=== PATIENT | female | born 1965 | race Caucasian/White ===

== ENCOUNTER 2022-02-14 13:40 | Inpatient (IN) ==
[2022-02-14] MEDS ORDERED: HEPARIN SOD (PORCINE) 1000 UNIT/ML ONE (13:46)
[2022-02-14] MEDS ORDERED: CLOPIDOGREL BISULFATE 300 MG TAB ONE (13:47)
[2022-02-14] MEDS ORDERED: fentaNYL citrate 100 MCG/2 ML VIAL ONE (13:49)
[2022-02-14] MEDS ORDERED: MIDAZOLAM HCL 1 MG/ML 2ML VIAL ONE (13:49)
[2022-02-14] MEDS ORDERED: niCARdipine HCL INJ 2.5 MG/ML 10 ML AMP ONE (13:49)
[2022-02-14] MEDS ORDERED: NITROGLYCERIN/D5W 100MCG/ML 20ML SYR ONE (13:49)
[2022-02-14] MEDS ORDERED: HEPARIN (PORCINE) 1000 UNIT/ML 10 ML (CATH LAB USE ONLY) ONE (13:49)
--- NOTE | 2022-02-14 13:52 | Emergency Department Note ---
Impression & Plan ST elevation (STEMI) myocardial infarction ADMIT ED Provider Note HPI: The patient is a 56-year-old female with history of obesity, hyperlipidemia, active smoker, presents the emergency department with left-sided chest discomfort that is been ongoing for about the past 4 hours. Patient describes the discomfort as mild in nature but states it was severe earlier in the day. Patient presented via EMS as a heart alert as phone call was received from the field over concerning EKG showing some ST elevation in the inferior leads. On arrival to the ED the patient states that her discomfort is very mild, states it is left-sided and radiates down her left arm. Patient denies any nausea or vomiting, denies any abdominal pain, patient's blood pressure is 168/106 on a rrival, pulse of 95, she is saturating well on room air on my initial assessment. 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 Patient developed some left-sided chest discomfort approximately 4 hours prior to arrival, contacted EMS as her discomfort was not resolving. EKG in the field shows evidence of ST elevation in the inferior leads. On arrival here to the ED the patient is hypertensive but otherwise in no acute distress and she actually states that her pain is improved from previous. Patient states that she has an aspirin allergy therefore this was not given. She was ordered a heparin bolus. Patient had IV established shortly after arrival, heart alert was activated prior to the patient's arrival and patient was taken to the cardiac catheterization lab in stable condition for definitive care. * CRITICAL CARE TIME: (32 ) minutes -Time spent in management of patient with acute ST elevation on EKG with active chest pain, heart alert activation, interpretation of diagnostic studies including EKG, time spent at the bedside and arrangement of disposition to cardiac catheterization lab Diagnosis: 1. ST elevation myocardial infarction, inferior leads 2. Acute chest pain 3. Hypertension 4. Obesity Disposition: Admission Roger Judd DO Emergency Medicine Past Med/Surg History Medical History (Updated 02/14/22 @ 14:22 by Roger Judd DO) Asthma Examination for, medical, general Fatigue Generalized skin tumors Hyperhomocystinemia Hyperlipidemia Obesity, Class II, BMI 35-39.9 Phlebitis and thrombophlebitis of other site Screening for endocrine, metabolic, and immunity disorder Screening for lipid disorders Screening for tuberculosis Thrombophlebitis of deep femoral vein Surgical History (Updated 10/14/18 @ 14:04 by Sarah Garvey) No pertinent past surgical history Family History (Updated 07/05/20 @ 08:08 by AJ Pickering) Family/Other No problems noted. Sister Ovarian cancer Denies family history of Prostate cancer Myocardial infarction Breast cancer Colorectal cancer Social History (Updated 07/05/20 @ 08:09 by AJ Pickering) Smoking Status: Current every day smoker Tobacco Type: Cigarettes Hx Alcohol Use: No Hx Substance Use: No Preferred Language: Syrian marital status: Single Current Living Situation: Family current occupational status: unemployed Feels Safe at Home: Yes caffeine: Yes Dental Care, Regularly: No Physical Activity Frequency: Daily Seatbelt Use: always Sunscreen Use: Yes Allergies Allergies Allergy/AdvReac Type Severity Reaction Status Date / Time Penicillins Allergy Verified 07/05/20 08:06 Home Meds Previous Rx's Medication Instructions Recorded cyanocobalamin (vitamin B-12) 1,000 mcg PO DAILY #30 tabs 10/14/18 1,000 mcg tablet (Vitamin B-12) folic acid 1 mg tablet 1 mg PO DAILY #30 tabs 10/14/18 albuterol sulfate 90 mcg/actuation 2 puff inhalation Q4H PRN 10/30/21 aerosol inhaler (Ventolin HFA) shortness of breath or wheezing #18 grams Results & Data (ED) Vital Signs Vital Signs - 24 hr 02/14/22 13:33 02/14/22 13:47 02/14/22 14:03 Pulse Rate 89 Pulse Rate [Right Finger] 98 H Respiratory Rate 30 H 22 Blood Pressure 168/106 H Blood Pressure [Right Arm] 168/106 H Blood Pressure Mean 126 Blood Pressure Mean [Right Arm] 126 Pulse Oximetry 90 91 91 Oxygen Delivery Method Room Air Room Air Room Air Oxygen Flow Rate Sepsis Recent Fever Within 48 Hours No Sepsis New/Unexplained Change in Mental Status No Sepsis Action Taken by Nursing No Action Required 02/14/22 14:03 02/14/22 14:07 02/14/22 14:07 Pulse Rate 95 H Pulse Rate [Right Finger] Respiratory Rate 24 Blood Pressure Blood Pressure [Right Arm] Blood Pressure Mean Blood Pressure Mean [Right Arm] Pulse Oximetry 91 88 L 91 Oxygen Delivery Method Room Air Room Air Nasal Cannula Oxygen Flow Rate 2 Sepsis Recent Fever Within 48 Hours Sepsis New/Unexplained Change in Mental Status Sepsis Action Taken by Nursing 02/14/22 14:10 Pulse Rate Pulse Rate [Right Finger] Respiratory Rate Blood Pressure Blood Pressure [Right Arm] Blood Pressure Mean Blood Pressure Mean [Right Arm] Pulse Oximetry 94 Oxygen Delivery Method Nasal Cannula Oxygen Flow Rate 2 Sepsis Recent Fever Within 48 Hours Sepsis New/Unexplained Change in Mental Status Sepsis Action Taken by Nursing Laboratory Data Result diagrams: 02/14/22 13:56 02/14/22 13:56 Lab Results 02/14/22 02/14/22 Range/Units 13:52 13:56 WBC 10.51 (4.8-10.8) K/ul RBC 4.90 (3.93-5.22) M/uL Hgb 16.2 H (12.0-16.0) g/dl POC Hgb 17.3 H (12.0-16.0) g/dl Hct 48.5 H (34.1-44.9) % POC Hct 51 H (37-47) % MCV 99.0 (80.0-100.0) fL MCH 33.1 (25.0-34.0) pg MCHC 33.4 (32.0-36.0) g/dL RDW Std Deviation 48.8 H (36.4-46.3) fL RDW Coeff of Macario 13.3 (11.5-14.5) % Plt Count 168 (130-400) K/uL MPV 12.2 (9.4-12.3) fL Immature Gran % (Auto) 0.3 % Neut % (Auto) 89.5 % Lymph % (Auto) 7.2 % Bath % (Auto) 2.3 % Eos % (Auto) 0.3 % Baso % (Auto) 0.4 % Neut # (Auto) 9.41 H (1.4-6.5) K/uL Lymph # (Auto) 0.76 L (1.2-3.4) K/uL Bath # (Auto) 0.24 (0.24-0.82) K/uL Eos # (Auto) 0.03 (0-0.50) K/uL Baso # (Auto) 0.04 (0-0.2) K/uL Immature Gran # (Auto) 0.03 H (0.00-0.02) K/uL POC Sodium 138 (135-144) mmol/L POC Potassium 3.6 (3.3-5.0) mmol/L POC Chloride 95 L (101-112) mmol/L POC Total CO2 32 H (24-31) mmol/L POC Anion Gap 15.0 L (16-25) mmol/L POC BUN 5 L (7-18) mg/dl POC Creatinine 0.8 (0.6-1.3) mg/dl POC Glucose (other) 191 H (70-99) mg/dl POC Ioniz Calcium Seven 1.14 (1.12-1.32) mmol/l Discharge Plan Visit Data Chief Complaint: Heart Alert Stated Complaint: CHEST PAIN, HEART ALERT ED Provider: Roger Judd Discharge Problem: ST elevation (STEMI) myocardial infarction Patient Disposition: Admitted As Inpatient Forms Stand Alone Forms: [facility] Prescriptions Prescriptions: No Action cyanocobalamin (vitamin B-12) [Vitamin B-12] 1,000 mcg tablet 1,000 mcg PO DAILY Qty: 30 0RF folic acid 1 mg tablet 1 mg PO DAILY Qty: 30 2RF albuterol sulfate [Ventolin HFA] 90 mcg/actuation HFA aerosol inhaler 2 puff INH Q4H PRN (Reason: shortness of breath or wheezing) Qty: 18 5RF Referrals Referrals: Alli Mathur DO [Primary Care Provider] -
[2022-02-14] MEDS ORDERED: HEPARIN SOD (PORCINE) 1000 UNIT/ML IV ONE (13:54)
[2022-02-14 14:04] LABS: iSTAT Creatinine 0.8 mg/dl (0.6-1.3); iSTAT Hemoglobin 17.3 g/dl (12.0-16.0); iSTAT Ionized Calcium 1.14 mmol/l (1.12-1.32); iSTAT Potassium 3.6 mmol/L (3.3-5.0)
[2022-02-14 14:07] LABS: Basophils # (auto) 0.04 K/uL (0-0.2); Basophils % (auto) 0.4 %; Eosinophils # (auto) 0.03 K/uL (0-0.50); Eosinophils % (auto) 0.3 %; Hematocrit (blood only) 48.5 % (34.1-44.9); Hemoglobin 16.2 g/dl (12.0-16.0); Immature Granulocytes # (auto) 0.03 K/uL (0.00-0.02); Immature Granulocytes % (auto) 0.3 %; Lymphocytes # (auto) 0.76 K/uL (1.2-3.4); Lymphocytes % (auto) 7.2 %; Mean Corpuscular Hemoglobin 33.1 pg (25.0-34.0); Mean Corpuscular Hgb Conc 33.4 g/dL (32.0-36.0); Mean Platelet Volume 12.2 fL (9.4-12.3); Monocytes # (auto) 0.24 K/uL (0.24-0.82); Monocytes % (auto) 2.3 %; Neutrophils # (auto) 9.41 K/uL (1.4-6.5); Neutrophils % (auto) 89.5 %; Platelet Count 168 K/uL (130-400); RDW Coefficient of Variation 13.3 % (11.5-14.5); RDW Standard Deviation 48.8 fL (36.4-46.3); White Blood Count 10.51 K/ul (4.8-10.8)
[2022-02-14] MEDS ORDERED: TICAGRELOR 90 MG TAB ONE (14:13)
--- NOTE | 2022-02-14 14:25 | Pre Anesthesia Assessment ---
Date of Service February 14, 2022 Pre Sedation Assessment Vital Signs Pulse Pulse Resp BP BP Pulse Ox O2 Del Method 02/14/22 14:12 104 H 25 H 94 Nasal Cannula 02/14/22 14:10 94 Nasal Cannula 02/14/22 14:07 24 91 Nasal Cannula 02/14/22 14:07 88 L Room Air 02/14/22 14:03 95 H 91 Room Air 02/14/22 14:03 91 Room Air 02/14/22 13:47 98 H 22 168/106 H 91 Room Air 02/14/22 13:33 89 30 H 168/106 H 90 Room Air O2 Flow Rate 02/14/22 14:12 2 02/14/22 14:10 2 02/14/22 14:07 2 02/14/22 14:07 02/14/22 14:03 02/14/22 14:03 02/14/22 13:47 02/14/22 13:33 Cardiovascular RRR, no murmur, no edema Respiratory normal respiratory effort, lungs clear to auscultation Pre-Sedation Airway Assessment Smoking Status: Current every day smoker Hx Sleep Apnea: No Hx Difficult Intubation: No Short, Thick Neck: No Thyromental Distance: < 3.5 Finger Breadths Oral Cavity: + WNL Mallampati Class: III ASA: ASA4 Procedure Planning Contraindications for Sedation: none Current Medications Reviewed: Yes Notes The planned sedation has been discussed with the patient. Informed Consent was obtained. I have identified the patient, determined the appropriateness of sedation and have assessed the patient immediately prior to the procedure. All medicine(s) and interventions are by my order.
--- NOTE | 2022-02-14 14:27 | History & Physical Report ---
Date of Service February 14, 2022 Assessment & Plan (1) ST elevation (STEMI) myocardial infarction: Plan: Zuly Johns is a 56-year-old female with a past medical history of obesity, hyper homocystinemia, hyperlipidemia, asthma, left shoulder pain after a fall 08/2021, and tobacco abuse who presents to [facility] as a heart alert w/ EKG changes consistent with inferior STEMI. 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 Inferior STEMI s/p 1x TRELL to distal CX for 100% occlusion EKG: ST elevation in II, II, aVF Troponin 344 Cardiology consulted --> cardiac catheterization CXR pending Sodium normal, potassium normal CO2 32, Creatinine 0.8, BSG 191, iCal 1.14 - Echo pending - Trop trended - +BB, SHANE. - +Atorv 80 pending lipid results -- PCI -- Antithrombotic therapy: Heparin, ticagrelor Procedure: Left main cannulated with EBU 3.5 guide Bowling Ball Molder 50 wire passed across lesion into distal vessel Distal circumflex lesion predilated with 2.5 compliant balloon Dilated lesion stented with 3.0 x 18 mm Chris drug-eluting stent Stent post-dilated with 3.5 noncompliant balloon IC vasodilators administered for spasm Post procedure JYOTHI 3 flow, stent well expanded with minimal residual stenosis and no apparent cardiac complications. Arterial Closure: TR band Summary: 1. Inferior STEMI/100% acute distal circumflex occlusion 2. Mild non-culprit coronary artery disease -30% mid circumflex 3. Elevated intracardiac filling pressure 4. Successful PCI of distal circumflex with single drug-eluting stent (3.0 x 18 mm Chris; postdilated with 3.5 NC). Recommendations: Admit to PCU for continued monitoring Loaded with ticagrelor 180 mg in ED Continue dual-antiplatelet therapy for at least 1 year. Trend troponins until peak, Check Echo Uptitrate beta-aundrea/SHANE as BP allows High-dose statin Consult cardiac Rehab Smoking cessation Hyperlipidemia Fasting lipid panel pending No prior statin/antilipid agents Hyper homocystinemia Elevated risk for cardiac/thromboembolic events Continue folic acid supplementation B12 levels pending Asthma - No wheezing on admission By chart review using inhaler ~1x/week, sx worsened by cat dander, suspect intermittent by chart review No PFTs available for review With palpitations/tachycardia with albuterol in the past, Xopenex as needed Dispo: PCU for recovery post cath Diet: NPO pending cath Code Status: Full Code (2) Hyperlipidemia: (3) Hyperhomocystinemia: (4) Obesity, Class II, BMI 35-39.9: (5) Asthma: History of Present Illness Primary Care Provider: Alli Mathur DO Zuly Johns is a 56-year-old female with a past medical history of obesity, hyper homocystinemia, hyperlipidemia, asthma, left shoulder pain after a fall 08/2021, and tobacco abuse who presents to [facility] as a heart alert. 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 Presents to the emergency department with 4 hours of chest discomfort initially severe with a shock like quality and gradually fading but with a tight and squeezing quality and which radiates down L shoulder/arm. No diaphoresis/shortness of breath but does feel very anxious. History of 1-1.5 pack/day tobacco use. No prior history of [place]/stroke. First- degree family history of angina. No diabetes. No prior hypertension, does not take antihypertensives. History of homocystinemia, on chart review history of hyperlipidemia although patient reports she does not take any lipid-lowering medications/statins. BMI 34. No surgical history. Lives with her autistic son for whom she is the primary caregiver, is concerned about recovery time but agreeable to catheterization for STEMI. EKG: ST elevations in 2/3/aVF Troponin pending Medical History: Reviewed Medications: Reviewed Surgical History: Reviewed Allergies: Reviewed Social History: 1-1.5ppd tobacco use Code Status: Full Allergies Allergy/AdvReac Type Severity Reaction Status Date / Time Penicillins Allergy Verified 07/05/20 08:06 Home Medications Medication Instructions Recorded Confirmed Type cyanocobalamin (vitamin B-12) 1,000 mcg PO DAILY #30 tabs 10/14/18 07/05/20 Rx 1,000 mcg tablet (Vitamin B-12) folic acid 1 mg tablet 1 mg PO DAILY #30 tabs 10/14/18 07/05/20 Rx albuterol sulfate 90 mcg/actuation 2 puff inhalation Q4H PRN 10/30/21 10/30/21 Rx aerosol inhaler (Ventolin HFA) shortness of breath or wheezing #18 grams Past Med/Surg History Medical History Asthma Examination for, medical, general Fatigue Generalized skin tumors Hyperhomocystinemia Hyperlipidemia Obesity, Class II, BMI 35-39.9 Phlebitis and thrombophlebitis of other site Screening for endocrine, metabolic, and immunity disorder Screening for lipid disorders Screening for tuberculosis Thrombophlebitis of deep femoral vein Surgical History (Reviewed 02/14/22 @ 14: by Jesse Mejia MD) No pertinent past surgical history Family History Family/Other No problems noted. Sister Ovarian cancer Denies family history of Prostate cancer Myocardial infarction Breast cancer Colorectal cancer Social History Smoking Status: Current every day smoker Tobacco Type: Cigarettes Hx Alcohol Use: No Hx Substance Use: No Preferred Language: Polish marital status: Single Current Living Situation: Family current occupational status: unemployed Feels Safe at Home: Yes caffeine: Yes Dental Care, Regularly: No Physical Activity Frequency: Daily Seatbelt Use: always Sunscreen Use: Yes Review of Systems Review of Systems: All systems reviewed & are unremarkable except as noted in HPI & below Physical Exam Physical Exam: Alert and oriented, answers questions appropriately, RRR -mrg, extremities warm/dry with good perfusion, CTAB -wrr. Abt NT/ND/soft. Vision/hearing grossly intact. PERLAA. EoM intact. Results & Data Results & Data ([facility]) Vital Signs (Past 12 Hours) Vital Signs Pulse Pulse Resp BP BP Pulse Ox O2 Del Method 02/14/22 14:12 104 H 25 H 94 Nasal Cannula 02/14/22 14:10 94 Nasal Cannula 02/14/22 14:07 24 91 Nasal Cannula 02/14/22 14:07 88 L Room Air 02/14/22 14:03 95 H 91 Room Air 02/14/22 14:03 91 Room Air 02/14/22 13:47 98 H 22 168/106 H 91 Room Air 02/14/22 13:33 89 30 H 168/106 H 90 Room Air O2 Flow Rate 02/14/22 14:12 2 02/14/22 14:10 2 02/14/22 14:07 2 02/14/22 14:07 02/14/22 14:03 02/14/22 14:03 02/14/22 13:47 02/14/22 13:33 Code Status & VTE Plan VTE Prophylaxis Plan VTE Prophylaxis will be ordered: Yes PG Care Time/CCT Total # of Minutes Spent Total Time Spent with Patient: Total time spent is greater than 50% in coordination of care (as documented) at patient's floor/unit and/or counseling patient: Coding Level of Care Code 28900 Initial Inpt Care Lvl [address] elevation (STEMI) myocardial infarction I21.19 Involved coronary artery: other inferior wall coronary artery Hyperlipidemia E78.5 Hyperhomocystinemia E72.11 Obesity, Class II, BMI 35-39.9 E66.9 Asthma J45.909 (1) ST elevation (STEMI) myocardial infarction Involved coronary artery: other inferior wall coronary artery Qualified Code(s): I21.19 - ST elevation (STEMI) myocardial infarction involving other coronary artery of inferior wall
--- NOTE | 2022-02-14 14:32 | XRay Report ---
XR chest 1V portable CLINICAL HISTORY: Chest Pain TECHNIQUE: Single frontal radiograph of the chest was obtained. Comparison: None available at the time of this dictation. FINDINGS: Exam is limited by underpenetration. The cardiomediastinal silhouette is normal. The lungs are clear. No evidence of pleural effusion or pneumothorax. IMPRESSION: No acute chest disease. ACT 112: Negative or not required by law. Electronically signed by: Evangelist Reynoso M.D. 02/14/2022 2:30 PM
[2022-02-14 14:45] LABS: Albumin Globulin Ratio 1.3 (0.9-2); Albumin Level 4.1 gm/dl (3.4-5.0); BUN Creatinine Ratio 7.1 (10-20); Bilirubin,Total 0.6 mg/dl (0.2-1.0); Calcium 9.6 mg/dl (8.5-10.1); Creatinine Clr Calc Pharmacy 88.8 ml/min; Est GFR (African American) 90.7 ml/min; Est GFR (Non-African American) 78.2 ml/min; Globulin 3.2 gm/dl (2.5-4.0); Potassium 3.6 mmol/L (3.5-5.1); Total Protein 7.3 gm/dl (6.0-8.3)
[2022-02-14 14:54] LABS: Troponin I High Sensitivity 344.6 pg/ml (0-14)
[2022-02-14] MEDS ORDERED: ACETAMINOPHEN 325 MG TAB PO PRN (15:05)
[2022-02-14] MEDS ORDERED: NITROGLYCERIN SL 0.4 MG/TAB TAB SL PRN (15:05)
[2022-02-14] MEDS ORDERED: ONDANSETRON INJ 2 MG/ML 2 ML VIAL IV PRN (15:05)
[2022-02-14] MEDS ORDERED: SODIUM CHLORIDE 0.9% 1000ML 1,000 ML IV SCH (15:15)
--- NOTE | 2022-02-14 15:20 | Cardiology Consultation ---
Date of Consultation February 14, 2022 Assessment & Plan (1) ST elevation (STEMI) myocardial infarction: Presentation consistent with inferior STEMI and recommend proceeding with emergent cardiac catheterization and likely primary PCI. No apparent contraindications to procedure. Discussed risks, benefits, alternatives of procedure with patient and they are willing to proceed. Given IV heparin and ticagrelor 180 mg in the ED. Further recommendations pending findings of coronary angiography. History of Present Illness History of Present Illness 56-year-old woman here with acute chest pain and ECG concerning for acute CA. Patient seen emergently in the ED after heart alert activated en route. No prior cardiac history. Cardiac risk factors include dyslipidemia and ongoing smoking (1.5 packs/day). Mother also with a history of questionable angina. Other medical issues include Asthma. Chest pain began approximately 10 AM, 3.5 hours prior to arrival. Pain occurred while she was taking a nap, waking her from sleep. Describes initial like electric shock going across her chest and down her arms then persistent left shoulder tightness and shortness of breath. Has had longstanding shoulder/back issues but denies similar symptoms in the past. EKG in the field showed inferior ST elevations. Mild residual chest pain on arrival. Hemodynamically stable. EKG again showed sinus rhythm with subtle inferior ST elevations. Allergies Allergy/AdvReac Type Severity Reaction Status Date / Time Penicillins Allergy Verified 07/05/20 08:06 Home Medications Medication Instructions Recorded Confirmed Type cyanocobalamin (vitamin B-12) 1,000 mcg PO DAILY #30 tabs 10/14/18 07/05/20 Rx 1,000 mcg tablet (Vitamin B-12) folic acid 1 mg tablet 1 mg PO DAILY #30 tabs 10/14/18 07/05/20 Rx albuterol sulfate 90 mcg/actuation 2 puff inhalation Q4H PRN 10/30/21 10/30/21 Rx aerosol inhaler (Ventolin HFA) shortness of breath or wheezing #18 grams Patient History Medical History Asthma Examination for, medical, general Fatigue Generalized skin tumors Hyperhomocystinemia Hyperlipidemia Obesity, Class II, BMI 35-39.9 Phlebitis and thrombophlebitis of other site Screening for endocrine, metabolic, and immunity disorder Screening for lipid disorders Screening for tuberculosis Thrombophlebitis of deep femoral vein Surgical History No pertinent past surgical history Family History Family/Other No problems noted. Sister Ovarian cancer Denies family history of Prostate cancer Myocardial infarction Breast cancer Colorectal cancer Social History Smoking Status: Current every day smoker Tobacco Type: Cigarettes Hx Alcohol Use: No Hx Substance Use: No Preferred Language: Colombian marital status: Single Current Living Situation: Family current occupational status: unemployed Feels Safe at Home: Yes caffeine: Yes Dental Care, Regularly: No Physical Activity Frequency: Daily Seatbelt Use: always Sunscreen Use: Yes Review of Systems Review of Systems: Not obtained in the setting of emergent situation Physical Exam Physical Exam: General: Uncomfortable, anxious HEENT: Sclerae anicteric Lungs: Clear anteriorly Cardiac: Regular rate and rhythm, no murmurs. Vascular: 2+ radial Abdomen: Soft, nontender Extremities: Well perfused, no peripheral edema Neuro: Nonfocal Psych: Alert orient x3, normal affect and mood Results & Data ([facility]) Vital Signs (Past 12 Hours) Vital Signs Pulse Pulse Resp BP BP Pulse Ox O2 Del Method 02/14/22 14:12 104 H 25 H 94 Nasal Cannula 02/14/22 14:10 94 Nasal Cannula 02/14/22 14:07 24 91 Nasal Cannula 02/14/22 14:07 88 L Room Air 02/14/22 14:03 95 H 91 Room Air 02/14/22 14:03 91 Room Air 02/14/22 13:47 98 H 22 168/106 H 91 Room Air 02/14/22 13:33 89 30 H 168/106 H 90 Room Air O2 Flow Rate 02/14/22 14:12 2 02/14/22 14:10 2 02/14/22 14:07 2 02/14/22 14:07 02/14/22 14:03 02/14/22 14:03 02/14/22 13:47 02/14/22 13:33 PG Care Time/CCT Total # of Minutes Spent Total Time Spent with Patient: Total time spent is greater than 50% in coordination of care (as documented) at patient's floor/unit and/or counseling patient: Coding Level of Care Code 83397 Initial Inpt Care Lvl [address] elevation (STEMI) myocardial infarction I21.19 Involved coronary artery: other inferior wall coronary artery (1) ST elevation (STEMI) myocardial infarction Involved coronary artery: other inferior wall coronary artery Qualified Code(s): I21.19 - ST elevation (STEMI) myocardial infarction involving other coronary artery of inferior wall
--- NOTE | 2022-02-14 15:21 | Post Anesthesia Assessment ---
Date of Service February 14, 2022 Post Sedation Assessment Vital Signs Pulse Pulse Pulse Resp BP BP Pulse Ox 02/14/22 15:15 69 16 132/81 94 02/14/22 15:00 71 16 103/71 92 02/14/22 14:12 104 H 25 H 94 02/14/22 14:10 94 02/14/22 14:07 24 91 02/14/22 14:07 88 L 02/14/22 14:03 95 H 91 02/14/22 14:03 91 02/14/22 13:47 98 H 22 168/106 H 91 02/14/22 13:33 89 30 H 168/106 H 90 O2 Del Method O2 Flow Rate 02/14/22 15:15 Nasal Cannula 2 02/14/22 15:00 Nasal Cannula 2 02/14/22 14:12 Nasal Cannula 2 02/14/22 14:10 Nasal Cannula 2 02/14/22 14:07 Nasal Cannula 2 02/14/22 14:07 Room Air 02/14/22 14:03 Room Air 02/14/22 14:03 Room Air 02/14/22 13:47 Room Air 02/14/22 13:33 Room Air Recovery Score Activity: Moves 4 extremities Respiration: Deep Breath/Cough Circulation: +/-20% PreAnes Value Consciousness: Fully Awake Oxygen Saturation: O2 needed for >90% Post Anesthesia Score: 9 Discharge Sedation Level of Care: Fast Track Phase II Post Sedation Plan On clinical assessment, the patient appears to have tolerated the sedation without complications. Patient is recovering as anticipated. Patient will continue to be monitored by nursing and may be discharged when sedation discharge criteria are met per below protocol. Upon Completions of procedure up to 15 minutes continue every 5 minute vital signs and the P.A.R. score; then discharge to a Phase I or Fast Track to Phase II per the following guidelines: * Discharge Patient to appropriate Phase II area if PAR is 8 or greater or return to pre- procedure baseline. The post - procedure orders will be as directed. * If PAR score is less than 8 or not return to pre-procedure baseline then patient will follow Phase I monitoring till PAR is reached for Phase II. The Phase I may be done in procedure room or may call to secure a Phase I area. * If naloxone or flumazenil are used for reversal, hold in Phase I for continued monitoring from when last reversal dose was given for a minimum of 60 minutes or longer pending the nurse and/or physician discretion of patient condition before discharge to Phase II. Please call the Sedation Physician to re-evaluate and complete post-note for discharge to Phase II area. Do NOT discharge from procedure sedation or Phase 1 until post- sedation evaluation note is complete by procedure /sedation MD Sedation Discharge Instructions to be given to the patient at discharge to home.
--- NOTE | 2022-02-14 15:29 | Cardiac Catheterization ---
[facility] Data: [employer] Cardiac Status Clinical evaluation leading to the procedure CAD Presenation: STEMI Anginal Classification: CCS IV Diagnostic Physicians Name: Moisés Munoz MD Closure Device Recommendations: PCI without planned CABG Cardiac Cath Procedure Full Procedure Date February 14, 2022 Pre-Procedure Diagnosis Pre-Procedure Diagnosis: STEMI AUC Score AUC Score: 9 Post-Procedure Diagnosis Post-Procedure Diagnosis: Severe CAD, Successful PCI and Elevated Intracardiac Pressures Procedure(s) Performed Procedure(s) Performed: Coronary Angiography, Left Heart Cath and Drug Eluting Stent Pharmacy Coordinator Moisés Munoz MD 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 Distal vessel without significant disease and wraps around apex. D1, D2 without disease. Circumflex -large caliber, 30% mid segment disease. Acute 100% distal occlusion at takeoff of small OM 3 RCA -dominant, large caliber vessel, proximal and mid segment luminal irregularities. PDA without significant disease. LVEDP -22 -- PCI -- Antithrombotic therapy: Heparin, ticagrelor Procedure: Left main cannulated with EBU 3.5 guide Land Title Examiner 50 wire passed across lesion into distal vessel Distal circumflex lesion predilated with 2.5 compliant balloon Dilated lesion stented with 3.0 x 18 mm Chris drug-eluting stent Stent post-dilated with 3.5 noncompliant balloon IC vasodilators administered for spasm Post procedure JYOTHI 3 flow, stent well expanded with minimal residual stenosis and no apparent cardiac complications. Arterial Closure: TR band Summary: 1. Inferior STEMI/100% acute distal circumflex occlusion 2. Mild non-culprit coronary artery disease -30% mid circumflex 3. Elevated intracardiac filling pressure 4. Successful PCI of distal circumflex with single drug-eluting stent (3.0 x 18 mm [place]; postdilated with 3.5 NC). Recommendations: Admit to PCU for continued monitoring Loaded with ticagrelor 180 mg in ED Continue dual-antiplatelet therapy for at least 1 year. Trend troponins until peak, Check Echo Uptitrate beta-aundrea/SHANE as BP allows High-dose statin Consult cardiac Rehab Smoking cessation Hemodynamics Rest Ao:: 142/86/113 Final Ao: 96/58/74 LV: 97/22 Recommendations Recommendations: PCI without planned CABG Radiation Exposure (mGy) 1105 Contrast (mls) 40 Drains Drains: None Anesthesia Moderate 7651-1687 Procedural Complication(s) None Disposition PCU I attest to the content of the Intraoperative Record and any orders documented therein. Any exceptions are noted below. [facility] Card Cath Procedure Codes Cardiac Catheterization Procedure 1: Cardiovascular Cath Procedures: 51204 Coronaries and LHC (+/-LV) Moderate Sedation Procedure 1: Sedation/Anesthesia: 82411 Mod Sedation by the same physician;Init15 Min Child Age 5 & Up Stenting Procedure 1: Cardiovascular Stent Procedures: 04006 Perc transluminal revascularization of acute sub/total occl, aMI PG Care Time/CCT Total # of Minutes Spent Total Time Spent with Patient: Total time spent is greater than 50% in coordination of care (as documented) at patient's floor/unit and/or counseling patient:
--- NOTE | 2022-02-14 15:38 | Electrocardiogram Report ---
Test Reason : Blood Pressure : / mmHG Vent. Rate : 089 BPM Atrial Rate : 089 BPM P-R Int : 130 ms QRS Dur : 086 ms QT Int : 370 ms P-R-T Axes : 074 069 085 degrees QTc Int : 450 ms Normal sinus rhythm Low voltage QRS ST elevation consider inferior injury or acute infarct ACUTE [place] / STEMI Abnormal ECG No previous ECGs available Confirmed by Fred Valerio ([id number]) on 02/14/2022 3:37:57 PM Referred By: ED Confirmed By:Fred Valerio
[2022-02-14] MEDS ORDERED: ICU PROTOCOL FOR HYPERGLYCEMIA PRN (15:59)
--- NOTE | 2022-02-14 16:14 | XCELERA ---
[id number]
[2022-02-14] MEDS ORDERED: diphenhydrAMINE Capsule 25 MG CAP PO PRN (17:20)
[2022-02-14] MEDS ORDERED: FUROSEMIDE 40 MG/4 ML VIAL IV ONE (18:25)
[2022-02-14] MEDS: ALBUT/IPRATROP 3MG/0.5MG NEB 3 ML VIAL NEB SCH (19:08)
[2022-02-14] MEDS: methylPREDNISolone 40 MG in SYRINGE 0 ML IV SCH (19:24)
[2022-02-14] MEDS: METOPROLOL TARTRATE 25 MG TAB PO SCH (20:18)
[2022-02-15] MEDS: ALBUTEROL HFA 8 GM INHALER INH PRN ×5 (00:16→23:37)
--- NOTE | 2022-02-15 00:59 | Communication Note ---
Date of Service: February 15, 2022 17 beat run of Secure[employer]. repleting K. checking Mg w/ amlabs not tolerating IV repletion, so switching to 40meq PO KCl.
[2022-02-15] MEDS ORDERED: POTASSIUM CHLORIDE / WTR 10 MEQ/100 ML PLCT IV SCH (01:00)
[2022-02-15] MEDS ORDERED: POTASSIUM CHLORIDE CRTAB 20 MEQ TABCR PO STA (01:35)
[2022-02-15 05:39] LABS: Basophils # (auto) 0.02 K/uL (0-0.2); Basophils % (auto) 0.2 %; Hematocrit (blood only) 44.8 % (34.1-44.9); Hemoglobin 15.2 g/dl (12.0-16.0); Immature Granulocytes # (auto) 0.03 K/uL (0.00-0.02); Immature Granulocytes % (auto) 0.3 %; Lymphocytes # (auto) 0.55 K/uL (1.2-3.4); Lymphocytes % (auto) 5.1 %; Mean Corpuscular Hgb Conc 33.9 g/dL (32.0-36.0); Mean Corpuscular Volume 97.4 fL (80.0-100.0); Mean Platelet Volume 12.2 fL (9.4-12.3); Monocytes # (auto) 0.51 K/uL (0.24-0.82); Monocytes % (auto) 4.7 %; Neutrophils # (auto) 9.74 K/uL (1.4-6.5); Neutrophils % (auto) 89.7 %; Platelet Count 171 K/uL (130-400); RDW Coefficient of Variation 13.4 % (11.5-14.5); RDW Standard Deviation 47.8 fL (36.4-46.3); White Blood Count 10.85 K/ul (4.8-10.8)
[2022-02-15 06:06] LABS: Albumin Globulin Ratio 1.3 (0.9-2); Albumin Level 3.8 gm/dl (3.4-5.0); BUN Creatinine Ratio 11.7 (10-20); Bilirubin,Total 0.8 mg/dl (0.2-1.0); Calcium 9.7 mg/dl (8.5-10.1); Chol HDL Ratio 3.2 (0-5); Creatinine Clr Calc Pharmacy 90.3 ml/min; Est GFR (African American) 100.7 ml/min; Est GFR (Non-African American) 86.9 ml/min; Magnesium 2.1 mg/dl (1.7-2.4); Potassium 3.9 mmol/L (3.5-5.1); Total Protein 6.8 gm/dl (6.0-8.3)
[2022-02-15 06:28] LABS: Troponin I High Sensitivity 60435.3 pg/ml (0-14)
[2022-02-15] MEDS: ALBUT/IPRATROP 3MG/0.5MG NEB 3 ML VIAL NEB SCH ×2 (07:44→10:53)
[2022-02-15 07:46] LABS: Estimated Average Glucose 131 mg/dl; Hemoglobin A1C 6.2 % (4.5-5.6)
[2022-02-15 07:53] LABS: Estimated Average Glucose 134 mg/dl; Hemoglobin A1C 6.3 % (4.5-5.6)
[2022-02-15] MEDS: METOPROLOL TARTRATE 25 MG TAB PO SCH ×2 (08:47→20:56)
[2022-02-15] MEDS: methylPREDNISolone 40 MG in SYRINGE 0 ML IV SCH (08:47)
[2022-02-15] MEDS: TICAGRELOR 90 MG TAB PO SCH ×2 (08:48→20:57)
[2022-02-15] MEDS: lisinopril 5 MG TAB PO SCH (08:48)
[2022-02-15] MEDS: ATORVASTATIN 40 MG TAB PO SCH (08:49)
[2022-02-15] MEDS: ASPIRIN 81 MG ECTAB PO SCH (08:49)
--- NOTE | 2022-02-15 11:12 | Electrocardiogram Report ---
Test Reason : Blood Pressure : / mmHG Vent. Rate : 077 BPM Atrial Rate : 077 BPM P-R Int : 108 ms QRS Dur : 088 ms QT Int : 598 ms P-R-T Axes : 070 071 066 degrees QTc Int : 676 ms Poor data quality, interpretation may be adversely affected Sinus rhythm with short IL Prolonged QT Abnormal ECG When compared with ECG of 14-FEB-2022 13:42, ST elevation in Inferior leads no longer present Confirmed by Kaleb Javed ([id number]) on 02/15/2022 11:11:46 AM Referred By: REFERRED SELF Confirmed By:Kaleb Javed
[2022-02-15] MEDS ORDERED: ALBUT/IPRATROP 3MG/0.5MG NEB 3 ML VIAL NEB PRN (11:14)
--- NOTE | 2022-02-15 13:48 | Hospitalist Progress Note ---
Date of Service February 15, 2022 Assessment & Plan (1) ST elevation (STEMI) myocardial infarction: Plan: Zuly Johns is a 56-year-old female with a past medical history of obesity, hyper homocystinemia, hyperlipidemia, asthma, left shoulder pain after a fall 08/2021, and tobacco abuse who presents to [facility] as a heart alert w/ EKG changes consistent with inferior STEMI. 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 Inferior STEMI s/p 1x TRELL to distal CX for 100% occlusion EKG: ST elevation in II, II, aVF Troponin 344 -> 117,000, then down. Cardiology consulted --> cardiac catheterization on 02/14 with 100% occluded distal LCx. 1 TRELL placed. - Echo on 02/14 with EF 60 - 65%. No regional wall motion abnormalities. - Continue ASA, Brilinta, metoprolol, lisinopril, and statin Hyper homocystinemia Elevated risk for cardiac/thromboembolic events Continue folic acid supplementation Asthma - No wheezing on admission By chart review using inhaler ~1x/week, sx worsened by cat dander, suspect intermittent by chart review No PFTs available for review With palpitations/tachycardia with albuterol in the past, Xopenex as needed (2) Hyperlipidemia: (3) Hyperhomocystinemia: (4) Obesity, Class II, BMI 35-39.9: (5) Asthma: Admission and Anticipated Discharge Date Admission Date: February 14, 2022 Subjective Doing well today. No further chest pain. Notes some left shoulder pain from an injury in August. Reports no fevers/chills, chest pain, shortness of breath, abdominal pain, nausea, or vomiting. Physical Exam Constitutional: WD/WN, vitals as above Eyes: EOM intact bilaterally; no conjunctival abnormality ENMT: external ear and nose normal, oropharynx normal Neck: trachea midline, no thyromegaly normal visual inspection Respiratory: normal respiratory effort, lungs clear to auscultation no respiratory distress Cardiovascular: RRR, no murmur, no edema Gastrointestinal (Abdomen): Inspection/Auscultation: abdomen normal to inspection; abdomen not distended Musculoskeletal: no cyanosis or clubbing, extremities motor strength 5/5 Skin: no rashes, warm and dry Neurologic: moves all extremities and awake Psychiatric: Orientation: alert, oriented to person and cooperative Results & Data Results & Data ([facility]) Vital Signs (Past 12 Hours) Vital Signs Temp Pulse Pulse Pulse Resp BP Pulse Ox 02/15/22 10:53 82 19 92 02/15/22 10:50 36.9 C 68 20 135/92 92 02/15/22 08:45 02/15/22 06:18 85 02/15/22 07:35 36.8 C 82 18 148/89 H 91 02/15/22 07:34 86 19 93 02/15/22 03:38 36.7 C 75 18 134/90 90 O2 Del Method O2 Flow Rate 02/15/22 10:53 Nasal Cannula 1 02/15/22 10:50 Nasal Cannula 1 02/15/22 08:45 Nasal Cannula 1 02/15/22 06:18 02/15/22 07:35 Nasal Cannula 2 02/15/22 07:34 Nasal Cannula 1 02/15/22 03:38 Nasal Cannula 2 PG Care Time/CCT Total # of Minutes Spent Total Time Spent with Patient: Total time spent is greater than 50% in coordination of care (as documented) at patient's floor/unit and/or counseling patient: Coding Level of Care Code 82621 Subseq Hosp Care Lvl [address] elevation (STEMI) myocardial infarction I21.19 Involved coronary artery: other inferior wall coronary artery Hyperlipidemia E78.5 Hyperhomocystinemia E72.11 Obesity, Class II, BMI 35-39.9 E66.9 Asthma J45.909 (1) ST elevation (STEMI) myocardial infarction Involved coronary artery: other inferior wall coronary artery Qualified Code(s): I21.19 - ST elevation (STEMI) myocardial infarction involving other coronary artery of inferior wall
--- NOTE | 2022-02-15 14:55 | Cardiology Progress Note ---
Date of Service February 15, 2022 Assessment & Plan (1) ST elevation (STEMI) myocardial infarction: (2) Presence of drug coated stent in left circumflex coronary artery: (3) Asthma: Plan Doing well post drug-eluting stent circumflex artery. Brief SVT but no significant dysrhythmias overnight. Etiology of mild dyspnea uncertain, she does not appear volume overloaded and has no evidence of bronchospasm, continue to monitor. She does have history of asthma and tobacco use. Likely discharge tomorrow if clinically appropriate. Admission and Anticipated Discharge Date Admission Date: February 14, 2022 Subjective Patient denies any chest discomfort. She does note mild dyspnea and feeling warm. No palpitations, lightheadedness, or other complaints. Telemetry showed sinus rhythm with one 12 beat run of narrow complex tachycardia overnight. Physical Exam Physical Exam: No distress. Afebrile. Normotensive. Pulse 82 bpm and regular. Skin: no ecchymoses or generalized lesions. HEENT: unremarkable. Neck: no JVD or carotid bruits. Lungs: Mildly decreased breath sounds, but generally clear. No wheezing at rest or on forced exhalation. No accessory muscle use. Cardiac: regular rhythm, no murmur or gallop. Abdomen: benign. Extremities: no edema, pulses intact. Right radial access site benign. Neurologic: normal affect, nonfocal. Results & Data ([facility]) Vital Signs (Past 12 Hours) Vital Signs Temp Pulse Pulse Pulse Resp BP Pulse Ox 02/15/22 10:53 82 19 92 02/15/22 10:50 98.4 F 68 20 135/92 92 02/15/22 08:45 02/15/22 06:18 85 02/15/22 07:35 98.2 F 82 18 148/89 H 91 02/15/22 07:34 86 19 93 02/15/22 03:38 98.1 F 75 18 134/90 90 O2 Del Method O2 Flow Rate 02/15/22 10:53 Nasal Cannula 1 02/15/22 10:50 Nasal Cannula 1 02/15/22 08:45 Nasal Cannula 1 02/15/22 06:18 02/15/22 07:35 Nasal Cannula 2 02/15/22 07:34 Nasal Cannula 1 02/15/22 03:38 Nasal Cannula 2 Diagnostic Findings Echocardiogram showed EF 60 to 65% with no definite wall motion abnormalities. PG Care Time/CCT Total # of Minutes Spent Total Time Spent with Patient: Total time spent is greater than 50% in coordination of care (as documented) at patient's floor/unit and/or counseling patient: Coding Level of Care Code 52821 Subseq Hosp Care Lvl [address] elevation (STEMI) myocardial infarction I21.19 Involved coronary artery: other inferior wall coronary artery Presence of drug coated stent in left circumflex coronary artery Z95.5 Asthma J45.909 (1) ST elevation (STEMI) myocardial infarction Involved coronary artery: other inferior wall coronary artery Qualified Code(s): I21.19 - ST elevation (STEMI) myocardial infarction involving other coronary artery of inferior wall
[2022-02-15] MEDS ORDERED: ALBUTEROL HFA 8 GM INHALER INH SCH (17:00)
[2022-02-16 06:34] LABS: Basophils # (auto) 0.05 K/uL (0-0.2); Basophils % (auto) 0.4 %; Eosinophils # (auto) 0.02 K/uL (0-0.50); Eosinophils % (auto) 0.2 %; Hematocrit (blood only) 44.2 % (34.1-44.9); Hemoglobin 14.5 g/dl (12.0-16.0); Immature Granulocytes # (auto) 0.05 K/uL (0.00-0.02); Immature Granulocytes % (auto) 0.4 %; Lymphocytes # (auto) 2.11 K/uL (1.2-3.4); Mean Corpuscular Hemoglobin 32.8 pg (25.0-34.0); Mean Corpuscular Hgb Conc 32.8 g/dL (32.0-36.0); Mean Platelet Volume 12.3 fL (9.4-12.3); Monocytes # (auto) 0.79 K/uL (0.24-0.82); Monocytes % (auto) 6.7 %; Neutrophils # (auto) 8.72 K/uL (1.4-6.5); Neutrophils % (auto) 74.3 %; Platelet Count 153 K/uL (130-400); RDW Coefficient of Variation 13.6 % (11.5-14.5); RDW Standard Deviation 50.4 fL (36.4-46.3); Red Blood Count 4.42 M/uL (3.93-5.22); White Blood Count 11.74 K/ul (4.8-10.8)
[2022-02-16 06:53] LABS: BUN Creatinine Ratio 22.7 (10-20); Calcium 9.4 mg/dl (8.5-10.1); Creatinine Clr Calc Pharmacy 92.3 ml/min; Est GFR (Non-African American) 89.7 ml/min; Potassium 3.9 mmol/L (3.5-5.1)
[2022-02-16] MEDS: ALBUTEROL HFA 8 GM INHALER INH PRN (07:51)
[2022-02-16] MEDS: TICAGRELOR 90 MG TAB PO SCH (08:38)
[2022-02-16] MEDS: METOPROLOL TARTRATE 25 MG TAB PO SCH (08:38)
[2022-02-16] MEDS: lisinopril 5 MG TAB PO SCH (08:39)
[2022-02-16] MEDS: ATORVASTATIN 40 MG TAB PO SCH (08:39)
[2022-02-16] MEDS: ASPIRIN 81 MG ECTAB PO SCH (08:39)
--- NOTE | 2022-02-16 14:09 | Cardiology Progress Note ---
Date of Service February 16, 2022 Assessment & Plan (1) ST elevation (STEMI) myocardial infarction: (2) Presence of drug coated stent in left circumflex coronary artery: (3) Asthma: Plan Doing well post drug-eluting stent circumflex artery. No further dysrhythmias. Agree with change from ticagrelor to clopidogrel given her dyspneic symptoms, which are likely due to her underlying COPD/asthma. No evidence of heart failure on exam. Ideally, she would use Xopenex inhaler rather than albuterol, but morales may be an issue. She is undergoing a two-step evaluation for home oxygen. Brief SVT but no significant dysrhythmias overnight. Okay for discharge if her oxygen requirements can be worked out. Admission and Anticipated Discharge Date Admission Date: February 14, 2022 Subjective Patient still notes mild dyspnea, feels better after using her albuterol inhaler. No chest pain, palpitations, lightheadedness, or other complaints. Telemetry showed sinus rhythm with no further dysrhythmias overnight (brief PSVT yesterday). Physical Exam Physical Exam: No distress. Normotensive. Pulse 78 bpm and regular. Skin: no ecchymoses or generalized lesions. HEENT: unremarkable. Neck: no JVD or carotid bruits. Lungs: Mildly decreased breath sounds, but generally clear. No wheezing at rest or on forced exhalation. No accessory muscle use. Cardiac: regular rhythm, no murmur or gallop. Abdomen: benign. Extremities: no edema, pulses intact. Right radial access site benign. Neurologic: normal affect, nonfocal. Results & Data ([facility]) Laboratory Results Normal electrolytes, BUN 17, creatinine 0.75. PG Care Time/CCT Total # of Minutes Spent Total Time Spent with Patient: Total time spent is greater than 50% in coordination of care (as documented) at patient's floor/unit and/or counseling patient: Coding Level of Care Code 53648 Subseq Hosp Care Lvl [address] elevation (STEMI) myocardial infarction I21.19 Involved coronary artery: other inferior wall coronary artery Presence of drug coated stent in left circumflex coronary artery Z95.5 Asthma J45.909 (1) ST elevation (STEMI) myocardial infarction Involved coronary artery: other inferior wall coronary artery Qualified Code(s): I21.19 - ST elevation (STEMI) myocardial infarction involving other coronary artery of inferior wall
[2022-02-16] MEDS ORDERED: LEVALBUTEROL TARTRATE 15 GM HFA.AER.AD INH STA (14:17)
[2022-02-16] MEDS ORDERED: CLOPIDOGREL BISULFATE 300 MG TAB PO STA (14:18)
[2022-02-16] MEDS ORDERED: TIOTROPIUM BROMIDE 5 PUFF/90 MCG INH INH SCH (14:30)
[2022-02-16] MEDS ORDERED: UMECLIDINIUM BROMIDE 62.5MCG/BLISTER 7 PUFFS/INHALER INH SCH (14:30)
--- NOTE | 2022-02-16 18:24 | Discharge Summary ---
Date of Service February 16, 2022 Admission HPI Per Admitting Provider Zuly Johns is a 56-year-old female with a past medical history of obesity, hyper homocystinemia, hyperlipidemia, asthma, left shoulder pain after a fall 08/2021, and tobacco abuse who presents to [facility] as a heart alert. 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 Presents to the emergency department with 4 hours of chest discomfort initially severe with a shock like quality and gradually fading but with a tight and squeezing quality and which radiates down L shoulder/arm. No diaphoresis/shortness of breath but does feel very anxious. History of 1-1.5 pack/day tobacco use. No prior history of PA/stroke. First- degree family history of angina. No diabetes. No prior hypertension, does not take antihypertensives. History of homocystinemia, on chart review history of hyperlipidemia although patient reports she does not take any lipid-lowering medications/statins. BMI 34. No surgical history. Lives with her autistic son for whom she is the primary caregiver, is concerned about recovery time but agreeable to catheterization for STEMI. EKG: ST elevations in 2/3/aVF Troponin pending Medical History: Reviewed Medications: Reviewed Surgical History: Reviewed Allergies: Reviewed Social History: 1-1.5ppd tobacco use Code Status: Full Principal Diagnosis Inferior STEMI s/p 1 TRELL to distal LCx Uncontrolled COPD Discharge Exam Constitutional WD/WN, vitals as above Eyes EOM intact bilaterally; no conjunctival abnormality ENMT external ear and nose normal, oropharynx normal Neck trachea midline, no thyromegaly normal visual inspection Respiratory + cough; no respiratory distress Auscultation: + wheezes (Faint, end-expiratory) Cardiovascular RRR, no murmur, no edema Gastrointestinal (Abdomen) Inspection/Auscultation: abdomen normal to inspection; abdomen not distended Musculoskeletal no cyanosis or clubbing, extremities motor strength 5/5 Skin no rashes, warm and dry Neurologic moves all extremities and awake Psychiatric Orientation: alert, oriented to person and cooperative Discharge Data Allergies Allergy/AdvReac Type Severity Reaction Status Date / Time Penicillins Allergy Verified 07/05/20 08:06 Consultations 02/14/22 15:09 Consult Cardiology Stat 02/14/22 15:12 Consult Cardiac Rehabilitation Routine Procedures Performed Operation Date: 02/14/22 13:35 Actual Procedures p Cineradiography w/Routine Exam - Cruz Munoz MD s Cath, Left with Cors and Vent - Cruz Munoz MD p Aspiration/PCI w/TRELL for Stemi - Cruz Munoz MD Ordered Studies 02/14/22 13:35 CL Cath Imgs for PACS use only Stat Hospital Course (1) ST elevation (STEMI) myocardial infarction: Zuly Johns is a 56-year-old female with a past medical history of obesity, hyper homocystinemia, hyperlipidemia, asthma, left shoulder pain after a fall 08/2021, and tobacco abuse who presents to [facility] as a heart alert w/ EKG changes consistent with inferior STEMI. 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 Inferior STEMI s/p 1x TRELL to distal CX for 100% occlusion EKG: ST elevation in II, II, aVF Troponin 344 -> 117,000, then down. Cardiology consulted --> cardiac catheterization on 02/14 with 100% occluded distal LCx. 1 TRELL placed. - Echo on 02/14 with EF 60 - 65%. No regional wall motion abnormalities. - Continue ASA, Plavix, metoprolol, lisinopril, and statin on discharge -> Emphasized so important to take her medications consistently to avoid problems with her stent. Daily discussion. - F/u with Dr. Munoz in 1-2 weeks. Discussed hand precautions with patient until seen by cardiology. Asthma vs. COPD - No wheezing on admission, faint throughout lungs on second day and on discharge. Using inhaler ~1x/week, then about 2 months prior started having to use it every 4 hours. No increased sputum production or purulence, so feel COPD exacerbation less likely. No PFTs available for review Discussed with pulmonary. Empirically start LAMA/LABA. Switch albuterol to Xopenex to avoid tachycardia. - Emphasized smoking cessation. Should follow up with pulmonlogy. Hyper homocystinemia Elevated risk for cardiac/thromboembolic events Continue folic acid supplementation (2) Hyperlipidemia: (3) Hyperhomocystinemia: (4) Obesity, Class II, BMI 35-39.9: (5) Asthma: Total Time Total Time Spent Total Time Spent (In Minutes): 45 Discharge Plan Discharge Items Patient Disposition: Home - Self-Care Reason For Visit: INFERIOR STEMI Discharge Diagnosis: Heart attack Activity: Resume your previous activity Non-emergency contact: Primary Care Provider Call non-emergency contact if: your symptoms worsen Follow-up/Referrals: Cruz Munoz MD [Physician] - (Someone will call you with appt. If you do not hear anything in the next few days please call the office) Prem Herrera MD [Physician] - (Someone will call you with appt. If you do not hear anything in the next couple days, please call office) Alli Mathur DO [Primary Care Provider] - 02/24/22 12:00 pm Diet: Heart Healthy Addtl Attending Provider Instructions: Ms. Mendoza, You were admitted to the hospital with a heart attack. Dr. Aakash Munoz was able to open the blocked blood vessel back up, but it is incredibly important that you take the prescribed medications to keep the stent and your heart overall healthy. Here are the medications we are starting you on: 1) Aspirin & Plavix are both medications that keep blood from clotting inside the new stent. 2) Metoprolol helps lower the stress on your heart. 3) Atorvastatin helps lower your cholesterol and prevents plaques from breaking up. 4) Lisinopril helps your heart heal after the heart attack. I know this is new and scary, and I know this feels like a lot of medication. But without this medication, you are more likely to have another heart attack or stroke, so it is very important to take these medications and not miss any doses. Please see Dr. Munoz in 1-2 weeks to see how you are doing. His office should call you, but call on Thursday morning if you haven't heard anything yet. Come back to the ER (or call 911) with chest pain similar to what your heart attack felt like. For your breathing, please take the Spiriva (tiotropium) EVERY DAY. It is meant to make every day a bit better. Try to take the Xopenex as little as possible. Use the Xopenex INSTEAD of albuterol inhaler. Please see a lung doctor as soon as you can to be sure your COPD is tuned up. Pending Studies at Discharge: No Stand-Alone Forms: [employer], Smoking Cessation Medications and DC Order Prescriptions: New atorvastatin 80 mg tablet 80 mg PO HS Qty: 30 0RF lisinopril [Zestril] 5 mg Tablet 5 mg PO QAM Qty: 30 0RF aspirin 81 mg Tablet,Delayed Release (Dr/Ec) 81 mg PO QAM Qty: 30 0RF metoprolol succinate 25 mg tablet extended release 24 hr 25 mg PO DAILY Qty: 30 0RF clopidogrel [Plavix] 75 mg tablet 75 mg PO DAILY Qty: 30 0RF tiotropium-olodaterol 2.5-2.5 mcg/actuation mist 2 inh inhalation DAILY Qty: 4 0RF levalbuterol tartrate [Xopenex HFA] 45 mcg/actuation HFA aerosol inhaler 2 inh inhalation Q6H PRN (Reason: shortness of breath) Qty: 15 0RF Continued cyanocobalamin (vitamin B-12) [Vitamin B-12] 1,000 mcg tablet 1,000 mcg PO DAILY Qty: 30 0RF folic acid 1 mg tablet 1 mg PO DAILY Qty: 30 2RF Discontinued albuterol sulfate [Ventolin HFA] 90 mcg/actuation HFA aerosol inhaler 2 puff INH Q4H PRN (Reason: shortness of breath or wheezing) Qty: 18 5RF Discharge Orders: Discharge Order (Routine); Ordered 02/16/22 Ordered By: Orion Morrison Admission Data Admit Date/Time: 02/14/22 14:20 Attending Provider: Orion Morrison Admit Provider: Jesse Mejia Primary Care Provider: Alli Mathur Other Providers: Cruz Munoz Other Interventions: Discharge Summary Assessment (RN) Last Done: 02/16/22 14:13 Coding Level of Care Code D/C DAY MANAGEMENT >[address] elevation (STEMI) myocardial infarction I21.19 Involved coronary artery: other inferior wall coronary artery Hyperlipidemia E78.5 Hyperhomocystinemia E72.11 Obesity, Class II, BMI 35-39.9 E66.9 Asthma J45.909
== END 2022-02-16 15:18 | disposition home or self-care (01) | DRG 247 ==
LOC: ED 13:40 → SUATTDRO 14:20 → 2S 14:20

== ENCOUNTER 2023-05-23 01:57 | Inpatient (IN) ==
[2023-05-23 02:26] LABS: Base Excess VBG 1.4 mEq/L; HCO3 VBG 34 mmol/L; Oxygen Saturation VBG < 60.0 %; PCO2 VBG 105 mmHg (38-50); PO2 VBG 36 mmHg; pH VBG 7.12 (7.36-7.41)
[2023-05-23 02:51] LABS: BUN Creatinine Ratio 18.5 (10-20); Calcium 9.8 mg/dl (8.6-10.3); Est GFR (African American) 32.3 ml/min; Est GFR (Non-African American) 27.9 ml/min
[2023-05-23 03:01] LABS: Basophils # (auto) 0.03 K/uL (0.00-0.20); Basophils % (auto) 0.2 %; Eosinophils # (auto) 0.01 K/uL (0.00-0.50); Eosinophils % (auto) 0.1 %; Hematocrit (blood only) 51.6 % (37.0-47.0); Hemoglobin 14.4 g/dl (12.0-16.0); Immature Granulocytes # (auto) 0.16 K/uL (0.01-0.20); Immature Granulocytes % (auto) 1.1 %; Lymphocytes # (auto) 0.83 K/uL (1.20-3.40); Lymphocytes % (auto) 5.5 %; Mean Corpuscular Hemoglobin 25.4 pg (25.0-34.0); Mean Corpuscular Hgb Conc 27.9 g/dL (32.0-36.0); Monocytes # (auto) 1.27 K/uL (0.11-0.59); Monocytes % (auto) 8.4 %; Neutrophils # (auto) 12.83 K/uL (1.40-6.50); Neutrophils % (auto) 84.7 %; Nucleated RBC # (auto) 0.25 K/uL (0.00-0.12); Nucleated RBC % (auto) 1.7 %; Platelet Count 187 K/uL (130-400); RDW Standard Deviation 59.8 fL (36.4-46.3); Red Blood Count 5.67 M/uL (4.20-5.40); White Blood Count 15.13 K/ul (4.8-10.8)
[2023-05-23 03:12] LABS: Albumin Globulin Ratio 1.4 (0.9-2); Albumin Level 4.3 gm/dl (3.4-5.0); Bilirubin,Total 3.8 mg/dl (0.2-1.0); Globulin 3.1 gm/dl (2.5-4.0); Magnesium 2.4 mg/dl (1.7-2.4); Total Protein 7.4 gm/dl (6.0-8.3); Troponin I High Sensitivity 964.8 pg/ml (0-14)
[2023-05-23 03:32] LABS: Adenovirus PCR Not Detected (NotDetected); Bordetella parapertussis PCR Not Detected (NotDetected); Bordetella pertussis PCR Not Detected (NotDetected); Chlamydia pneumoniae PCR Not Detected (NotDetected); Coronavirus 229E PCR Not Detected (NotDetected); Coronavirus CoV-2 (COVID19)PCR Not Detected (NotDetected); Coronavirus HKU1 PCR Not Detected (NotDetected); Coronavirus NL63 PCR Not Detected (NotDetected); Coronavirus OC43PCR Not Detected (NotDetected); Human Metapneumovirus PCR Not Detected (NotDetected); Influenza A PCR Not Detected (NotDetected); Influenza B PCR Not Detected (NotDetected); Mycoplasma pneumoniae PCR Not Detected (NotDetected); Parainfluenza Virus 1 PCR Not Detected (NotDetected); Parainfluenza Virus 2 PCR Not Detected (NotDetected); Parainfluenza Virus 3 PCR Not Detected (NotDetected); Parainfluenza Virus 4 PCR Not Detected (NotDetected); Respiratory Syncytial VirusPCR Not Detected (NotDetected); Rhinovirus/Enterovirus PCR Not Detected (NotDetected)
[2023-05-23 03:42] LABS: INR 1.5 (0.9-1.1); Partial Thromboplastin Ratio 0.9; Partial Thromboplastin Time 25 Seconds (21-31); Prothrombin Time 15.9 Seconds (9.0-12.0)
--- NOTE | 2023-05-23 03:50 | Emergency Department Note ---
History of Present Illness General Chief complaint: Confusion Stated complaint: CONFUSION, HYPOXIA Time Seen by Provider: 05/23/23 03:28 History of Present Illness This is a 58-year-old female presenting to the emergency department via EMS from home for evaluation of difficulty breathing and confusion. The patient was initially called from home as she was having difficulty breathing. On EMS arrival the patient attempted to refuse care, however she was in the low 70s with her oxygen, and compelled to come to the ER for evaluation. On arrival the patient is minimally oriented. She has had multiple albuterol inhaler treatments prior to arrival. She does have a history of COPD with tobacco use history. Patient did have myocardial infarction a little over a year ago that did require stenting. On arrival to the ER the patient appears very ill. Home Medications Medication Instructions Recorded Confirmed Type metoprolol succinate 25 mg 25 mg PO DAILY #90 tabs 03/15/22 05/23/23 Rx tablet,extended release 24 hr cyanocobalamin (vitamin B-12) 500 mcg PO DAILY 03/18/22 05/23/23 History 1,000 mcg tablet (Vitamin B-12) folic acid 1 mg tablet 3 mg PO DAILY 03/18/22 05/23/23 History tiotropium 2.5 mcg-olodaterol 2.5 2 inh inhalation DAILY #4 grams 08/04/22 05/23/23 Rx mcg/actuation mist for inhalation albuterol sulfate 90 mcg/actuation 1 - 2 inh inhalation QID #18 grams 08/26/22 05/23/23 Rx aerosol inhaler losartan 25 mg tablet 25 mg PO DAILY #30 tabs 09/24/22 05/23/23 Rx clopidogrel 75 mg tablet (Plavix) 75 mg PO DAILY #90 tabs 03/03/23 05/23/23 Rx aspirin 81 mg tablet,delayed 81 mg PO QAM #90 tabs 03/05/23 05/23/23 Rx release fluticasone 250 mcg-salmeterol 50 1 inh inhalation BID #60 ea 03/06/23 05/23/23 Rx mcg/dose blistr powdr for inhalation (Wixela Inhub) levalbuterol tartrate 45 2 inh inhalation Q6H PRN shortness 05/14/23 05/23/23 Rx mcg/actuation aerosol inhaler of breath #15 grams (Xopenex HFA) Allergies Allergy/AdvReac Type Severity Reaction Status Date / Time Penicillins Allergy Unknown CAN'T Verified 05/23/23 03:02 REMEMBER Statin AdvReac Intermediate Muscle Pain Uncoded 05/23/23 03:02 Past Med/Surg History Medical History (Updated 05/24/23 @ 07:16 by Mynor Vincent PA-C) Aspiration pneumonia RVF (right ventricular failure) Endotracheally intubated Transaminitis Acute encephalopathy Acute CHF (congestive heart failure) Status asthmaticus with COPD (chronic obstructive pulmonary disease) History of ST elevation myocardial infarction (STEMI) Screening for tuberculosis Thrombophlebitis of deep femoral vein Obesity, Class II, BMI 35-39.9 Hyperhomocystinemia Hyperlipidemia Generalized skin tumors Fatigue Asthma Surgical History S/P cardiac catheterization 02/14/22 Dr. Moisés Munoz at [facility]- Cardiac cath- 1 TRELL to distal circumflex Family History Family/Other No problems noted. Sister Ovarian cancer Denies family history of Prostate cancer Myocardial infarction Breast cancer Colorectal cancer Social History Smoking Status: Current every day smoker Tobacco Type: Cigarettes Second Hand Exposure: No; Do You Dip or Chew Tobacco: No; Hx Alcohol Use: No Hx Substance Use: No Preferred Language: Croatian Communication Ability: Effective Communication Tools: Other Visual Impairment: No Limitations Respiratory Therapist Assistant Required: No Beliefs That Will Affect Care: None marital status: Single Current Living Situation: Alone Current Living Situation Comment: with children current occupational status: unemployed Feels Safe at Home: Yes Childhood Exposure to Second-Hand Smoke: Yes Diet: other Diet Comment: cardio healthy caffeine: Yes Dental Care, Regularly: No Physical Activity Frequency: Daily Seatbelt Use: never Sunscreen Use: Yes Assistive Devices: Denture - Upper, Glasses and Walker Review of Systems A total of 10 systems reviewed and were otherwise negative Physical Exam Vital Signs Vital Signs - 24 hr 05/23/23 02:06 05/23/23 02:19 05/23/23 02:20 Temperature 36.5 C Temperature Source Oral Pulse Rate 95 H 90 Respiratory Rate 16 Respiratory Effort / Characteristics Non-Labored Spontaneous Respiratory Depth Normal Respiratory Pattern Regular Blood Pressure 135/87 Blood Pressure Mean 103 Pulse Oximetry 85 L 85 L Oxygen Delivery Method Room Air Nasal Cannula Oxygen Flow Rate 4 Fraction of Inspired Oxygen Sepsis Recent Fever Within 48 Hours No Sepsis New/Unexplained Change in Mental Status Yes Sepsis Action Taken by Nursing No Action Required Pulse Oximetry Post Tiitration 93 05/23/23 02:31 05/23/23 03:00 05/23/23 03:38 Temperature Temperature Source Pulse Rate 90 85 91 H Respiratory Rate 20 24 27 H Respiratory Effort / Characteristics Spontaneous Respiratory Depth Respiratory Pattern Blood Pressure 118/78 104/69 Blood Pressure Mean 91 80 Pulse Oximetry 93 90 90 Oxygen Delivery Method Nasal Cannula Nasal Cannula Oxygen Flow Rate 4 4 Fraction of Inspired Oxygen 100 Sepsis Recent Fever Within 48 Hours Sepsis New/Unexplained Change in Mental Status Sepsis Action Taken by Nursing Pulse Oximetry Post Tiitration 05/23/23 03:49 05/23/23 04:00 05/23/23 04:30 Temperature Temperature Source Pulse Rate 89 84 86 Respiratory Rate 25 H 25 H 24 Respiratory Effort / Characteristics Respiratory Depth Respiratory Pattern Blood Pressure 138/88 130/85 112/77 Blood Pressure Mean 104 100 88 Pulse Oximetry 90 96 98 Oxygen Delivery Method BiPAP BiPAP BiPAP Oxygen Flow Rate Fraction of Inspired Oxygen 100 100 100 Sepsis Recent Fever Within 48 Hours Sepsis New/Unexplained Change in Mental Status Sepsis Action Taken by Nursing Pulse Oximetry Post Tiitration 05/23/23 05:00 05/23/23 05:30 05/23/23 06:00 Temperature Temperature Source Pulse Rate 81 84 86 Respiratory Rate 18 15 18 Respiratory Effort / Characteristics Respiratory Depth Respiratory Pattern Blood Pressure 111/72 113/74 137/87 Blood Pressure Mean 85 87 103 Pulse Oximetry 100 100 99 Oxygen Delivery Method BiPAP BiPAP BiPAP Oxygen Flow Rate Fraction of Inspired Oxygen 100 100 100 Sepsis Recent Fever Within 48 Hours Sepsis New/Unexplained Change in Mental Status Sepsis Action Taken by Nursing Pulse Oximetry Post Tiitration 05/23/23 06:04 05/23/23 06:12 Temperature 36.6 C Temperature Source Oral Pulse Rate 87 Respiratory Rate Respiratory Effort / Characteristics Respiratory Depth Respiratory Pattern Blood Pressure Blood Pressure Mean Pulse Oximetry Oxygen Delivery Method Oxygen Flow Rate Fraction of Inspired Oxygen Sepsis Recent Fever Within 48 Hours Sepsis New/Unexplained Change in Mental Status Sepsis Action Taken by Nursing Pulse Oximetry Post Tiitration VITALS: Vitals are noted on the nurse's note and reviewed by myself. Vital signs unstable GENERAL: Critically ill-appearing jaundiced female with labored breathing and altered mental status HEAD: Normocephalic atraumatic. NECK: Supple without nuchal rigidity. No lymphadenopathy. No thyromegaly. Cervical spine is nontender. HEART: Tachycardic rate with regular rhythm LUNGS: Diffuse crackles throughout bilateral lung agudelo ABDOMEN: Positive normal bowel sounds x 4. MUSCULOSKELETAL: Notable bilateral lower extremity edema right greater than left NEURO: Patient was not alert or oriented. GCS 10. E3 V2 M5. Course Administered Medications Albuterol (Albuterol 0.5% Neb Soln 2.5 Mg/0.5 Ml Vial) 2.5 mg NEB Q6R ARIADNE; Protocol Stop: 06/22/23 18:59 Last Admin: 05/24/23 00:49 Dose: 2.5 mg Documented By: Admin: 05/23/23 19:16 Dose: Not Given Documented By: THOMAS Aspirin (Aspirin 81 Mg Ectab) 81 mg PO QAM ARIADNE Stop: 06/22/23 08:59 Last Admin: 05/23/23 09:40 Dose: Not Given Documented By: LENORA Clopidogrel Bisulfate (Clopidogrel Bisulfate 75 Mg Tab) 75 mg PO DAILY ARIADNE Stop: 06/22/23 08:59 Last Admin: 05/23/23 09:40 Dose: Not Given Documented By: LENORA Enoxaparin Sodium (Enoxaparin Inj 40 Mg/0.4 Ml Syr) 40 mg SQ Q24H ARIADNE Stop: 06/22/23 08:59 Last Admin: 05/23/23 12:31 Dose: 40 mg Documented By: ADAM Folic Acid (Folic Acid 1 Mg Tab) 3 mg PO DAILY ARIADNE Stop: 06/22/23 08:59 Last Admin: 05/23/23 09:41 Dose: Not Given Documented By: LENORA Formoterol Fumarate (Formoterol 20 Mcg/2 Ml Vial) 20 mcg NEB BIDR ARIADNE Stop: 06/22/23 18:59 Last Admin: 05/23/23 19:16 Dose: 20 mcg Documented By: Admin: 05/23/23 15:48 Dose: 20 mcg Documented By: JORDAN Furosemide (Furosemide 40 Mg/4 Ml Vial) 40 mg IV BID ARIADNE Stop: 06/22/23 15:59 Last Admin: 05/23/23 16:17 Dose: 40 mg Documented By: WS Fentanyl Citrate (Fentanyl Citrate) 2,500 mcg in 250 mls @ 2.5 mls/hr IV .Q96H ARIADNE; Protocol Stop: 06/06/23 09:29 Last Titration: 05/23/23 19:15 Dose: 25 mcg/hr, 2.5 mls/hr Documented By: CF Co-signed By: WS Admin: 05/23/23 09:26 Dose: 25 mcg/hr, 2.5 mls/hr Documented By: NA Co-signed By: BENY Acetylcysteine 10,000 mg/ (Dextrose) 1,050 mls @ 62.5 mls/hr IV ONCE ONE; Protocol Stop: 05/24/23 08:43 Last Infusion: 05/23/23 19:15 Dose: 62.5 mls/hr Documented By: Admin: 05/23/23 18:11 Dose: 62.5 mls/hr Documented By: ADAM Propofol (Diprivan) 1,000 mg in 100 mls @ 12.276 mls/hr IV .Q8H9M [facility]; Protocol Stop: 05/26/23 13:29 Last Admin: 05/24/23 06:43 Dose: 10 mcg/kg/min, 6.1 mls/hr Documented By: CF Co-signed By: DANNI Titration: 05/24/23 06:43 Dose: Infused Documented By: CF Co-signed By: TMG Admin: 05/23/23 21:23 Dose: 10 mcg/kg/min, 6.1 mls/hr Documented By: CF Co-signed By: DENNIS Titration: 05/23/23 21:23 Dose: Infused Documented By: CF Co-signed By: DENNIS Titration: 05/23/23 19:15 Dose: 10 mcg/kg/min, 6.1 mls/hr Documented By: CF Co-signed By: WS Admin: 05/23/23 16:16 Dose: 10 mcg/kg/min, 6.1 mls/hr Documented By: WS Co-signed By: DMB Norepinephrine Bitartrate (Levophed/D5w) 4 mg in 250 mls @ 19.181 mls/hr IV .Q13H3M [facility]; Protocol Stop: 06/22/23 13:29 Last Admin: 05/24/23 02:08 Dose: Not Given Documented By: Admin: 05/23/23 19:50 Dose: Not Given Documented By: JESSE Methylprednisolone 125 mg/ (Syringe) 2 mls @ 1.5 mls/min IV TID ARIADNE Stop: 06/22/23 20:59 Last Admin: 05/23/23 20:14 Dose: 1.5 mls/min Documented By: JESSE Meropenem 500 mg/ Syringe 10 mls @ 2 mls/min IV Q6H ARIADNE; Protocol Stop: 05/30/23 17:59 Last Admin: 05/24/23 05:05 Dose: 2 mls/min Documented By: Admin: 05/24/23 00:31 Dose: 2 mls/min Documented By: Admin: 05/23/23 17:46 Dose: 2 mls/min Documented By: BARRERA Insulin Aspart (Insulin Aspart Per Unit Charge) 0 units SC Q6 ARIADNE Stop: 06/22/23 17:59 Last Admin: 05/24/23 05:09 Dose: 8 units Documented By: JESSE Co-signed By: DANNI Admin: 05/24/23 00:27 Dose: 7 units Documented By: JESSE Co-signed By: DENNIS Admin: 05/23/23 18:07 Dose: 7 units Documented By: ADAM Co-signed By: DMB Multi-Ingredient Cream (Artificial Tears Op Oint 3.5 Gm Tube) 1 appln OP Q4H ARIADNE Stop: 06/22/23 11:59 Last Admin: 05/24/23 05:00 Dose: 1 appln Documented By: Admin: 05/24/23 00:29 Dose: 1 appln Documented By: Admin: 05/23/23 20:15 Dose: 1 appln Documented By: Admin: 05/23/23 16:18 Dose: 1 appln Documented By: Admin: 05/23/23 13:26 Dose: 1 appln Documented By: DMB Pantoprazole Sodium (Pantoprazole 40 Mg Tab) 40 mg PO DAILY ARIADNE Stop: 06/22/23 08:59 Last Admin: 05/23/23 09:41 Dose: Not Given Documented By: NA Discontinued Medications Acetaminophen (Acetaminophen 325 Mg Tab) 325 mg PO NOW STA Stop: 05/23/23 16:28 Last Admin: 05/23/23 17:42 Dose: 325 mg Documented By: WS Albuterol (Albut/Ipratrop 3mg/0.5mg Neb 3 Ml Vial) 3 ml NEB NOW STA; Protocol Stop: 05/23/23 09:35 Last Admin: 05/23/23 10:19 Dose: 3 ml Documented By: ELVIA Albuterol (Albut/Ipratrop 3mg/0.5mg Neb 3 Ml Vial) Confirm Administered Dose 12 ml .ROUTE .STK-MED ONE Stop: 05/23/23 11:24 Last Admin: 05/23/23 11:29 Dose: 12 ml Documented By: KENDAL Budesonide (Budesonide 0.5 Mg/2 Ml Vial (Pulmicort)) 0.5 mg NEB NOW STA Stop: 05/23/23 14:21 Last Admin: 05/23/23 15:48 Dose: 0.5 mg Documented By: JORDAN Fentanyl Citrate (Fentanyl Citrate 2,500 Mcg/250 Ml Bag) Confirm Administered Dose 2,500 mcg IV .ST-MED ONE Stop: 05/23/23 09:24 Last Admin: 05/23/23 09:41 Dose: Not Given Documented By: LENORA Fluticasone/Vilanterol (Fluticasone/Vilanterol 200/25mcg 14 Puffs/Inhaler) 1 puffs INH DAILY ARIADNE; Protocol Stop: 06/22/23 08:59 Last Admin: 05/23/23 09:41 Dose: Not Given Documented By: LENORA Furosemide (Furosemide 40 Mg/4 Ml Vial) 40 mg IV ONE ONE Stop: 05/23/23 03:48 Last Admin: 05/23/23 04:04 Dose: 40 mg Documented By: LUIS Furosemide (Furosemide 40 Mg/4 Ml Vial) Confirm Administered Dose 40 mg IV .STK- MED ONE Stop: 05/23/23 09:12 Last Admin: 05/23/23 09:41 Dose: Not Given Documented By: LENORA Furosemide (Furosemide 40 Mg/4 Ml Vial) Confirm Administered Dose 40 mg IV .STK- MED ONE Stop: 05/23/23 11:13 Last Admin: 05/23/23 13:24 Dose: Not Given Documented By: BARRERA Furosemide (Furosemide 40 Mg/4 Ml Vial) 40 mg IV ONE ONE Stop: 05/23/23 11:14 Last Admin: 05/23/23 11:35 Dose: 40 mg Documented By: TIM Cefepime HCl (Maxipime) 2,000 mg in 20 mls @ 5 mls/min IV NOW STA; Protocol Stop: 05/23/23 03:52 Last Admin: 05/23/23 04:04 Dose: 5 mls/min Documented By: LUIS Acetylcysteine 5,000 mg/ (Dextrose) 525 mls @ 125 mls/hr IV ONCE ONE; Protocol Stop: 05/23/23 15:56 Last Infusion: 05/23/23 18:13 Dose: Infused Documented By: Infusion: 05/23/23 14:12 Dose: 125 mls/hr Documented By: Infusion: 05/23/23 13:35 Dose: 0 mls/hr Documented By: Admin: 05/23/23 13:02 Dose: 125 mls/hr Documented By: ADAM Meropenem 500 mg/ Syringe 10 mls @ 2 mls/min IV Q8H [facility]; Protocol Stop: 05/30/23 09:59 Last Admin: 05/23/23 11:32 Dose: 2 mls/min Documented By: TIM Acetylcysteine 15,000 mg/ (Dextrose) 275 mls @ 275 mls/hr IV NOW STA; Protocol Stop: 05/23/23 11:44 Last Infusion: 05/23/23 14:10 Dose: Infused Documented By: Admin: 05/23/23 11:34 Dose: 275 mls/hr Documented By: TIM Magnesium Sulfate/Dextrose (Magnesium Sulfate / D5w) 1 gm in 100 mls @ 50 mls/hr IV Q2H [facility] Stop: 05/23/23 15:29 Last Infusion: 05/23/23 15:12 Dose: Infused Documented By: Admin: 05/23/23 13:00 Dose: 50 mls/hr Documented By: Infusion: 05/23/23 13:00 Dose: Infused Documented By: Admin: 05/23/23 11:34 Dose: 50 mls/hr Documented By: TIM Cisatracurium Besylate 40 mg/ (Dextrose) 100 mls @ 9.24 mls/hr IV .[id number] [facility]; Protocol Stop: 06/22/23 11:59 Last Admin: 05/23/23 13:25 Dose: Not Given Documented By: BARRERA Insulin Aspart (Insulin Aspart Per Unit Charge) 0 units SC ONE ONE Stop: 05/24/23 03:01 Last Admin: 05/24/23 06:13 Dose: Not Given Documented By: JESSE Insulin Glargine (Lantus Per Unit Charge) 20 units SC NOW STA Stop: 05/23/23 16:07 Last Admin: 05/23/23 16:15 Dose: 20 units Documented By: ADAM Co-signed By: BARRERA Ioversol (Optiray 320 125ml) 117 ml IV ONCE ONE Stop: 05/23/23 08:58 Last Admin: 05/23/23 08:58 Dose: 117 ml Documented By: KIRTI Methylprednisolone (Methylprednisolone 125 Mg/2 Ml Vial) 125 mg IV ONE ONE Stop: 05/23/23 11:31 Last Admin: 05/23/23 11:33 Dose: 125 mg Documented By: TIM Miscellaneous (Rapid Sequence Induction Bag) Confirm Administered Dose 1 each N/A .STK-MED ONE Stop: 05/23/23 08:39 Last Admin: 05/23/23 09:45 Dose: Not Given Documented By: LENORA Norepinephrine Bitartrate (Norepinephrine/D5w 4 Mg/250 Ml) Confirm Administered Dose 4 mg IV .STK-MED ONE Stop: 05/23/23 08:40 Last Admin: 05/23/23 10:00 Dose: 4 mg Documented By: BARRERA Nystatin (Nystatin Cr 15 Gm Tube) 1 appln EXT BID ARIADNE Stop: 06/22/23 08:59 Last Admin: 05/23/23 20:14 Dose: 1 appln Documented By: Admin: 05/23/23 12:31 Dose: 1 appln Documented By: ADAM Potassium Chloride (Potassium Chloride 20 Meq/15 Ml Udc) 40 meq PO NOW STA Stop: 05/23/23 15:10 Last Admin: 05/23/23 16:17 Dose: 40 meq Documented By: ADAM Potassium Chloride (Potassium Chloride 20 Meq/15 Ml Udc) 40 meq NG NOW STA Stop: 05/24/23 05:59 Last Admin: 05/24/23 06:32 Dose: 40 meq Documented By: JESSE Propofol (Propofol Iv Emulsion 10 Mg/Ml 100 Ml Vial) Confirm Administered Dose 1,000 mg IV .STK-MED ONE Stop: 05/23/23 10:25 Last Admin: 05/23/23 13:21 Dose: 1,000 mg Documented By: BARRERA Co-signed By: ADAM Vecuronium [place] (Vecuronium [place] 10 Mg Vial) 6.2 mg 0.1 mg/kg (6.2 mg) IV ONCE STA Stop: 05/23/23 11:14 Last Admin: 05/23/23 12:27 Dose: 6.2 mg Documented By: ADAM Co-signed By: BARRERA Vecuronium [place] (Vecuronium [place] 10 Mg Vial) Confirm Administered Dose 10 mg IV .STK-MED ONE Stop: 05/23/23 11:15 Last Admin: 05/23/23 12:36 Dose: Not Given Documented By: ADAM Medical Decision Making Differential Diagnosis Differential diagnosis: Etiologies such as acute respiratory failure, cardiac event, sepsis, UTI, pneumonia, bacteremia, metabolic process, electrolyte abnormalities, cardiac sources, intracerebral event, intra-abdominal process, toxicological process, neurologic process, as well as others were entertained. Laboratory Data 05/24/23 04:24 05/24/23 04:24 Lab Results 05/23/23 05/23/23 05/23/23 Range/Units 02:10 02:14 02:15 WBC 15.13 H (4.8-10.8) K/ul RBC 5.67 H (4.20-5.40) M/uL Hgb 14.4 (12.0-16.0) g/dl Hct 51.6 H (37.0-47.0) % MCV 91.0 (80.0-100.0) fL MCH 25.4 (25.0-34.0) pg MCHC 27.9 L (32.0-36.0) g/dL RDW Std Deviation 59.8 H (36.4-46.3) fL RDW Coeff of Macario 19.0 H (11.5-14.5) % Plt Count 187 (130-400) K/uL Immature Gran % (Auto) 1.1 % Neut % (Auto) 84.7 % Lymph % (Auto) 5.5 % [place] % (Auto) 8.4 % Eos % (Auto) 0.1 % Baso % (Auto) 0.2 % Neut # (Auto) 12.83 H (1.40-6.50) K/uL Lymph # (Auto) 0.83 L (1.20-3.40) K/uL [place] # (Auto) 1.27 H (0.11-0.59) K/uL Eos # (Auto) 0.01 (0.00-0.50) K/uL Baso # (Auto) 0.03 (0.00-0.20) K/uL Immature Gran # (Auto) 0.16 (0.01-0.20) K/uL Absolute Nucleated RBC 0.25 H (0.00-0.12) K/uL Nucleated RBC % (auto) 1.7 % PT 15.9 H (9.0-12.0) Seconds INR 1.5 H (0.9-1.1) APTT 25 (21-31) Seconds PTT Ratio 0.9 ABG pH (7.35-7.45) ABG pCO2 (35-46) mmHg ABG pO2 (80-95) mmHg ABG HCO3 (19-24) mmol/L ABG O2 Saturation (90-95) % ABG Base Excess (-9-1.8) mEq/L García Test (Pos) VBG pH 7.12 L (7.36-7.41) VBG pCO2 105 H (38-50) mmHg VBG pO2 36 mmHg VBG HCO3 34 mmol/L VBG O2 Saturation < 60.0 % VBG Base Excess 1.4 mEq/L Oxygen Given Sodium 134 L (136-145) mmol/L Potassium 5.0 (3.5-5.1) mmol/L Chloride 90 L (98-107) mmol/L Carbon Dioxide 34 H (21-32) mmol/L Anion Gap 10 (3-11) BUN 36 H (6-23) mg/dl Creatinine 1.95 H (0.6-1.2) mg/dl Est Cr Clr Drug Dosing 40.0 ml/min Est GFR ( Amer) 32.3 ml/min Est GFR (Non-Af Amer) 27.9 ml/min BUN/Creatinine Ratio 18.5 (10-20) Glucose 191 H (70-99(Fasting)) mg/dl Lactate (0.4-2.0) mmol/L Calcium 9.8 (8.6-10.3) mg/dl Magnesium 2.4 (1.7-2.4) mg/dl Total Bilirubin 3.8 H (0.2-1.0) mg/dl AST 1048 H (13-39) U/L ALT 1067 H (7-52) U/L Alkaline Phosphatase 62 (34-104) U/L Ammonia 65.0 (18-72) umol/L Troponin I High Sens 964.8 H* (0-14) pg/ml B-Natriuretic Peptide (0-100) pg/ml Total Protein 7.4 (6.0-8.3) gm/dl Albumin 4.3 (3.4-5.0) gm/dl Globulin 3.1 (2.5-4.0) gm/dl Albumin/Globulin Ratio 1.4 (0.9-2) Lipase 6 L (11-82) U/L Urine Color Urine Appearance (Clear) Urine pH (4.5-7.5) Ur Specific [place] (1.000-1.030) Urine Protein (Negative) Urine Glucose (UA) (Negative) Urine Ketones (Negative) Urine Blood (Negative) Urine Nitrite (Negative) Urine Bilirubin (Negative) Urine Urobilinogen (Negative) Ur Leukocyte Esterase (Negative) Urine WBC (Auto) (0-5) /hpf Urine RBC (Auto) (0-4) /hpf U Hyaline Cast (Auto) (0-5) /lpf U Epithel Cells (Auto) (0-5) /lpf Urine Bacteria (Auto) (Negative) Calcium Oxalate Crystal (None Prsent) Granular Casts (0) /lpf Urine Yeast Urine Opiates Screen (Neg) Ur Methadone, Qual (Neg) Urine Barbiturates (Neg) Ur Phencyclidine (PCP) (Neg) U Amphetamin/Meth Scrn (Neg) MDMA (Ecstasy) Screen (Neg) U Benzodiazepines Scrn (Neg) Ur Cocaine Metabolite (Neg) U Marijuana (THC) Screen (Neg) Ethyl Alcohol mg/dL < 10.0 (<10.0) mg/dl Adenovirus (PCR) Not Detected (NotDetected) B. pertussis DNA (PCR) Not Detected (NotDetected) B.parapertussis DNA PCR Not Detected (NotDetected) C. pneumoniae DNA (PCR) Not Detected (NotDetected) Coronavirus OC43 (PCR) Not Detected (NotDetected) Coronavirus HKU1 (PCR) Not Detected (NotDetected) Coronavirus 229E (PCR) Not Detected (NotDetected) SARS-CoV-2 (PCR) Not Detected (NotDetected) Coronavirus NL63 (PCR) Not Detected (NotDetected) Human Metapneumovir PCR Not Detected (NotDetected) Influenza Type A (PCR) Not Detected (NotDetected) Influenza Type B (PCR) Not Detected (NotDetected) M. pneumoniae (PCR) Not Detected (NotDetected) Parainfluenza 1 (PCR) Not Detected (NotDetected) Parainfluenza 2 (PCR) Not Detected (NotDetected) Parainfluenza 3 (PCR) Not Detected (NotDetected) Parainfluenza 4 (PCR) Not Detected (NotDetected) RSV (PCR) Not Detected (NotDetected) Entero/Rhino (PCR) Not Detected (NotDetected) 05/23/23 05/23/23 05/23/23 Range/Units 03:50 03:56 04:48 WBC (4.8-10.8) K/ul RBC (4.20-5.40) M/uL Hgb (12.0-16.0) g/dl Hct (37.0-47.0) % MCV (80.0-100.0) fL MCH (25.0-34.0) pg MCHC (32.0-36.0) g/dL RDW Std Deviation (36.4-46.3) fL RDW Coeff of Macario (11.5-14.5) % Plt Count (130-400) K/uL Immature Gran % (Auto) % Neut % (Auto) % Lymph % (Auto) % [place] % (Auto) % Eos % (Auto) % Baso % (Auto) % Neut # (Auto) (1.40-6.50) K/uL Lymph # (Auto) (1.20-3.40) K/uL [place] # (Auto) (0.11-0.59) K/uL Eos # (Auto) (0.00-0.50) K/uL Baso # (Auto) (0.00-0.20) K/uL Immature Gran # (Auto) (0.01-0.20) K/uL Absolute Nucleated RBC (0.00-0.12) K/uL Nucleated RBC % (auto) % PT (9.0-12.0) Seconds INR (0.9-1.1) APTT (21-31) Seconds PTT Ratio ABG pH 7.22 L (7.35-7.45) ABG pCO2 90 H (35-46) mmHg ABG pO2 113 H (80-95) mmHg ABG HCO3 37 H (19-24) mmol/L ABG O2 Saturation 98.5 H (90-95) % ABG Base Excess 5.8 H (-9-1.8) mEq/L García Test Pos (Pos) VBG pH (7.36-7.41) VBG pCO2 (38-50) mmHg VBG pO2 mmHg VBG HCO3 mmol/L VBG O2 Saturation % VBG Base Excess mEq/L Oxygen Given FIO2 100 Sodium (136-145) mmol/L Potassium (3.5-5.1) mmol/L Chloride (98-107) mmol/L Carbon Dioxide (21-32) mmol/L Anion Gap (3-11) BUN (6-23) mg/dl Creatinine (0.6-1.2) mg/dl Est Cr Clr Drug Dosing ml/min Est GFR ( Amer) ml/min Est GFR (Non-Af Amer) ml/min BUN/Creatinine Ratio (10-20) Glucose (70-99(Fasting)) mg/dl Lactate 2.8 H* (0.4-2.0) mmol/L Calcium (8.6-10.3) mg/dl Magnesium (1.7-2.4) mg/dl Total Bilirubin (0.2-1.0) mg/dl AST (13-39) U/L ALT (7-52) U/L Alkaline Phosphatase (34-104) U/L Ammonia (18-72) umol/L Troponin I High Sens 1276.5 H* D (0-14) pg/ml B-Natriuretic Peptide 1603 H (0-100) pg/ml Total Protein (6.0-8.3) gm/dl Albumin (3.4-5.0) gm/dl Globulin (2.5-4.0) gm/dl Albumin/Globulin Ratio (0.9-2) Lipase (11-82) U/L Urine Color Urine Appearance (Clear) Urine pH (4.5-7.5) Ur Specific [place] (1.000-1.030) Urine Protein (Negative) Urine Glucose (UA) (Negative) Urine Ketones (Negative) Urine Blood (Negative) Urine Nitrite (Negative) Urine Bilirubin (Negative) Urine Urobilinogen (Negative) Ur Leukocyte Esterase (Negative) Urine WBC (Auto) (0-5) /hpf Urine RBC (Auto) (0-4) /hpf U Hyaline Cast (Auto) (0-5) /lpf U Epithel Cells (Auto) (0-5) /lpf Urine Bacteria (Auto) (Negative) Calcium Oxalate Crystal (None Prsent) Granular Casts (0) /lpf Urine Yeast Urine Opiates Screen (Neg) Ur Methadone, Qual (Neg) Urine Barbiturates (Neg) Ur Phencyclidine (PCP) (Neg) U Amphetamin/Meth Scrn (Neg) MDMA (Ecstasy) Screen (Neg) U Benzodiazepines Scrn (Neg) Ur Cocaine Metabolite (Neg) U Marijuana (THC) Screen (Neg) Ethyl Alcohol mg/dL (<10.0) mg/dl Adenovirus (PCR) (NotDetected) B. pertussis DNA (PCR) (NotDetected) B.parapertussis DNA PCR (NotDetected) C. pneumoniae DNA (PCR) (NotDetected) Coronavirus OC43 (PCR) (NotDetected) Coronavirus HKU1 (PCR) (NotDetected) Coronavirus 229E (PCR) (NotDetected) SARS-CoV-2 (PCR) (NotDetected) Coronavirus NL63 (PCR) (NotDetected) Human Metapneumovir PCR (NotDetected) Influenza Type A (PCR) (NotDetected) Influenza Type B (PCR) (NotDetected) M. pneumoniae (PCR) (NotDetected) Parainfluenza 1 (PCR) (NotDetected) Parainfluenza 2 (PCR) (NotDetected) Parainfluenza 3 (PCR) (NotDetected) Parainfluenza 4 (PCR) (NotDetected) RSV (PCR) (NotDetected) Entero/Rhino (PCR) (NotDetected) 05/23/23 Range/Units 04:51 WBC (4.8-10.8) K/ul RBC (4.20-5.40) M/uL Hgb (12.0-16.0) g/dl Hct (37.0-47.0) % MCV (80.0-100.0) fL MCH (25.0-34.0) pg MCHC (32.0-36.0) g/dL RDW Std Deviation (36.4-46.3) fL RDW Coeff of Macario (11.5-14.5) % Plt Count (130-400) K/uL Immature Gran % (Auto) % Neut % (Auto) % Lymph % (Auto) % [place] % (Auto) % Eos % (Auto) % Baso % (Auto) % Neut # (Auto) (1.40-6.50) K/uL Lymph # (Auto) (1.20-3.40) K/uL [place] # (Auto) (0.11-0.59) K/uL Eos # (Auto) (0.00-0.50) K/uL Baso # (Auto) (0.00-0.20) K/uL Immature Gran # (Auto) (0.01-0.20) K/uL Absolute Nucleated RBC (0.00-0.12) K/uL Nucleated RBC % (auto) % PT (9.0-12.0) Seconds INR (0.9-1.1) APTT (21-31) Seconds PTT Ratio ABG pH (7.35-7.45) ABG pCO2 (35-46) mmHg ABG pO2 (80-95) mmHg ABG HCO3 (19-24) mmol/L ABG O2 Saturation (90-95) % ABG Base Excess (-9-1.8) mEq/L García Test (Pos) VBG pH (7.36-7.41) VBG pCO2 (38-50) mmHg VBG pO2 mmHg VBG HCO3 mmol/L VBG O2 Saturation % VBG Base Excess mEq/L Oxygen Given Sodium (136-145) mmol/L Potassium (3.5-5.1) mmol/L Chloride (98-107) mmol/L Carbon Dioxide (21-32) mmol/L Anion Gap (3-11) BUN (6-23) mg/dl Creatinine (0.6-1.2) mg/dl Est Cr Clr Drug Dosing ml/min Est GFR ( Amer) ml/min Est GFR (Non-Af Amer) ml/min BUN/Creatinine Ratio (10-20) Glucose (70-99(Fasting)) mg/dl Lactate (0.4-2.0) mmol/L Calcium (8.6-10.3) mg/dl Magnesium (1.7-2.4) mg/dl Total Bilirubin (0.2-1.0) mg/dl AST (13-39) U/L ALT (7-52) U/L Alkaline Phosphatase (34-104) U/L Ammonia (18-72) umol/L Troponin I High Sens (0-14) pg/ml B-Natriuretic Peptide (0-100) pg/ml Total Protein (6.0-8.3) gm/dl Albumin (3.4-5.0) gm/dl Globulin (2.5-4.0) gm/dl Albumin/Globulin Ratio (0.9-2) Lipase (11-82) U/L Urine Color Dark Yellow Urine Appearance Cloudy A (Clear) Urine pH 5.0 (4.5-7.5) Ur Specific [place] 1.020 (1.000-1.030) Urine Protein 2+ H (Negative) Urine Glucose (UA) Negative (Negative) Urine Ketones Negative (Negative) Urine Blood Negative (Negative) Urine Nitrite Positive A (Negative) Urine Bilirubin 2+ H (Negative) Urine Urobilinogen Positive H (Negative) Ur Leukocyte Esterase Trace H (Negative) Urine WBC (Auto) 5-10 H (0-5) /hpf Urine RBC (Auto) 0-4 (0-4) /hpf U Hyaline Cast (Auto) 5-10 H (0-5) /lpf U Epithel Cells (Auto) >30 H (0-5) /lpf Urine Bacteria (Auto) Negative (Negative) Calcium Oxalate Crystal Present A (None Prsent) Granular Casts 1-5 H (0) /lpf Urine Yeast Not Reportable Urine Opiates Screen Neg (Neg) Ur Methadone, Qual Neg (Neg) Urine Barbiturates Neg (Neg) Ur Phencyclidine (PCP) Neg (Neg) U Amphetamin/Meth Scrn Neg (Neg) MDMA (Ecstasy) Screen Neg (Neg) U Benzodiazepines Scrn Neg (Neg) Ur Cocaine Metabolite Neg (Neg) U Marijuana (THC) Screen Neg (Neg) Ethyl Alcohol mg/dL (<10.0) mg/dl Adenovirus (PCR) (NotDetected) B. pertussis DNA (PCR) (NotDetected) B.parapertussis DNA PCR (NotDetected) C. pneumoniae DNA (PCR) (NotDetected) Coronavirus OC43 (PCR) (NotDetected) Coronavirus HKU1 (PCR) (NotDetected) Coronavirus 229E (PCR) (NotDetected) SARS-CoV-2 (PCR) (NotDetected) Coronavirus NL63 (PCR) (NotDetected) Human Metapneumovir PCR (NotDetected) Influenza Type A (PCR) (NotDetected) Influenza Type B (PCR) (NotDetected) M. pneumoniae (PCR) (NotDetected) Parainfluenza 1 (PCR) (NotDetected) Parainfluenza 2 (PCR) (NotDetected) Parainfluenza 3 (PCR) (NotDetected) Parainfluenza 4 (PCR) (NotDetected) RSV (PCR) (NotDetected) Entero/Rhino (PCR) (NotDetected) ECG Data Attestation: I personally reviewed and interpreted this ECG as follows: Indication: + weakness Additional Comments: Normal sinus rhythm @95 bpm Right axis deviation Poor R wave progression, consider anterior ND vs. lead placement vs. LVH Nonspecific ST abnormality Abnormal ECG When compared with ECG of 14-FEB-2022 16:32, QRS axis Shifted right ST no longer elevated in Inferior leads QT has shortened MDM Narrative Physical exam and history were performed. Nursing notes, EMR, and Medication List were personally reviewed. No social concerns were identified as barriers to patients care. Patient appears to have difficulty breathing and confusion bringing her to the ER by ambulance. On arrival to the ER the patient appears critically ill and quite unwell. She is on nasal cannula oxygen and not maintaining a reasonable O2 saturation. Case was immediately discussed with my attending, Dr. Florentino, who also independently evaluated the patient and remain closely involved in care and decision making. IV access x 2 was established. Bio fire was performed. Lactic and blood cultures were obtained. Catheter was placed. Respiratory was contacted and the patient was started on BiPAP. The patient clinically is very fluid overloaded as she is edematous to her lower extremities and is wet on auscultation of the lungs. She was given IV Lasix. She is not answering questions well and chart notes a penicillin allergy. She was given a dose of cefepime here in the ER. An order was placed for continuous cardiac monitoring. The monitor shows a rate of 85 with normal sinus rhythm. Patient's blood work is as above and was reviewed. She does have an elevated white blood cell count of 15,000. She does not have significant anemia. Patient is with a significantly elevated CO2 over 100 on VBG. She is also acidotic. Lactic is 2.8. Troponin is elevated. The patient was not given a sepsis fluid bolus as she clinically is fluid overloaded. BNP is over 1600. Bilirubin is 3.8, which is new. INR 1.5 and the patient is not on blood thinners. She does have transaminitis with AST and ALT over 1000. Chest x-ray was reviewed by myself and my attending, and may show some fluid or early pneumonia. CT scans were considered, however her respiratory status is tenuous and unstable, and this was deferred until the patient was more stable. Patient did seem to respond to BiPAP, and we were able to maintain an O2 saturation in the high 90%. ABG did show some improvement in her gases, and the patient is able to communicate better than arrival. Intubation was considered, however the patient seems to be improving slowly here in the ER. She certainly does not seem well for discharge home. I did engage with the hospitalist service very early on in the patient's course, and patient will be admitted for further care. Please see the hospitalist dictation for further patient course, plan, and disposition. The chart was completed utilizing [employer] Speech Voice Recognition Software. Grammatical errors, random word insertions, pronoun errors, and incomplete sentences are an occasional consequence of this system due to software limitations, ambient noise, and hardware issues. Any formal questions or concerns about the content, text, or information contained within the body of this dictation should be directly addressed to the provider for clarification. . Impression & Plan Acute on chronic respiratory failure with hypoxia and hypercapnia, Acute encephalopathy, Elevated troponin, Abnormal LFTs Discharge Plan Visit Data Chief Complaint: Confusion Stated Complaint: CONFUSION, HYPOXIA ED Provider: Cherelle Florentino ED Midlevel Provider: Melisa,Mynor A Discharge Problem: Acute on chronic respiratory failure with hypoxia and hypercapnia, Acute encephalopathy, Elevated troponin, Abnormal LFTs Patient Disposition: Admitted As Inpatient Discharge Instructions Interventions: ED Discharge Assessment Last Done: 05/23/23 08:14
[2023-05-23] MEDS: CEFEPIME 2,000 MG/20 ML VIAL IV STA (04:04)
[2023-05-23] MEDS: FUROSEMIDE 40 MG/4 ML VIAL IV ONE ×4 (04:04→13:24)
[2023-05-23 05:04] LABS: Base Excess ABG 5.8 mEq/L (-9-1.8); HCO3 ABG 37 mmol/L (19-24); Oxygen Saturation ABG 98.5 % (90-95); PCO2 ABG 90 mmHg (35-46); PO2 ABG 113 mmHg (80-95); pH ABG 7.22 (7.35-7.45)
[2023-05-23 05:09] LABS: Appearance Urine Cloudy (Clear); Bacteria Urine Automated Negative (Negative); Blood Urine Negative (Negative); Color Urine Dark Yellow; Epithelial Cell Urine Auto >30 /lpf (0-5); Glucose Urine UA Negative (Negative); Ketones Urine Negative (Negative); Leukocyte Esterase Urine Trace (Negative); Nitrite Urine Positive (Negative); Protein Urine 2+ (Negative); RBC Urine Automated 0-4 /hpf (0-4); Urobilinogen Urine Positive (Negative)
[2023-05-23 05:11] LABS: Bilirubin Urine 2+ (Negative)
[2023-05-23 05:21] LABS: Calcium Oxalate Crystals Urine Present (None Prsent)
[2023-05-23 05:27] LABS: Amphetamines+Metham, Urine Neg (Neg); Barbiturates, Urine Neg (Neg); Benzodiazepine, Urine Neg (Neg); Cocaine, Urine Neg (Neg); MDMA (Ecstacy), Urine Neg (Neg); Marijuana, Urine Neg (Neg); Methadone, Urine Neg (Neg); Opiate, Urine Neg (Neg); Phencyclidine, Urine Neg (Neg)
[2023-05-23 06:07] LABS: Allen Test Pos (Pos)
--- NOTE | 2023-05-23 06:14 | History & Physical Report ---
Date of Service May 23, 2023 Assessment & Plan (1) Acute on chronic respiratory failure with hypoxia and hypercapnia: Plan: 58yo female with history of COPD presenting with respiratory failure with hypoxia and hypercarbia requiring BiPAP placement. Abnormal LFTs with evidence of liver dysfunction, elevated troponin and BNP Neuro - patient moving all extremities on exam. Somnolent but arousable, mental status improving with use of BiPAP Cardiovascular - Patient with history of CAD s/p Lcx stent placement in February 2022. Patient with markedly elevated troponin of 964.8 --> 1276.5. Elevated BNP of 1603. She appear volume overloaded on exam. ?CHF -PCU admission for continuous cardiac monitoring -Trend troponin q 6 hours until peak -Check 2D echo -Continue ASA and Plavix -Check CTA chest to rule out PE -Check Doppler bilateral LE -Lasix 40mg IV BID for suspected CHF Pulmonary - patient with baseline COPD. Does not use home O2 or CPAP. Presents with hypoxic, hypercarbic respiratory failure now on BiPAP 18/8, 50% FiO2 - TV adequate -Repeat ABG upon arrival to the floor -CTA chest to assess for PE -Albuterol PRN GI -patient with acutely elevated LFTs as well as coaguloapthy with INR of 1.5. Etiology unclear. ?poor perfusion possibly secondary to clot vs acute decompensated CHF - hepatic ischemia? -Check Ferritin, Acetaminophen level, Acute hepatitis panel -CT Abdomen with contrast ordered -Repeat LFTs -Avoid hepatotoxic medication -Protonix 40mg po daily - Patient with EH. Possibly secondary to poor perfusion. BUN of 36, Cr of 1.95 from prior values of 6 and 0.[address] -Monitor output -Avoid nephrotoxic agents -Renal dosing where needed -Repeat chemistry in AM Heme - no bleeding ID - UA suggestive of infection -Follow cultures -Cefepime for empiric treatment -Nystatin to skin folds (2) Coronary artery disease: (3) Hyperlipidemia: (4) Abnormal LFTs: (5) Elevated troponin: History of Present Illness Primary Care Provider: DO Kristina Menchacatoshia Mendoza is a 58yo female with history of COPD, inferior STEMI in February 2022 s/p stent placement to LCx presenting from home with hypoxia and confusion. History obtained by patient's son at bedside as patient is unable to provide history. Son reports that patient was in her usual state of health this evening until around 23:00 when she was found sitting up in bed, pale in appearance, confused and with difficulty breathing. Son called EMS - reported hypoxia with saturations of 55% in the field, ETCO2 in the 70's. Patient with cold e xtremities. She was given DuoNeb x 2 prior to arrival. In the ER she is afebrile, HD stable. Hypoxic at 85% on room air which improved to the low 90's with 4L NC. She has since been placed on BiPAP 19/12 with improvement in oxygenation. Son reports that patient has not voiced any complaints over the last several days. No new medications. No use of home O2 or home CPAP. ER Course: Lasix 40mg IV Cefepime 2gm IV Allergies Allergy/AdvReac Type Severity Reaction Status Date / Time Penicillins Allergy Unknown CAN'T Verified 05/23/23 03:02 REMEMBER Statin AdvReac Intermediate Muscle Pain Uncoded 05/23/23 03:02 Home Medications Medication Instructions Recorded Confirmed Type metoprolol succinate 25 mg 25 mg PO DAILY #90 tabs 03/15/22 05/23/23 Rx tablet,extended release 24 hr cyanocobalamin (vitamin B-12) 500 mcg PO DAILY 03/18/22 05/23/23 History 1,000 mcg tablet (Vitamin B-12) folic acid 1 mg tablet 3 mg PO DAILY 03/18/22 05/23/23 History tiotropium 2.5 mcg-olodaterol 2.5 2 inh inhalation DAILY #4 grams 08/04/22 05/23/23 Rx mcg/actuation mist for inhalation albuterol sulfate 90 mcg/actuation 1 - 2 inh inhalation QID #18 grams 08/26/22 05/23/23 Rx aerosol inhaler losartan 25 mg tablet 25 mg PO DAILY #30 tabs 09/24/22 05/23/23 Rx clopidogrel 75 mg tablet (Plavix) 75 mg PO DAILY #90 tabs 03/03/23 05/23/23 Rx aspirin 81 mg tablet,delayed 81 mg PO QAM #90 tabs 03/05/23 05/23/23 Rx release fluticasone 250 mcg-salmeterol 50 1 inh inhalation BID #60 ea 03/06/23 05/23/23 Rx mcg/dose blistr powdr for inhalation (Wixela Inhub) levalbuterol tartrate 45 2 inh inhalation Q6H PRN shortness 05/14/23 05/23/23 Rx mcg/actuation aerosol inhaler of breath #15 grams (Xopenex HFA) Past Med/Surg History Medical History (Updated 05/23/23 @ 06:39 by Dyana Romero DO) History of ST elevation myocardial infarction (STEMI) Screening for tuberculosis Thrombophlebitis of deep femoral vein Obesity, Class II, BMI 35-39.9 Hyperhomocystinemia Hyperlipidemia Generalized skin tumors Fatigue Asthma Surgical History S/P cardiac catheterization 02/14/22 Dr. Moisés Munoz at [facility]- Cardiac cath- 1 TRELL to distal circumflex Family History Family/Other No problems noted. Sister Ovarian cancer Denies family history of Prostate cancer Myocardial infarction Breast cancer Colorectal cancer Social History Smoking Status: Current every day smoker Tobacco Type: Cigarettes Second Hand Exposure: No; Do You Dip or Chew Tobacco: No; Hx Alcohol Use: No Hx Substance Use: No Preferred Language: [place] Communication Ability: Effective Communication Tools: Other Visual Impairment: No Limitations Computer Numerical Control Grinder Required: Yes and No Beliefs That Will Affect Care: None marital status: Single Current Living Situation: Other Current Living Situation Comment: Lives with childern current occupational status: unemployed Feels Safe at Home: Yes Childhood Exposure to Second-Hand Smoke: Yes Diet: other Diet Comment: cardio healthy caffeine: Yes Dental Care, Regularly: No Physical Activity Frequency: Daily Seatbelt Use: never Sunscreen Use: Yes Assistive Devices: Denture - Upper, Glasses and Walker Review of Systems Review of Systems: Unobtainable due to reduced consciousness Physical Exam Physical Exam: General: patient somnolent, opens eyes to verbal and noxious stimuli, not follo wing commands Skin: cool, mottling present on bilateral LE R > L, redness/flaking in abdominal skin folds HEENT: NC/AT, PERRL,+Scleral icterus, conjunctiva without injection, external ear normal to inspection and nontender, nares patent, moist mucus membranes, dentition intact, no oropharyngeal lesions, neck supple, trachea midline, no LAD, no thyromegaly, no JVD Heart: +S1/S2, regular, no m/r/g Lungs: equal air entry bilaterally, crackles present in bases Abd: +BS, soft, NT/ND, no masses/organomegaly/ascites Ext: cool, 1+ pulses in bilateral LE, 1+ edema to knees bilaterally Neuro: somnolent, moving all extremities Results & Data Results & Data Vital Signs (Past 12 Hours) Vital Signs Temp Pulse Resp BP Pulse Ox O2 Del Method O2 Flow Rate 05/23/23 06:12 87 05/23/23 06:04 36.6 C 05/23/23 05:30 84 15 113/74 100 BiPAP 05/23/23 05:00 81 18 111/72 100 BiPAP 05/23/23 04:30 86 24 112/77 98 BiPAP 05/23/23 04:00 84 25 H 130/85 96 BiPAP 05/23/23 03:49 89 25 H 138/88 90 BiPAP 05/23/23 03:38 91 H 27 H 90 05/23/23 03:00 85 24 104/69 90 Nasal Cannula 4 05/23/23 02:31 90 20 118/78 93 Nasal Cannula 4 05/23/23 02:20 90 05/23/23 02:19 85 L Nasal Cannula 4 05/23/23 02:06 36.5 C 95 H 16 135/87 85 L Room Air FiO2 05/23/23 06:12 05/23/23 06:04 05/23/23 05:30 100 05/23/23 05:00 100 05/23/23 04:30 100 05/23/23 04:00 100 05/23/23 03:49 100 05/23/23 03:38 100 05/23/23 03:00 05/23/23 02:31 05/23/23 02:20 05/23/23 02:19 05/23/23 02:06 Laboratory Results Laboratory Results WBC 15.13 K/ul (4.8-10.8) H 05/23/23 02:14 RBC 5.67 M/uL (4.20-5.40) H 05/23/23 02:14 Hgb 14.4 g/dl (12.0-16.0) 05/23/23 02:14 Hct 51.6 % (37.0-47.0) H 05/23/23 02:14 MCV 91.0 fL (80.0-100.0) 05/23/23 02:14 MCH 25.4 pg (25.0-34.0) 05/23/23 02:14 MCHC 27.9 g/dL (32.0-36.0) L 05/23/23 02:14 RDW Std Deviation 59.8 fL (36.4-46.3) H 05/23/23 02:14 RDW Coeff of Macario 19.0 % (11.5-14.5) H 05/23/23 02:14 Plt Count 187 K/uL (130-400) 05/23/23 02:14 Immature Gran % (Auto) 1.1 % 05/23/23 02:14 Neut % (Auto) 84.7 % 05/23/23 02:14 Lymph % (Auto) 5.5 % 05/23/23 02:14 [place] % (Auto) 8.4 % 05/23/23 02:14 Eos % (Auto) 0.1 % 05/23/23 02:14 Baso % (Auto) 0.2 % 05/23/23 02:14 Neut # (Auto) 12.83 K/uL (1.40-6.50) H 05/23/23 02:14 Lymph # (Auto) 0.83 K/uL (1.20-3.40) L 05/23/23 02:14 [place] # (Auto) 1.27 K/uL (0.11-0.59) H 05/23/23 02:14 Eos # (Auto) 0.01 K/uL (0.00-0.50) 05/23/23 02:14 Baso # (Auto) 0.03 K/uL (0.00-0.20) 05/23/23 02:14 Immature Gran # (Auto) 0.16 K/uL (0.01-0.20) 05/23/23 02:14 Absolute Nucleated RBC 0.25 K/uL (0.00-0.12) H 05/23/23 02:14 Nucleated RBC % (auto) 1.7 % 05/23/23 02:14 PT 15.9 Seconds (9.0-12.0) H 05/23/23 02:15 INR 1.5 (0.9-1.1) H 05/23/23 02:15 APTT 25 Seconds (21-31) 05/23/23 02:15 PTT Ratio 0.9 05/23/23 02:15 ABG pH 7.22 (7.35-7.45) L 05/23/23 04:48 ABG pCO2 90 mmHg (35-46) H 05/23/23 04:48 ABG pO2 113 mmHg (80-95) H 05/23/23 04:48 ABG HCO3 37 mmol/L (19-24) H 05/23/23 04:48 ABG O2 Saturation 98.5 % (90-95) H 05/23/23 04:48 ABG Base Excess 5.8 mEq/L (-9-1.8) H 05/23/23 04:48 García Test Pos (Pos) 05/23/23 04:48 VBG pH 7.12 (7.36-7.41) L 05/23/23 02:14 VBG pCO2 105 mmHg (38-50) H 05/23/23 02:14 VBG pO2 36 mmHg 05/23/23 02:14 VBG HCO3 34 mmol/L 05/23/23 02:14 VBG O2 Saturation < 60.0 % 05/23/23 02:14 VBG Base Excess 1.4 mEq/L 05/23/23 02:14 Oxygen Given FIO2 100 05/23/23 04:48 Sodium 134 mmol/L (136-145) L 05/23/23 02:14 Potassium 5.0 mmol/L (3.5-5.1) 05/23/23 02:14 Chloride 90 mmol/L (98-107) L 05/23/23 02:14 Carbon Dioxide 34 mmol/L (21-32) H 05/23/23 02:14 Anion Gap 10 (3-11) 05/23/23 02:14 BUN 36 mg/dl (6-23) H 05/23/23 02:14 Creatinine 1.95 mg/dl (0.6-1.2) H 05/23/23 02:14 Est Cr Clr Drug Dosing 40.0 ml/min 05/23/23 02:14 Est GFR ( Amer) 32.3 ml/min 05/23/23 02:14 Est GFR (Non-Af Amer) 27.9 ml/min 05/23/23 02:14 BUN/Creatinine Ratio 18.5 (10-20) 05/23/23 02:14 Glucose 191 mg/dl (70-99(Fasting)) H 05/23/23 02:14 Lactate 2.8 mmol/L (0.4-2.0) H* 05/23/23 03:56 Calcium 9.8 mg/dl (8.6-10.3) 05/23/23 02:14 Magnesium 2.4 mg/dl (1.7-2.4) 05/23/23 02:14 Total Bilirubin 3.8 mg/dl (0.2-1.0) H 05/23/23 02:14 AST 1048 U/L (13-39) H 05/23/23 02:14 ALT 1067 U/L (7-52) H 05/23/23 02:14 Alkaline Phosphatase 62 U/L (34-104) 05/23/23 02:14 Ammonia 65.0 umol/L (18-72) 05/23/23 02:14 Troponin I High Sens 1276.5 pg/ml (0-14) H* D 05/23/23 04:48 B-Natriuretic Peptide 1603 pg/ml (0-100) H 05/23/23 03:50 Total Protein 7.4 gm/dl (6.0-8.3) 05/23/23 02:14 Albumin 4.3 gm/dl (3.4-5.0) 05/23/23 02:14 Globulin 3.1 gm/dl (2.5-4.0) 05/23/23 02:14 Albumin/Globulin Ratio 1.4 (0.9-2) 05/23/23 02:14 Lipase 6 U/L (11-82) L 05/23/23 02:14 Urine Color Dark Yellow 05/23/23 04:51 Urine Appearance Cloudy (Clear) A 05/23/23 04:51 Urine pH 5.0 (4.5-7.5) 05/23/23 04:51 Ur Specific [place] 1.020 (1.000-1.030) 05/23/23 04:51 Urine Protein 2+ (Negative) H 05/23/23 04:51 Urine Glucose (UA) Negative (Negative) 05/23/23 04:51 Urine Ketones Negative (Negative) 05/23/23 04:51 Urine Blood Negative (Negative) 05/23/23 04:51 Urine Nitrite Positive (Negative) A 05/23/23 04:51 Urine Bilirubin 2+ (Negative) H 05/23/23 04:51 Urine Urobilinogen Positive (Negative) H 05/23/23 04:51 Ur Leukocyte Esterase Trace (Negative) H 05/23/23 04:51 Urine WBC (Auto) 5-10 /hpf (0-5) H 05/23/23 04:51 Urine RBC (Auto) 0-4 /hpf (0-4) 05/23/23 04:51 U Hyaline Cast (Auto) 5-10 /lpf (0-5) H 05/23/23 04:51 U Epithel Cells (Auto) >30 /lpf (0-5) H 05/23/23 04:51 Urine Bacteria (Auto) Negative (Negative) 05/23/23 04:51 Calcium Oxalate Crystal Present (None Prsent) A 05/23/23 04:51 Granular Casts 1-5 /lpf (0) H 05/23/23 04:51 Urine Yeast Not Reportable 05/23/23 04:51 Urine Opiates Screen Neg (Neg) 05/23/23 04:51 Ur Methadone, Qual Neg (Neg) 05/23/23 04:51 Urine Barbiturates Neg (Neg) 05/23/23 04:51 Ur Phencyclidine (PCP) Neg (Neg) 05/23/23 04:51 U Amphetamin/Meth Scrn Neg (Neg) 05/23/23 04:51 MDMA (Ecstasy) Screen Neg (Neg) 05/23/23 04:51 U Benzodiazepines Scrn Neg (Neg) 05/23/23 04:51 Ur Cocaine Metabolite Neg (Neg) 05/23/23 04:51 U Marijuana (THC) Screen Neg (Neg) 05/23/23 04:51 Ethyl Alcohol mg/dL < 10.0 mg/dl (<10.0) 05/23/23 02:14 Adenovirus (PCR) Not Detected (NotDetected) 05/23/23 02:10 B. pertussis DNA (PCR) Not Detected (NotDetected) 05/23/23 02:10 B.parapertussis DNA PCR Not Detected (NotDetected) 05/23/23 02:10 C. pneumoniae DNA (PCR) Not Detected (NotDetected) 05/23/23 02:10 Coronavirus OC43 (PCR) Not Detected (NotDetected) 05/23/23 02:10 Coronavirus HKU1 (PCR) Not Detected (NotDetected) 05/23/23 02:10 Coronavirus 229E (PCR) Not Detected (NotDetected) 05/23/23 02:10 SARS-CoV-2 (PCR) Not Detected (NotDetected) 05/23/23 02:10 Coronavirus NL63 (PCR) Not Detected (NotDetected) 05/23/23 02:10 Human Metapneumovir PCR Not Detected (NotDetected) 05/23/23 02:10 Influenza Type A (PCR) Not Detected (NotDetected) 05/23/23 02:10 Influenza Type B (PCR) Not Detected (NotDetected) 05/23/23 02:10 M. pneumoniae (PCR) Not Detected (NotDetected) 05/23/23 02:10 Parainfluenza 1 (PCR) Not Detected (NotDetected) 05/23/23 02:10 Parainfluenza 2 (PCR) Not Detected (NotDetected) 05/23/23 02:10 Parainfluenza 3 (PCR) Not Detected (NotDetected) 05/23/23 02:10 Parainfluenza 4 (PCR) Not Detected (NotDetected) 05/23/23 02:10 RSV (PCR) Not Detected (NotDetected) 05/23/23 02:10 Entero/Rhino (PCR) Not Detected (NotDetected) 05/23/23 02:10 ECG Additional Comments: EKG with NSR at 95, right axis deviation, WK=033, QRS=82, TMu=230 Code Status & VTE Plan VTE Prophylaxis Plan VTE Prophylaxis will be ordered: Yes PG Care Time/CCT Total # of Minutes Spent Total Time Spent with Patient: Total time spent is greater than 50% in coordination of care (as documented) at patient's floor/unit and/or counseling patient: Coding Level of Care Code 44335 INT INP/OBS CARE MIN Diagnoses Acute on chronic respiratory failure with hypoxia and hypercapnia J96.21; J96.22 Coronary artery disease I25.10 Hyperlipidemia E78.5 Abnormal LFTs R79.89 Elevated troponin R79.89
--- NOTE | 2023-05-23 07:15 | Electrocardiogram Report ---
Test Reason : Blood Pressure : / mmHG Vent. Rate : 095 BPM Atrial Rate : 095 BPM P-R Int : 128 ms QRS Dur : 082 ms QT Int : 326 ms P-R-T Axes : 081 144 054 degrees QTc Int : 409 ms Normal sinus rhythm Right axis deviation Poor R wave progression, consider anterior [place] vs. lead placement vs. LVH Nonspecific ST abnormality Abnormal ECG When compared with ECG of 14-FEB-2022 16:32, QRS axis Shifted right ST no longer elevated in Inferior leads QT has shortened Confirmed by Moisés Soto ([id number]) on 05/23/2023 7:15:49 AM Referred By: REFERRED SELF Confirmed By:Jeffery Soto
--- NOTE | 2023-05-23 08:10 | XRay Report ---
XR chest 1V portable HISTORY: Shortness of breath. COMPARISON: Chest 02/14/2022. FINDINGS: There are low lung volumes. No pneumothorax. No pleural effusions. The heart is mildly enla rged. There is mild central pulmonary vascular congestion without overt edema. No new focal lung cons olidations to suggest a pneumonia. No acute fractures. IMPRESSION: Cardiomegaly with mild pulmonary vascular congestion. ACT 112: Negative or not required by law. Electronically signed by: Chris Winter M.D. 05/23/2023 8:08 AM
[2023-05-23] MEDS ORDERED: ALBUTEROL 0.5% NEB SOLN 2.5 MG/0.5 ML VIAL NEB PRN (08:13)
[2023-05-23] MEDS ORDERED: ACETAMINOPHEN 325 MG TAB PO PRN (08:13)
--- NOTE | 2023-05-23 08:38 | CT Scan Report ---
CT angio abdomen w con CT DOSE: 1023.19 mGy.cm CLINICAL HISTORY: abnormal LFTs TECHNIQUE: Multiaxial CT images of the abdomen were performed following the intravenous administratio n of contrast to evaluate the major arterial structures. 3-D/maximal intensity projection images in t he sagittal and coronal planes were also obtained for the CT portion of examination. A dose lowering technique was utilized adhering to the principles of ALARA. COMPARISON STUDY: None. FINDINGS: Patchy densities within the base of the left lower lobe which may represent atelectasis or a pneumonia. Mild emphysema is noted. No pneumoperitoneum. No pneumatosis. No acute fractures identif ied. The heart is mildly enlarged. There is a bilobed 11 mm nodule within the right lower lobe on sharon ge 30. Near-complete mucoid opacification of the left lower lobe bronchi. Severe body wall edema most pronounced on the left. Cholecystectomy. The liver, spleen, and pancreas are unremarkable. Small hyp odense lesion within the left kidney is not well characterized due to the timing of contrast but favo rs a cyst. No hydronephrosis. Small amount of fluid within the right paracolic gutter. Bilateral adre nal gland nodules/masses are noted. Dominant left adrenal gland nodule/mass measures 4.7 cm. These ar e indeterminate but may represent benign adenomas. No retroperitoneal lymphadenopathy. There is a lef t circumaortic renal vein. The visualized loops of bowel show no wall thickening or obstruction. Abdominal aorta, celiac artery, superior mesenteric artery, and visualized inferior mesenteric artery , bilateral renal arteries show no significant stenosis, occlusion, or dissection. No evidence for an abdominal aortic aneurysm. This mild calcified plaque within the abdominal aorta and visualized regina c arteries. There are 2 right renal arteries which are patent. Small hypodense focus within the lower pole the right kidney which measures 13 mm. This is difficult to characterize on this study but coul d represent a cyst or less likely a small renal infarct. IMPRESSION: 1. Patchy densities within the left lower lobe with partial opacification the left lower lobe bronchi . This may represent a pneumonia could be due to aspiration. 2. A bilobed 11 mm right lower lobe nodule. Please refer to the chart below for recommended follow-up . 3. Severe body wall edema. 4. Small amount of ascites. 5. No significant stenosis, occlusion, or dissection within the aorta or mesenteric arteries. 6. The bilateral renal arteries appear patent. 7. Small hypodense focus within the lower pole the right kidney which measures 13 mm. This is difficu lt to characterize on this study but could represent a cyst or less likely a small renal infarct. ACT 112: Negative or not required by law. Electronically signed by: Chris Winter M.D. 05/23/2023 8:36 AM
--- NOTE | 2023-05-23 08:52 | Emergency Department Note ---
ED Visit Note The patient was seen and examined with my DEVIKA, Mynor Vincent PA-C. I personally saw the patient and we provided critical care to the patient for a total of 120 minutes. These minutes are separate from any billable procedures. I provided a substantive portion of the care and the majority of the critical care time. .
[2023-05-23] MEDS: OPTIRAY 320 125ml IV ONE (08:58)
--- NOTE | 2023-05-23 09:19 | CT Scan Report ---
HEAD CT NONCONTRAST CT DOSE: HISTORY: Obtundation TECHNIQUE: Multiaxial CT images of the head were performed without the use of intravenous contrast. A utomated exposure control was utilized for this study. A dose lowering technique was utilized adheri ng to the principles of ALARA. Comparison: None. Findings: The paranasal sinuses and mastoid air cells are clear. The calvarium and skull base are int act. There is residual contrast within the brain from the recent abdomen and pelvis CTA. This results in suboptimal evaluation for intracranial hemorrhage. However, there is no definite intracranial hem orrhage identified. The ventricles and sulci are within normal limits. Small hyperdense focus within the high convexity left parietal lobe on image 23 which measures 1.7 cm. This could represent an age- indeterminate infarct. There is mild motion artifact. No mass or midline shift identified. Impression: 1. Suboptimal evaluation of the brain due to the contrast from the recent abdomen and pelvis CTA. 2. No definite intracranial hemorrhage 3. A 1.7 cm hypodense focus within the left parietal lobe. This is consistent with an age-indetermina te infarct. ACT 112: Negative or not required by law. Electronically signed by: Chris Winter M.D. 05/23/2023 9:17 AM
[2023-05-23] MEDS ORDERED: STAT IV Infusion **Titration per Protocol STA ×3 (09:23→13:23)
[2023-05-23] MEDS ORDERED: fentaNYL BOLUS from BAG IV PRN (09:23)
--- NOTE | 2023-05-23 09:25 | CT Scan Report ---
CHEST CTA for PULMONARY ARTERIES CT DOSE: 1436.86 mGy.cm HISTORY: Shortness of breath. TECHNIQUE: Multiaxial CT images of the chest were performed following the intravenous administration of contrast to evaluate the pulmonary arteries. 3D/Maximal intensity projection images were also obta ined. Sagittal and coronal reformations were also reviewed. A dose lowering technique was utilized a dhering to the principles of ALARA. COMPARISON STUDY: Chest 05/23/2023. FINDINGS: There is an old mild inferior endplate compression deformity at T11. No acute fractures wit hin the chest. Normal thyroid gland and normal esophagus. The abdominal structures are better assesse d on the same day abdomen CT. Body wall edema is again noted. No pleural or pericardial effusions. Th e heart is mildly enlarged. No mediastinal or hilar lymphadenopathy. Normal caliber thoracic aorta wi th no evidence for a dissection. No filling defects within the pulmonary arteries to suggest a pulmon rosangela embolus. No pneumothorax. Mild emphysema. Patchy airspace opacities within the left lower lobe. S mall patchy and linear densities within the base of the right middle lobe. An 11 mm bilobed nodule wi thin the right lower lobe on image 66. Partial opacification of the bilateral lower lobe bronchi most pronounced on the left. Mild bronchial wall thickening is noted. IMPRESSION: 1. No evidence for a pulmonary embolus. 2. Partial opacification of the bilateral lower lobe bronchi with patchy airspace opacities within th e left lung base. This favors a pneumonia and likely due to aspiration. 3. Mild emphysema. 4. An 11 mm bilobed nodule within the right lower lobe. Please refer to the chart below for recommend ed follow-up. Please refer to below summary of Fleischner criteria recommendations for follow-up of incidental CT n odules (Sp Guerrero, Guidelines for management of small pulmonary nodules detected on CT scans: A sta tement from the Fleischner Society, Radiology 237: [phone].) SOLID NODULES Solitary nodule size: <6 mm * Low risk patients: no follow-up needed * high risk patients: optional CT at 12 months Solitary nodule size: 6-8 mm * Low risk patients: follow-up at 6-12 months, then consider further follow-up at 18-24 months * high risk patients: initial follow-up CT at 6-12 months and then at 18-24 months if no change Solitary nodule size: >8 mm * either low or high risk patients - consider follow-up CT at 3 months, and/or CT-PET, and/or biopsy Multiple nodules size: <6 mm * Low risk patients: no routine follow-up * high risk patients: optional CT at 12 months Multiple nodules size: 6-8 mm * Low risk patients: follow-up at 3-6 months, then consider further follow-up at 18-24 months * high risk patients: follow-up at 3-6 months, then at 18-24 months if no change Multiple nodules size: >8 mm * Low risk patients: follow-up at 3-6 months, then consider further follow-up at 18-24 months * high risk patients: follow-up at 3-6 months, then at 18-24 months if no change Note: newly detected indeterminate nodule in persons 35 years of age or older. * Low risk patients: minimal or absent history of smoking and/or other known risk factors * high risk patients: history of smoking or of other known risk factors (e.g. first degree relative with lung cancer, or exposure to asbestos, radon, uranium) * if a nodule up to 8 mm is partly solid or is ground glass further follow-up is required after 24 m onths to exclude possible slow growing adenocarcinoma (NOHEMI) SUBSOLID NODULES Solitary pure ground-glass nodule * nodule size <6 mm - no CT follow-up required * nodule size >=6 mm - follow-up CT at 6-12 months, then every 2 years until 5 years Solitary part-solid nodule * nodule size <6 mm - no CT follow-up required * nodule size >=6 mm - follow-up CT at 3-6 months. If unchanged, and solid component remains <6 mm, then annual follow-up for 5 years Multiple subsolid nodules * nodule size <6 mm - follow-up CT at 3-6 months, consider further follow-up at 2 and 4 years if sta ble * nodule size >=6 mm - follow-up CT at 3-6 months, subsequent management based on the most suspiciou s nodule(s) ACT 112: Negative or not required by law. Electronically signed by: Chris Winter M.D. 05/23/2023 9:22 AM
[2023-05-23] MEDS: fentaNYL citrate 2,500 MCG/250 ML BAG IV SCH (09:26)
--- NOTE | 2023-05-23 09:39 | Procedure Note ---
Procedure Note Date of Service May 23, 2023 Note INTUBATION PROCEDURE NOTE: Dr. Prem Herrera A time-out was completed verifying correct patient, procedure, site, positioning. Patient was evaluated and required intubation for hypoxemic respiratory failure and altered mental state. Sedative agent used: 25 mg etomidate Paralysis agent used: 50 mg rocuronium Emergent consent was implied given patients rapidly declining clinical status and need for airway protection. Number of attempts: 1 Grade view: Not applicable The patient was prepared in the appropriate fashion. Sedation was achieved utilizing etomidate and rocuronium. The patient was easily ventilated using bag- valve-mask to achieve adequate oxygenation. A 7.5 Tajik endotracheal tube was placed under GlideScope to 23 cm at the lip. The stylette was removed and balloon was inflated with 10mL of air. Appropriate Colorimetric change was appreciated. Bilateral breath sounds were heard without air sounds in the abdomen. Post Intubation Chest X-ray ordered. Patient tolerated the procedure well and there were no immediate complications. Coding CPT Codes Resuscitation - Resuscitation: 45832 Endotracheal Intubation, emergency ([id number]) [facility] [place] Procedure Codes (Charges) Resuscitation Resuscitation: 49838 Endotracheal Intubation, emergency
[2023-05-23] MEDS: ASPIRIN 81 MG ECTAB PO SCH (09:40)
[2023-05-23] MEDS: CLOPIDOGREL BISULFATE 75 MG TAB PO SCH (09:40)
[2023-05-23] MEDS: FOLIC ACID 1 MG TAB PO SCH (09:41)
[2023-05-23] MEDS: fentaNYL citrate 2,500 MCG/250 ML BAG IV ONE (09:41)
[2023-05-23] MEDS: PANTOprazole 40 MG TAB PO SCH (09:41)
[2023-05-23] MEDS: FLUTICASONE/VILANTEROL 200/25MCG 14 PUFFS/INHALER INH SCH (09:41)
[2023-05-23] MEDS: RAPID SEQUENCE INDUCTION BAG ONE (09:45)
[2023-05-23] MEDS ORDERED: AcetylCYSTEINE IV 21 HR REGIMEN (>40KG) IV STA (09:47)
[2023-05-23] MEDS ORDERED: STAT IV/IM STA ×2 (09:47→11:35)
--- NOTE | 2023-05-23 09:55 | XRay Report ---
XR chest 1V portable HISTORY: s/p intubation COMPARISON: Chest CTA 05/23/2023. FINDINGS: Endotracheal tube terminates 1.3 cm from the chris. No pneumothorax. The heart is mildly e nlarged. Mild interstitial thickening is noted. This is likely chronic. Patchy left basilar densities persist. No evidence for pulmonary edema. No acute fractures. IMPRESSION: 1. Endotracheal tube terminates 1.3 cm from the chris. This could be pulled back by 1 to 2 cm. 2. Left basilar airspace opacities persist and favor a pneumonia. ACT 112: Negative or not required by law. Electronically signed by: Chris Winter M.D. 05/23/2023 9:53 AM
--- NOTE | 2023-05-23 09:57 | Critical Care Consultation ---
Date of Consultation May 23, 2023 Assessment & Plan (1) Status asthmaticus with COPD (chronic obstructive pulmonary disease): (2) Acute CHF (congestive heart failure): (3) Acute encephalopathy: (4) Transaminitis: (5) Coronary artery disease: (6) Elevated troponin: (7) Endotracheally intubated: (8) RVF (right ventricular failure): (9) Aspiration pneumonia: Plan 58-year-old female with a past medical history of coronary artery disease, COPD, asthma and obesity who presented to the hospital due to altered mental status and hypoxemic respiratory failure. Neurologic: Patient with severe encephalopathy secondary to hypercarbic respiratory failure. Patient also with age-indeterminate stroke noted on CT head. Will obtain MRI brain without contrast when patient stabilizes. Patient currently intubated and sedated with propofol, fentanyl and Nimbex. Pulmonary: Patient with status asthmaticus. Given IV Solu-Medrol 125 mg in the ICU. Continue frequent albuterol nebs. Ventilator settings adjusted due to elevated peak pressures. I E ratio increased to allow for improvement of air trapping. ABG demonstrating improving hypercarbic respiratory failure. CT chest also with evidence of bibasilar aspiration pneumonia. Continue Zosyn. Respiratory viral panel negative. MRSA screen pending. Cardiovascular: Patient with elevated BNP and severe body wall edema consistent with RV dysfunction. Echo ordered. I was able to review the echo at bedside and there is evidence of a small pericardial effusion. There is also evidence of turbulent flow from the apex of the right ventricle towards the pericardial effusion of unclear etiology. Will discuss with cardiology. Patient given 40 mg of IV Lasix in the ER and will be given an additional 40 mg here. Troponin elevated likely due to demand ischemia. EKG without significant ischemic changes. Maintain maps above 65 mmHg. Patient was briefly on Levophed which has been weaned off. Gastrointestinal: Place OGT. N.p.o. for the time being. Patient with severe transaminitis of unclear etiology. Acute hepatitis panel pending. NAC protocol to be initiated. INR elevated to 1.5. Ammonia unremarkable. Appreciate GI input. Renal: Patient with EH. Elevated bicarbonate likely due to chronic CO2 retention. Sodium decreased due to hypervolemic hyponatremia. Monitor urine output closely. Follow-up BMP. Infectious disease: Continue Zosyn for aspiration pneumonia. Obtain blood, sputum and urine culture. Hematologic: Patient with coagulopathy secondary to liver failure. Endocrine: Obtain TSH. Maintain euglycemia. VTE prophylaxis: SCDs CODE STATUS: Full code Family at bedside: Partner and son updated Disposition: ICU I have personally spent 124 minutes of critical care time in the direct management of this patient. This is a life/limb threatening event. This includes time spent evaluating patient, direct bedside care, chart review, placing orders, interpretation of diagnostic studies, discussion with consultants, patient, and family members, as well as other required patient management activities. This time is exclusive of all separately billable procedures, and teaching time and separate from and in addition to any other critical care service time. Thank you for allowing us to participate in the care of this patient. History of Present Illness Reason for Consultation: "Acute respiratory failure" Attending Physician: Divine Burgess MD History of Present Illness 58-year-old female with a history of COPD, coronary artery disease status post stenting to the left circumflex in 2021 and tobacco abuse who presented to the hospital due to increasing confusion and shortness of breath. Patient is unable to give any history as she is obtunded. History obtained from discussion with the hospital service, bedside RN, bedside RT, son and partner at bedside. They note that she has been having increasing shortness of breath for several weeks. Last night she was found sitting up in bed and very confused. She appeared diaphoretic and had heavy breathing. She presented to the ER with severe altered mental status and was placed on BiPAP. ABG revealed severe respiratory acidosis. LFTs revealed severe transaminitis. She had a CT of the abdomen and pelvis which revealed patchy densities within the left lower lobe and partial opacification of the left lower lobe bronchi. Severe body wall edema and a small amount of ascites was noted. I was called to evaluate the patient due to worsening acidosis and decreased mentation. I placed an order for stat CT head and chest CT with PE protocol. Walked with patient and nursing to the CT scanner. No acute pulmonary embolism was noted on the CT chest. A 1.1 cm bilobed nodule within the right lower lobe was noted CT head was suboptimal and revealed a 1.7 cm hypodense focus within the left parietal lobe of indeterminate age infarct. When she was brought back to the ER, I emergently intubated the patient as she was unresponsive and had worsening hypoxemia. Upon arrival to the ICU, she became hypotensive and briefly required Levophed infusion. I placed a right radial arterial line. She also became hypoxemic and the patient was placed on Nimbex drip with adjustment of the ventilator. She was noted to have very elevated peak pressures on the ventilator. Patient was given 125 mg of IV Solu-Medrol and an hour-long albuterol neb with improvement in peak pressures and saturations. Allergies Allergy/AdvReac Type Severity Reaction Status Date / Time Penicillins Allergy Unknown CAN'T Verified 05/23/23 03:02 REMEMBER Statin AdvReac Intermediate Muscle Pain Uncoded 05/23/23 03:02 Home Medications Medication Instructions Recorded Confirmed Type metoprolol succinate 25 mg 25 mg PO DAILY #90 tabs 03/15/22 05/23/23 Rx tablet,extended release 24 hr cyanocobalamin (vitamin B-12) 500 mcg PO DAILY 03/18/22 05/23/23 History 1,000 mcg tablet (Vitamin B-12) folic acid 1 mg tablet 3 mg PO DAILY 03/18/22 05/23/23 History tiotropium 2.5 mcg-olodaterol 2.5 2 inh inhalation DAILY #4 grams 08/04/22 05/23/23 Rx mcg/actuation mist for inhalation albuterol sulfate 90 mcg/actuation 1 - 2 inh inhalation QID #18 grams 08/26/22 05/23/23 Rx aerosol inhaler losartan 25 mg tablet 25 mg PO DAILY #30 tabs 09/24/22 05/23/23 Rx clopidogrel 75 mg tablet (Plavix) 75 mg PO DAILY #90 tabs 03/03/23 05/23/23 Rx aspirin 81 mg tablet,delayed 81 mg PO QAM #90 tabs 03/05/23 05/23/23 Rx release fluticasone 250 mcg-salmeterol 50 1 inh inhalation BID #60 ea 03/06/23 05/23/23 Rx mcg/dose blistr powdr for inhalation (Wixela Inhub) levalbuterol tartrate 45 2 inh inhalation Q6H PRN shortness 05/14/23 05/23/23 Rx mcg/actuation aerosol inhaler of breath #15 grams (Xopenex HFA) Patient History Medical History (Updated 05/23/23 @ 11:48 by Prem Herrera MD) Aspiration pneumonia RVF (right ventricular failure) Endotracheally intubated Transaminitis Acute encephalopathy Acute CHF (congestive heart failure) Status asthmaticus with COPD (chronic obstructive pulmonary disease) History of ST elevation myocardial infarction (STEMI) Screening for tuberculosis Thrombophlebitis of deep femoral vein Obesity, Class II, BMI 35-39.9 Hyperhomocystinemia Hyperlipidemia Generalized skin tumors Fatigue Asthma Surgical History S/P cardiac catheterization 02/14/22 Dr. Moisés Munoz at [facility]- Cardiac cath- 1 TRELL to distal circumflex Family History Family/Other No problems noted. Sister Ovarian cancer Denies family history of Prostate cancer Myocardial infarction Breast cancer Colorectal cancer Social History Smoking Status: Current every day smoker Tobacco Type: Cigarettes Second Hand Exposure: No; Do You Dip or Chew Tobacco: No; Hx Alcohol Use: No Hx Substance Use: No Preferred Language: Malay Communication Ability: Effective Communication Tools: Other Visual Impairment: No Limitations Hand Quilter Required: Yes and No Beliefs That Will Affect Care: None marital status: Single Current Living Situation: Other Current Living Situation Comment: Lives with childern current occupational status: unemployed Feels Safe at Home: Yes Childhood Exposure to Second-Hand Smoke: Yes Diet: other Diet Comment: cardio healthy caffeine: Yes Dental Care, Regularly: No Physical Activity Frequency: Daily Seatbelt Use: never Sunscreen Use: Yes Assistive Devices: Denture - Upper, Glasses and Walker Review of Systems Review of Systems: Unobtainable due to cognitive status Physical Exam Physical Exam: Constitutional: Patient appears obese and frail. Eyes: Pupils are equal round and reactive to light. Conjunctivae are normal. Anicteric sclera. Ears nose, mouth and throat: Mallampati class 2. Normal posterior oropharynx. Uvula is midline. Neck: Trachea is midline. Visual inspection is normal. Respiratory: Severe bilateral expiratory wheeze. Severely increased work of breathing. Cardiovascular: Regular rate and rhythm. No murmurs. 4+ edema of the lower extremities bilaterally Gastrointestinal: Normal bowel sounds, soft, nontender and nondistended. No hepatosplenomegaly noted. Musculoskeletal: No cyanosis. Patient is able to move all extremities. Strength is 5 out of 5 in the upper and lower extremities. Skin: No rashes, warm dry and intact. Neurologic: Obtunded and minimally responsive to commands. Psychiatric: Obtunded. Results & Data Results & Data Vital Signs (Past 12 Hours) Vital Signs Temp Pulse Pulse Resp BP BP Pulse Ox 05/23/23 09:42 80 20 119/85 100 05/23/23 09:30 91 H 22 90 05/23/23 09:26 91 H 18 100/71 95 05/23/23 09:05 90 19 108/71 87 L 05/23/23 07:05 98 05/23/23 07:03 86 28 H 94 05/23/23 06:12 87 05/23/23 06:04 36.6 C 05/23/23 06:00 86 18 137/87 99 05/23/23 05:30 84 15 113/74 100 05/23/23 05:00 81 18 111/72 100 05/23/23 04:30 86 24 112/77 98 05/23/23 04:00 84 25 H 130/85 96 05/23/23 03:49 89 25 H 138/88 90 05/23/23 03:38 91 H 27 H 90 05/23/23 03:00 85 24 104/69 90 05/23/23 02:31 90 20 118/78 93 05/23/23 02:20 90 05/23/23 02:19 85 L 05/23/23 02:06 36.5 C 95 H 16 135/87 85 L O2 Del Method O2 Flow Rate FiO2 05/23/23 09:42 Mechanical Vent 100 05/23/23 09:30 100 05/23/23 09:26 Mechanical Vent 100 05/23/23 09:05 BiPAP 100 05/23/23 07:05 Room Air 05/23/23 07:03 70 05/23/23 06:12 05/23/23 06:04 05/23/23 06:00 BiPAP 100 05/23/23 05:30 BiPAP 100 05/23/23 05:00 BiPAP 100 05/23/23 04:30 BiPAP 100 05/23/23 04:00 BiPAP 100 05/23/23 03:49 BiPAP 100 05/23/23 03:38 100 05/23/23 03:00 Nasal Cannula 4 05/23/23 02:31 Nasal Cannula 4 05/23/23 02:20 05/23/23 02:19 Nasal Cannula 4 05/23/23 02:06 Room Air Coding Level of Care Code 61365 Prolonged Care (int'l) Diagnoses Status asthmaticus with COPD (chronic obstructive pulmonary disease) J44.89; J45.902 Acute CHF (congestive heart failure) I50.9 Acute encephalopathy G93.40 Transaminitis R74.01 Coronary artery disease I25.10 Elevated troponin R79.89 Endotracheally intubated Z97.8 RVF (right ventricular failure) I50.810 Aspiration pneumonia J69.0 Time Spent (min) 124
[2023-05-23] MEDS: NOREPINEPHRINE/D5W 4 MG/250 ML IV ONE (10:00)
--- NOTE | 2023-05-23 10:06 | Communication Note ---
Date of Service: May 23, 2023 Please refer to the H&P dictated by Dr. Dyana Romero earlier this morning for details of presentation on admission. In brief, the patient presented with hypoxia and confusion. She was noted to be in acute hypercarbic respiratory failure and metabolic encephalopathy. Because of severe respiratory acidosis, she was initially started on BiPAP. Despite being on BiPAP for several hours, there has been no change in mental status. She remains obtunded. I thus ordered a repeat ABG stat and consulted imagery analyst for intubation. CT head and CT angio of the chest and abdomen were done. CT head shows a left parietal infarct of indeterminate age. No intracranial hemorrhage. CTA of chest shows no PE but shows findings suggestive of aspiration pneumonia CTA of abdomen showed no acute findings other than severe body wall edema and small amount of ascites The patient is being transferred to the ICU. [employer] Installer on board. I was informed that the patient got intubated. She has elevated liver enzymes which could be related to right heart failure. Tylenol level pending. NAC started. GI consulted. The patient was started on IV meropenem.
[2023-05-23] MEDS: ALBUT/IPRATROP 3MG/0.5MG NEB 3 ML VIAL NEB STA (10:19)
--- NOTE | 2023-05-23 10:52 | Gastrointestinal Consultation ---
Date of Consultation May 23, 2023 Assessment & Plan (1) Abnormal LFTs: Unclear etiology, needs further work up but likely related to hypoperfusion related to cardiopulmonary failure with severe hypoxemia and underlying sepsis. Other DDx includes DILI. Currently not in liver failure in view of INR<2. Recommend: Supportive care. Obtain bedside sono to check for biliary ductal dilation or stones. Echo to check her EF. Monitor INR. Avoid Hepatotoxic. Check Tylenol level. Acute viral hepatitis panel. KAROLINA, AMA, ASMA, Ceruloplasmin, TTg, IgA. A beneficial role for NAC in [id number] liver failure has been established in several trials but not yet a standard of care, defer to ICU team if they want to give it. History of Present Illness Reason for Consultation: Elevated LFTs Attending Physician: Divine Burgess MD History of Present Illness 58 years old female patient with Hx of CAD s/p PCI in 2021, COPD, presented with AMS due to acute respiratory failure, intubated in the ED and admitted to ICU. GI consulted for elevated LFTs, t.bili around 3.8 and AST/ALT in 1000 range, INR 1.5, EH and elevated ProBNP and Troponins, CT scan with possible pneumonia. Normal PLT and Hemoglobin, Normal LFTs few months ago. CT scan abdomen with no GI pathology, normal liver, cholecystectomy, small ascites and anasarca. Allergies Allergy/AdvReac Type Severity Reaction Status Date / Time Penicillins Allergy Unknown CAN'T Verified 05/23/23 03:02 REMEMBER Statin AdvReac Intermediate Muscle Pain Uncoded 05/23/23 03:02 Home Medications Medication Instructions Recorded Confirmed Type metoprolol succinate 25 mg 25 mg PO DAILY #90 tabs 03/15/22 05/23/23 Rx tablet,extended release 24 hr cyanocobalamin (vitamin B-12) 500 mcg PO DAILY 03/18/22 05/23/23 History 1,000 mcg tablet (Vitamin B-12) folic acid 1 mg tablet 3 mg PO DAILY 03/18/22 05/23/23 History tiotropium 2.5 mcg-olodaterol 2.5 2 inh inhalation DAILY #4 grams 08/04/22 05/23/23 Rx mcg/actuation mist for inhalation albuterol sulfate 90 mcg/actuation 1 - 2 inh inhalation QID #18 grams 08/26/22 05/23/23 Rx aerosol inhaler losartan 25 mg tablet 25 mg PO DAILY #30 tabs 09/24/22 05/23/23 Rx clopidogrel 75 mg tablet (Plavix) 75 mg PO DAILY #90 tabs 03/03/23 05/23/23 Rx aspirin 81 mg tablet,delayed 81 mg PO QAM #90 tabs 03/05/23 05/23/23 Rx release fluticasone 250 mcg-salmeterol 50 1 inh inhalation BID #60 ea 03/06/23 05/23/23 Rx mcg/dose blistr powdr for inhalation (Wixela Inhub) levalbuterol tartrate 45 2 inh inhalation Q6H PRN shortness 05/14/23 05/23/23 Rx mcg/actuation aerosol inhaler of breath #15 grams (Xopenex HFA) Patient History Medical History (Updated 05/23/23 @ 06:39 by Dyana Romero DO) History of ST elevation myocardial infarction (STEMI) Screening for tuberculosis Thrombophlebitis of deep femoral vein Obesity, Class II, BMI 35-39.9 Hyperhomocystinemia Hyperlipidemia Generalized skin tumors Fatigue Asthma Surgical History S/P cardiac catheterization 02/14/22 Dr. Moisés Munoz at [facility]- Cardiac cath- 1 TRELL to distal circumflex Family History Family/Other No problems noted. Sister Ovarian cancer Denies family history of Prostate cancer Myocardial infarction Breast cancer Colorectal cancer Social History Smoking Status: Current every day smoker Tobacco Type: Cigarettes Second Hand Exposure: No; Do You Dip or Chew Tobacco: No; Hx Alcohol Use: No Hx Substance Use: No Preferred Language: Pashto Communication Ability: Effective Communication Tools: Other Visual Impairment: No Limitations Ornament Setter Required: Yes and No Beliefs That Will Affect Care: None marital status: Single Current Living Situation: Other Current Living Situation Comment: Lives with childern current occupational status: unemployed Feels Safe at Home: Yes Childhood Exposure to Second-Hand Smoke: Yes Diet: other Diet Comment: cardio healthy caffeine: Yes Dental Care, Regularly: No Physical Activity Frequency: Daily Seatbelt Use: never Sunscreen Use: Yes Assistive Devices: Denture - Upper, Glasses and Walker Review of Systems Review of Systems: Unable to obtain Physical Exam Physical Exam: Intubated Gastrointestinal (Abdomen): normal bowel sounds, soft, nontender, no hepatosplenomegaly Results & Data Vital Signs (Past 12 Hours) Vital Signs Temp Pulse Pulse Resp BP BP Pulse Ox 05/23/23 10:12 82 24 89 L 05/23/23 09:58 91 H 18 124/95 100 05/23/23 09:42 80 20 119/85 100 05/23/23 09:30 91 H 22 90 05/23/23 09:26 91 H 18 100/71 95 05/23/23 09:05 90 19 108/71 87 L 05/23/23 07:05 98 05/23/23 07:03 86 28 H 94 05/23/23 06:12 87 05/23/23 06:04 36.6 C 05/23/23 06:00 86 18 137/87 99 05/23/23 05:30 84 15 113/74 100 05/23/23 05:00 81 18 111/72 100 05/23/23 04:30 86 24 112/77 98 05/23/23 04:00 84 25 H 130/85 96 05/23/23 03:49 89 25 H 138/88 90 05/23/23 03:38 91 H 27 H 90 05/23/23 03:00 85 24 104/69 90 05/23/23 02:31 90 20 118/78 93 05/23/23 02:20 90 05/23/23 02:19 85 L 05/23/23 02:06 36.5 C 95 H 16 135/87 85 L O2 Del Method O2 Flow Rate FiO2 05/23/23 10:12 90 05/23/23 09:58 Mechanical Vent 100 05/23/23 09:42 Mechanical Vent 100 05/23/23 09:30 100 05/23/23 09:26 Mechanical Vent 100 05/23/23 09:05 BiPAP 100 05/23/23 07:05 Room Air 05/23/23 07:03 70 05/23/23 06:12 05/23/23 06:04 05/23/23 06:00 BiPAP 100 05/23/23 05:30 BiPAP 100 05/23/23 05:00 BiPAP 05/23/23 04:30 BiPAP 05/23/23 04:00 BiPAP 05/23/23 03:49 BiPAP 05/23/23 03:38 05/23/23 03:00 Nasal Cannula 4 05/23/23 02:31 Nasal Cannula 4 05/23/23 02:20 05/23/23 02:19 Nasal Cannula 4 05/23/23 02:06 Room Air Laboratory Results Laboratory Results - last 24 hr 05/23/23 05/23/23 05/23/23 02:10 02:14 02:15 WBC 15.13 H RBC 5.67 H Hgb 14.4 Hct 51.6 H MCV 91.0 MCH 25.4 MCHC 27.9 L RDW Std Deviation 59.8 H RDW Coeff of Macario 19.0 H Plt Count 187 Immature Gran % (Auto) 1.1 Neut % (Auto) 84.7 Lymph % (Auto) 5.5 [place] % (Auto) 8.4 Eos % (Auto) 0.1 Baso % (Auto) 0.2 Neut # (Auto) 12.83 H Lymph # (Auto) 0.83 L [place] # (Auto) 1.27 H Eos # (Auto) 0.01 Baso # (Auto) 0.03 Immature Gran # (Auto) 0.16 Absolute Nucleated RBC 0.25 H Nucleated RBC % (auto) 1.7 PT 15.9 H INR 1.5 H APTT 25 PTT Ratio 0.9 ABG pH ABG pCO2 ABG pO2 ABG HCO3 ABG O2 Saturation ABG Base Excess García Test VBG pH 7.12 L VBG pCO2 105 H VBG pO2 36 VBG HCO3 34 VBG O2 Saturation < 60.0 VBG Base Excess 1.4 Oxygen Given Sodium 134 L Potassium 5.0 Chloride 90 L Carbon Dioxide 34 H Anion Gap 10 BUN 36 H Creatinine 1.95 H Est Cr Clr Drug Dosing 40.0 Est GFR ( Amer) 32.3 Est GFR (Non-Af Amer) 27.9 BUN/Creatinine Ratio 18.5 Glucose 191 H Lactate Calcium 9.8 Magnesium 2.4 Ferritin Total Bilirubin 3.8 H AST 1048 H ALT 1067 H Alkaline Phosphatase 62 Ammonia 65.0 Troponin I High Sens 964.8 H* B-Natriuretic Peptide Total Protein 7.4 Albumin 4.3 Globulin 3.1 Albumin/Globulin Ratio 1.4 Lipase 6 L Procalcitonin Urine Color Urine Appearance Urine pH Ur Specific [place] Urine Protein Urine Glucose (UA) Urine Ketones Urine Blood Urine Nitrite Urine Bilirubin Urine Urobilinogen Ur Leukocyte Esterase Urine WBC (Auto) Urine RBC (Auto) U Hyaline Cast (Auto) U Epithel Cells (Auto) Urine Bacteria (Auto) Calcium Oxalate Crystal Granular Casts Urine Yeast Urine Opiates Screen Ur Methadone, Qual Acetaminophen Urine Barbiturates Ur Phencyclidine (PCP) U Amphetamin/Meth Scrn MDMA (Ecstasy) Screen U Benzodiazepines Scrn Ur Cocaine Metabolite U Marijuana (THC) Screen Ethyl Alcohol mg/dL < 10.0 Adenovirus (PCR) Not Detected B. pertussis DNA (PCR) Not Detected B.parapertussis DNA PCR Not Detected C. pneumoniae DNA (PCR) Not Detected Coronavirus OC43 (PCR) Not Detected Coronavirus HKU1 (PCR) Not Detected Coronavirus 229E (PCR) Not Detected SARS-CoV-2 (PCR) Not Detected Coronavirus NL63 (PCR) Not Detected Hepatitis A IgM Ab Hep Bs Antigen Hep Bs Ag Confirmation Hep B Core IgM Ab Hepatitis C Ab (EIA) Human Metapneumovir PCR Not Detected Influenza Type A (PCR) Not Detected Influenza Type B (PCR) Not Detected M. pneumoniae (PCR) Not Detected Parainfluenza 1 (PCR) Not Detected Parainfluenza 2 (PCR) Not Detected Parainfluenza 3 (PCR) Not Detected Parainfluenza 4 (PCR) Not Detected RSV (PCR) Not Detected Entero/Rhino (PCR) Not Detected 05/23/23 05/23/23 05/23/23 03:50 03:56 04:48 WBC RBC Hgb Hct MCV MCH MCHC RDW Std Deviation RDW Coeff of [place] Plt Count Immature Gran % (Auto) Neut % (Auto) Lymph % (Auto) [place] % (Auto) Eos % (Auto) Baso % (Auto) Neut # (Auto) Lymph # (Auto) [place] # (Auto) Eos # (Auto) Baso # (Auto) Immature Gran # (Auto) Absolute Nucleated RBC Nucleated RBC % (auto) PT INR APTT PTT Ratio ABG pH 7.22 L ABG pCO2 90 H ABG pO2 113 H ABG HCO3 37 H ABG O2 Saturation 98.5 H ABG Base Excess 5.8 H García Test Pos VBG pH VBG pCO2 VBG pO2 VBG HCO3 VBG O2 Saturation VBG Base Excess Oxygen Given FIO2 100 Sodium Potassium Chloride Carbon Dioxide Anion Gap BUN Creatinine Est Cr Clr Drug Dosing Est GFR ( Amer) Est GFR (Non-Af Amer) BUN/Creatinine Ratio Glucose Lactate 2.8 H* Calcium Magnesium Ferritin Total Bilirubin AST ALT Alkaline Phosphatase Ammonia Troponin I High Sens 1276.5 H* D B-Natriuretic Peptide 1603 H Total Protein Albumin Globulin Albumin/Globulin Ratio Lipase Procalcitonin Urine Color Urine Appearance Urine pH Ur Specific [place] Urine Protein Urine Glucose (UA) Urine Ketones Urine Blood Urine Nitrite Urine Bilirubin Urine Urobilinogen Ur Leukocyte Esterase Urine WBC (Auto) Urine RBC (Auto) U Hyaline Cast (Auto) U Epithel Cells (Auto) Urine Bacteria (Auto) Calcium Oxalate Crystal Granular Casts Urine Yeast Urine Opiates Screen Ur Methadone, Qual Acetaminophen Urine Barbiturates Ur Phencyclidine (PCP) U Amphetamin/Meth Scrn MDMA (Ecstasy) Screen U Benzodiazepines Scrn Ur Cocaine Metabolite U Marijuana (THC) Screen Ethyl Alcohol mg/dL Adenovirus (PCR) B. pertussis DNA (PCR) B.parapertussis DNA PCR C. pneumoniae DNA (PCR) Coronavirus OC43 (PCR) Coronavirus HKU1 (PCR) Coronavirus 229E (PCR) SARS-CoV-2 (PCR) Coronavirus NL63 (PCR) Hepatitis A IgM Ab Hep Bs Antigen Hep Bs Ag Confirmation Hep B Core IgM Ab Hepatitis C Ab (EIA) Human Metapneumovir PCR Influenza Type A (PCR) Influenza Type B (PCR) M. pneumoniae (PCR) Parainfluenza 1 (PCR) Parainfluenza 2 (PCR) Parainfluenza 3 (PCR) Parainfluenza 4 (PCR) RSV (PCR) Entero/Rhino (PCR) 05/23/23 05/23/23 05/23/23 04:51 07:02 08:40 WBC RBC Hgb Hct MCV MCH MCHC RDW Std Deviation RDW Coeff of Macario Plt Count Immature Gran % (Auto) Neut % (Auto) Lymph % (Auto) [place] % (Auto) Eos % (Auto) Baso % (Auto) Neut # (Auto) Lymph # (Auto) [place] # (Auto) Eos # (Auto) Baso # (Auto) Immature Gran # (Auto) Absolute Nucleated RBC Nucleated RBC % (auto) PT INR APTT PTT Ratio ABG pH ABG pCO2 ABG pO2 ABG HCO3 ABG O2 Saturation ABG Base Excess García Test VBG pH VBG pCO2 VBG pO2 VBG HCO3 VBG O2 Saturation VBG Base Excess Oxygen Given Sodium Potassium Chloride Carbon Dioxide Anion Gap BUN Creatinine Est Cr Clr Drug Dosing Est GFR ( Amer) Est GFR (Non-Af Amer) BUN/Creatinine Ratio Glucose Lactate 2.8 H* Calcium Magnesium Ferritin Cancelled Total Bilirubin AST ALT Alkaline Phosphatase Ammonia Troponin I High Sens Cancelled B-Natriuretic Peptide Total Protein Albumin Globulin Albumin/Globulin Ratio Lipase Procalcitonin Cancelled Urine Color Dark Yellow Urine Appearance Cloudy A Urine pH 5.0 Ur Specific [place] 1.020 Urine Protein 2+ H Urine Glucose (UA) Negative Urine Ketones Negative Urine Blood Negative Urine Nitrite Positive A Urine Bilirubin 2+ H Urine Urobilinogen Positive H Ur Leukocyte Esterase Trace H Urine WBC (Auto) 5-10 H Urine RBC (Auto) 0-4 U Hyaline Cast (Auto) 5-10 H U Epithel Cells (Auto) >30 H Urine Bacteria (Auto) Negative Calcium Oxalate Crystal Present A Granular Casts 1-5 H Urine Yeast Not Reportable Urine Opiates Screen Neg Ur Methadone, Qual Neg Acetaminophen Cancelled Urine Barbiturates Neg Ur Phencyclidine (PCP) Neg U Amphetamin/Meth Scrn Neg MDMA (Ecstasy) Screen Neg U Benzodiazepines Scrn Neg Ur Cocaine Metabolite Neg U Marijuana (THC) Screen Neg Ethyl Alcohol mg/dL Adenovirus (PCR) B. pertussis DNA (PCR) B.parapertussis DNA PCR C. pneumoniae DNA (PCR) Coronavirus OC43 (PCR) Coronavirus HKU1 (PCR) Coronavirus 229E (PCR) SARS-CoV-2 (PCR) Coronavirus NL63 (PCR) Hepatitis A IgM Ab Pending Hep Bs Antigen Pending Hep Bs Ag Confirmation Pending Hep B Core IgM Ab Pending Hepatitis C Ab (EIA) Pending Human Metapneumovir PCR Influenza Type A (PCR) Influenza Type B (PCR) M. pneumoniae (PCR) Parainfluenza 1 (PCR) Parainfluenza 2 (PCR) Parainfluenza 3 (PCR) Parainfluenza 4 (PCR) RSV (PCR) Entero/Rhino (PCR)
[2023-05-23] MEDS ORDERED: methylPREDNISolone 125 MG in SYRINGE 0 ML IV STA (11:23)
[2023-05-23] MEDS: ALBUT/IPRATROP 3MG/0.5MG NEB 3 ML VIAL ONE (11:29)
[2023-05-23] MEDS: MEROPENEM 500 MG in SYRINGE 0 ML IV SCH ×2 (11:32→17:46)
[2023-05-23 11:33] LABS: iSTAT Art Bld Gas pCO2 Correct 77 mmHg (35-46); iSTAT Art Bld Gas pH Corrected 7.261 (7.35-7.45); iSTAT Arterial Blood Gas HCO3 35 meg/L (19-24); iSTAT Arterial Blood Gas pCO2 77 mmHg (35-46); iSTAT Arterial Blood Gas pH 7.26 (7.35-7.45); iSTAT Arterial Blood Gas pO2 58 mmHg (80-95); iSTAT Arterial Blood Gas pO2 C 58; iSTAT Carbon Dioxide 37 mmol/L (24-31); iSTAT FiO2 100 %; iSTAT Hematocrit 51 % (37-47); iSTAT Hemoglobin 17.3 g/dl (12.0-16.0); iSTAT Potassium 4.6 mmol/L (3.3-5.0); iSTAT Site Art Line; iSTAT Sodium 132 mmol/L (135-144)
[2023-05-23] MEDS: methylPREDNISolone 125 MG/2 ML VIAL IV ONE (11:33)
[2023-05-23] MEDS: MAGNESIUM SULFATE / D5W 1 GM/100 ML BAG IV SCH (11:34)
[2023-05-23] MEDS: AcetylCYSTEINE 15,000 MG in D5W 200mL (Load) IV STA (11:34)
--- NOTE | 2023-05-23 12:02 | Procedure Note ---
Procedure Note Date of Service May 23, 2023 Note ARTERIAL LINE PROCEDURE NOTE: Procedure: Arterial Line Placement Indication: Monitoring on Pressors Anesthesia: Continuous propofol fentanyl infusing at the time of the procedure Consent was signed and placed on the chart prior to procedure. Indication, risks, and benefits were explained at length. A time-out was completed verifying correct patient, procedure, site, positioning, and implant(s) or special equipment if applicable. Patients right wrist was prepped and draped in the usual sterile fashion. Ultrasound guidance was used to aid needle placement. A 20g Arrow arterial line was introduced into the right radial artery. Catheter was threaded, and the needle was removed with appropriate blood return. Good waveform was observed. The patient tolerated the procedure well. Blood Loss: Minimal Complications: None Coding CPT Codes Tubes, Drains, and Vasc Access - Tubes, Drains, and Vasc Access: [id number] Arterial Cath/Cannulation Sampling/Monitoring/Transfusion ([id number]) Tubes, Drains, and Vasc Access - Tubes, Drains, and Vasc Access: [id number] Ultrasound Guidance For Vascular ([id number]) [facility] [place] Codes (Charges) Tubes, Drains, and Vasc Access Procedure 1: Tubes, Drains, and Vasc Access: [id number] Arterial Cath/Cannulation Sampling/Monitoring/Transfusion Procedure 2: Tubes, Drains, and Vasc Access: [id number] Ultrasound Guidance For Vascular
[2023-05-23] MEDS: VECURONIUM BROMIDE 10 MG VIAL IV STA (12:27)
--- NOTE | 2023-05-23 12:27 | XRay Report ---
XR chest 1V portable HISTORY: hypoxia COMPARISON: Chest 05/23/2023. FINDINGS: Endotracheal tube terminates 3.5 cm from the chris. No pneumothorax. The heart is mildly e nlarged. No evidence for pulmonary edema. Left basilar airspace opacities persist. No new focal lung consolidations. No evidence for pulmonary edema. IMPRESSION: 1. The endotracheal tube terminates 3.5 cm from the chris. 2. Left base airspace opacities again noted. This favors an aspiration pneumonia. ACT 112: Negative or not required by law. Electronically signed by: Chris Winter M.D. 05/23/2023 12:25 PM
[2023-05-23] MEDS: ENOXAPARIN INJ 40 MG/0.4 ML SYR SQ SCH (12:31)
[2023-05-23] MEDS: NYSTATIN CR 15 GM TUBE EXT SCH (12:31)
[2023-05-23] MEDS: VECURONIUM BROMIDE 10 MG VIAL IV ONE (12:36)
--- NOTE | 2023-05-23 12:53 | Procedure Note ---
Procedure Note Date of Service May 23, 2023 Note PREOPERATIVE DIAGNOSIS: Bibasilar pneumonia and hypoxemic respiratory PROCEDURE PERFORMED: Flexible fiberoptic bronchoscopy with bronchial washings of the right lower lobe and aspiration of secretions from the bilateral lower lobes. COMPLICATIONS: None. INDICATION: Airway clearance and evaluation of the infection PROCEDURE: Informed consent was obtained from the patient's son as the patient is currently intubated and sedated. Timeout performed directly prior to the procedure. Endotracheal tube adapter was attached to the endotracheal tube. Patient was oxygenated on 100% FiO2 via the ventilator. Bronchoscope was inserted via the endotracheal tube adapter. Endotracheal tube appeared approximately 3.5 cm above the chris. Chris was sharp. Trachea was normal. Bilateral tracheobronchial tree inspection was performed. Significant mucoid secretions noted in the bilateral lower lobes which were aspirated free. Approximately 20 mL of saline was instilled in the right lower lobe and fluid is aspirated back and sent for culture. No bleeding or masses were identified. The scope was withdrawn. Patient tolerated the procedure well. Recommendations: Follow-up bronchial wash cultures from the right lower lobe along with cell counts. Coding CPT Codes Pulmonary/Thoracic - Pulmonary and Thoracic: 29851 Dx bronchoscopy/wash ([id number]) [facility] Procedure Codes (Charges) Pulmonary/Thoracic Procedure 1: Pulmonary and Thoracic: 49758 Dx bronchoscopy/wash
[2023-05-23] MEDS: AcetylCYSTEINE 5,000 MG in DEXTROSE 5% 500 ML IV ONE (13:02)
[2023-05-23] MEDS: PROPOFOL IV EMULSION 10 MG/ML 100 ML VIAL IV ONE (13:21)
[2023-05-23] MEDS ORDERED: PROPOFOL BOLUS FROM BAG IV PRN (13:23)
[2023-05-23] MEDS: CISATRACURIUM BESYLATE 40 MG in DEXTROSE 5% 80 ML IV SCH (13:25)
[2023-05-23] MEDS: ARTIFICIAL TEARS OP OINT 3.5 GM TUBE OP SCH (13:26)
--- NOTE | 2023-05-23 13:34 | XRay Report ---
XR chest 1V portable HISTORY: Confirm OG placement COMPARISON: Chest 05/23/2023. FINDINGS: Endotracheal tube terminates 4 cm from the chris. Orogastric tube terminates in the proxim al stomach. Patchy left basilar densities persist. IMPRESSION: 1. The orogastric tube terminates in the proximal stomach. 2. Left basilar densities persist. 3. Endotracheal tube terminates 4 cm from the chris. ACT 112: Negative or not required by law. Electronically signed by: Chris Winter M.D. 05/23/2023 1:31 PM
[2023-05-23] MEDS ORDERED: methylPREDNISolone 80 MG in SYRINGE 0 ML IV SCH ×2 (14:00→20:00)
[2023-05-23 14:07] LABS: Eosinophil Body Fluid Man 89 %; Fluid Mono/Macrophage 1 %; Lymphocyte Body Fluid Man 1 %; Neutrophil Body Fluid Man 9 %
[2023-05-23] MEDS ORDERED: ROCURONIUM BROMIDE 10 MG/ML 5 ML VIAL IV ONE (14:20)
[2023-05-23] MEDS ORDERED: ETOMIDATE 2 MG/ML 20 ML VIAL IV ONE (14:20)
[2023-05-23] MEDS ORDERED: fentaNYL citrate PF 100 MCG/2 ML VIAL IV ONE (14:20)
[2023-05-23 14:59] LABS: BUN Creatinine Ratio 27.2 (10-20); Calcium 8.8 mg/dl (8.6-10.3); Creatinine Clr Calc Pharmacy 50.5 ml/min; Potassium 4.1 mmol/L (3.5-5.1)
[2023-05-23 15:02] LABS: Albumin Globulin Ratio 1.3 (0.9-2); Albumin Level 3.5 gm/dl (3.4-5.0); Bilirubin,Total 3.7 mg/dl (0.2-1.0); Globulin 2.6 gm/dl (2.5-4.0); Total Protein 6.1 gm/dl (6.0-8.3)
[2023-05-23] MEDS ORDERED: PHARMACY GLYCEMIC MGMT CONSULT PRN (15:07)
--- NOTE | 2023-05-23 15:12 | Cardiology Consultation ---
Date of Consultation May 23, 2023 Assessment & Plan (1) Acute on chronic respiratory failure with hypoxia and hypercapnia: (2) Elevated troponin: (3) Coronary artery disease: (4) RVF (right ventricular failure): Plan 1. Respiratory failure: Both hypoxia and hypercapnia. Most evidence would suggest this is a primary pulmonary process likely due to underlying COPD. No evidence of pulmonary embolus. Picture not consistent with decompensated left ventricular failure. While there was some initial concern regarding a pericardial effusion or even right ventricular rupture, this appears to have been artifactual. The small pericardial effusion would certainly not cause her current symptoms or hypoxia. Currently intubated. On aggressive treatment for lung disease. 2. Cor pulmonale: I think this is the best description of her right ventricular enlargement and failure. There is evidence of transaminitis which could be passive congestion. She certainly has lower extremity edema as well. Hopefully with improvement of her pulmonary status will see some improvement in RV function. Will need to be cautious with aggressive diuresis as she may be preload dependent. 3. Coronary disease: Remote history of occluded circumflex. While she does have an elevated troponin, I do not think her presentation is consistent with an acute coronary syndrome. No regional wall motion abnormalities and overall preserved LV systolic function. Continue secondary prevention. Can restart aspirin, clopidogrel and metoprolol when extubated. Presumably not taking statin therapy due to myalgias. This can be readdressed when she is extubated. 4. Elevated troponin: Likely due to her severe hypoxia. History of Present Illness Reason for Consultation: Hypoxia Requesting Physician: Javier Attending Physician: Divine Burgess MD History of Present Illness The patient is a 58-year-old woman with history of coronary artery disease having suffered an acute myocardial infarction February of 2022. At that time she had an occluded circumflex and underwent percutaneous intervention without additional complication. Was supplied by the medical record and additional medical staff. It seems that early this morning the patient developed acute breathing difficulty and some difficulty with mentation. She is noted to be severely hypoxic and at the time of her emergency room evaluation also hypercapnic. Her respiratory status declined to the point where she required mechanical ventilation. Reportedly no specific complaints over the last few days. No reported fevers or chills. She continues to smoke. Allergies Allergy/AdvReac Type Severity Reaction Status Date / Time Penicillins Allergy Unknown CAN'T Verified 05/23/23 03:02 REMEMBER Statin AdvReac Intermediate Muscle Pain Uncoded 05/23/23 03:02 Home Medications Medication Instructions Recorded Confirmed Type metoprolol succinate 25 mg 25 mg PO DAILY #90 tabs 03/15/22 05/23/23 Rx tablet,extended release 24 hr cyanocobalamin (vitamin B-12) 500 mcg PO DAILY 03/18/22 05/23/23 History 1,000 mcg tablet (Vitamin B-12) folic acid 1 mg tablet 3 mg PO DAILY 03/18/22 05/23/23 History tiotropium 2.5 mcg-olodaterol 2.5 2 inh inhalation DAILY #4 grams 08/04/22 05/23/23 Rx mcg/actuation mist for inhalation albuterol sulfate 90 mcg/actuation 1 - 2 inh inhalation QID #18 grams 08/26/22 05/23/23 Rx aerosol inhaler losartan 25 mg tablet 25 mg PO DAILY #30 tabs 09/24/22 05/23/23 Rx clopidogrel 75 mg tablet (Plavix) 75 mg PO DAILY #90 tabs 03/03/23 05/23/23 Rx aspirin 81 mg tablet,delayed 81 mg PO QAM #90 tabs 03/05/23 05/23/23 Rx release fluticasone 250 mcg-salmeterol 50 1 inh inhalation BID #60 ea 03/06/23 05/23/23 Rx mcg/dose blistr powdr for inhalation (Wixela Inhub) levalbuterol tartrate 45 2 inh inhalation Q6H PRN shortness 05/14/23 05/23/23 Rx mcg/actuation aerosol inhaler of breath #15 grams (Xopenex HFA) Patient History Medical History (Updated 05/23/23 @ 11:48 by Prem Herrera MD) Aspiration pneumonia RVF (right ventricular failure) Endotracheally intubated Transaminitis Acute encephalopathy Acute CHF (congestive heart failure) Status asthmaticus with COPD (chronic obstructive pulmonary disease) History of ST elevation myocardial infarction (STEMI) Screening for tuberculosis Thrombophlebitis of deep femoral vein Obesity, Class II, BMI 35-39.9 Hyperhomocystinemia Hyperlipidemia Generalized skin tumors Fatigue Asthma Surgical History S/P cardiac catheterization 02/14/22 Dr. Moisés Munoz at [facility]- Cardiac cath- 1 TRELL to distal circumflex Family History Family/Other No problems noted. 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 HEENT: Sclerae are anicteric. Pupils are equal and reactive to light and accommodation. Extraocular movements were intact. Neuro: Not evaluated Lungs: Poor air movement. Expiratory wheezing. Bronchial breath sounds. Cardiac: The rhythm was regular. S1 and S2 were normal. There are no murmurs on examination. The PMI was not markedly displaced on palpation. Abdomen: The abdomen was soft and nontender. Extremities: Patient has bilateral radial pulses that are equal in intensity. Her lower extremities are edematous and somewhat hypoperfused with mottling. Skin: There are no rashes noted on examination today. Results & Data Vital Signs (Past 12 Hours) Vital Signs Temp Pulse Pulse Resp BP BP Pulse Ox 05/23/23 14:15 115/70 05/23/23 14:15 37.9 C H 90 18 94 05/23/23 14:00 98/60 L 05/23/23 14:00 37.8 C H 90 18 89 L 05/23/23 13:45 97/58 L 05/23/23 13:45 37.7 C H 88 18 89 L 05/23/23 13:36 05/23/23 13:30 37.7 C H 83 18 96 05/23/23 13:15 82/51 L 05/23/23 13:15 37.6 C H 88 18 100 05/23/23 13:10 37.6 C H 90 18 100 05/23/23 13:00 37.5 C 95 H 18 99 05/23/23 12:30 37.5 C 87 18 96 05/23/23 12:20 37.5 C 85 18 95 05/23/23 12:10 37.5 C 86 22 94 05/23/23 12:05 37.5 C 86 18 84 L 05/23/23 12:05 105/73 05/23/23 12:00 37.5 C 81 18 87 L 05/23/23 11:55 108/70 05/23/23 11:55 37.5 C 81 18 87 L 05/23/23 11:50 107/64 05/23/23 11:50 37.6 C H 79 18 90 05/23/23 11:45 37.6 C H 78 18 92 05/23/23 11:45 111/72 05/23/23 11:40 126/82 05/23/23 11:40 37.6 C H 73 18 94 05/23/23 11:35 131/81 05/23/23 11:35 37.6 C H 73 18 95 05/23/23 11:30 127/83 05/23/23 11:30 37.6 C H 73 16 94 05/23/23 11:29 18 05/23/23 11:25 105/72 05/23/23 11:25 76 28 H 91 05/23/23 11:20 104/67 05/23/23 11:20 76 28 H 88 L 05/23/23 11:15 94/66 L 05/23/23 11:15 79 22 87 L 05/23/23 11:10 84/64 L 05/23/23 11:10 74 22 88 L 05/23/23 11:05 90/60 L 05/23/23 11:05 79 22 90 05/23/23 11:00 84/56 L 05/23/23 11:00 79 22 88 L 05/23/23 10:58 78 22 87 L 05/23/23 10:58 77/55 L 05/23/23 10:50 81 22 89 L 05/23/23 10:50 85/57 L 05/23/23 10:40 81 22 93 05/23/23 10:40 104/69 05/23/23 10:30 108/70 05/23/23 10:30 78 22 92 05/23/23 10:20 110/72 05/23/23 10:20 82 22 87 L 05/23/23 10:18 97/84 L 05/23/23 10:18 82 22 89 L 05/23/23 10:12 82 24 89 L 05/23/23 10:11 82 22 05/23/23 10:00 77 0 L 100 05/23/23 09:58 124/95 05/23/23 09:58 80 22 100 05/23/23 09:58 91 H 18 124/95 100 05/23/23 09:55 125/91 05/23/23 09:55 80 22 100 05/23/23 09:52 125/87 05/23/23 09:52 79 22 100 05/23/23 09:50 121/83 05/23/23 09:42 80 20 119/85 100 05/23/23 09:30 91 H 22 90 05/23/23 09:26 91 H 18 100/71 95 05/23/23 09:05 90 19 108/71 87 L 05/23/23 07:05 98 05/23/23 07:03 86 28 H 94 05/23/23 06:12 87 05/23/23 06:04 36.6 C 05/23/23 06:00 86 18 137/87 99 05/23/23 05:30 84 15 113/74 100 05/23/23 05:00 81 18 111/72 100 05/23/23 04:30 86 24 112/77 98 05/23/23 04:00 84 25 H 130/85 96 05/23/23 03:49 89 25 H 138/88 90 05/23/23 03:38 91 H 27 H 90 O2 Del Method FiO2 05/23/23 14:15 05/23/23 14:15 05/23/23 14:00 05/23/23 14:00 05/23/23 13:45 05/23/23 13:45 05/23/23 13:36 Mechanical Vent 05/23/23 13:30 05/23/23 13:15 05/23/23 13:15 05/23/23 13:10 05/23/23 13:00 05/23/23 12:30 05/23/23 12:20 05/23/23 12:10 05/23/23 12:05 05/23/23 12:05 05/23/23 12:00 05/23/23 11:55 05/23/23 11:55 05/23/23 11:50 05/23/23 11:50 05/23/23 11:45 05/23/23 11:45 05/23/23 11:40 05/23/23 11:40 05/23/23 11:35 05/23/23 11:35 05/23/23 11:30 05/23/23 11:30 05/23/23 11:29 90 05/23/23 11:25 05/23/23 11:25 05/23/23 11:20 05/23/23 11:20 05/23/23 11:15 05/23/23 11:15 05/23/23 11:10 05/23/23 11:10 05/23/23 11:05 05/23/23 11:05 05/23/23 11:00 05/23/23 11:00 05/23/23 10:58 05/23/23 10:58 05/23/23 10:50 05/23/23 10:50 05/23/23 10:40 05/23/23 10:40 05/23/23 10:30 05/23/23 10:30 05/23/23 10:20 05/23/23 10:20 05/23/23 10:18 05/23/23 10:18 05/23/23 10:12 90 05/23/23 10:11 05/23/23 10:00 05/23/23 09:58 05/23/23 09:58 05/23/23 09:58 Mechanical Vent 05/23/23 09:55 05/23/23 09:55 05/23/23 09:52 05/23/23 09:52 05/23/23 09:50 05/23/23 09:42 Mechanical Vent 100 05/23/23 09:30 100 05/23/23 09:26 Mechanical Vent 100 05/23/23 09:05 BiPAP 100 05/23/23 07:05 Room Air 05/23/23 07:03 70 05/23/23 06:12 05/23/23 06:04 05/23/23 06:00 BiPAP 100 05/23/23 05:30 BiPAP 05/23/23 05:00 BiPAP 05/23/23 04:30 BiPAP 05/23/23 04:00 BiPAP 05/23/23 03:49 BiPAP 05/23/23 03:38 100 Laboratory Results Abnormal Lab Results 05/23/23 05/23/23 05/23/23 02:10 02:14 02:15 WBC 15.13 H RBC 5.67 H Hgb 14.4 POC Hgb Hct 51.6 H POC Hct MCV 91.0 MCH 25.4 MCHC 27.9 L RDW Std Deviation 59.8 H RDW Coeff of Macario 19.0 H Plt Count 187 Immature Gran % (Auto) 1.1 Neut % (Auto) 84.7 Lymph % (Auto) 5.5 Newton % (Auto) 8.4 Eos % (Auto) 0.1 Baso % (Auto) 0.2 Neut # (Auto) 12.83 H Lymph # (Auto) 0.83 L [place] # (Auto) 1.27 H Eos # (Auto) 0.01 Baso # (Auto) 0.03 Immature Gran # (Auto) 0.16 Absolute Nucleated RBC 0.25 H Nucleated RBC % (auto) 1.7 PT 15.9 H INR 1.5 H APTT 25 PTT Ratio 0.9 Sample Site POC pH POC pCO2 POC pO2 POC HCO3 POC Total CO2 POC Base Excess ABG pH ABG pH (Temp Correct) ABG pCO2 ABG pCO2 (Temp Corrct ABG pO2 POC ABG pO2 at Pt Temp ABG HCO3 POC ABG O2 Sat ABG O2 Saturation ABG Base Excess García Test VBG pH 7.12 L VBG pCO2 105 H VBG pO2 36 VBG HCO3 34 VBG O2 Saturation < 60.0 VBG Base Excess 1.4 Oxygen Given O2 Delivery Device POC O2 Rate Minute Ventilation POC FiO2 Tidal Volume PEEP POC Sodium Sodium 134 L POC Potassium Potassium 5.0 Chloride 90 L Carbon Dioxide 34 H Anion Gap 10 BUN 36 H Creatinine 1.95 H Est Cr Clr Drug Dosing 40.0 Est GFR ( Amer) 32.3 Est GFR (Non-Af Amer) 27.9 BUN/Creatinine Ratio 18.5 Glucose 191 H Lactate Calcium 9.8 Magnesium 2.4 Ferritin Total Bilirubin 3.8 H AST 1048 H ALT 1067 H Alkaline Phosphatase 62 Ammonia 65.0 Troponin I High Sens 964.8 H* B-Natriuretic Peptide Total Protein 7.4 Albumin 4.3 Globulin 3.1 Albumin/Globulin Ratio 1.4 Lipase 6 L Procalcitonin TSH Urine Color Urine Appearance Urine pH Ur Specific [place] Urine Protein Urine Glucose (UA) Urine Ketones Urine Blood Urine Nitrite Urine Bilirubin Urine Urobilinogen Ur Leukocyte Esterase Urine WBC (Auto) Urine RBC (Auto) U Hyaline Cast (Auto) U Epithel Cells (Auto) Urine Bacteria (Auto) Calcium Oxalate Crystal Granular Casts Urine Yeast Fluid Neutrophils % Fluid Lymphocytes % Fluid Eosinophils % Fl Monocyt/Macrophag % Fluid Comment Nasal Screen MRSA (PCR) Urine Opiates Screen Ur Methadone, Qual Acetaminophen Urine Barbiturates Ur Phencyclidine (PCP) U Amphetamin/Meth Scrn MDMA (Ecstasy) Screen U Benzodiazepines Scrn Ur Cocaine Metabolite U Marijuana (THC) Screen Ethyl Alcohol mg/dL < 10.0 Adenovirus (PCR) Not Detected B. pertussis DNA (PCR) Not Detected B.parapertussis DNA PCR Not Detected C. pneumoniae DNA (PCR) Not Detected Coronavirus OC43 (PCR) Not Detected Coronavirus HKU1 (PCR) Not Detected Coronavirus 229E (PCR) Not Detected SARS-CoV-2 (PCR) Not Detected Coronavirus NL63 (PCR) Not Detected Human Metapneumovir PCR Not Detected Influenza Type A (PCR) Not Detected Influenza Type B (PCR) Not Detected M. pneumoniae (PCR) Not Detected Parainfluenza 1 (PCR) Not Detected Parainfluenza 2 (PCR) Not Detected Parainfluenza 3 (PCR) Not Detected Parainfluenza 4 (PCR) Not Detected RSV (PCR) Not Detected Entero/Rhino (PCR) Not Detected 05/23/23 05/23/23 05/23/23 03:50 03:56 04:48 WBC RBC Hgb POC Hgb Hct POC Hct MCV MCH MCHC RDW Std Deviation RDW Coeff of Macario Plt Count Immature Gran % (Auto) Neut % (Auto) Lymph % (Auto) Newton % (Auto) Eos % (Auto) Baso % (Auto) Neut # (Auto) Lymph # (Auto) [place] # (Auto) Eos # (Auto) Baso # (Auto) Immature Gran # (Auto) Absolute Nucleated RBC Nucleated RBC % (auto) PT INR APTT PTT Ratio Sample Site POC pH POC pCO2 POC pO2 POC HCO3 POC Total CO2 POC Base Excess ABG pH 7.22 L ABG pH (Temp Correct) ABG pCO2 90 H ABG pCO2 (Temp Corrct ABG pO2 113 H POC ABG pO2 at Pt Temp ABG HCO3 37 H POC ABG O2 Sat ABG O2 Saturation 98.5 H ABG Base Excess 5.8 H García Test Pos VBG pH VBG pCO2 VBG pO2 VBG HCO3 VBG O2 Saturation VBG Base Excess Oxygen Given FIO2 100 O2 Delivery Device POC O2 Rate Minute Ventilation POC FiO2 Tidal Volume PEEP POC Sodium Sodium POC Potassium Potassium Chloride Carbon Dioxide Anion Gap BUN Creatinine Est Cr Clr Drug Dosing Est GFR ( Amer) Est GFR (Non-Af Amer) BUN/Creatinine Ratio Glucose Lactate 2.8 H* Calcium Magnesium Ferritin Total Bilirubin AST ALT Alkaline Phosphatase Ammonia Troponin I High Sens 1276.5 H* D B-Natriuretic Peptide 1603 H Total Protein Albumin Globulin Albumin/Globulin Ratio Lipase Procalcitonin TSH Urine Color Urine Appearance Urine pH Ur Specific [place] Urine Protein Urine Glucose (UA) Urine Ketones Urine Blood Urine Nitrite Urine Bilirubin Urine Urobilinogen Ur Leukocyte Esterase Urine WBC (Auto) Urine RBC (Auto) U Hyaline Cast (Auto) U Epithel Cells (Auto) Urine Bacteria (Auto) Calcium Oxalate Crystal Granular Casts Urine Yeast Fluid Neutrophils % Fluid Lymphocytes % Fluid Eosinophils % Fl Monocyt/Macrophag % Fluid Comment Nasal Screen MRSA (PCR) Urine Opiates Screen Ur Methadone, Qual Acetaminophen Urine Barbiturates Ur Phencyclidine (PCP) U Amphetamin/Meth Scrn MDMA (Ecstasy) Screen U Benzodiazepines Scrn Ur Cocaine Metabolite U Marijuana (THC) Screen Ethyl Alcohol mg/dL Adenovirus (PCR) B. pertussis DNA (PCR) B.parapertussis DNA PCR C. pneumoniae DNA (PCR) Coronavirus OC43 (PCR) Coronavirus HKU1 (PCR) Coronavirus 229E (PCR) SARS-CoV-2 (PCR) Coronavirus NL63 (PCR) Human Metapneumovir PCR Influenza Type A (PCR) Influenza Type B (PCR) M. pneumoniae (PCR) Parainfluenza 1 (PCR) Parainfluenza 2 (PCR) Parainfluenza 3 (PCR) Parainfluenza 4 (PCR) RSV (PCR) Entero/Rhino (PCR) 05/23/23 05/23/23 05/23/23 04:51 07:02 08:40 WBC RBC Hgb POC Hgb Hct POC Hct MCV MCH MCHC RDW Std Deviation RDW Coeff of Macario Plt Count Immature Gran % (Auto) Neut % (Auto) Lymph % (Auto) Newton % (Auto) Eos % (Auto) Baso % (Auto) Neut # (Auto) Lymph # (Auto) [place] # (Auto) Eos # (Auto) Baso # (Auto) Immature Gran # (Auto) Absolute Nucleated RBC Nucleated RBC % (auto) PT INR APTT PTT Ratio Sample Site POC pH POC pCO2 POC pO2 POC HCO3 POC Total CO2 POC Base Excess ABG pH ABG pH (Temp Correct) ABG pCO2 ABG pCO2 (Temp Corrct ABG pO2 POC ABG pO2 at Pt Temp ABG HCO3 POC ABG O2 Sat ABG O2 Saturation ABG Base Excess García Test VBG pH VBG pCO2 VBG pO2 VBG HCO3 VBG O2 Saturation VBG Base Excess Oxygen Given O2 Delivery Device POC O2 Rate Minute Ventilation POC FiO2 Tidal Volume PEEP POC Sodium Sodium POC Potassium Potassium Chloride Carbon Dioxide Anion Gap BUN Creatinine Est Cr Clr Drug Dosing Est GFR ( Amer) Est GFR (Non-Af Amer) BUN/Creatinine Ratio Glucose Lactate 2.8 H* Calcium Magnesium Ferritin Cancelled Total Bilirubin AST ALT Alkaline Phosphatase Ammonia Troponin I High Sens Cancelled B-Natriuretic Peptide Total Protein Albumin Globulin Albumin/Globulin Ratio Lipase Procalcitonin Cancelled TSH Urine Color Dark Yellow Urine Appearance Cloudy A Urine pH 5.0 Ur Specific [place] 1.020 Urine Protein 2+ H Urine Glucose (UA) Negative Urine Ketones Negative Urine Blood Negative Urine Nitrite Positive A Urine Bilirubin 2+ H Urine Urobilinogen Positive H Ur Leukocyte Esterase Trace H Urine WBC (Auto) 5-10 H Urine RBC (Auto) 0-4 U Hyaline Cast (Auto) 5-10 H U Epithel Cells (Auto) >30 H Urine Bacteria (Auto) Negative Calcium Oxalate Crystal Present A Granular Casts 1-5 H Urine Yeast Not Reportable Fluid Neutrophils % Fluid Lymphocytes % Fluid Eosinophils % Fl Monocyt/Macrophag % Fluid Comment Nasal Screen MRSA (PCR) Urine Opiates Screen Neg Ur Methadone, Qual Neg Acetaminophen Cancelled Urine Barbiturates Neg Ur Phencyclidine (PCP) Neg U Amphetamin/Meth Scrn Neg MDMA (Ecstasy) Screen Neg U Benzodiazepines Scrn Neg Ur Cocaine Metabolite Neg U Marijuana (THC) Screen Neg Ethyl Alcohol mg/dL Adenovirus (PCR) B. pertussis DNA (PCR) B.parapertussis DNA PCR C. pneumoniae DNA (PCR) Coronavirus OC43 (PCR) Coronavirus HKU1 (PCR) Coronavirus 229E (PCR) SARS-CoV-2 (PCR) Coronavirus NL63 (PCR) Human Metapneumovir PCR Influenza Type A (PCR) Influenza Type B (PCR) M. pneumoniae (PCR) Parainfluenza 1 (PCR) Parainfluenza 2 (PCR) Parainfluenza 3 (PCR) Parainfluenza 4 (PCR) RSV (PCR) Entero/Rhino (PCR) 05/23/23 05/23/23 05/23/23 10:25 11:20 12:00 WBC RBC Hgb POC Hgb 17.3 H Hct POC Hct 51 H MCV MCH MCHC RDW Std Deviation RDW Coeff of Macario Plt Count Immature Gran % (Auto) Neut % (Auto) Lymph % (Auto) [place] % (Auto) Eos % (Auto) Baso % (Auto) Neut # (Auto) Lymph # (Auto) [place] # (Auto) Eos # (Auto) Baso # (Auto) Immature Gran # (Auto) Absolute Nucleated RBC Nucleated RBC % (auto) PT INR APTT PTT Ratio Sample Site Art Line POC pH 7.26 L POC pCO2 77 H POC pO2 58 L POC HCO3 35 H POC Total CO2 37 H POC Base Excess 8.0 H ABG pH ABG pH (Temp Correct) 7.261 L ABG pCO2 ABG pCO2 (Temp Corrct 77 H ABG pO2 POC ABG pO2 at Pt Temp 58 ABG HCO3 POC ABG O2 Sat 84.0 L ABG O2 Saturation ABG Base Excess García Test NA VBG pH VBG pCO2 VBG pO2 VBG HCO3 VBG O2 Saturation VBG Base Excess Oxygen Given O2 Delivery Device Ventilator POC O2 Rate 22 Minute Ventilation 8.36 POC FiO2 100 Tidal Volume 380 PEEP 14 POC Sodium 132 L Sodium POC Potassium 4.6 Potassium Chloride Carbon Dioxide Anion Gap BUN Creatinine Est Cr Clr Drug Dosing Est GFR ( Amer) Est GFR (Non-Af Amer) BUN/Creatinine Ratio Glucose Lactate Calcium Magnesium Ferritin 23.9 Total Bilirubin AST ALT Alkaline Phosphatase Ammonia Troponin I High Sens Cancelled B-Natriuretic Peptide Total Protein Albumin Globulin Albumin/Globulin Ratio Lipase Procalcitonin TSH Urine Color Urine Appearance Urine pH Ur Specific [place] Urine Protein Urine Glucose (UA) Urine Ketones Urine Blood Urine Nitrite Urine Bilirubin Urine Urobilinogen Ur Leukocyte Esterase Urine WBC (Auto) Urine RBC (Auto) U Hyaline Cast (Auto) U Epithel Cells (Auto) Urine Bacteria (Auto) Calcium Oxalate Crystal Granular Casts Urine Yeast Fluid Neutrophils % Fluid Lymphocytes % Fluid Eosinophils % Fl Monocyt/Macrophag % Fluid Comment Nasal Screen MRSA (PCR) Negative Urine Opiates Screen Ur Methadone, Qual Acetaminophen Urine Barbiturates Ur Phencyclidine (PCP) U Amphetamin/Meth Scrn MDMA (Ecstasy) Screen U Benzodiazepines Scrn Ur Cocaine Metabolite U Marijuana (THC) Screen Ethyl Alcohol mg/dL Adenovirus (PCR) B. pertussis DNA (PCR) B.parapertussis DNA PCR C. pneumoniae DNA (PCR) Coronavirus OC43 (PCR) Coronavirus HKU1 (PCR) Coronavirus 229E (PCR) SARS-CoV-2 (PCR) Coronavirus NL63 (PCR) Human Metapneumovir PCR Influenza Type A (PCR) Influenza Type B (PCR) M. pneumoniae (PCR) Parainfluenza 1 (PCR) Parainfluenza 2 (PCR) Parainfluenza 3 (PCR) Parainfluenza 4 (PCR) RSV (PCR) Entero/Rhino (PCR) 05/23/23 05/23/23 05/23/23 12:00 12:04 12:48 WBC RBC Hgb POC Hgb Hct POC Hct MCV MCH MCHC RDW Std Deviation RDW Coeff of Macario Plt Count Immature Gran % (Auto) Neut % (Auto) Lymph % (Auto) [place] % (Auto) Eos % (Auto) Baso % (Auto) Neut # (Auto) Lymph # (Auto) [place] # (Auto) Eos # (Auto) Baso # (Auto) Immature Gran # (Auto) Absolute Nucleated RBC Nucleated RBC % (auto) PT INR APTT PTT Ratio Sample Site POC pH POC pCO2 POC pO2 POC HCO3 POC Total CO2 POC Base Excess ABG pH ABG pH (Temp Correct) ABG pCO2 ABG pCO2 (Temp Corrct ABG pO2 POC ABG pO2 at Pt Temp ABG HCO3 POC ABG O2 Sat ABG O2 Saturation ABG Base Excess García Test VBG pH VBG pCO2 VBG pO2 VBG HCO3 VBG O2 Saturation VBG Base Excess Oxygen Given O2 Delivery Device POC O2 Rate Minute Ventilation POC FiO2 Tidal Volume PEEP POC Sodium Sodium POC Potassium Potassium Chloride Carbon Dioxide Anion Gap BUN Creatinine Est Cr Clr Drug Dosing Est GFR ( Amer) Est GFR (Non-Af Amer) BUN/Creatinine Ratio Glucose Lactate Calcium Magnesium Ferritin Total Bilirubin AST ALT Alkaline Phosphatase Ammonia Troponin I High Sens 2730.3 H* D B-Natriuretic Peptide Total Protein Albumin Globulin Albumin/Globulin Ratio Lipase Procalcitonin 0.37 TSH 2.868 Urine Color Urine Appearance Urine pH Ur Specific [place] Urine Protein Urine Glucose (UA) Urine Ketones Urine Blood Urine Nitrite Urine Bilirubin Urine Urobilinogen Ur Leukocyte Esterase Urine WBC (Auto) Urine RBC (Auto) U Hyaline Cast (Auto) U Epithel Cells (Auto) Urine Bacteria (Auto) Calcium Oxalate Crystal Granular Casts Urine Yeast Fluid Neutrophils % 9 Fluid Lymphocytes % 1 Fluid Eosinophils % 89 Fl Monocyt/Macrophag % 1 Fluid Comment Nasal Screen MRSA (PCR) Urine Opiates Screen Ur Methadone, Qual Acetaminophen < 3 L Urine Barbiturates Ur Phencyclidine (PCP) U Amphetamin/Meth Scrn MDMA (Ecstasy) Screen U Benzodiazepines Scrn Ur Cocaine Metabolite U Marijuana (THC) Screen Ethyl Alcohol mg/dL Adenovirus (PCR) B. pertussis DNA (PCR) B.parapertussis DNA PCR C. pneumoniae DNA (PCR) Coronavirus OC43 (PCR) Coronavirus HKU1 (PCR) Coronavirus 229E (PCR) SARS-CoV-2 (PCR) Coronavirus NL63 (PCR) Human Metapneumovir PCR Influenza Type A (PCR) Influenza Type B (PCR) M. pneumoniae (PCR) Parainfluenza 1 (PCR) Parainfluenza 2 (PCR) Parainfluenza 3 (PCR) Parainfluenza 4 (PCR) RSV (PCR) Entero/Rhino (PCR) 05/23/23 14:32 WBC RBC Hgb POC Hgb Hct POC Hct MCV MCH MCHC RDW Std Deviation RDW Coeff of Macario Plt Count Immature Gran % (Auto) Neut % (Auto) Lymph % (Auto) [place] % (Auto) Eos % (Auto) Baso % (Auto) Neut # (Auto) Lymph # (Auto) [place] # (Auto) Eos # (Auto) Baso # (Auto) Immature Gran # (Auto) Absolute Nucleated RBC Nucleated RBC % (auto) PT INR APTT PTT Ratio Sample Site POC pH POC pCO2 POC pO2 POC HCO3 POC Total CO2 POC Base Excess ABG pH ABG pH (Temp Correct) ABG pCO2 ABG pCO2 (Temp Corrct ABG pO2 POC ABG pO2 at Pt Temp ABG HCO3 POC ABG O2 Sat ABG O2 Saturation ABG Base Excess García Test VBG pH VBG pCO2 VBG pO2 VBG HCO3 VBG O2 Saturation VBG Base Excess Oxygen Given O2 Delivery Device POC O2 Rate Minute Ventilation POC FiO2 Tidal Volume PEEP POC Sodium Sodium 135 L POC Potassium Potassium 4.1 Chloride 88 L Carbon Dioxide 35 H Anion Gap 12 H BUN 41 H Creatinine 1.51 H D Est Cr Clr Drug Dosing 50.5 Est GFR ( Amer) 44.0 Est GFR (Non-Af Amer) 38.0 BUN/Creatinine Ratio 27.2 H Glucose 279 H Lactate Calcium 8.8 Magnesium Ferritin Total Bilirubin 3.7 H AST 864 H ALT Alkaline Phosphatase 50 Ammonia Troponin I High Sens B-Natriuretic Peptide Total Protein 6.1 Albumin 3.5 Globulin 2.6 Albumin/Globulin Ratio 1.3 Lipase Procalcitonin TSH Urine Color Urine Appearance Urine pH Ur Specific [place] Urine Protein Urine Glucose (UA) Urine Ketones Urine Blood Urine Nitrite Urine Bilirubin Urine Urobilinogen Ur Leukocyte Esterase Urine WBC (Auto) Urine RBC (Auto) U Hyaline Cast (Auto) U Epithel Cells (Auto) Urine Bacteria (Auto) Calcium Oxalate Crystal Granular Casts Urine Yeast Fluid Neutrophils % Fluid Lymphocytes % Fluid Eosinophils % Fl Monocyt/Macrophag % Fluid Comment Nasal Screen MRSA (PCR) Urine Opiates Screen Ur Methadone, Qual Acetaminophen Urine Barbiturates Ur Phencyclidine (PCP) U Amphetamin/Meth Scrn MDMA (Ecstasy) Screen U Benzodiazepines Scrn Ur Cocaine Metabolite U Marijuana (THC) Screen Ethyl Alcohol mg/dL Adenovirus (PCR) B. pertussis DNA (PCR) B.parapertussis DNA PCR C. pneumoniae DNA (PCR) Coronavirus OC43 (PCR) Coronavirus HKU1 (PCR) Coronavirus 229E (PCR) SARS-CoV-2 (PCR) Coronavirus NL63 (PCR) Human Metapneumovir PCR Influenza Type A (PCR) Influenza Type B (PCR) M. pneumoniae (PCR) Parainfluenza 1 (PCR) Parainfluenza 2 (PCR) Parainfluenza 3 (PCR) Parainfluenza 4 (PCR) RSV (PCR) Entero/Rhino (PCR) Diagnostic Findings On 05/23/2023: No evidence of pulmonary embolus. Possible pneumonia or aspiration involving the left lung base. Mild emphysema. PG Care Time/CCT Total # of Minutes Spent Total Time Spent with Patient: Total time spent is greater than 50% in coordination of care (as documented) at patient's floor/unit and/or counseling patient: Coding Level of Care Code 88696 IN/OBS CONSULT LVL 4,60M Diagnoses Acute on chronic respiratory failure with hypoxia and hypercapnia J96.21; J96.22 Elevated troponin R79.89 Coronary artery disease I25.10 RVF (right ventricular failure) I50.810
[2023-05-23 15:13] LABS: Troponin I High Sensitivity 2534.4 pg/ml (0-14)
[2023-05-23 15:16] LABS: iSTAT Art Bld Gas pCO2 Correct 78 mmHg (35-46); iSTAT Art Bld Gas pH Corrected 7.268 (7.35-7.45); iSTAT Arterial Blood Gas HCO3 35 meg/L (19-24); iSTAT Arterial Blood Gas pCO2 74 mmHg (35-46); iSTAT Arterial Blood Gas pH 7.29 (7.35-7.45); iSTAT Arterial Blood Gas pO2 72 mmHg (80-95); iSTAT Arterial Blood Gas pO2 C 78; iSTAT Carbon Dioxide 38 mmol/L (24-31); iSTAT FiO2 75 %; iSTAT Hematocrit 52 % (37-47); iSTAT Hemoglobin 17.7 g/dl (12.0-16.0); iSTAT Potassium 3.9 mmol/L (3.3-5.0); iSTAT Site Art Line; iSTAT Sodium 132 mmol/L (135-144)
--- NOTE | 2023-05-23 15:24 | XCELERA ---
[id number]\[id number]___[id number]
[2023-05-23] MEDS: FORMOTEROL 20 MCG/2 ML VIAL NEB SCH (15:48)
[2023-05-23] MEDS: BUDESONIDE 0.5 MG/2 ML VIAL (PULMICORT) NEB STA (15:48)
[2023-05-23] MEDS ORDERED: CEFEPIME 2,000 MG in SYRINGE 0 ML IV SCH (16:00)
--- NOTE | 2023-05-23 16:03 | Electrocardiogram Report ---
Test Reason : Blood Pressure : / mmHG Vent. Rate : 074 BPM Atrial Rate : 074 BPM P-R Int : 122 ms QRS Dur : 088 ms QT Int : 374 ms P-R-T Axes : 080 098 072 degrees QTc Int : 415 ms Normal sinus rhythm Possible Left atrial enlargement Rightward axis Abnormal ECG When compared with ECG of 23-MAY-2023 02:02, Nonspecific T wave abnormality, worse in Lateral leads Confirmed by Moisés Soto ([id number]) on 05/23/2023 4:03:45 PM Referred By: REFERRED SELF Confirmed By:Jeffery Soto
[2023-05-23] MEDS ORDERED: GLUCOSE 10 TAB/TUBE PO PRN (16:15)
[2023-05-23] MEDS ORDERED: GLUCAGON FOR INJ 1 MG VIAL IM PRN (16:15)
[2023-05-23] MEDS ORDERED: DEXTROSE 50% 50 ML SYRINGE IV PRN (16:15)
[2023-05-23] MEDS: LANTUS PER UNIT CHARGE SC STA (16:15)
[2023-05-23] MEDS ORDERED: CARBOHYDRATES FOR HYPOGLYCEMIA PO PRN (16:15)
[2023-05-23] MEDS ORDERED: GLUCOSE 40% GEL 15 GM TUBE PO PRN (16:15)
[2023-05-23] MEDS: propofoL 1,000 MG/100 ML VIAL IV SCH (16:16)
[2023-05-23] MEDS: POTASSIUM CHLORIDE 20 MEQ/15 ML UDC PO STA (16:17)
[2023-05-23] MEDS: FUROSEMIDE 40 MG/4 ML VIAL IV SCH (16:17)
[2023-05-23] MEDS: ACETAMINOPHEN 325 MG TAB PO STA (17:42)
[2023-05-23] MEDS: INSULIN ASPART PER UNIT CHARGE SC SCH (18:07)
[2023-05-23] MEDS: AcetylCYSTEINE 10,000 MG in DEXTROSE 5% 1,000 ML IV ONE (18:11)
[2023-05-23] MEDS ORDERED: ALBUTEROL 0.5% NEB SOLN 2.5 MG/0.5 ML VIAL NEB SCH (19:00)
[2023-05-23] MEDS: ALBUTEROL 0.5% NEB SOLN 2.5 MG/0.5 ML VIAL NEB SCH (19:16)
[2023-05-23] MEDS: NOREPINEPHRINE/D5W 4 MG/250 ML PLCT IV SCH (19:50)
[2023-05-23] MEDS: methylPREDNISolone 125 MG in SYRINGE 0 ML IV SCH (20:14)
--- NOTE | 2023-05-24 01:12 | Ultrasound Report ---
Exam(s): US VENOUS BILATERAL LOWER EXTREMITIES EXAM: US Duplex Bilateral Lower Extremities Veins CLINICAL HISTORY: Reason for exam: edema, cool extremities. TECHNIQUE: Real-time duplex ultrasound scan of the bilateral lower extremity veins integrating B-mode two-dimensional vascular structure, Doppler spectral analysis, color flow Doppler imaging and compression. COMPARISON: No relevant prior studies available. FINDINGS: Limitations: Per technologist notes, Limited study due to patient cooperation. Right deep veins: Unremarkable. No DVT in the right common femoral, femoral, proximal deep femoral or popliteal veins. The veins demonstrate normal color flow, are normally compressible, with normal phasic flow and/or augmentation response. Right superficial veins: Unremarkable. No thrombus in the visualized right great saphenous vein. Left deep veins: Unremarkable. No DVT in the left common femoral, femoral, proximal deep femoral or popliteal veins. The veins demonstrate normal color flow, are normally compressible, with normal phasic flow and/or augmentation response. Left superficial veins: Unremarkable. No thrombus in the visualized left great saphenous vein. Soft tissues: 3.4 x 2.6 x 2.2 cm complex heterogeneous round structure in the left medial calf. No or minimal peripheral blood flow. No popliteal cyst. IMPRESSION: 1. No obvious DVT in bilateral lower extremities. 2. 3.4 x 2.6 x 2.2 cm complex heterogeneous ovoid structure in the left medial calf. No or minimal peripheral blood flow. May represent hematoma or other lesion. Correlate clinically, with priors and consider follow-up CT/MR as appropriate. Electronically signed by: Talon Tom M.D. 05/24/23 01:12 AM
[2023-05-24 05:04] LABS: BUN Creatinine Ratio 31.8 (10-20); Calcium 9.6 mg/dl (8.6-10.3); Creatinine Clr Calc Pharmacy 59.2 ml/min; Est GFR (African American) 53.2 ml/min; Est GFR (Non-African American) 45.9 ml/min; Potassium 3.6 mmol/L (3.5-5.1)
[2023-05-24 05:11] LABS: INR 1.6 (0.9-1.1)
[2023-05-24 05:20] LABS: Albumin Level 3.3 gm/dl (3.4-5.0); Bilirubin Direct 0.9 mg/dl (0-0.2); Bilirubin,Total 2.4 mg/dl (0.2-1.0); Total Protein 5.8 gm/dl (6.0-8.3)
[2023-05-24 05:37] LABS: Hematocrit (blood only) 45.2 % (37.0-47.0); Hemoglobin 13.9 g/dl (12.0-16.0); Mean Corpuscular Hemoglobin 25.4 pg (25.0-34.0); Mean Corpuscular Hgb Conc 30.8 g/dL (32.0-36.0); Mean Corpuscular Volume 82.6 fL (80.0-100.0); Nucleated RBC # (auto) 0.09 K/uL (0.00-0.12); Nucleated RBC % (auto) 0.6 %; Platelet Count 115 K/uL (130-400); RDW Coefficient of Variation 18.4 % (11.5-14.5); RDW Standard Deviation 52.9 fL (36.4-46.3); Red Blood Count 5.47 M/uL (4.20-5.40); White Blood Count 15.52 K/ul (4.8-10.8)
[2023-05-24] MEDS: INSULIN ASPART PER UNIT CHARGE SC ONE (06:13)
[2023-05-24 06:32] LABS: HBSAG NON-REACTIVE (NON-REACTIVE); Hepatitis A Antibody IgM NON-REACTIVE (NON-REACTIVE); Hepatitis B Core Antibody IgM NON-REACTIVE (NON-REACTIVE)
[2023-05-24] MEDS: POTASSIUM CHLORIDE 20 MEQ/15 ML UDC NG STA (06:32)
[2023-05-24] MEDS: MICONAZOLE NITRATE POWDER 85 GM EXT SCH (08:13)
[2023-05-24] MEDS: INSULIN ASPART PER UNIT CHARGE SC SCH (08:18)
[2023-05-24] MEDS: LANTUS PER UNIT CHARGE SC ONE (08:26)
--- NOTE | 2023-05-24 09:47 | Critical Care Progress Note ---
Date of Service May 24, 2023 Assessment & Plan (1) Status asthmaticus with COPD (chronic obstructive pulmonary disease): (2) Acute CHF (congestive heart failure): (3) Acute encephalopathy: (4) Transaminitis: (5) Coronary artery disease: (6) Elevated troponin: (7) Endotracheally intubated: (8) RVF (right ventricular failure): (9) Aspiration pneumonia: Plan 58-year-old female with a past medical history of coronary artery disease, COPD, asthma and obesity who presented to the hospital due to altered mental status and hypoxemic respiratory failure. Neurologic: Encephalopathy appears to be resolving. Was likely secondary to hypercapnic respiratory failure. Will hold on MRI brain. CT head did show evidence of an old stroke. Pulmonary: She appears to be slowly improving from her asthma/COPD exacerbation. Will decrease IV Solu-Medrol to 80 mg 3 times daily. Bronchoscopy performed 05/23/2023 revealed 89% eosinophilia from the bronchial washings consistent with asthma. Such findings can also be seen in acute eosinophilic pneumonia, but CT chest findings are not compatible with that at this time. CT chest was negative for PE. Cardiovascular: Echocardiogram with evidence of cor pulmonale which is likely contributing significantly to her hypoxemia. She is profoundly volume overloaded. Continue diuresis. Gastrointestinal: NAC protoocl is completing. LFTs are improving. Likely transaminitis related to RV dysfunction. Hepatitis panel pending. Renal: EH is resolving with diuresis. Likely cardiorenal failure. Replace electrolytes as appropriate. Infectious disease: Continue Zosyn for aspiration pneumonia. Follow cultures from the bronchoscopy, blood and urine. MRSA screen negative. Hematologic: Patient with mild coagulopathy secondary to liver failure. Endocrine: TSH unremarkable. Patient with hyperglycemia. Pharmacy assisting with management of glucose. VTE prophylaxis: SCDs, Lovenox subcu CODE STATUS: Full code Family at bedside: Will update Disposition: ICU I have personally spent 48 minutes of critical care time in the direct management of this patient. This is a life/limb threatening event. This includes time spent evaluating patient, direct bedside care, chart review, placing orders, interpretation of diagnostic studies, discussion with consultants, patient, and family members, as well as other required patient management activities. This time is exclusive of all separately billable procedures, and teaching time and separate from and in addition to any other critical care service time. Thank you for allowing us to participate in the care of this patient. Admission and Anticipated Discharge Date Admission Date: May 23, 2023 Subjective Patient seen and examined. She is currently on a sedation vacation and following commands well. She denies any shortness of breath or chest pain. She is currently on SBT with settings of 10/5. She is on 60% FiO2. Her saturations are 91%. She has made good urine output overnight with diuretics. Review of Systems Review of Systems: Unobtainable due to endotracheal tube Physical Exam Physical Exam: Constitutional: Patient appears obese and frail. She is alert and following commands. Eyes: Pupils are equal round and reactive to light. Conjunctivae are normal. Anicteric sclera. Ears nose, mouth and throat: Mallampati class 2. Normal posterior oropharynx. Uvula is midline. Neck: Trachea is midline. Visual inspection is normal. Respiratory: Mild expiratory wheeze. No increased work of breathing. Coarse breath sounds. Cardiovascular: Regular rate and rhythm. No murmurs. 4+ edema of the lower extremities bilaterally Gastrointestinal: Normal bowel sounds, soft, nontender and nondistended. No hepatosplenomegaly noted. Musculoskeletal: No cyanosis. Patient is able to move all extremities. Strength is 5 out of 5 in the upper and lower extremities. Skin: No rashes, warm dry and intact. Neurologic: No focal neurological signs. Psychiatric: Appears mildly anxious. Results & Data Results & Data Vital Signs (Past 12 Hours) Vital Signs Temp Temp Pulse Resp BP BP Pulse Ox 05/24/23 09:30 37.0 C 62 20 93 05/24/23 09:23 05/24/23 09:00 37.1 C 69 20 96 05/24/23 08:45 107/67 05/24/23 08:45 37.1 C 73 22 98 05/24/23 08:30 37.1 C 68 22 99 05/24/23 08:30 107/68 05/24/23 08:15 37.1 C 74 22 99 05/24/23 08:15 106/73 05/24/23 08:08 05/24/23 08:00 37.0 C 73 22 98 05/24/23 08:00 104/68 05/24/23 07:45 37.0 C 72 22 98 05/24/23 07:45 106/69 05/24/23 07:30 37.0 C 75 22 100 05/24/23 07:30 106/69 05/24/23 07:15 37.0 C 74 22 99 05/24/23 07:15 107/68 05/24/23 07:00 37.0 C 67 22 100 05/24/23 07:00 102/68 05/24/23 06:45 37.0 C 72 22 99 05/24/23 06:45 125/69 05/24/23 06:30 37.0 C 72 22 100 05/24/23 06:30 116/67 05/24/23 06:15 37.0 C 72 22 100 05/24/23 06:15 110/70 05/24/23 06:00 37.0 C 71 22 100 05/24/23 06:00 108/68 05/24/23 05:45 37.0 C 68 22 100 05/24/23 05:45 114/68 05/24/23 05:30 111/70 05/24/23 05:30 37.0 C 72 22 100 05/24/23 05:00 37.0 C 72 22 100 05/24/23 04:30 37.0 C 74 22 100 05/24/23 04:00 37.0 C 72 22 98 05/24/23 03:30 37.0 C 77 22 98 05/24/23 03:00 37.0 C 76 22 98 05/24/23 03:00 76 23 98 05/24/23 02:30 37.0 C 68 22 97 05/24/23 02:00 37.1 C 78 22 98 05/24/23 01:30 37.2 C 77 19 98 05/24/23 01:00 72 05/24/23 01:00 37.2 C 75 19 99 05/24/23 00:51 76 99 05/24/23 00:30 37.3 C 77 19 96 05/24/23 00:00 37.4 C 83 18 96 05/23/23 23:30 37.5 C 77 18 95 05/23/23 23:00 37.5 C 79 22 98 05/23/23 22:30 37.6 C H 79 22 96 05/23/23 22:09 66 18 99 05/23/23 22:03 05/23/23 22:00 37.7 C H 80 22 93 05/23/23 21:58 37.7 C H 80 22 107/63 95 O2 Del Method FiO2 05/24/23 09:30 05/24/23 09:23 65 05/24/23 09:00 05/24/23 08:45 05/24/23 08:45 05/24/23 08:30 05/24/23 08:30 05/24/23 08:15 05/24/23 08:15 05/24/23 08:08 Mechanical Vent 65 05/24/23 08:00 05/24/23 08:00 05/24/23 07:45 05/24/23 07:45 05/24/23 07:30 05/24/23 07:30 05/24/23 07:15 05/24/23 07:15 05/24/23 07:00 05/24/23 07:00 05/24/23 06:45 05/24/23 06:45 05/24/23 06:30 05/24/23 06:30 05/24/23 06:15 05/24/23 06:15 05/24/23 06:00 05/24/23 06:00 05/24/23 05:45 05/24/23 05:45 05/24/23 05:30 05/24/23 05:30 05/24/23 05:00 05/24/23 04:30 05/24/23 04:00 05/24/23 03:30 05/24/23 03:00 05/24/23 03:00 75 05/24/23 02:30 05/24/23 02:00 05/24/23 01:30 05/24/23 01:00 05/24/23 01:00 05/24/23 00:51 05/24/23 00:30 05/24/23 00:00 05/23/23 23:30 05/23/23 23:00 05/23/23 22:30 05/23/23 22:09 75 05/23/23 22:03 75 05/23/23 22:00 05/23/23 21:58 Mechanical Vent 75 Coding Level of Care Code 78702 CRITICAL CARE 1ST 30-74M Diagnoses Status asthmaticus with COPD (chronic obstructive pulmonary disease) J44.89; J45.902 Acute CHF (congestive heart failure) I50.9 Acute encephalopathy G93.40 Transaminitis R74.01 Coronary artery disease I25.10 Elevated troponin R79.89 Endotracheally intubated Z97.8 RVF (right ventricular failure) I50.810 Aspiration pneumonia J69.0 Time Spent (min) 48
--- NOTE | 2023-05-24 09:54 | Gastroenterology Progress Note ---
Date of Service May 24, 2023 Assessment & Plan Admission and Anticipated Discharge Date Admission Date: May 23, 2023 Subjective LFTs trending down today and INR remains stable < 2 indicating intact liver function for now. Continue current management and trending LFTs. Cardiopulmonary/circularity support. Recall GI if needed. Results & Data Vital Signs (Past 12 Hours) Vital Signs Temp Temp Pulse Resp BP BP Pulse Ox 05/24/23 09:30 37.0 C 62 20 93 05/24/23 09:23 05/24/23 09:00 37.1 C 69 20 96 05/24/23 08:45 107/67 05/24/23 08:45 37.1 C 73 22 98 05/24/23 08:30 37.1 C 68 22 99 05/24/23 08:30 107/68 05/24/23 08:15 37.1 C 74 22 99 05/24/23 08:15 106/73 05/24/23 08:08 05/24/23 08:00 37.0 C 73 22 98 05/24/23 08:00 104/68 05/24/23 07:45 37.0 C 72 22 98 05/24/23 07:45 106/69 05/24/23 07:30 37.0 C 75 22 100 05/24/23 07:30 106/69 05/24/23 07:24 70 22 99 05/24/23 07:15 71 05/24/23 07:15 37.0 C 74 22 99 05/24/23 07:15 107/68 05/24/23 07:00 37.0 C 67 22 100 05/24/23 07:00 102/68 05/24/23 06:45 37.0 C 72 22 99 05/24/23 06:45 125/69 05/24/23 06:30 37.0 C 72 22 100 05/24/23 06:30 116/67 05/24/23 06:15 37.0 C 72 22 100 05/24/23 06:15 110/70 05/24/23 06:00 37.0 C 71 22 100 05/24/23 06:00 108/68 05/24/23 05:45 37.0 C 68 22 100 05/24/23 05:45 114/68 05/24/23 05:30 111/70 05/24/23 05:30 37.0 C 72 22 100 05/24/23 05:00 37.0 C 72 22 100 05/24/23 04:30 37.0 C 74 22 100 05/24/23 04:00 37.0 C 72 22 98 05/24/23 03:30 37.0 C 77 22 98 05/24/23 03:00 37.0 C 76 22 98 05/24/23 03:00 76 23 98 05/24/23 02:30 37.0 C 68 22 97 05/24/23 02:00 37.1 C 78 22 98 05/24/23 01:30 37.2 C 77 19 98 05/24/23 01:00 72 05/24/23 01:00 37.2 C 75 19 99 05/24/23 00:51 76 99 05/24/23 00:30 37.3 C 77 19 96 05/24/23 00:00 37.4 C 83 18 96 05/23/23 23:30 37.5 C 77 18 95 05/23/23 23:00 37.5 C 79 22 98 05/23/23 22:30 37.6 C H 79 22 96 05/23/23 22:09 66 18 99 05/23/23 22:03 05/23/23 22:00 37.7 C H 80 22 93 05/23/23 21:58 37.7 C H 80 22 107/63 95 O2 Del Method FiO2 05/24/23 09:30 05/24/23 09:23 65 05/24/23 09:00 05/24/23 08:45 05/24/23 08:45 05/24/23 08:30 05/24/23 08:30 05/24/23 08:15 05/24/23 08:15 05/24/23 08:08 Mechanical Vent 65 05/24/23 08:00 05/24/23 08:00 05/24/23 07:45 05/24/23 07:45 05/24/23 07:30 05/24/23 07:30 05/24/23 07:24 75 05/24/23 07:15 05/24/23 07:15 05/24/23 07:15 05/24/23 07:00 05/24/23 07:00 05/24/23 06:45 05/24/23 06:45 05/24/23 06:30 05/24/23 06:30 05/24/23 06:15 05/24/23 06:15 05/24/23 06:00 05/24/23 06:00 05/24/23 05:45 05/24/23 05:45 05/24/23 05:30 05/24/23 05:30 05/24/23 05:00 05/24/23 04:30 05/24/23 04:00 05/24/23 03:30 05/24/23 03:00 05/24/23 03:00 75 05/24/23 02:30 05/24/23 02:00 05/24/23 01:30 05/24/23 01:00 05/24/23 01:00 05/24/23 00:51 05/24/23 00:30 05/24/23 00:00 05/23/23 23:30 05/23/23 23:00 05/23/23 22:30 05/23/23 22:09 75 05/23/23 22:03 75 05/23/23 22:00 05/23/23 21:58 Mechanical Vent 75
--- NOTE | 2023-05-24 10:55 | Pharmacy Report ---
Pharmacy Glycemic Short Note 2 - Date of Service May 24, 2023 - Glycemic Short BSG Results (Last 24 hours): 05/23/23 05/23/23 05/23/23 14:32 17:56 20:14 Glucose 279 H POC Glucose 273 H 246 H 05/24/23 05/24/23 05/24/23 00:25 04:24 05:08 Glucose 278 H POC Glucose 272 H 296 H 05/24/23 08:17 Glucose POC Glucose 252 H OUTPATIENT ANTIDIABETIC REGIMEN: * n/a ASSESSMENT: * 58 year old admitted with altered mental status and hypoxemic respiratory failure. Intubated on admission. High dose steroids started, solumedrol 125 mg iv tid. Pharmacy consulted for glycemic management. No outpatient DM medications, awaiting A1c. * BSGs this AM elevated >250 mg/dL - Received Lantus 20 units x 1 last evening * Continues on solumedrol this morning, 125 mg iv given this AM - will give Lantus 30 units x 1 now. Changed to Q4 hours checks and also tightened CF. * Steroids now decreasing to 80 mg iv TID starting this afternoon. Plan to have Lantus scale for HS time in case BSGs remain elevated PLAN FOR INPATIENT GLYCEMIC CONTROL: * Hold outpatient oral diabetes medications * Basal insulin * Lantus 30 units x 1 * Lantus 0-10 units HS * Bolus insulin * NovoLog per scale ACHS or Q6hrs while NPO * Goal Range: Low 110 mg/dL - High 140 mg/dL * Correction Factor: 15 mg/dL/unit * Nutritional / Prandial insulin per carb ratio of 1 unit per 7 grams CHO consumed
[2023-05-24] MEDS: metOLazone 2.5 MG TABLET PO ONE (11:50)
--- NOTE | 2023-05-24 12:30 | Hospitalist Progress Note ---
Date of Service May 24, 2023 Assessment & Plan (1) Acute on chronic respiratory failure with hypoxia and hypercapnia: Plan: 58yo female with history of COPD presenting with respiratory failure with hypoxia and hypercarbia 1. Acute metabolic encephalopathy This was most likely related to her acute hypercapnic respiratory failure since it has improved significantly CT head showed a stroke, age indeterminate. An MRI can be done at a later time, on hold for now since she is clinically better. 2. Acute hypercarbic respiratory failure Initially was put on BiPAP with no improvement Required to be intubated [employer] managing vent Hope for extubation soon Most likely due to severe asthma/COPD exacerbation. On IV Solu-Medrol CT chest showed aspiration pneumonia for which she is now on IV meropenem. Must of aspirated during hypersomnolent state Bronchoscopy performed 05/23 revealed eosinophilia in the bronchial washings. Follow cultures 3. Cor pulmonale/right heart failure Echocardiogram showed evidence of cor pulmonale Patient has elevated liver enzymes and lower extremity edema secondary to right heart failure Being diuresed with IV Lasix Cardiology on board 4. Elevated liver enzymes Due to shock liver from right heart failure Improving LFTs Hepatitis panel pending Elevated INR due to shock liver Being treated with NAC. Completing protocol 5. Acute kidney injury Improving with diuresis 6. Demand ischemia Likely due to severe hypoxia and respiratory failure Echo showed normal EF and no wall motion abnormalities DVT prophylaxis: Lovenox Full code (2) Coronary artery disease: (3) Hyperlipidemia: (4) Abnormal LFTs: (5) Elevated troponin: Admission and Anticipated Discharge Date Admission Date: May 23, 2023 Subjective Patient remains intubated. She is now off of sedation and is able to nod or shake her head in response to questions. Review of Systems Review of Systems: All systems reviewed & are unremarkable except as noted in Subjective Physical Exam Physical Exam: General: Intubated. Awake. Able to nod or shake her head in response to simple questions. Heart: S1, S2/regular rate and rhythm, no murmur rubs or gallops Lungs: Mild expiratory wheezes heard. Good air entry bilaterally. Abdomen: Soft/nontender/nondistended. No hepatosplenomegaly Extremities: No clubbing/cyanosis. No edema Behavior: Unable to assess Results & Data Results & Data Vital Signs (Past 12 Hours) Vital Signs Temp Pulse Resp BP Pulse Ox O2 Del Method FiO2 05/24/23 10:30 119/75 05/24/23 10:30 36.9 C 81 15 89 L 05/24/23 10:15 36.9 C 82 18 89 L 05/24/23 10:15 136/74 05/24/23 10:00 36.9 C 80 18 93 05/24/23 10:00 136/94 05/24/23 09:45 37.0 C 80 19 91 05/24/23 09:45 145/81 H 05/24/23 09:30 37.0 C 62 20 93 05/24/23 09:23 65 05/24/23 09:00 37.1 C 69 20 96 05/24/23 08:45 107/67 05/24/23 08:45 37.1 C 73 22 98 05/24/23 08:30 37.1 C 68 22 99 05/24/23 08:30 107/68 05/24/23 08:15 37.1 C 74 22 99 05/24/23 08:15 106/73 05/24/23 08:08 Mechanical Vent 65 05/24/23 08:00 37.0 C 73 22 98 05/24/23 08:00 104/68 05/24/23 07:45 37.0 C 72 22 98 05/24/23 07:45 106/69 05/24/23 07:30 37.0 C 75 22 100 05/24/23 07:30 106/69 05/24/23 07:24 70 22 99 75 05/24/23 07:15 71 05/24/23 07:15 37.0 C 74 22 99 05/24/23 07:15 107/68 05/24/23 07:00 37.0 C 67 22 100 05/24/23 07:00 102/68 05/24/23 06:45 37.0 C 72 22 99 05/24/23 06:45 125/69 05/24/23 06:30 37.0 C 72 22 100 05/24/23 06:30 116/67 05/24/23 06:15 37.0 C 72 22 100 05/24/23 06:15 110/70 05/24/23 06:00 37.0 C 71 22 100 05/24/23 06:00 108/68 05/24/23 05:45 37.0 C 68 22 100 05/24/23 05:45 114/68 05/24/23 05:30 111/70 05/24/23 05:30 37.0 C 72 22 100 05/24/23 05:00 37.0 C 72 22 100 05/24/23 04:30 37.0 C 74 22 100 05/24/23 04:00 37.0 C 72 22 98 05/24/23 03:30 37.0 C 77 22 98 05/24/23 03:00 37.0 C 76 22 98 05/24/23 03:00 76 23 98 75 05/24/23 02:30 37.0 C 68 22 97 05/24/23 02:00 37.1 C 78 22 98 05/24/23 01:30 37.2 C 77 19 98 05/24/23 01:00 72 05/24/23 01:00 37.2 C 75 19 99 05/24/23 00:51 76 99 05/24/23 00:30 37.3 C 77 19 96 Laboratory Results Abnormal lab results 05/23/23 05/23/23 05/23/23 Range/Units 12:00 14:32 15:01 WBC (4.8-10.8) K/ul RBC (4.20-5.40) M/uL POC Hgb 17.7 H (12.0-16.0) g/dl POC Hct 52 H (37-47) % MCHC (32.0-36.0) g/dL RDW Std Deviation (36.4-46.3) fL RDW Coeff of Macario (11.5-14.5) % Plt Count (130-400) K/uL PT (9.0-12.0) Seconds INR (0.9-1.1) POC pH 7.29 L (7.35-7.45) POC pCO2 74 H (35-46) mmHg POC pO2 72 L (80-95) mmHg POC HCO3 35 H (19-24) augustina/L POC Total CO2 38 H (24-31) mmol/L POC Base Excess 9.0 H (-9-1.8) augustina/L ABG pH (Temp Correct) 7.268 L (7.35-7.45) ABG pCO2 (Temp Corrct 78 H (35-46) mmHg POC Sodium 132 L (135-144) mmol/L Sodium 135 L (136-145) mmol/L Chloride 88 L (98-107) mmol/L Carbon Dioxide 35 H (21-32) mmol/L Anion Gap 12 H (3-11) BUN 41 H (6-23) mg/dl Creatinine 1.51 H D (0.6-1.2) mg/dl BUN/Creatinine Ratio 27.2 H (10-20) Glucose 279 H (70-99(Fasting)) mg/dl POC Glucose (70-99) mg/dl Total Bilirubin 3.7 H (0.2-1.0) mg/dl Direct Bilirubin (0-0.2) mg/dl AST 864 H (13-39) U/L ALT 1178 H (7-52) U/L Troponin I High Sens 2730.3 H* D 2534.4 H* (0-14) pg/ml Total Protein (6.0-8.3) gm/dl Albumin (3.4-5.0) gm/dl Acetaminophen < 3 L (10-30) ug/ml 05/23/23 05/23/23 05/23/23 Range/Units 16:37 17:56 20:05 WBC (4.8-10.8) K/ul RBC (4.20-5.40) M/uL POC Hgb (12.0-16.0) g/dl POC Hct (37-47) % MCHC (32.0-36.0) g/dL RDW Std Deviation (36.4-46.3) fL RDW Coeff of Macario (11.5-14.5) % Plt Count (130-400) K/uL PT (9.0-12.0) Seconds INR (0.9-1.1) POC pH (7.35-7.45) POC pCO2 (35-46) mmHg POC pO2 (80-95) mmHg POC HCO3 (19-24) augustina/L POC Total CO2 (24-31) mmol/L POC Base Excess (-9-1.8) augustina/L ABG pH (Temp Correct) (7.35-7.45) ABG pCO2 (Temp Corrct (35-46) mmHg POC Sodium (135-144) mmol/L Sodium (136-145) mmol/L Chloride (98-107) mmol/L Carbon Dioxide (21-32) mmol/L Anion Gap (3-11) BUN (6-23) mg/dl Creatinine (0.6-1.2) mg/dl BUN/Creatinine Ratio (10-20) Glucose (70-99(Fasting)) mg/dl POC Glucose 273 H (70-99) mg/dl Total Bilirubin (0.2-1.0) mg/dl Direct Bilirubin (0-0.2) mg/dl AST (13-39) U/L ALT (7-52) U/L Troponin I High Sens 2002.6 H* D 2967.9 H* D (0-14) pg/ml Total Protein (6.0-8.3) gm/dl Albumin (3.4-5.0) gm/dl Acetaminophen (10-30) ug/ml 05/23/23 05/23/23 05/24/23 Range/Units 20:14 22:21 00:25 WBC (4.8-10.8) K/ul RBC (4.20-5.40) M/uL POC Hgb (12.0-16.0) g/dl POC Hct (37-47) % MCHC (32.0-36.0) g/dL RDW Std Deviation (36.4-46.3) fL RDW Coeff of Macario (11.5-14.5) % Plt Count (130-400) K/uL PT (9.0-12.0) Seconds INR (0.9-1.1) POC pH (7.35-7.45) POC pCO2 (35-46) mmHg POC pO2 (80-95) mmHg POC HCO3 (19-24) augustina/L POC Total CO2 (24-31) mmol/L POC Base Excess (-9-1.8) augustina/L ABG pH (Temp Correct) (7.35-7.45) ABG pCO2 (Temp Corrct (35-46) mmHg POC Sodium (135-144) mmol/L Sodium (136-145) mmol/L Chloride (98-107) mmol/L Carbon Dioxide (21-32) mmol/L Anion Gap (3-11) BUN (6-23) mg/dl Creatinine (0.6-1.2) mg/dl BUN/Creatinine Ratio (10-20) Glucose (70-99(Fasting)) mg/dl POC Glucose 246 H 272 H (70-99) mg/dl Total Bilirubin (0.2-1.0) mg/dl Direct Bilirubin (0-0.2) mg/dl AST (13-39) U/L ALT (7-52) U/L Troponin I High Sens 2808.6 H* (0-14) pg/ml Total Protein (6.0-8.3) gm/dl Albumin (3.4-5.0) gm/dl Acetaminophen (10-30) ug/ml 05/24/23 05/24/23 05/24/23 Range/Units 04:24 05:08 08:17 WBC 15.52 H (4.8-10.8) K/ul RBC 5.47 H (4.20-5.40) M/uL POC Hgb (12.0-16.0) g/dl POC Hct (37-47) % MCHC 30.8 L D (32.0-36.0) g/dL RDW Std Deviation 52.9 H (36.4-46.3) fL RDW Coeff of Macario 18.4 H (11.5-14.5) % Plt Count 115 L (130-400) K/uL PT 17.0 H (9.0-12.0) Seconds INR 1.6 H (0.9-1.1) POC pH (7.35-7.45) POC pCO2 (35-46) mmHg POC pO2 (80-95) mmHg POC HCO3 (19-24) augustina/L POC Total CO2 (24-31) mmol/L POC Base Excess (-9-1.8) augustina/L ABG pH (Temp Correct) (7.35-7.45) ABG pCO2 (Temp Corrct (35-46) mmHg POC Sodium (135-144) mmol/L Sodium 135 L (136-145) mmol/L Chloride 88 L (98-107) mmol/L Carbon Dioxide 36 H (21-32) mmol/L Anion Gap (3-11) BUN 41 H (6-23) mg/dl Creatinine 1.29 H (0.6-1.2) mg/dl BUN/Creatinine Ratio 31.8 H (10-20) Glucose 278 H (70-99(Fasting)) mg/dl POC Glucose 296 H 252 H (70-99) mg/dl Total Bilirubin 2.4 H (0.2-1.0) mg/dl Direct Bilirubin 0.9 H (0-0.2) mg/dl AST 324 H (13-39) U/L ALT 898 H (7-52) U/L Troponin I High Sens (0-14) pg/ml Total Protein 5.8 L (6.0-8.3) gm/dl Albumin 3.3 L (3.4-5.0) gm/dl Acetaminophen (10-30) ug/ml 05/24/23 Range/Units 11:48 WBC (4.8-10.8) K/ul RBC (4.20-5.40) M/uL POC Hgb (12.0-16.0) g/dl POC Hct (37-47) % MCHC (32.0-36.0) g/dL RDW Std Deviation (36.4-46.3) fL RDW Coeff of Macario (11.5-14.5) % Plt Count (130-400) K/uL PT (9.0-12.0) Seconds INR (0.9-1.1) POC pH (7.35-7.45) POC pCO2 (35-46) mmHg POC pO2 (80-95) mmHg POC HCO3 (19-24) augustina/L POC Total CO2 (24-31) mmol/L POC Base Excess (-9-1.8) augustina/L ABG pH (Temp Correct) (7.35-7.45) ABG pCO2 (Temp Corrct (35-46) mmHg POC Sodium (135-144) mmol/L Sodium (136-145) mmol/L Chloride (98-107) mmol/L Carbon Dioxide (21-32) mmol/L Anion Gap (3-11) BUN (6-23) mg/dl Creatinine (0.6-1.2) mg/dl BUN/Creatinine Ratio (10-20) Glucose (70-99(Fasting)) mg/dl POC Glucose 186 H (70-99) mg/dl Total Bilirubin (0.2-1.0) mg/dl Direct Bilirubin (0-0.2) mg/dl AST (13-39) U/L ALT (7-52) U/L Troponin I High Sens (0-14) pg/ml Total Protein (6.0-8.3) gm/dl Albumin (3.4-5.0) gm/dl Acetaminophen (10-30) ug/ml Diagnostic Findings Venous Doppler Study 05/23/23 06:21 Exam(s): US VENOUS BILATERAL LOWER EXTREMITIES EXAM: US Duplex Bilateral Lower Extremities Veins CLINICAL HISTORY: Reason for exam: edema, cool extremities. TECHNIQUE: Real-time duplex ultrasound scan of the bilateral lower extremity veins integrating B-mode two-dimensional vascular structure, Doppler spectral analysis, color flow Doppler imaging and compression. COMPARISON: No relevant prior studies available. FINDINGS: Limitations: Per technologist notes, Limited study due to patient cooperation. Right deep veins: Unremarkable. No DVT in the right common femoral, femoral, proximal deep femoral or popliteal veins. The veins demonstrate normal color flow, are normally compressible, with normal phasic flow and/or augmentation response. Right superficial veins: Unremarkable. No thrombus in the visualized right great saphenous vein. Left deep veins: Unremarkable. No DVT in the left common femoral, femoral, proximal deep femoral or popliteal veins. The veins demonstrate normal color flow, are normally compressible, with normal phasic flow and/or augmentation response. Left superficial veins: Unremarkable. No thrombus in the visualized left great saphenous vein. Soft tissues: 3.4 x 2.6 x 2.2 cm complex heterogeneous round structure in the left medial calf. No or minimal peripheral blood flow. No popliteal cyst. IMPRESSION: 1. No obvious DVT in bilateral lower extremities. 2. 3.4 x 2.6 x 2.2 cm complex heterogeneous ovoid structure in the left medial calf. No or minimal peripheral blood flow. May represent hematoma or other lesion. Correlate clinically, with priors and consider follow-up CT/MR as appropriate. Electronically signed by: Talon Tom M.D. 05/24/23 01:12 AM Chest X-Ray 05/23/23 11:57 XR chest 1V portable HISTORY: hypoxia COMPARISON: Chest 05/23/2023. FINDINGS: Endotracheal tube terminates 3.5 cm from the chris. No pneumothorax. The heart is mildly enlarged. No evidence for pulmonary edema. Left basilar airspace opacities persist. No new focal lung consolidations. No evidence for pulmonary edema. IMPRESSION: 1. The endotracheal tube terminates 3.5 cm from the chris. 2. Left base airspace opacities again noted. This favors an aspiration pneumonia. ACT 112: Negative or not required by law. Electronically signed by: Chris Winter M.D. 05/23/2023 12:25 PM Chest X-Ray 05/23/23 13:02 XR chest 1V portable HISTORY: Confirm OG placement COMPARISON: Chest 05/23/2023. FINDINGS: Endotracheal tube terminates 4 cm from the chris. Orogastric tube terminates in the proximal stomach. Patchy left basilar densities persist. IMPRESSION: 1. The orogastric tube terminates in the proximal stomach. 2. Left basilar densities persist. 3. Endotracheal tube terminates 4 cm from the chris. ACT 112: Negative or not required by law. Electronically signed by: Chris Winter M.D. 05/23/2023 1:31 PM PG Care Time/CCT Total # of Minutes Spent Total Time Spent with Patient: Total time spent is greater than 50% in coordination of care (as documented) at patient's floor/unit and/or counseling patient: Coding Level of Care Code 20493 SUB INP/OBS CARE 2/35MIN Diagnoses Acute on chronic respiratory failure with hypoxia and hypercapnia J96.21; J96.22 Coronary artery disease I25.10 Hyperlipidemia E78.5 Abnormal LFTs R79.89 Elevated troponin R79.89
[2023-05-24] MEDS: PANTOprazole 40 MG in SYRINGE 0 ML IV SCH (12:34)
--- NOTE | 2023-05-24 15:15 | Cardiology Progress Note ---
Date of Service May 24, 2023 Assessment & Plan (1) Acute on chronic respiratory failure with hypoxia and hypercapnia: (2) Elevated troponin: (3) Coronary artery disease: (4) RVF (right ventricular failure): Plan 1. Respiratory failure: Improving. Bronchoscopy suggests an element of poorly controlled reactive airway disease as well. She seems to be responding to treatment. The hope is that she can be extubated today. Still requiring significant oxygen. 2. Cor pulmonale: Hemodynamically stable. Lower extremity edema improved. She did affect a good diuresis yesterday and maintain good blood pressures. I think her diuretic regimen could be reduced to a single daily dose of Lasix. RV function should improve his oxygenation and her lung condition improves. 3. Coronary disease: Remote history of occluded circumflex. I do not believe she is suffering from an acute coronary syndrome. Echocardiogram yesterday revealed preserved LV systolic function. 4. Elevated troponin: Likely due to her severe hypoxia. Admission and Anticipated Discharge Date Admission Date: May 23, 2023 Subjective This morning the patient remained intubated but her sedation had been removed. She was alert and responded to commands but was unable to answer questions. Review of Systems Review of Systems: Unobtainable due to endotracheal tube Physical Exam Physical Exam: Intubated. Responds to verbal stimuli. HEENT: Sclerae are anicteric. Pupils are equal and reactive to light and accommodation. Extraocular movements were intact. Neuro: Alert. Responsive. Lungs: Poor air movement. Expiratory wheezing. Bronchial breath sounds. Cardiac: The rhythm was regular. S1 and S2 were normal. There are no murmurs on examination. The PMI was not markedly displaced on palpation. Abdomen: The abdomen was soft and nontender. Extremities: Patient has bilateral radial pulses that are equal in intensity. Lower extremity edema improved. No mottling. Perfusion improved. Skin: There are no rashes noted on examination today. Results & Data Vital Signs (Past 12 Hours) Vital Signs Temp Pulse Resp BP Pulse Ox O2 Del Method FiO2 05/24/23 14:45 37.0 C 73 18 93 05/24/23 14:45 106/62 05/24/23 14:30 36.9 C 67 17 93 05/24/23 14:30 106/64 05/24/23 14:15 36.9 C 72 17 93 05/24/23 14:15 109/65 05/24/23 14:00 36.9 C 72 18 93 05/24/23 14:00 102/60 05/24/23 13:45 104/66 05/24/23 13:45 36.9 C 70 18 93 05/24/23 13:30 36.9 C 90 18 92 05/24/23 13:30 118/64 05/24/23 13:15 119/69 05/24/23 13:15 36.9 C 86 16 91 05/24/23 13:00 36.9 C 86 21 91 05/24/23 13:00 123/65 05/24/23 13:00 123/65 05/24/23 12:45 36.9 C 91 H 24 89 L 05/24/23 12:45 127/72 05/24/23 12:30 36.9 C 82 18 89 L 05/24/23 12:30 131/74 05/24/23 12:15 36.9 C 79 18 90 05/24/23 12:15 129/69 05/24/23 12:15 129/69 05/24/23 12:00 133/76 05/24/23 12:00 36.9 C 92 H 24 89 L 05/24/23 11:45 124/71 05/24/23 11:45 36.9 C 80 15 91 05/24/23 11:30 36.9 C 83 19 91 05/24/23 11:30 130/88 05/24/23 11:15 36.9 C 90 22 91 05/24/23 11:15 134/79 05/24/23 11:00 36.9 C 79 20 92 05/24/23 11:00 128/71 05/24/23 10:45 126/78 05/24/23 10:45 36.9 C 78 17 89 L 05/24/23 10:42 88 16 90 50 05/24/23 10:30 119/75 05/24/23 10:30 36.9 C 81 15 89 L 05/24/23 10:15 36.9 C 82 18 89 L 05/24/23 10:15 136/74 05/24/23 10:00 36.9 C 80 18 93 05/24/23 10:00 136/94 05/24/23 09:45 37.0 C 80 19 91 05/24/23 09:45 145/81 H 05/24/23 09:30 37.0 C 62 20 93 05/24/23 09:23 65 05/24/23 09:00 37.1 C 69 20 96 05/24/23 08:45 107/67 05/24/23 08:45 37.1 C 73 22 98 05/24/23 08:30 37.1 C 68 22 99 05/24/23 08:30 107/68 05/24/23 08:15 37.1 C 74 22 99 05/24/23 08:15 106/73 05/24/23 08:08 Mechanical Vent 65 05/24/23 08:00 37.0 C 73 22 98 05/24/23 08:00 104/68 05/24/23 07:45 37.0 C 72 22 98 05/24/23 07:45 106/69 05/24/23 07:30 37.0 C 75 22 100 05/24/23 07:30 106/69 05/24/23 07:24 70 22 99 75 05/24/23 07:15 71 05/24/23 07:15 37.0 C 74 22 99 05/24/23 07:15 107/68 05/24/23 07:00 37.0 C 67 22 100 05/24/23 07:00 102/68 05/24/23 06:45 37.0 C 72 22 99 05/24/23 06:45 125/69 05/24/23 06:30 37.0 C 72 22 100 05/24/23 06:30 116/67 05/24/23 06:15 37.0 C 72 22 100 05/24/23 06:15 110/70 05/24/23 06:00 37.0 C 71 22 100 05/24/23 06:00 108/68 05/24/23 05:45 37.0 C 68 22 100 05/24/23 05:45 114/68 05/24/23 05:30 111/70 05/24/23 05:30 37.0 C 72 22 100 05/24/23 05:00 37.0 C 72 22 100 05/24/23 04:30 37.0 C 74 22 100 05/24/23 04:00 37.0 C 72 22 98 05/24/23 03:30 37.0 C 77 22 98 Laboratory Results Abnormal Lab Results 05/23/23 05/23/23 05/23/23 02:10 02:14 02:15 WBC 15.13 H RBC 5.67 H Hgb 14.4 POC Hgb Hct 51.6 H POC Hct MCV 91.0 MCH 25.4 MCHC 27.9 L RDW Std Deviation 59.8 H RDW Coeff of Macario 19.0 H Plt Count 187 Immature Gran % (Auto) 1.1 Neut % (Auto) 84.7 Lymph % (Auto) 5.5 [place] % (Auto) 8.4 Eos % (Auto) 0.1 Baso % (Auto) 0.2 Neut # (Auto) 12.83 H Lymph # (Auto) 0.83 L [place] # (Auto) 1.27 H Eos # (Auto) 0.01 Baso # (Auto) 0.03 Immature Gran # (Auto) 0.16 Absolute Nucleated RBC 0.25 H Nucleated RBC % (auto) 1.7 PT 15.9 H INR 1.5 H APTT 25 PTT Ratio 0.9 Sample Site POC pH POC pCO2 POC pO2 POC HCO3 POC Total CO2 POC Base Excess ABG pH ABG pH (Temp Correct) ABG pCO2 ABG pCO2 (Temp Corrct ABG pO2 POC ABG pO2 at Pt Temp ABG HCO3 POC ABG O2 Sat ABG O2 Saturation ABG Base Excess García Test VBG pH 7.12 L VBG pCO2 105 H VBG pO2 36 VBG HCO3 34 VBG O2 Saturation < 60.0 VBG Base Excess 1.4 Oxygen Given O2 Delivery Device POC O2 Rate Minute Ventilation POC FiO2 Tidal Volume PEEP POC Sodium Sodium 134 L POC Potassium Potassium 5.0 Chloride 90 L Carbon Dioxide 34 H Anion Gap 10 BUN 36 H Creatinine 1.95 H Est Cr Clr Drug Dosing 40.0 Est GFR ( Amer) 32.3 Est GFR (Non-Af Amer) 27.9 BUN/Creatinine Ratio 18.5 Glucose 191 H Lactate Calcium 9.8 Magnesium 2.4 Ferritin Total Bilirubin 3.8 H AST 1048 H ALT 1067 H Alkaline Phosphatase 62 Ammonia 65.0 Troponin I High Sens 964.8 H* B-Natriuretic Peptide Total Protein 7.4 Albumin 4.3 Globulin 3.1 Albumin/Globulin Ratio 1.4 Lipase 6 L Procalcitonin TSH Urine Color Urine Appearance Urine pH Ur Specific [place] Urine Protein Urine Glucose (UA) Urine Ketones Urine Blood Urine Nitrite Urine Bilirubin Urine Urobilinogen Ur Leukocyte Esterase Urine WBC (Auto) Urine RBC (Auto) U Hyaline Cast (Auto) U Epithel Cells (Auto) Urine Bacteria (Auto) Calcium Oxalate Crystal Granular Casts Urine Yeast Fluid Neutrophils % Fluid Lymphocytes % Fluid Eosinophils % Fl Monocyt/Macrophag % Fluid Comment Nasal Screen MRSA (PCR) Urine Opiates Screen Ur Methadone, Qual Acetaminophen Urine Barbiturates Ur Phencyclidine (PCP) U Amphetamin/Meth Scrn MDMA (Ecstasy) Screen U Benzodiazepines Scrn Ur Cocaine Metabolite U Marijuana (THC) Screen Ethyl Alcohol mg/dL < 10.0 Adenovirus (PCR) Not Detected B. pertussis DNA (PCR) Not Detected B.parapertussis DNA PCR Not Detected C. pneumoniae DNA (PCR) Not Detected Coronavirus OC43 (PCR) Not Detected Coronavirus HKU1 (PCR) Not Detected Coronavirus 229E (PCR) Not Detected SARS-CoV-2 (PCR) Not Detected Coronavirus NL63 (PCR) Not Detected Human Metapneumovir PCR Not Detected Influenza Type A (PCR) Not Detected Influenza Type B (PCR) Not Detected M. pneumoniae (PCR) Not Detected Parainfluenza 1 (PCR) Not Detected Parainfluenza 2 (PCR) Not Detected Parainfluenza 3 (PCR) Not Detected Parainfluenza 4 (PCR) Not Detected RSV (PCR) Not Detected Entero/Rhino (PCR) Not Detected 05/23/23 05/23/23 05/23/23 03:50 03:56 04:48 WBC RBC Hgb POC Hgb Hct POC Hct MCV MCH MCHC RDW Std Deviation RDW Coeff of Macario Plt Count Immature Gran % (Auto) Neut % (Auto) Lymph % (Auto) [place] % (Auto) Eos % (Auto) Baso % (Auto) Neut # (Auto) Lymph # (Auto) [place] # (Auto) Eos # (Auto) Baso # (Auto) Immature Gran # (Auto) Absolute Nucleated RBC Nucleated RBC % (auto) PT INR APTT PTT Ratio Sample Site POC pH POC pCO2 POC pO2 POC HCO3 POC Total CO2 POC Base Excess ABG pH 7.22 L ABG pH (Temp Correct) ABG pCO2 90 H ABG pCO2 (Temp Corrct ABG pO2 113 H POC ABG pO2 at Pt Temp ABG HCO3 37 H POC ABG O2 Sat ABG O2 Saturation 98.5 H ABG Base Excess 5.8 H García Test Pos VBG pH VBG pCO2 VBG pO2 VBG HCO3 VBG O2 Saturation VBG Base Excess Oxygen Given FIO2 100 O2 Delivery Device POC O2 Rate Minute Ventilation POC FiO2 Tidal Volume PEEP POC Sodium Sodium POC Potassium Potassium Chloride Carbon Dioxide Anion Gap BUN Creatinine Est Cr Clr Drug Dosing Est GFR ( Amer) Est GFR (Non-Af Amer) BUN/Creatinine Ratio Glucose Lactate 2.8 H* Calcium Magnesium Ferritin Total Bilirubin AST ALT Alkaline Phosphatase Ammonia Troponin I High Sens 1276.5 H* D B-Natriuretic Peptide 1603 H Total Protein Albumin Globulin Albumin/Globulin Ratio Lipase Procalcitonin TSH Urine Color Urine Appearance Urine pH Ur Specific [place] Urine Protein Urine Glucose (UA) Urine Ketones Urine Blood Urine Nitrite Urine Bilirubin Urine Urobilinogen Ur Leukocyte Esterase Urine WBC (Auto) Urine RBC (Auto) U Hyaline Cast (Auto) U Epithel Cells (Auto) Urine Bacteria (Auto) Calcium Oxalate Crystal Granular Casts Urine Yeast Fluid Neutrophils % Fluid Lymphocytes % Fluid Eosinophils % Fl Monocyt/Macrophag % Fluid Comment Nasal Screen MRSA (PCR) Urine Opiates Screen Ur Methadone, Qual Acetaminophen Urine Barbiturates Ur Phencyclidine (PCP) U Amphetamin/Meth Scrn MDMA (Ecstasy) Screen U Benzodiazepines Scrn Ur Cocaine Metabolite U Marijuana (THC) Screen Ethyl Alcohol mg/dL Adenovirus (PCR) B. pertussis DNA (PCR) B.parapertussis DNA PCR C. pneumoniae DNA (PCR) Coronavirus OC43 (PCR) Coronavirus HKU1 (PCR) Coronavirus 229E (PCR) SARS-CoV-2 (PCR) Coronavirus NL63 (PCR) Human Metapneumovir PCR Influenza Type A (PCR) Influenza Type B (PCR) M. pneumoniae (PCR) Parainfluenza 1 (PCR) Parainfluenza 2 (PCR) Parainfluenza 3 (PCR) Parainfluenza 4 (PCR) RSV (PCR) Entero/Rhino (PCR) 05/23/23 05/23/23 05/23/23 04:51 07:02 08:40 WBC RBC Hgb POC Hgb Hct POC Hct MCV MCH MCHC RDW Std Deviation RDW Coeff of Macario Plt Count Immature Gran % (Auto) Neut % (Auto) Lymph % (Auto) [place] % (Auto) Eos % (Auto) Baso % (Auto) Neut # (Auto) Lymph # (Auto) [place] # (Auto) Eos # (Auto) Baso # (Auto) Immature Gran # (Auto) Absolute Nucleated RBC Nucleated RBC % (auto) PT INR APTT PTT Ratio Sample Site POC pH POC pCO2 POC pO2 POC HCO3 POC Total CO2 POC Base Excess ABG pH ABG pH (Temp Correct) ABG pCO2 ABG pCO2 (Temp Corrct ABG pO2 POC ABG pO2 at Pt Temp ABG HCO3 POC ABG O2 Sat ABG O2 Saturation ABG Base Excess García Test VBG pH VBG pCO2 VBG pO2 VBG HCO3 VBG O2 Saturation VBG Base Excess Oxygen Given O2 Delivery Device POC O2 Rate Minute Ventilation POC FiO2 Tidal Volume PEEP POC Sodium Sodium POC Potassium Potassium Chloride Carbon Dioxide Anion Gap BUN Creatinine Est Cr Clr Drug Dosing Est GFR ( Amer) Est GFR (Non-Af Amer) BUN/Creatinine Ratio Glucose Lactate 2.8 H* Calcium Magnesium Ferritin Cancelled Total Bilirubin AST ALT Alkaline Phosphatase Ammonia Troponin I High Sens Cancelled B-Natriuretic Peptide Total Protein Albumin Globulin Albumin/Globulin Ratio Lipase Procalcitonin Cancelled TSH Urine Color Dark Yellow Urine Appearance Cloudy A Urine pH 5.0 Ur Specific [place] 1.020 Urine Protein 2+ H Urine Glucose (UA) Negative Urine Ketones Negative Urine Blood Negative Urine Nitrite Positive A Urine Bilirubin 2+ H Urine Urobilinogen Positive H Ur Leukocyte Esterase Trace H Urine WBC (Auto) 5-10 H Urine RBC (Auto) 0-4 U Hyaline Cast (Auto) 5-10 H U Epithel Cells (Auto) >30 H Urine Bacteria (Auto) Negative Calcium Oxalate Crystal Present A Granular Casts 1-5 H Urine Yeast Not Reportable Fluid Neutrophils % Fluid Lymphocytes % Fluid Eosinophils % Fl Monocyt/Macrophag % Fluid Comment Nasal Screen MRSA (PCR) Urine Opiates Screen Neg Ur Methadone, Qual Neg Acetaminophen Cancelled Urine Barbiturates Neg Ur Phencyclidine (PCP) Neg U Amphetamin/Meth Scrn Neg MDMA (Ecstasy) Screen Neg U Benzodiazepines Scrn Neg Ur Cocaine Metabolite Neg U Marijuana (THC) Screen Neg Ethyl Alcohol mg/dL Adenovirus (PCR) B. pertussis DNA (PCR) B.parapertussis DNA PCR C. pneumoniae DNA (PCR) Coronavirus OC43 (PCR) Coronavirus HKU1 (PCR) Coronavirus 229E (PCR) SARS-CoV-2 (PCR) Coronavirus NL63 (PCR) Human Metapneumovir PCR Influenza Type A (PCR) Influenza Type B (PCR) M. pneumoniae (PCR) Parainfluenza 1 (PCR) Parainfluenza 2 (PCR) Parainfluenza 3 (PCR) Parainfluenza 4 (PCR) RSV (PCR) Entero/Rhino (PCR) 05/23/23 05/23/23 05/23/23 10:25 11:20 12:00 WBC RBC Hgb POC Hgb 17.3 H Hct POC Hct 51 H MCV MCH MCHC RDW Std Deviation RDW Coeff of Macario Plt Count Immature Gran % (Auto) Neut % (Auto) Lymph % (Auto) [place] % (Auto) Eos % (Auto) Baso % (Auto) Neut # (Auto) Lymph # (Auto) [place] # (Auto) Eos # (Auto) Baso # (Auto) Immature Gran # (Auto) Absolute Nucleated RBC Nucleated RBC % (auto) PT INR APTT PTT Ratio Sample Site Art Line POC pH 7.26 L POC pCO2 77 H POC pO2 58 L POC HCO3 35 H POC Total CO2 37 H POC Base Excess 8.0 H ABG pH ABG pH (Temp Correct) 7.261 L ABG pCO2 ABG pCO2 (Temp Corrct 77 H ABG pO2 POC ABG pO2 at Pt Temp 58 ABG HCO3 POC ABG O2 Sat 84.0 L ABG O2 Saturation ABG Base Excess García Test NA VBG pH VBG pCO2 VBG pO2 VBG HCO3 VBG O2 Saturation VBG Base Excess Oxygen Given O2 Delivery Device Ventilator POC O2 Rate 22 Minute Ventilation 8.36 POC FiO2 100 Tidal Volume 380 PEEP 14 POC Sodium 132 L Sodium POC Potassium 4.6 Potassium Chloride Carbon Dioxide Anion Gap BUN Creatinine Est Cr Clr Drug Dosing Est GFR ( Amer) Est GFR (Non-Af Amer) BUN/Creatinine Ratio Glucose Lactate Calcium Magnesium Ferritin 23.9 Total Bilirubin AST ALT Alkaline Phosphatase Ammonia Troponin I High Sens Cancelled B-Natriuretic Peptide Total Protein Albumin Globulin Albumin/Globulin Ratio Lipase Procalcitonin TSH Urine Color Urine Appearance Urine pH Ur Specific [place] Urine Protein Urine Glucose (UA) Urine Ketones Urine Blood Urine Nitrite Urine Bilirubin Urine Urobilinogen Ur Leukocyte Esterase Urine WBC (Auto) Urine RBC (Auto) U Hyaline Cast (Auto) U Epithel Cells (Auto) Urine Bacteria (Auto) Calcium Oxalate Crystal Granular Casts Urine Yeast Fluid Neutrophils % Fluid Lymphocytes % Fluid Eosinophils % Fl Monocyt/Macrophag % Fluid Comment Nasal Screen MRSA (PCR) Negative Urine Opiates Screen Ur Methadone, Qual Acetaminophen Urine Barbiturates Ur Phencyclidine (PCP) U Amphetamin/Meth Scrn MDMA (Ecstasy) Screen U Benzodiazepines Scrn Ur Cocaine Metabolite U Marijuana (THC) Screen Ethyl Alcohol mg/dL Adenovirus (PCR) B. pertussis DNA (PCR) B.parapertussis DNA PCR C. pneumoniae DNA (PCR) Coronavirus OC43 (PCR) Coronavirus HKU1 (PCR) Coronavirus 229E (PCR) SARS-CoV-2 (PCR) Coronavirus NL63 (PCR) Human Metapneumovir PCR Influenza Type A (PCR) Influenza Type B (PCR) M. pneumoniae (PCR) Parainfluenza 1 (PCR) Parainfluenza 2 (PCR) Parainfluenza 3 (PCR) Parainfluenza 4 (PCR) RSV (PCR) Entero/Rhino (PCR) 05/23/23 05/23/23 05/23/23 12:00 12:04 12:48 WBC RBC Hgb POC Hgb Hct POC Hct MCV MCH MCHC RDW Std Deviation RDW Coeff of Macario Plt Count Immature Gran % (Auto) Neut % (Auto) Lymph % (Auto) [place] % (Auto) Eos % (Auto) Baso % (Auto) Neut # (Auto) Lymph # (Auto) [place] # (Auto) Eos # (Auto) Baso # (Auto) Immature Gran # (Auto) Absolute Nucleated RBC Nucleated RBC % (auto) PT INR APTT PTT Ratio Sample Site POC pH POC pCO2 POC pO2 POC HCO3 POC Total CO2 POC Base Excess ABG pH ABG pH (Temp Correct) ABG pCO2 ABG pCO2 (Temp Corrct ABG pO2 POC ABG pO2 at Pt Temp ABG HCO3 POC ABG O2 Sat ABG O2 Saturation ABG Base Excess García Test VBG pH VBG pCO2 VBG pO2 VBG HCO3 VBG O2 Saturation VBG Base Excess Oxygen Given O2 Delivery Device POC O2 Rate Minute Ventilation POC FiO2 Tidal Volume PEEP POC Sodium Sodium POC Potassium Potassium Chloride Carbon Dioxide Anion Gap BUN Creatinine Est Cr Clr Drug Dosing Est GFR ( Amer) Est GFR (Non-Af Amer) BUN/Creatinine Ratio Glucose Lactate Calcium Magnesium Ferritin Total Bilirubin AST ALT Alkaline Phosphatase Ammonia Troponin I High Sens 2730.3 H* D B-Natriuretic Peptide Total Protein Albumin Globulin Albumin/Globulin Ratio Lipase Procalcitonin 0.37 TSH 2.868 Urine Color Urine Appearance Urine pH Ur Specific [place] Urine Protein Urine Glucose (UA) Urine Ketones Urine Blood Urine Nitrite Urine Bilirubin Urine Urobilinogen Ur Leukocyte Esterase Urine WBC (Auto) Urine RBC (Auto) U Hyaline Cast (Auto) U Epithel Cells (Auto) Urine Bacteria (Auto) Calcium Oxalate Crystal Granular Casts Urine Yeast Fluid Neutrophils % 9 Fluid Lymphocytes % 1 Fluid Eosinophils % 89 Fl Monocyt/Macrophag % 1 Fluid Comment Nasal Screen MRSA (PCR) Urine Opiates Screen Ur Methadone, Qual Acetaminophen < 3 L Urine Barbiturates Ur Phencyclidine (PCP) U Amphetamin/Meth Scrn MDMA (Ecstasy) Screen U Benzodiazepines Scrn Ur Cocaine Metabolite U Marijuana (THC) Screen Ethyl Alcohol mg/dL Adenovirus (PCR) B. pertussis DNA (PCR) B.parapertussis DNA PCR C. pneumoniae DNA (PCR) Coronavirus OC43 (PCR) Coronavirus HKU1 (PCR) Coronavirus 229E (PCR) SARS-CoV-2 (PCR) Coronavirus NL63 (PCR) Human Metapneumovir PCR Influenza Type A (PCR) Influenza Type B (PCR) M. pneumoniae (PCR) Parainfluenza 1 (PCR) Parainfluenza 2 (PCR) Parainfluenza 3 (PCR) Parainfluenza 4 (PCR) RSV (PCR) Entero/Rhino (PCR) 05/23/23 14:32 WBC RBC Hgb POC Hgb Hct POC Hct MCV MCH MCHC RDW Std Deviation RDW Coeff of Macario Plt Count Immature Gran % (Auto) Neut % (Auto) Lymph % (Auto) [place] % (Auto) Eos % (Auto) Baso % (Auto) Neut # (Auto) Lymph # (Auto) [place] # (Auto) Eos # (Auto) Baso # (Auto) Immature Gran # (Auto) Absolute Nucleated RBC Nucleated RBC % (auto) PT INR APTT PTT Ratio Sample Site POC pH POC pCO2 POC pO2 POC HCO3 POC Total CO2 POC Base Excess ABG pH ABG pH (Temp Correct) ABG pCO2 ABG pCO2 (Temp Corrct ABG pO2 POC ABG pO2 at Pt Temp ABG HCO3 POC ABG O2 Sat ABG O2 Saturation ABG Base Excess García Test VBG pH VBG pCO2 VBG pO2 VBG HCO3 VBG O2 Saturation VBG Base Excess Oxygen Given O2 Delivery Device POC O2 Rate Minute Ventilation POC FiO2 Tidal Volume PEEP POC Sodium Sodium 135 L POC Potassium Potassium 4.1 Chloride 88 L Carbon Dioxide 35 H Anion Gap 12 H BUN 41 H Creatinine 1.51 H D Est Cr Clr Drug Dosing 50.5 Est GFR ( Amer) 44.0 Est GFR (Non-Af Amer) 38.0 BUN/Creatinine Ratio 27.2 H Glucose 279 H Lactate Calcium 8.8 Magnesium Ferritin Total Bilirubin 3.7 H AST 864 H ALT Alkaline Phosphatase 50 Ammonia Troponin I High Sens B-Natriuretic Peptide Total Protein 6.1 Albumin 3.5 Globulin 2.6 Albumin/Globulin Ratio 1.3 Lipase Procalcitonin TSH Urine Color Urine Appearance Urine pH Ur Specific [place] Urine Protein Urine Glucose (UA) Urine Ketones Urine Blood Urine Nitrite Urine Bilirubin Urine Urobilinogen Ur Leukocyte Esterase Urine WBC (Auto) Urine RBC (Auto) U Hyaline Cast (Auto) U Epithel Cells (Auto) Urine Bacteria (Auto) Calcium Oxalate Crystal Granular Casts Urine Yeast Fluid Neutrophils % Fluid Lymphocytes % Fluid Eosinophils % Fl Monocyt/Macrophag % Fluid Comment Nasal Screen MRSA (PCR) Urine Opiates Screen Ur Methadone, Qual Acetaminophen Urine Barbiturates Ur Phencyclidine (PCP) U Amphetamin/Meth Scrn MDMA (Ecstasy) Screen U Benzodiazepines Scrn Ur Cocaine Metabolite U Marijuana (THC) Screen Ethyl Alcohol mg/dL Adenovirus (PCR) B. pertussis DNA (PCR) B.parapertussis DNA PCR C. pneumoniae DNA (PCR) Coronavirus OC43 (PCR) Coronavirus HKU1 (PCR) Coronavirus 229E (PCR) SARS-CoV-2 (PCR) Coronavirus NL63 (PCR) Human Metapneumovir PCR Influenza Type A (PCR) Influenza Type B (PCR) M. pneumoniae (PCR) Parainfluenza 1 (PCR) Parainfluenza 2 (PCR) Parainfluenza 3 (PCR) Parainfluenza 4 (PCR) RSV (PCR) Entero/Rhino (PCR) Diagnostic Findings On 05/23/2023: No evidence of pulmonary embolus. Possible pneumonia or aspiration involving the left lung base. Mild emphysema. Echocardiogram dated 05/23/2023: Normal LV systolic function with ejection fraction of 50-55%. Moderate to severe dilation of the right ventricle with moderately reduced RV systolic function. Mild dilation of the inferior vena cava PG Care Time/CCT Total # of Minutes Spent Total Time Spent with Patient: Total time spent is greater than 50% in coordination of care (as documented) at patient's floor/unit and/or counseling patient: Coding Level of Care Code 92005 SUB INP/OBS CARE 2/35MIN Diagnoses Acute on chronic respiratory failure with hypoxia and hypercapnia J96.21; J96.22 Elevated troponin R79.89 Coronary artery disease I25.10 RVF (right ventricular failure) I50.810
[2023-05-24 15:45] LABS: BUN Creatinine Ratio 35.3 (10-20); Calcium 9.5 mg/dl (8.6-10.3); Creatinine Clr Calc Pharmacy 62.6 ml/min; Est GFR (African American) 58.7 ml/min; Est GFR (Non-African American) 50.6 ml/min; Magnesium 2.2 mg/dl (1.7-2.4); Potassium 3.7 mmol/L (3.5-5.1)
[2023-05-24] MEDS: methylPREDNISolone 80 MG in SYRINGE 0 ML IV SCH (16:13)
[2023-05-24] MEDS: acetaZOLAMIDE 500 MG in SYRINGE 0 ML IV STA (20:58)
[2023-05-24] MEDS: LANTUS PER UNIT CHARGE SC SCH (21:01)
[2023-05-25 04:25] LABS: iSTAT Art Bld Gas pCO2 Correct 56 mmHg (35-46); iSTAT Art Bld Gas pH Corrected 7.474 (7.35-7.45); iSTAT Arterial Blood Gas HCO3 41 meg/L (19-24); iSTAT Arterial Blood Gas pCO2 56 mmHg (35-46); iSTAT Arterial Blood Gas pH 7.48 (7.35-7.45); iSTAT Arterial Blood Gas pO2 68 mmHg (80-95); iSTAT Arterial Blood Gas pO2 C 69; iSTAT Carbon Dioxide > 40 mmol/L (24-31); iSTAT FiO2 40 %; iSTAT Hematocrit 49 % (37-47); iSTAT Hemoglobin 16.7 g/dl (12.0-16.0); iSTAT Potassium 3.4 mmol/L (3.3-5.0); iSTAT Site Art Line; iSTAT Sodium 133 mmol/L (135-144)
[2023-05-25] MEDS: acetaZOLAMIDE 500 MG in SYRINGE 0 ML IV STA (05:57)
[2023-05-25 07:10] LABS: Albumin Globulin Ratio 1.3 (0.9-2); Albumin Level 3.4 gm/dl (3.4-5.0); BUN Creatinine Ratio 40.7 (10-20); Est GFR (Non-African American) 56.9 ml/min; Globulin 2.6 gm/dl (2.5-4.0); Magnesium 2.2 mg/dl (1.7-2.4); Potassium 3.6 mmol/L (3.5-5.1)
[2023-05-25 07:21] LABS: Estimated Average Glucose 192 mg/dl; Hemoglobin A1C 8.3 % (4.5-5.6)
--- NOTE | 2023-05-25 07:44 | XRay Report ---
XR chest 1V portable CLINICAL HISTORY: eval ETT lung agudelo COMPARISON STUDY: Chest CT May 23, 2023. Chest radiograph May 23, 2023 at 1:18 PM. FINDINGS: The tip of the endotracheal tube is 4.9 cm above the chris. Tip of nasogastric tube is at least within the body of the stomach. There is no pneumothorax. No pleural effusion is identified. Ca rdiomediastinal silhouette is stable. Left lower lobe airspace opacity has improved since prior chest radiograph. Pulmonary vascularity is normal. IMPRESSION: 1. Satisfactory positioning of the endotracheal and nasogastric tubes. 2. Left lower lobe airspace opacity, improved since prior chest radiograph. ACT 112: Negative or not required by law. Electronically signed by: Ryan Chase M.D. 05/25/2023 7:43 AM
--- NOTE | 2023-05-25 07:56 | Critical Care Progress Note ---
Date of Service May 25, 2023 Assessment & Plan (1) Status asthmaticus with COPD (chronic obstructive pulmonary disease): (2) Acute CHF (congestive heart failure): (3) Acute encephalopathy: (4) Transaminitis: (5) Coronary artery disease: (6) Elevated troponin: (7) Endotracheally intubated: (8) RVF (right ventricular failure): (9) Aspiration pneumonia: Plan 58-year-old female with a past medical history of coronary artery disease, COPD, asthma and obesity who presented to the hospital due to altered mental status and hypoxemic respiratory failure. Neurologic: -- Metabolic encephalopathy Secondary to hypercapnic respiratory failure CT head did not show any new stroke, history of old stroke Pulmonary: -- COPD-asthma overlap syndrome Acute exacerbation On steroids and bronchodilators --Eosinophilic BAL Continue with steroids She will most likely need prolonged taper Bronchoscopy performed 05/23/2023 revealed 89% eosinophilia from the bronchial washings consistent with asthma. Such findings can also be seen in acute eosinophilic pneumonia, but CT chest findings are not compatible with that at this time. CT chest was negative for PE. Cardiovascular: -- Cor pulmonale Continue with diuresis Echocardiogram with evidence of cor pulmonale which is likely contributing significantly to her hypoxemia. Gastrointestinal: -- Transaminitis Likely secondary to cor pulmonale S/p NAC protocol Continue to monitor Hepatitis profile negative Renal: -- EH Likely secondary to cardiorenal failure Avoid nephrotoxic medication Monitor BUNs/creatinine --Metabolic alkalosis Likely compensation to chronic respiratory acidosis as well as diuretics Patient got acetazolamide x 2 Continue to monitor Infectious disease: -- Aspiration pneumonia Nasal MRSA negative Bronc cultures negative to date Meropenem was changed to cefepime 05/25/2023 Hematologic: -- New onset thrombocytopenia Monitor for signs of bleeding Continue to monitor -- Coagulopathy INR 1.6, secondary to liver failure. Endocrine: ICU hypoglycemia protocol --Prophylaxis VTE: Lovenox GI: Pantoprazole twice daily Lines: Peripheral Diet:Tube feeds Plan: In/out: -1.5 L, urine output 2725, -4.8 L since coming to the hospital AB.48/56/68 on PEEP of 5, 40% Respiratory rate was decreased to 14 Given the active wheezing Mucomyst will be added to patient's regimen. Continue with steroids Patient already got acetazolamide yesterday as well as today in the morning for metabolic alkalosis. Change meropenem to cefepime Potassium being replaced New onset thrombocytopenia. Etiology is not clear Increase pantoprazole to 40 mg twice daily, start tube feeds I have personally spent 46 minutes of critical care time in the direct management of this patient. This is a life/limb threatening event. This includes time spent evaluating patient, direct bedside care, chart review, placing orders, interpretation of diagnostic studies, discussion with consultants, patient, and family members, as well as other required patient management activities. This time is exclusive of all separately billable procedures, and teaching time and separate from and in addition to any other critical care service time. Thank you for allowing us to participate in the care of this patient. Admission and Anticipated Discharge Date Admission Date: May 23, 2023 Subjective Patient seen and examined at bedside. No acute distress, no new symptoms overnight Was on 50 of fentanyl in the time of examination Was off vasopressors Patient's partner was in the room. Patient was following all the commands. Denied any chest pain, no headache. No abdominal pain. Was breathing over the vent Review of Systems 2 Review of Systems: Unobtainable due to endotracheal tube Physical Exam 2 Physical Exam: Constitutional: No acute distress HEENT: EOMI, PERRLA Respiratory system: Decreased air entry bilaterally, no rhonchi, mild crackles bilateral lower lobes, bilateral expiratory wheeze CVS: S1-S2 positive, no murmurs or gallops Abdomen: Soft, nontender, nondistended, positive bowel sounds x4 Extremities: +2 pulses bilaterally radialis/ dorsalis pedis, no cyanosis, +2 pitting edema bilateral lower extremity Neuro: Intubated, RASS -1 Psych: Unable to assess G/U: Positive Coe Skin: no rashes, warm and dry Lymphatic: no cervical or axillary lymphadenopathy Results & Data Results & Data Vital Signs (Past 12 Hours) Vital Signs Temp Pulse Resp BP Pulse Ox O2 Del Method FiO2 05/25/23 07:25 79 18 92 40 05/25/23 06:55 135/74 05/25/23 06:55 37.4 C 77 18 92 05/25/23 06:50 37.4 C 71 18 94 05/25/23 06:50 128/70 05/25/23 06:45 37.4 C 72 18 93 05/25/23 06:45 131/70 05/25/23 06:40 37.4 C 72 18 92 05/25/23 06:40 131/73 05/25/23 06:35 37.4 C 71 18 92 05/25/23 06:35 122/67 05/25/23 06:30 37.4 C 70 18 93 05/25/23 06:30 128/71 05/25/23 06:25 37.4 C 72 18 94 05/25/23 06:25 137/69 05/25/23 06:21 37.5 C 71 18 93 05/25/23 06:21 121/63 05/25/23 06:15 37.5 C 64 18 94 05/25/23 06:15 97/59 L 05/25/23 06:10 95/54 L 05/25/23 06:10 37.4 C 70 18 94 05/25/23 06:05 37.5 C 65 18 94 05/25/23 06:05 116/60 05/25/23 06:05 116/60 05/25/23 06:00 37.5 C 79 18 96 05/25/23 06:00 170/85 H 05/25/23 06:00 170/85 H 05/25/23 05:55 37.5 C 69 18 95 05/25/23 05:55 126/67 05/25/23 05:50 117/65 05/25/23 05:50 37.5 C 67 18 93 05/25/23 05:45 37.5 C 68 18 93 05/25/23 05:45 85/48 L 05/25/23 05:40 37.4 C 72 18 93 05/25/23 05:40 86/48 L 05/25/23 05:36 37.4 C 71 18 93 05/25/23 05:36 89/45 L 05/25/23 05:30 37.4 C 74 18 93 05/25/23 05:30 138/72 05/25/23 05:25 37.4 C 71 18 93 05/25/23 05:25 122/64 05/25/23 05:20 122/75 05/25/23 05:20 37.4 C 79 19 94 05/25/23 05:15 37.4 C 71 18 93 05/25/23 05:15 127/69 05/25/23 05:10 37.4 C 71 18 93 05/25/23 05:10 124/66 05/25/23 05:05 37.4 C 72 18 94 05/25/23 05:05 127/69 05/25/23 05:00 131/69 05/25/23 05:00 37.5 C 69 18 94 05/25/23 04:55 37.5 C 70 18 94 05/25/23 04:55 128/70 05/25/23 04:50 37.5 C 71 18 94 05/25/23 04:50 124/66 05/25/23 04:45 37.5 C 72 18 94 05/25/23 04:45 124/66 05/25/23 04:40 37.4 C 71 18 94 05/25/23 04:40 118/65 05/25/23 04:35 37.5 C 70 18 93 05/25/23 04:35 121/66 05/25/23 04:30 122/64 05/25/23 04:30 37.5 C 71 18 93 05/25/23 04:25 117/62 05/25/23 04:25 37.4 C 71 18 93 05/25/23 04:20 37.4 C 72 18 93 05/25/23 04:20 121/66 05/25/23 04:15 122/68 05/25/23 04:15 37.4 C 72 18 93 05/25/23 04:10 126/67 05/25/23 04:10 37.4 C 72 18 93 05/25/23 04:05 37.4 C 72 18 91 05/25/23 04:05 125/59 L 05/25/23 04:00 118/66 05/25/23 04:00 37.4 C 71 18 92 05/25/23 03:55 37.4 C 74 18 93 05/25/23 03:55 104/83 05/25/23 03:50 37.4 C 73 18 94 05/25/23 03:50 125/69 05/25/23 03:45 37.4 C 71 18 96 05/25/23 03:45 123/66 05/25/23 03:45 72 18 95 40 05/25/23 03:40 127/70 05/25/23 03:40 37.4 C 71 18 94 05/25/23 03:35 37.4 C 71 18 94 05/25/23 03:35 126/70 05/25/23 03:30 37.4 C 74 18 94 05/25/23 03:30 126/67 05/25/23 03:25 37.4 C 71 18 93 05/25/23 03:25 121/69 05/25/23 03:20 135/75 05/25/23 03:20 37.4 C 71 18 93 05/25/23 03:15 37.3 C 71 18 94 05/25/23 03:15 128/80 05/25/23 03:10 133/80 05/25/23 03:10 37.3 C 75 15 94 05/25/23 03:05 133/71 05/25/23 03:05 37.4 C 70 18 95 05/25/23 03:00 37.4 C 70 18 95 05/25/23 03:00 136/73 05/25/23 02:55 37.4 C 71 18 95 05/25/23 02:55 132/71 05/25/23 02:50 37.4 C 70 18 95 05/25/23 02:50 131/74 05/25/23 02:45 37.4 C 72 18 94 05/25/23 02:45 142/71 H 05/25/23 02:40 37.4 C 70 18 94 05/25/23 02:40 138/68 05/25/23 02:35 37.4 C 70 18 93 05/25/23 02:35 118/86 05/25/23 02:35 118/86 05/25/23 02:30 37.4 C 69 18 94 05/25/23 02:30 141/70 H 05/25/23 02:25 37.4 C 72 18 94 05/25/23 02:25 140/87 05/25/23 02:25 140/87 05/25/23 02:20 110/59 L 05/25/23 02:20 37.4 C 66 18 93 05/25/23 02:15 37.4 C 70 18 94 05/25/23 02:15 108/56 L 05/25/23 02:10 37.4 C 65 18 94 05/25/23 02:10 104/58 L 05/25/23 02:05 37.4 C 66 18 96 05/25/23 02:05 111/62 05/25/23 02:00 37.4 C 68 18 96 05/25/23 02:00 109/62 05/25/23 01:55 111/63 05/25/23 01:55 37.4 C 65 18 96 05/25/23 01:50 110/61 05/25/23 01:50 37.4 C 65 18 96 05/25/23 01:45 107/61 05/25/23 01:45 37.4 C 65 18 95 05/25/23 01:40 106/62 05/25/23 01:40 37.4 C 65 18 95 05/25/23 01:35 37.4 C 66 18 96 05/25/23 01:35 93/64 L 05/25/23 01:30 37.3 C 64 18 94 05/25/23 01:30 108/64 05/25/23 01:25 37.3 C 65 18 94 05/25/23 01:25 110/58 L 05/25/23 00:17 67 18 92 45 05/25/23 00:00 65 05/24/23 21:45 45 05/24/23 21:30 37.4 C 69 18 94 05/24/23 21:30 94/55 L 05/24/23 21:15 37.4 C 64 18 93 05/24/23 21:15 87/50 L 05/24/23 21:00 37.3 C 67 18 92 05/24/23 21:00 98/51 L 05/24/23 20:45 37.3 C 66 18 95 05/24/23 20:45 91/51 L 05/24/23 20:30 37.3 C 65 18 94 05/24/23 20:30 94/51 L 05/24/23 20:22 58 L 19 92 45 05/24/23 20:15 37.3 C 62 18 93 05/24/23 20:15 91/52 L 05/24/23 20:15 Mechanical Vent 45 05/24/23 20:00 37.3 C 64 18 92 05/24/23 20:00 93/54 L 05/24/23 20:00 55 L Laboratory Results 05/24/23 04:24 05/25/23 06:16 Coding Level of Care Code 69509 CRITICAL CARE 1ST 30-74M Diagnoses Status asthmaticus with COPD (chronic obstructive pulmonary disease) J44.89; J45.902 Acute CHF (congestive heart failure) I50.9 Acute encephalopathy G93.40 Transaminitis R74.01 Coronary artery disease I25.10 Elevated troponin R79.89 Endotracheally intubated Z97.8 RVF (right ventricular failure) I50.810 Aspiration pneumonia J69.0 Time Spent (min) 46
[2023-05-25 09:22] LABS: iSTAT Arterial Blood Gas HCO3 37 meg/L (19-24); iSTAT Arterial Blood Gas pCO2 99 mmHg (35-46); iSTAT Arterial Blood Gas pH 7.18 (7.35-7.45); iSTAT Arterial Blood Gas pO2 64 mmHg (80-95); iSTAT Carbon Dioxide > 40 mmol/L (24-31); iSTAT Hematocrit 50 % (37-47); iSTAT Potassium 4.6 mmol/L (3.3-5.0); iSTAT Sodium 131 mmol/L (135-144)
[2023-05-25 10:13] LABS: Phosphorus 3.3 mg/dl (2.5-4.9)
[2023-05-25] MEDS ORDERED: ACETYLCYSTEINE 20% INHAL SOLN 4ML ***DISPENSED BY RESP. INH SCH (10:15)
[2023-05-25] MEDS: PANTOprazole 40 MG in SYRINGE 0 ML IV SCH (10:58)
[2023-05-25] MEDS: LANTUS PER UNIT CHARGE SC ONE (11:00)
[2023-05-25] MEDS: POTASSIUM CHLORIDE / WTR 10 MEQ/100 ML PLCT IV SCH (11:01)
[2023-05-25] MEDS: POTASSIUM CHLORIDE 20 MEQ/15 ML UDC PO ONE (11:17)
[2023-05-25] MEDS: TUBE FEEDING WATER FLUSH OG SCH (11:18)
[2023-05-25] MEDS: PEPTAMEN INTENSE VHP 1.0 CAL 1,000 ML BAG OG SCH (11:18)
[2023-05-25] MEDS: ACETYLCYSTEINE 20% INHAL SOLN 4ML ***DISPENSED BY RESP. INH SCH (11:22)
[2023-05-25] MEDS: CEFEPIME 2,000 MG in SYRINGE 0 ML IV SCH (13:08)
--- NOTE | 2023-05-25 13:29 | Pharmacy Report ---
Pharmacy Glycemic Short Note 2 - Date of Service May 25, 2023 - Glycemic Short BSG Results (Last 24 hours): 05/24/23 05/24/23 05/24/23 15:16 15:54 20:57 Glucose 159 H POC Glucose 155 H 158 H 05/25/23 05/25/23 05/25/23 00:26 05:22 06:16 Glucose 167 H POC Glucose 148 H 160 H 05/25/23 05/25/23 09:26 13:06 Glucose POC Glucose 156 H 152 H OUTPATIENT ANTIDIABETIC REGIMEN: * n/a ASSESSMENT: 05/25: * BSGs within goal the last 24h. Received 30 units of basal and 24 units of bolus insulin yesterday. * Remains intubated and requiring slight vasopressor support. Receiving Solu Medrol 80mg TID, as well as IV cefepime. Tube feeds initiated today (Pept[facility]). * Lantus 20 units SQ X 1 this AM given BSGs down-trending and with several days of NPO status. Will add a scale for HS depending on BSG (coverage greater than 180mg/dL) given initiation of tube feeds. Novolog q4- no change to parameters, include coverage of feeds. 05/24: * 58 year old admitted with altered mental status and hypoxemic respiratory failure. Intubated on admission. High dose steroids started, solumedrol 125 mg iv tid. Pharmacy consulted for glycemic management. No outpatient DM medications, awaiting A1c. * BSGs this AM elevated >250 mg/dL - Received Lantus 20 units x 1 last evening * Continues on solumedrol this morning, 125 mg iv given this AM - will give Lantus 30 units x 1 now. Changed to Q4 hours checks and also tightened CF. * Steroids now decreasing to 80 mg iv TID starting this afternoon. Plan to have Lantus scale for HS time in case BSGs remain elevated PLAN FOR INPATIENT GLYCEMIC CONTROL: * Hold outpatient oral diabetes medications * Basal insulin * Lantus 20 units x 1 * Lantus 0-20 units HS depending on BSG * Bolus insulin * NovoLog per scale ACHS or Q6hrs while NPO * Goal Range: Low 110 mg/dL - High 140 mg/dL * Correction Factor: 15 mg/dL/unit * Nutritional / Prandial insulin per carb ratio of 1 unit per 7 grams CHO co nsumed
--- NOTE | 2023-05-25 15:42 | Hospitalist Progress Note ---
Date of Service May 25, 2023 Assessment & Plan (1) Acute on chronic respiratory failure with hypoxia and hypercapnia: Plan: 58yo female with history of COPD presenting with respiratory failure with hypoxia and hypercarbia 1. Acute metabolic encephalopathy This was most likely related to her acute hypercapnic respiratory failure since it has improved significantly CT head showed a stroke, age indeterminate. An MRI can be done at a later time, on hold for now since she is clinically better. 2. Acute hypercarbic respiratory failure Initially was put on BiPAP with no improvement Required to be intubated [employer] managing vent Hope for extubation soon Most likely due to severe asthma/COPD exacerbation. On IV Solu-Medrol 80 mg IV [address] chest showed aspiration pneumonia for which she is now on IV meropenem. Switched to cefepime today 05/25. Must have aspirated during hypersomnolent state Bronchoscopy performed 05/23 revealed eosinophilia in the bronchial washings. Follow cultures 3. Cor pulmonale/right heart failure Echocardiogram showed evidence of cor pulmonale Patient has elevated liver enzymes and lower extremity edema secondary to right heart failure Being diuresed with IV Lasix and IV Diamox Cardiology on board 4. Elevated liver enzymes Due to shock liver from right heart failure Improving LFTs Hepatitis panel negative Elevated INR due to shock liver Completed NAC protocol 5. Acute kidney injury Resolved with diuresis 6. Demand ischemia Likely due to severe hypoxia and respiratory failure Echo showed normal EF and no wall motion abnormalities DVT prophylaxis: Lovenox Full code (2) Coronary artery disease: (3) Hyperlipidemia: (4) Abnormal LFTs: (5) Elevated troponin: Admission and Anticipated Discharge Date Admission Date: May 23, 2023 Subjective Patient remains intubated, sedated. Accompanied by family in the room. Updated niece about the plan. Review of Systems Review of Systems: All systems reviewed & are unremarkable except as noted in Subjective Physical Exam Physical Exam: General: Intubated. Sedated. Heart: S1, S2/regular rate and rhythm, no murmur rubs or gallops Lungs: Good air entry bilaterally. Abdomen: Soft/nontender/nondistended. No hepatosplenomegaly Extremities: No clubbing/cyanosis. No edema Behavior: Unable to assess Results & Data Results & Data Vital Signs (Past 12 Hours) Vital Signs Temp Pulse Resp BP Pulse Ox Pulse Ox O2 Del Method 05/25/23 14:24 72 14 89 L 05/25/23 11:17 78 14 92 05/25/23 08:00 37.4 C 84 14 127/69 94 Mechanical Vent 05/25/23 08:00 93 05/25/23 07:45 37.4 C 74 18 112/67 93 Mechanical Vent 05/25/23 07:30 37.4 C 75 18 122/65 94 Mechanical Vent 05/25/23 07:25 79 18 92 05/25/23 07:15 37.4 C 73 18 122/65 90 Mechanical Vent 05/25/23 07:10 129/69 05/25/23 07:00 37.4 C 72 18 123/65 91 Mechanical Vent 05/25/23 06:55 135/74 05/25/23 06:55 37.4 C 77 18 92 05/25/23 06:50 37.4 C 71 18 94 05/25/23 06:50 128/70 05/25/23 06:45 37.4 C 72 18 93 05/25/23 06:45 131/70 05/25/23 06:40 37.4 C 72 18 92 05/25/23 06:40 131/73 05/25/23 06:35 37.4 C 71 18 92 05/25/23 06:35 122/67 05/25/23 06:30 37.4 C 70 18 93 05/25/23 06:30 128/71 05/25/23 06:25 37.4 C 72 18 94 05/25/23 06:25 137/69 05/25/23 06:21 37.5 C 71 18 93 05/25/23 06:21 121/63 05/25/23 06:15 37.5 C 64 18 94 05/25/23 06:15 97/59 L 05/25/23 06:10 95/54 L 05/25/23 06:10 37.4 C 70 18 94 05/25/23 06:05 37.5 C 65 18 94 05/25/23 06:05 116/60 05/25/23 06:05 116/60 05/25/23 06:00 37.5 C 79 18 96 05/25/23 06:00 170/85 H 05/25/23 06:00 170/85 H 05/25/23 05:55 37.5 C 69 18 95 05/25/23 05:55 126/67 05/25/23 05:50 117/65 05/25/23 05:50 37.5 C 67 18 93 05/25/23 05:45 37.5 C 68 18 93 05/25/23 05:45 85/48 L 05/25/23 05:40 37.4 C 72 18 93 05/25/23 05:40 86/48 L 05/25/23 05:36 37.4 C 71 18 93 05/25/23 05:36 89/45 L 05/25/23 05:30 37.4 C 74 18 93 05/25/23 05:30 138/72 05/25/23 05:25 37.4 C 71 18 93 05/25/23 05:25 122/64 05/25/23 05:20 122/75 05/25/23 05:20 37.4 C 79 19 94 05/25/23 05:15 37.4 C 71 18 93 05/25/23 05:15 127/69 05/25/23 05:10 37.4 C 71 18 93 05/25/23 05:10 124/66 05/25/23 05:05 37.4 C 72 18 94 05/25/23 05:05 127/69 05/25/23 05:00 131/69 05/25/23 05:00 37.5 C 69 18 94 05/25/23 04:55 37.5 C 70 18 94 05/25/23 04:55 128/70 05/25/23 04:50 37.5 C 71 18 94 05/25/23 04:50 124/66 05/25/23 04:45 37.5 C 72 18 94 05/25/23 04:45 124/66 05/25/23 04:40 37.4 C 71 18 94 05/25/23 04:40 118/65 05/25/23 04:35 37.5 C 70 18 93 05/25/23 04:35 121/66 05/25/23 04:30 122/64 05/25/23 04:30 37.5 C 71 18 93 05/25/23 04:25 117/62 05/25/23 04:25 37.4 C 71 18 93 05/25/23 04:20 37.4 C 72 18 93 05/25/23 04:20 121/66 01/22/24 04:15 122/68 05/25/23 04:15 37.4 C 72 18 93 05/25/23 04:10 126/67 05/25/23 04:10 37.4 C 72 18 93 05/25/23 04:05 37.4 C 72 18 91 05/25/23 04:05 125/59 L 05/25/23 04:00 118/66 05/25/23 04:00 37.4 C 71 18 92 05/25/23 03:55 37.4 C 74 18 93 05/25/23 03:55 104/83 05/25/23 03:50 37.4 C 73 18 94 05/25/23 03:50 125/69 05/25/23 03:45 37.4 C 71 18 96 05/25/23 03:45 123/66 05/25/23 03:45 72 18 95 05/25/23 03:40 127/70 05/25/23 03:40 37.4 C 71 18 94 O2 Del Method FiO2 05/25/23 14:24 40 05/25/23 11:17 40 05/25/23 08:00 45 05/25/23 08:00 Mechanical Vent 05/25/23 07:45 45 05/25/23 07:30 45 05/25/23 07:25 40 05/25/23 07:15 45 05/25/23 07:10 05/25/23 07:00 45 05/25/23 06:55 05/25/23 06:55 05/25/23 06:50 05/25/23 06:50 05/25/23 06:45 05/25/23 06:45 05/25/23 06:40 05/25/23 06:40 05/25/23 06:35 05/25/23 06:35 05/25/23 06:30 05/25/23 06:30 05/25/23 06:25 05/25/23 06:25 05/25/23 06:21 05/25/23 06:21 05/25/23 06:15 05/25/23 06:15 05/25/23 06:10 05/25/23 06:10 05/25/23 06:05 05/25/23 06:05 05/25/23 06:05 05/25/23 06:00 05/25/23 06:00 05/25/23 06:00 05/25/23 05:55 05/25/23 05:55 05/25/23 05:50 05/25/23 05:50 05/25/23 05:45 05/25/23 05:45 05/25/23 05:40 05/25/23 05:40 05/25/23 05:36 05/25/23 05:36 05/25/23 05:30 05/25/23 05:30 05/25/23 05:25 05/25/23 05:25 05/25/23 05:20 05/25/23 05:20 05/25/23 05:15 05/25/23 05:15 05/25/23 05:10 05/25/23 05:10 05/25/23 05:05 05/25/23 05:05 05/25/23 05:00 05/25/23 05:00 05/25/23 04:55 05/25/23 04:55 05/25/23 04:50 05/25/23 04:50 05/25/23 04:45 05/25/23 04:45 05/25/23 04:40 05/25/23 04:40 05/25/23 04:35 05/25/23 04:35 05/25/23 04:30 05/25/23 04:30 05/25/23 04:25 05/25/23 04:25 05/25/23 04:20 05/25/23 04:20 05/25/23 04:15 05/25/23 04:15 05/25/23 04:10 05/25/23 04:10 05/25/23 04:05 05/25/23 04:05 05/25/23 04:00 05/25/23 04:00 05/25/23 03:55 05/25/23 03:55 05/25/23 03:50 05/25/23 03:50 05/25/23 03:45 05/25/23 03:45 05/25/23 03:45 40 05/25/23 03:40 05/25/23 03:40 Laboratory Results Abnormal lab results 05/23/23 05/24/23 05/24/23 Range/Units 08:34 04:24 15:16 POC Hgb 17.0 H (12.0-16.0) g/dl POC Hct 50 H (37-47) % POC pH 7.18 L* (7.35-7.45) POC pCO2 99 H (35-46) mmHg POC pO2 64 L (80-95) mmHg POC HCO3 37 H (19-24) augustina/L POC Total CO2 > 40 H* (24-31) mmol/L POC Base Excess 9.0 H (-9-1.8) augustina/L ABG pH (Temp Correct) (7.35-7.45) ABG pCO2 (Temp Corrct (35-46) mmHg POC ABG O2 Sat 84.0 L (90-95) % POC Sodium 131 L (135-144) mmol/L Chloride 87 L (98-107) mmol/L Carbon Dioxide 40 H (21-32) mmol/L BUN 42 H (6-23) mg/dl BUN/Creatinine Ratio 35.3 H (10-20) Glucose 159 H (70-99(Fasting)) mg/dl POC Glucose (70-99) mg/dl Hemoglobin A1c 8.3 H (4.5-5.6) % Total Bilirubin (0.2-1.0) mg/dl AST (13-39) U/L ALT (7-52) U/L 05/24/23 05/24/23 05/25/23 Range/Units 15:54 20:57 00:26 POC Hgb (12.0-16.0) g/dl POC Hct (37-47) % POC pH (7.35-7.45) POC pCO2 (35-46) mmHg POC pO2 (80-95) mmHg POC HCO3 (19-24) aug[place]ina/L POC Total CO2 (24-31) mmol/L POC Base Excess (-9-1.8) augustina/L ABG pH (Temp Correct) (7.35-7.45) ABG pCO2 (Temp Corrct (35-46) mmHg POC ABG O2 Sat (90-95) % POC Sodium (135-144) mmol/L Chloride (98-107) mmol/L Carbon Dioxide (21-32) mmol/L BUN (6-23) mg/dl BUN/Creatinine Ratio (10-20) Glucose (70-99(Fasting)) mg/dl POC Glucose 155 H 158 H 148 H (70-99) mg/dl Hemoglobin A1c (4.5-5.6) % Total Bilirubin (0.2-1.0) mg/dl AST (13-39) U/L ALT (7-52) U/L 05/25/23 05/25/23 05/25/23 Range/Units 04:01 05:22 06:16 POC Hgb 16.7 H (12.0-16.0) g/dl POC Hct 49 H (37-47) % POC pH 7.48 H (7.35-7.45) POC pCO2 56 H (35-46) mmHg POC pO2 68 L (80-95) mmHg POC HCO3 41 H (19-24) augustina/L POC Total CO2 > 40 H* (24-31) mmol/L POC Base Excess 18.0 H (-9-1.8) augustina/L ABG pH (Temp Correct) 7.474 H (7.35-7.45) ABG pCO2 (Temp Corrct 56 H (35-46) mmHg POC ABG O2 Sat (90-95) % POC Sodium 133 L (135-144) mmol/L Chloride 87 L (98-107) mmol/L Carbon Dioxide 41 H* (21-32) mmol/L BUN 44 H (6-23) mg/dl BUN/Creatinine Ratio 40.7 H (10-20) Glucose 167 H (70-99(Fasting)) mg/dl POC Glucose 160 H (70-99) mg/dl Hemoglobin A1c (4.5-5.6) % Total Bilirubin 3.0 H (0.2-1.0) mg/dl AST 125 H (13-39) U/L ALT 629 H (7-52) U/L 05/25/23 05/25/23 Range/Units 09:26 13:06 POC Hgb (12.0-16.0) g/dl POC Hct (37-47) % POC pH (7.35-7.45) POC pCO2 (35-46) mmHg POC pO2 (80-95) mmHg POC HCO3 (19-24) augustina/L POC Total CO2 (24-31) mmol/L POC Base Excess (-9-1.8) augustina/L ABG pH (Temp Correct) (7.35-7.45) ABG pCO2 (Temp Corrct (35-46) mmHg POC ABG O2 Sat (90-95) % POC Sodium (135-144) mmol/L Chloride (98-107) mmol/L Carbon Dioxide (21-32) mmol/L BUN (6-23) mg/dl BUN/Creatinine Ratio (10-20) Glucose (70-99(Fasting)) mg/dl POC Glucose 156 H 152 H (70-99) mg/dl Hemoglobin A1c (4.5-5.6) % Total Bilirubin (0.2-1.0) mg/dl AST (13-39) U/L ALT (7-52) U/L PG Care Time/CCT Total # of Minutes Spent Total Time Spent with Patient: Total time spent is greater than 50% in coordination of care (as documented) at patient's floor/unit and/or counseling patient: Coding Level of Care Code 06819 SUB INP/OBS CARE 2/35MIN Diagnoses Acute on chronic respiratory failure with hypoxia and hypercapnia J96.21; J96.22 Coronary artery disease I25.10 Hyperlipidemia E78.5 Abnormal LFTs R79.89 Elevated troponin R79.89
[2023-05-25 19:08] LABS: BUN Creatinine Ratio 45.9 (10-20); Calcium 9.9 mg/dl (8.6-10.3); Est GFR (African American) 74.2 ml/min; Magnesium 2.3 mg/dl (1.7-2.4); Potassium 3.9 mmol/L (3.5-5.1)
[2023-05-25] MEDS: POTASSIUM CHLORIDE 20 MEQ/15 ML UDC NG STA (20:49)
[2023-05-25] MEDS: LANTUS PER UNIT CHARGE SC SCH (20:50)
[2023-05-26 04:39] LABS: iSTAT Art Bld Gas pCO2 Correct 67 mmHg (35-46); iSTAT Art Bld Gas pH Corrected 7.389 (7.35-7.45); iSTAT Arterial Blood Gas HCO3 40 meg/L (19-24); iSTAT Arterial Blood Gas pCO2 64 mmHg (35-46); iSTAT Arterial Blood Gas pH 7.41 (7.35-7.45); iSTAT Arterial Blood Gas pO2 70 mmHg (80-95); iSTAT Arterial Blood Gas pO2 C 77; iSTAT Carbon Dioxide > 40 mmol/L (24-31); iSTAT FiO2 60 %; iSTAT Hematocrit 50 % (37-47); iSTAT Site Art Line; iSTAT Sodium 134 mmol/L (135-144)
[2023-05-26 05:09] LABS: BUN Creatinine Ratio 42.2 (10-20); Calcium 9.9 mg/dl (8.6-10.3); Est GFR (African American) 70.7 ml/min; Magnesium 2.2 mg/dl (1.7-2.4); Phosphorus 2.9 mg/dl (2.5-4.9); Potassium 3.9 mmol/L (3.5-5.1)
[2023-05-26 05:27] LABS: Basophils # (auto) 0.03 K/uL (0.00-0.20); Basophils % (auto) 0.2 %; Eosinophils # (auto) 0.05 K/uL (0.00-0.50); Eosinophils % (auto) 0.3 %; Hematocrit (blood only) 46.5 % (37.0-47.0); Hemoglobin 13.9 g/dl (12.0-16.0); Immature Granulocytes # (auto) 0.11 K/uL (0.01-0.20); Immature Granulocytes % (auto) 0.6 %; Lymphocytes # (auto) 0.19 K/uL (1.20-3.40); Lymphocytes % (auto) 1.1 %; Mean Corpuscular Hemoglobin 25.2 pg (25.0-34.0); Mean Corpuscular Hgb Conc 29.9 g/dL (32.0-36.0); Mean Corpuscular Volume 84.2 fL (80.0-100.0); Monocytes # (auto) 0.91 K/uL (0.11-0.59); Neutrophils # (auto) 16.79 K/uL (1.40-6.50); Neutrophils % (auto) 92.8 %; Nucleated RBC # (auto) 0.11 K/uL (0.00-0.12); Nucleated RBC % (auto) 0.6 %; Platelet Count 128 K/uL (130-400); RDW Coefficient of Variation 18.6 % (11.5-14.5); RDW Standard Deviation 55.9 fL (36.4-46.3); Red Blood Count 5.52 M/uL (4.20-5.40); White Blood Count 18.08 K/ul (4.8-10.8)
[2023-05-26] MEDS: ACETAMINOPHEN 1,000 MG/100 ML VIAL IV PRN (05:49)
--- NOTE | 2023-05-26 07:27 | Critical Care Progress Note ---
Date of Service May 26, 2023 Assessment & Plan (1) Status asthmaticus with COPD (chronic obstructive pulmonary disease): (2) Acute CHF (congestive heart failure): (3) Acute encephalopathy: (4) Transaminitis: (5) Coronary artery disease: (6) Elevated troponin: (7) Endotracheally intubated: (8) RVF (right ventricular failure): (9) Aspiration pneumonia: Plan 58-year-old female with a past medical history of coronary artery disease, COPD, asthma and obesity who presented to the hospital due to altered mental status and hypoxemic respiratory failure. Neurologic: -- Metabolic encephalopathy Secondary to hypercapnic respiratory failure CT head did not show any new stroke, history of old stroke Pulmonary: -- COPD-asthma overlap syndrome Acute exacerbation On steroids and bronchodilators --Eosinophilic BAL Continue with steroids She will most likely need prolonged taper Bronchoscopy performed 05/23/2023 revealed 89% eosinophilia from the bronchial washings consistent with asthma. Such findings can also be seen in acute eosinophilic pneumonia, but CT chest findings are not compatible with that at this time. CT chest was negative for PE. Cardiovascular: -- Cor pulmonale Continue with diuresis Echocardiogram with evidence of cor pulmonale which is likely contributing significantly to her hypoxemia. Gastrointestinal: -- Transaminitis Likely secondary to cor pulmonale S/p NAC protocol Continue to monitor Hepatitis profile negative Renal: -- EH Likely secondary to cardiorenal failure Avoid nephrotoxic medication Monitor BUNs/creatinine --Metabolic alkalosis Likely compensation to chronic respiratory acidosis as well as diuretics Patient got acetazolamide x 2 Continue to monitor Infectious disease: -- Aspiration pneumonia Nasal MRSA negative Bronc cultures negative to date Meropenem was changed to cefepime 05/25/2023 Hematologic: -- New onset thrombocytopenia Monitor for signs of bleeding Continue to monitor -- Coagulopathy INR 1.6, secondary to liver failure. Endocrine: ICU hypoglycemia protocol --Prophylaxis VTE: Lovenox GI: Pantoprazole twice daily Lines: Peripheral Diet:Tube feeds Plan: In/out: Positive to 96, urine output 1150, -4.8 L since coming to the hospital AB.41/64/70 on PEEP of 5, 60% Increase the PEEP to 7 given the left lower lobe atelectasis and small left- sided pleural effusion. If there is no improvement in the left lower lobe atelectasis tomorrow then we will consider bronchoscopy. Will put the patient on pressure support to make her work. If the patient is not negative balance by the afternoon we will give a dose of acetazolamide 250 mg. New onset fever, blood cultures have been ordered. She is already on antibiotics. Decrease Solu-Medrol to 40 mg 3 times daily as of tomorrow. Try to take vasopressors off while keeping the MAP greater than 65 I have personally spent 37 minutes of critical care time in the direct management of this patient. This is a life/limb threatening event. This includes time spent evaluating patient, direct bedside care, chart review, placing orders, interpretation of diagnostic studies, discussion with consultants, patient, and family members, as well as other required patient management activities. This time is exclusive of all separately billable procedures, and teaching time and separate from and in addition to any other critical care service time. Thank you for allowing us to participate in the care of this patient. Admission and Anticipated Discharge Date Admission Date: May 23, 2023 Subjective Patient seen and examined at bedside. No acute distress, no adverse events overnight She has been spiking fever Tmax of 38.4 She was sedated on fentanyl 25 and was on Levophed 0.04 at the time of examination Denies any headache, no chest pain, no abdominal pain Has been getting tube feeds Review of Systems 2 Review of Systems: All systems reviewed & are unremarkable except as noted in Subjective Physical Exam 2 Physical Exam: Constitutional: No acute distress HEENT: EOMI, PERRLA Respiratory system: Decreased air entry bilaterally, no rhonchi, mild crackles bilateral lower lobes, bilateral expiratory wheeze (improved) CVS: S1-S2 positive, no murmurs or gallops Abdomen: Soft, nontender, nondistended, positive bowel sounds x4 Extremities: +2 pulses bilaterally radialis/ dorsalis pedis, no cyanosis, +2 pitting edema bilateral lower extremity Neuro: Intubated, RASS -1 Psych: Unable to assess G/U: Positive Coe Skin: no rashes, warm and dry Lymphatic: no cervical or axillary lymphadenopathy Results & Data Results & Data Vital Signs (Past 12 Hours) Vital Signs Temp Pulse Resp BP Pulse Ox FiO2 05/26/23 05:45 139/70 05/26/23 05:45 38.4 C H 79 24 94 05/26/23 05:30 136/70 05/26/23 05:30 38.4 C H 80 24 94 05/26/23 05:15 137/69 05/26/23 05:15 38.4 C H 80 24 94 05/26/23 05:00 138/69 05/26/23 05:00 38.3 C H 79 24 94 05/26/23 04:48 24 05/26/23 04:45 126/66 05/26/23 04:45 38.3 C H 80 24 94 05/26/23 04:30 120/60 05/26/23 04:30 38.3 C H 79 16 93 05/26/23 04:15 129/65 05/26/23 04:15 38.3 C H 81 16 93 05/26/23 04:00 132/63 05/26/23 04:00 38.2 C H 80 16 94 05/26/23 03:45 131/65 05/26/23 03:45 38.2 C H 82 16 94 05/26/23 03:43 82 16 93 60 05/26/23 03:30 129/63 05/26/23 03:30 38.1 C H 79 16 94 05/26/23 03:15 129/62 05/26/23 03:15 38.1 C H 79 16 93 05/26/23 03:00 127/62 05/26/23 03:00 38.1 C H 79 16 93 05/26/23 02:45 38.0 C H 79 16 93 05/26/23 02:45 128/63 05/26/23 02:30 38.0 C H 81 16 93 05/26/23 02:30 124/64 05/26/23 02:15 38.0 C H 81 16 93 05/26/23 02:15 123/63 05/26/23 02:00 124/61 05/26/23 02:00 38.0 C H 80 16 93 05/26/23 01:45 118/59 L 05/26/23 01:45 37.9 C H 80 16 93 05/26/23 01:30 120/61 05/26/23 01:30 37.9 C H 82 16 93 05/26/23 01:15 124/62 05/26/23 01:15 37.8 C H 82 16 93 05/26/23 01:00 119/61 05/26/23 01:00 37.8 C H 81 16 95 05/26/23 00:45 119/59 L 05/26/23 00:45 37.8 C H 81 16 95 05/26/23 00:30 37.8 C H 79 16 94 05/26/23 00:30 118/62 05/26/23 00:18 82 93 05/26/23 00:15 129/66 05/26/23 00:15 37.8 C H 77 16 93 05/26/23 00:00 126/68 05/26/23 00:00 37.7 C H 79 16 94 05/25/23 23:45 125/67 05/25/23 23:45 37.7 C H 79 16 93 05/25/23 23:30 37.7 C H 79 16 93 05/25/23 23:30 129/65 05/25/23 23:15 129/68 05/25/23 23:15 37.6 C H 80 16 94 05/25/23 23:00 131/73 05/25/23 23:00 37.6 C H 79 16 94 05/25/23 22:55 79 16 94 60 05/25/23 22:45 37.5 C 78 16 94 05/25/23 22:45 130/70 05/25/23 22:30 126/68 05/25/23 22:30 37.5 C 78 16 94 05/25/23 22:15 129/66 05/25/23 22:15 37.4 C 79 17 94 05/25/23 22:00 37.4 C 79 17 93 05/25/23 22:00 124/67 05/25/23 21:45 37.4 C 80 17 93 05/25/23 21:45 122/65 05/25/23 21:30 37.3 C 80 19 92 05/25/23 21:30 121/64 05/25/23 21:15 130/61 05/25/23 21:15 37.3 C 83 18 91 05/25/23 21:00 123/63 05/25/23 21:00 37.3 C 81 17 87 L 05/25/23 20:56 81 16 89 L 60 05/25/23 20:46 118/51 L 05/25/23 20:46 37.3 C 82 18 87 L 05/25/23 20:46 50 05/25/23 20:45 37.3 C 87 16 87 L 05/25/23 20:31 37.2 C 84 19 89 L 05/25/23 20:31 76/53 L 05/25/23 20:30 37.2 C 81 18 89 L 05/25/23 20:26 18 50 05/25/23 20:15 100/53 L 05/25/23 20:15 37.2 C 70 15 90 05/25/23 20:06 71 13 94 50 05/25/23 20:01 101/45 L 05/25/23 20:01 37.2 C 74 12 90 05/25/23 20:00 37.2 C 70 13 91 05/25/23 19:45 37.2 C 68 12 91 05/25/23 19:30 37.2 C 73 12 92 05/25/23 19:30 97/53 L Laboratory Results 05/26/23 04:11 05/26/23 04:11 Coding Level of Care Code 12758 CRITICAL CARE 1ST 30-74M Diagnoses Status asthmaticus with COPD (chronic obstructive pulmonary disease) J44.89; J45.902 Acute CHF (congestive heart failure) I50.9 Acute encephalopathy G93.40 Transaminitis R74.01 Coronary artery disease I25.10 Elevated troponin R79.89 Endotracheally intubated Z97.8 RVF (right ventricular failure) I50.810 Aspiration pneumonia J69.0
--- NOTE | 2023-05-26 07:56 | XRay Report ---
XR chest 1V portable CLINICAL HISTORY: f/u TECHNIQUE: Single frontal radiograph of the chest was obtained. Comparison: Comparison is made to chest radiograph 05/25/2023 FINDINGS: Endotracheal tube is stable. Enteric tube is seen with the side-port at the level of the gastroesopha geal junction. The cardiomediastinal silhouette is normal. The lungs are clear. Small left pleural ef fusion. IMPRESSION: 1. Enteric tube terminates at the gastroesophageal junction and can be advanced approximately 5 mm f or improved positioning. 2. Small left pleural effusion. ACT 112: Negative or not required by law. Electronically signed by: Evangelist Reynoso M.D. 05/26/2023 7:55 AM
[2023-05-26] MEDS: MULTI VIT W/MINERALS LIQUID 15 ML UDC NG SCH (08:31)
[2023-05-26] MEDS: POTASSIUM CHLORIDE 20 MEQ/15 ML UDC NG ONE (10:33)
[2023-05-26] MEDS: LANTUS PER UNIT CHARGE SC ONE (10:33)
--- NOTE | 2023-05-26 13:43 | Hospitalist Progress Note ---
Date of Service May 26, 2023 Assessment & Plan (1) Acute on chronic respiratory failure with hypoxia and hypercapnia: Plan: 58yo female with history of COPD presenting with respiratory failure with hypoxia and hypercarbia 1. Acute metabolic encephalopathy This was most likely related to her acute hypercapnic respiratory failure since it has improved significantly CT head showed a stroke, age indeterminate. An MRI can be done at a later time, on hold for now since she is clinically better. 2. Acute hypercarbic respiratory failure Initially was put on BiPAP with no improvement Required to be intubated Still Operator Gin managing vent Hope for extubation soon Most likely due to severe asthma/COPD exacerbation. On IV Solu-Medrol, reduced dose to 40 mg IV every 8 CT chest showed aspiration pneumonia for which she is now on IV cefepime since 05/25. Must have aspirated during hypersomnolent state Still spiking fevers Leukocytosis most likely steroid-induced Bronchoscopy performed 05/23 revealed eosinophilia in the bronchial washings. All cultures -6 from 05/23 Cultures redrawn today 3. Cor pulmonale/right heart failure Echocardiogram showed evidence of cor pulmonale Patient has elevated liver enzymes and lower extremity edema secondary to right heart failure Was diuresed with IV Lasix and IV Diamox in the last few days. Now off of diuretics Cardiology on board Metabolic alkalosis improving 4. Elevated liver enzymes Due to shock liver from right heart failure Improving LFTs Hepatitis panel negative Elevated INR due to shock liver Completed NAC protocol 5. Acute kidney injury Resolved with diuresis 6. Demand ischemia Likely due to severe hypoxia and respiratory failure Echo showed normal EF and no wall motion abnormalities DVT prophylaxis: Lovenox Full code (2) Coronary artery disease: (3) Hyperlipidemia: (4) Abnormal LFTs: (5) Elevated troponin: Admission and Anticipated Discharge Date Admission Date: May 23, 2023 Subjective Patient remains intubated. She is now on pressure support, off of sedation. She is able to wake up and respond to simple questions with nods and shakes. Review of Systems Review of Systems: Unobtainable due to endotracheal tube Physical Exam Physical Exam: General: Intubated. Heart: S1, S2/regular rate and rhythm, no murmur rubs or gallops Lungs: Good air entry bilaterally. Abdomen: Soft/nontender/nondistended. No hepatosplenomegaly Extremities: No clubbing/cyanosis. No edema Behavior: Unable to assess Results & Data Results & Data Vital Signs (Past 12 Hours) Vital Signs Temp Pulse Resp BP Pulse Ox Pulse Ox O2 Del Method 05/26/23 11:20 38.2 C H 74 25 H 92 05/26/23 11:20 106/57 L 05/26/23 11:15 77 23 93 05/26/23 11:10 38.2 C H 75 22 92 05/26/23 11:10 106/53 L 05/26/23 11:01 38.3 C H 76 21 92 05/26/23 10:50 108/56 L 05/26/23 10:50 38.3 C H 74 22 92 05/26/23 10:45 38.4 C H 72 12 92 05/26/23 10:40 38.4 C H 73 14 92 05/26/23 10:40 111/56 L 05/26/23 10:30 38.4 C H 75 17 93 05/26/23 10:30 107/54 L 05/26/23 10:20 38.4 C H 72 14 92 05/26/23 10:20 114/54 L 05/26/23 10:15 38.4 C H 70 14 93 05/26/23 10:10 38.4 C H 73 14 92 05/26/23 10:10 108/57 L 05/26/23 10:01 38.4 C H 78 20 92 05/26/23 09:50 38.4 C H 82 22 91 05/26/23 09:50 110/57 L 05/26/23 09:45 38.4 C H 70 14 91 05/26/23 09:40 38.4 C H 71 14 90 05/26/23 09:40 105/49 L 05/26/23 09:31 38.4 C H 73 12 90 05/26/23 09:20 38.4 C H 73 16 91 05/26/23 09:20 121/59 L 05/26/23 09:15 38.5 C H 72 16 90 05/26/23 09:10 112/56 L 05/26/23 09:10 38.5 C H 72 16 90 05/26/23 09:00 111/56 L 05/26/23 09:00 38.5 C H 73 16 90 05/26/23 08:50 38.5 C H 73 16 90 01/23/24 08:50 114/57 L 05/26/23 08:45 38.5 C H 72 16 89 L 05/26/23 08:40 38.5 C H 75 16 89 L 05/26/23 08:40 113/57 L 05/26/23 08:30 38.5 C H 76 24 91 05/26/23 08:30 108/58 L 05/26/23 08:20 111/59 L 05/26/23 08:20 38.6 C H 76 24 94 05/26/23 08:15 38.6 C H 74 24 94 05/26/23 08:10 38.6 C H 74 24 93 05/26/23 08:10 110/55 L 05/26/23 08:05 05/26/23 08:05 78 05/26/23 08:05 Mechanical Vent 05/26/23 08:01 38.6 C H 75 24 93 05/26/23 08:00 90 05/26/23 07:50 111/51 L 05/26/23 07:50 38.6 C H 78 24 92 05/26/23 07:45 38.5 C H 80 24 92 05/26/23 07:40 105/51 L 05/26/23 07:40 38.5 C H 77 24 91 05/26/23 07:30 129/66 05/26/23 07:30 38.5 C H 84 24 92 05/26/23 07:20 128/66 05/26/23 07:19 38.5 C H 81 24 93 05/26/23 07:07 78 24 94 05/26/23 05:45 139/70 05/26/23 05:45 38.4 C H 79 24 94 05/26/23 05:30 136/70 05/26/23 05:30 38.4 C H 80 24 94 05/26/23 05:15 137/69 05/26/23 05:15 38.4 C H 80 24 94 05/26/23 05:00 138/69 05/26/23 05:00 38.3 C H 79 24 94 05/26/23 04:48 24 05/26/23 04:45 126/66 05/26/23 04:45 38.3 C H 80 24 94 05/26/23 04:30 120/60 05/26/23 04:30 38.3 C H 79 16 93 05/26/23 04:15 129/65 05/26/23 04:15 38.3 C H 81 16 93 05/26/23 04:00 132/63 05/26/23 04:00 38.2 C H 80 16 94 05/26/23 03:45 131/65 05/26/23 03:45 38.2 C H 82 16 94 05/26/23 03:43 82 16 93 05/26/23 03:30 129/63 05/26/23 03:30 38.1 C H 79 16 94 05/26/23 03:15 129/62 05/26/23 03:15 38.1 C H 79 16 93 05/26/23 03:00 127/62 05/26/23 03:00 38.1 C H 79 16 93 05/26/23 02:45 38.0 C H 79 16 93 05/26/23 02:45 128/63 05/26/23 02:30 38.0 C H 81 16 93 05/26/23 02:30 124/64 05/26/23 02:15 38.0 C H 81 16 93 05/26/23 02:15 123/63 05/26/23 02:00 124/61 05/26/23 02:00 38.0 C H 80 16 93 05/26/23 01:45 118/59 L 05/26/23 01:45 37.9 C H 80 16 93 O2 Del Method FiO2 05/26/23 11:20 05/26/23 11:20 05/26/23 11:15 50 05/26/23 11:10 05/26/23 11:10 05/26/23 11:01 05/26/23 10:50 05/26/23 10:50 05/26/23 10:45 05/26/23 10:40 05/26/23 10:40 05/26/23 10:30 05/26/23 10:30 05/26/23 10:20 05/26/23 10:20 05/26/23 10:15 05/26/23 10:10 05/26/23 10:10 05/26/23 10:01 05/26/23 09:50 05/26/23 09:50 05/26/23 09:45 05/26/23 09:40 05/26/23 09:40 05/26/23 09:31 05/26/23 09:20 05/26/23 09:20 05/26/23 09:15 05/26/23 09:10 05/26/23 09:10 05/26/23 09:00 05/26/23 09:00 05/26/23 08:50 05/26/23 08:50 05/26/23 08:45 05/26/23 08:40 05/26/23 08:40 05/26/23 08:30 05/26/23 08:30 05/26/23 08:20 05/26/23 08:20 05/26/23 08:15 05/26/23 08:10 05/26/23 08:10 05/26/23 08:05 60 05/26/23 08:05 05/26/23 08:05 60 05/26/23 08:01 05/26/23 08:00 Mechanical Vent 05/26/23 07:50 05/26/23 07:50 05/26/23 07:45 05/26/23 07:40 05/26/23 07:40 05/26/23 07:30 05/26/23 07:30 05/26/23 07:20 05/26/23 07:19 05/26/23 07:07 60 05/26/23 05:45 05/26/23 05:45 05/26/23 05:30 05/26/23 05:30 05/26/23 05:15 05/26/23 05:15 05/26/23 05:00 05/26/23 05:00 05/26/23 04:48 05/26/23 04:45 05/26/23 04:45 05/26/23 04:30 05/26/23 04:30 05/26/23 04:15 05/26/23 04:15 05/26/23 04:00 05/26/23 04:00 05/26/23 03:45 05/26/23 03:45 05/26/23 03:43 60 05/26/23 03:30 05/26/23 03:30 05/26/23 03:15 05/26/23 03:15 05/26/23 03:00 05/26/23 03:00 05/26/23 02:45 05/26/23 02:45 05/26/23 02:30 05/26/23 02:30 05/26/23 02:15 05/26/23 02:15 05/26/23 02:00 05/26/23 02:00 05/26/23 01:45 05/26/23 01:45 PG Care Time/CCT Total # of Minutes Spent Total Time Spent with Patient: Total time spent is greater than 50% in coordination of care (as documented) at patient's floor/unit and/or counseling patient: Coding Level of Care Code 98700 SUB INP/OBS CARE 2/35MIN Diagnoses Acute on chronic respiratory failure with hypoxia and hypercapnia J96.21; J96.22 Coronary artery disease I25.10 Hyperlipidemia E78.5 Abnormal LFTs R79.89 Elevated troponin R79.89
[2023-05-27 05:41] LABS: BUN Creatinine Ratio 56.3 (10-20); Calcium 9.4 mg/dl (8.6-10.3); Creatinine Clr Calc Pharmacy 92.4 ml/min; Est GFR (African American) 94.9 ml/min; Est GFR (Non-African American) 81.8 ml/min; Magnesium 2.1 mg/dl (1.7-2.4); Phosphorus 2.4 mg/dl (2.5-4.9); Potassium 3.8 mmol/L (3.5-5.1)
[2023-05-27 05:51] LABS: iSTAT Allen Test Pass; iSTAT Art Bld Gas pCO2 Correct 66 mmHg (35-46); iSTAT Art Bld Gas pH Corrected 7.414 (7.35-7.45); iSTAT Arterial Blood Gas HCO3 42 meg/L (19-24); iSTAT Arterial Blood Gas pCO2 64 mmHg (35-46); iSTAT Arterial Blood Gas pH 7.42 (7.35-7.45); iSTAT Arterial Blood Gas pO2 56 mmHg (80-95); iSTAT Arterial Blood Gas pO2 C 58; iSTAT Carbon Dioxide > 40 mmol/L (24-31); iSTAT Hematocrit 45 % (37-47); iSTAT Hemoglobin 15.3 g/dl (12.0-16.0); iSTAT Potassium 3.7 mmol/L (3.3-5.0); iSTAT Site R Radial; iSTAT Sodium 133 mmol/L (135-144)
[2023-05-27 05:59] LABS: Basophils # (auto) 0.01 K/uL (0.00-0.20); Basophils % (auto) 0.1 %; Eosinophils # (auto) 0.01 K/uL (0.00-0.50); Eosinophils % (auto) 0.1 %; Hematocrit (blood only) 44.1 % (37.0-47.0); Hemoglobin 13.2 g/dl (12.0-16.0); Hypochromasia Present; Immature Granulocytes # (auto) 0.07 K/uL (0.01-0.20); Immature Granulocytes % (auto) 0.7 %; Lymphocytes # (auto) 0.18 K/uL (1.20-3.40); Lymphocytes % (auto) 1.7 %; Mean Corpuscular Hemoglobin 25.6 pg (25.0-34.0); Mean Corpuscular Hgb Conc 29.9 g/dL (32.0-36.0); Mean Corpuscular Volume 85.5 fL (80.0-100.0); Monocytes # (auto) 0.71 K/uL (0.11-0.59); Monocytes % (auto) 6.7 %; Neutrophils # (auto) 9.54 K/uL (1.40-6.50); Neutrophils % (auto) 90.7 %; Nucleated RBC # (auto) 0.04 K/uL (0.00-0.12); Nucleated RBC % (auto) 0.4 %; Platelet Count 99 K/uL (130-400); Platelet Estimate Decreased (Normal); Polychromasia 1+; RDW Coefficient of Variation 18.1 % (11.5-14.5); RDW Standard Deviation 55.2 fL (36.4-46.3); Red Blood Count 5.16 M/uL (4.20-5.40); White Blood Count 10.52 K/ul (4.8-10.8)
[2023-05-27] MEDS: ONDANSETRON INJ 2 MG/ML 2 ML VIAL IV PRN (06:54)
--- NOTE | 2023-05-27 07:14 | XRay Report ---
XR chest 1V portable CLINICAL HISTORY: f/u COMPARISON STUDY: Chest CT May 23, 2023. Chest radiograph May 26, 2023. FINDINGS: Tip of endotracheal tube is 5.6 cm above the chris. Tip of nasogastric tube is below the l ower aspect of this image but at least within the body of the stomach. Left lower lung retrocardiac o pacity has slightly increased. There is a trace left pleural effusion. There is no pneumothorax. Righ t lung is clear. Cardiomediastinal silhouette is stable. IMPRESSION: 1. Satisfactory positioning of the endotracheal tube. 2. Dense left lower lung airspace opacity which has slightly increased. This could reflect pneumonia or atelectasis. Trace left pleural effusion. ACT 112: Negative or not required by law. Electronically signed by: Ryan Chase M.D. 05/27/2023 7:13 AM
--- NOTE | 2023-05-27 07:14 | Procedure Note ---
Procedure Note Date of Service May 26, 2023 Note Bedside Ultrasound: Lung: Right:-No pleural effusion, B-lines appreciated anteriorly, B-lines posteriorly Left:-Small left-sided pleural effusion with atelectasis, B-lines anteriorly, B- lines posteriorly Heart: Enlarged RVOT, right ventricle size > left ventricle, good EF Please note the above document was generated using voice recognition software. It may contain grammatical, syntax or spelling errors.Any formal questions or concerns about the content, text or information contained within the body of this dictation should be directly addressed to the provider for clarification. Coding CPT Codes Pulmonary/Thoracic - Pulmonary and Thoracic: 85231 US, Chest, real time with imaging documentation ([id number]) [facility] Procedure Codes (Charges) Pulmonary/Thoracic Procedure 1: Pulmonary and Thoracic: 52662 US, Chest, real time with imaging documentation
--- NOTE | 2023-05-27 07:16 | Critical Care Progress Note ---
Date of Service May 27, 2023 Assessment & Plan (1) Status asthmaticus with COPD (chronic obstructive pulmonary disease): (2) Acute CHF (congestive heart failure): (3) Acute encephalopathy: (4) Transaminitis: (5) Coronary artery disease: (6) Elevated troponin: (7) Endotracheally intubated: (8) RVF (right ventricular failure): (9) Aspiration pneumonia: Plan 58-year-old female with a past medical history of coronary artery disease, COPD, asthma and obesity who presented to the hospital due to altered mental status and hypoxemic respiratory failure. Neurologic: -- Metabolic encephalopathy Secondary to hypercapnic respiratory failure CT head did not show any new stroke, history of old stroke Pulmonary: -- COPD-asthma overlap syndrome Acute exacerbation On steroids and bronchodilators --Eosinophilic BAL Continue with steroids She will most likely need prolonged taper Bronchoscopy performed 05/23/2023 revealed 89% eosinophilia from the bronchial washings consistent with asthma. Such findings can also be seen in acute eosinophilic pneumonia, but CT chest findings are not compatible with that at this time. CT chest was negative for PE. Cardiovascular: -- Cor pulmonale Continue with diuresis Echocardiogram with evidence of cor pulmonale which is likely contributing significantly to her hypoxemia. --S/p shock Gastrointestinal: -- Transaminitis Likely secondary to cor pulmonale S/p NAC protocol Continue to monitor Hepatitis profile negative Renal: -- EH Likely secondary to cardiorenal failure Avoid nephrotoxic medication Monitor BUNs/creatinine --Metabolic alkalosis Likely compensation to chronic respiratory acidosis as well as diuretics Patient got acetazolamide x 2 Continue to monitor Infectious disease: -- Aspiration pneumonia Nasal MRSA negative Bronc cultures negative to date Meropenem was changed to cefepime 05/25/2023 Repeat blood culture negative to date Hematologic: -- New onset thrombocytopenia Monitor for signs of bleeding Continue to monitor -- Coagulopathy INR 1.6, secondary to liver failure. Endocrine: ICU hypoglycemia protocol --Prophylaxis VTE: Lovenox GI: Pantoprazole twice daily Lines: Peripheral Diet:Tube feeds Plan: In/out: -1.2 L, urine output 1400 mL AB.42/64/56 on PEEP of 7, 50% Chest x-ray from today does show improvement in the left-sided pleural effusion but retrocardiac opacity still persist. Will plan to do bronchoscopy to make sure she does not have atelectasis to give her the best chance for extubation New onset fever, blood cultures have been ordered. She is already on antibiotics. Decrease Solu-Medrol to 40 mg 3 times daily. Will try to decrease it to 40 mg twice daily tomorrow Hypokalemia and hypophosphatemia being replaced Hold tube feeds for the vomiting. I have personally spent 36 minutes of critical care time in the direct management of this patient. This is a life/limb threatening event. This includes time spent evaluating patient, direct bedside care, chart review, placing orders, interpretation of diagnostic studies, discussion with consultants, patient, and family members, as well as other required patient management activities. This time is exclusive of all separately billable procedures, and teaching time and separate from and in addition to any other critical care service time. Thank you for allowing us to participate in the care of this patient. Admission and Anticipated Discharge Date Admission Date: May 23, 2023 Subjective Patient seen and examined at bedside. No acute distress, notable since overnight She was on pressure support at the time of examination Getting good tidal volumes Denied any headache, no abdominal pain. Unfortunately she did have a bout of vomiting today in the morning. No chest pain Review of Systems Review of Systems: All systems reviewed & are unremarkable except as noted in Subjective and Unobtainable due to endotracheal tube Physical Exam Physical Exam: Constitutional: No acute distress HEENT: EOMI, PERRLA Respiratory system: Decreased air entry bilaterally, no rhonchi, mild crackles bilateral lower lobes, no wheeze CVS: S1-S2 positive, no murmurs or gallops Abdomen: Soft, nontender, nondistended, positive bowel sounds x4 Extremities: +2 pulses bilaterally radialis/ dorsalis pedis, no cyanosis, +2 pitting edema bilateral lower extremity Neuro: Intubated, RASS -1 Psych: Unable to assess G/U: Positive Coe Skin: no rashes, warm and dry Lymphatic: no cervical or axillary lymphadenopathy Results & Data Results & Data Vital Signs (Past 12 Hours) Vital Signs Temp Pulse Resp BP Pulse Ox O2 Del Method FiO2 05/27/23 06:00 37.1 C 77 15 122/69 92 05/27/23 05:43 76 16 93 60 05/27/23 05:00 120/68 05/27/23 05:00 37.2 C 73 16 91 05/27/23 04:27 50 01/24/24 04:00 115/62 05/27/23 04:00 37.2 C 77 20 87 L 05/27/23 03:00 118/58 L 05/27/23 03:00 37.4 C 80 18 93 05/27/23 02:25 20 92 50 05/27/23 02:00 128/64 05/27/23 02:00 37.4 C 88 20 92 05/27/23 01:00 121/60 05/27/23 01:00 37.5 C 79 19 92 05/27/23 00:00 108/57 L 05/27/23 00:00 37.5 C 69 16 87 L 05/27/23 00:00 60 05/26/23 23:00 112/60 05/26/23 23:00 37.6 C H 65 16 91 05/26/23 22:57 63 05/26/23 22:15 66 17 93 50 05/26/23 22:15 37.6 C H 66 16 93 05/26/23 22:15 107/57 L 05/26/23 22:00 37.6 C H 67 9 L 91 05/26/23 21:15 115/59 L 05/26/23 21:00 37.7 C H 63 16 91 05/26/23 20:00 Mechanical Vent 50 05/26/23 20:00 50 05/26/23 20:00 101/53 L 05/26/23 20:00 37.7 C H 66 16 89 L 05/26/23 19:34 75 17 92 50 Coding Level of Care Code 28088 CRITICAL CARE 1ST 30-74M Diagnoses Status asthmaticus with COPD (chronic obstructive pulmonary disease) J44.89; J45.902 Acute CHF (congestive heart failure) I50.9 Acute encephalopathy G93.40 Transaminitis R74.01 Coronary artery disease I25.10 Elevated troponin R79.89 Endotracheally intubated Z97.8 RVF (right ventricular failure) I50.810 Aspiration pneumonia J69.0
[2023-05-27] MEDS ORDERED: POTASSIUM PHOS 3 MMOL/1 ML INFUSION IV STA (08:07)
[2023-05-27] MEDS: POTASSIUM PHOSPHATE 21 MMOL in SODIUM CHLORIDE 0.9% 500 ML IV ONE (08:40)
[2023-05-27] MEDS: methylPREDNISolone 40 MG in SYRINGE 0 ML IV SCH (08:43)
--- NOTE | 2023-05-27 12:10 | Procedure Note ---
Procedure Note: Bronchoscopy Procedure PREOPERATIVE DIAGNOSIS: Left-sided retrocardiac opacity POSTOPERATIVE DIAGNOSIS: Minimal mucous plugging left lower lobe PROCEDURE PERFORMED: Flexible fiberoptic bronchoscopy with BAL COMPLICATIONS: None. INDICATION: Airway clearance PROCEDURE: After obtaining an informed consent from the partner. The patient had appropriate oxygen, blood pressure, heart rate, and respiratory rate monitoring applied and monitored continuously throughout the procedure. Patient was already intubated, FiO2 was increased to 100% and PEEP was decreased to 5. Patient was given total 150 mics of fentanyl The trachea appeared normal.The bronchoscope was then advanced through the chris, which was sharp. The scope was then advanced into the right main stem and each segment, subsegement in the right upper lobe, right middle lobe and right lower lobe were visualized. There was minimal amount of clear secretion which was suctioned out. There were no other findings including evidence of mass, anatomic distortions, or hemorrhage. The bronchoscope was subsequently withdrawn and advanced into the left mainstem. Again, each segment and subsegment was well visualized. No specific masses or other lesions were identified throughout the tracheobronchial tree on the left. There was minimal amount of romo secretion in the left lower lobe which were suctioned out The bronchoscope was then wedged in the left lower lobe and bronchoalveolar lavage samples were obtained. 140 ml of saline was instilled and 40 ml of fluid was aspirated back.The bronchoscope was withdrawn and the area was suctioned clear. The bronchoscope was then withdrawn to the mainstem. The area was suctioned clear. The bronchoscope was then withdrawn. The patient tolerated the procedure well without evidence of desaturation or complications. Bronchoalveolar lavage samples were sent for cell count, Gram stain and bacterial culture, fungal culture and smear,and cytology. Recommendations: Follow-up micro, cytology Follow-up chest x-ray Please note the above document was generated using voice recognition software. It may contain grammatical, syntax or spelling errors.Any formal questions or concerns about the content, text or information contained within the body of this dictation should be directly addressed to the provider for clarification. [facility] [place] Procedure Codes (Charges) Pulmonary/Thoracic Procedure 1: Pulmonary and Thoracic: 48837 Bronchoscopy, clear airways Procedure 2: Pulmonary and Thoracic: 26258 Dx bronchoscopy/BAL
--- NOTE | 2023-05-27 12:15 | Hospitalist Progress Note ---
Date of Service May 27, 2023 Assessment & Plan (1) Acute on chronic respiratory failure with hypoxia and hypercapnia: Plan: 58yo female with history of COPD presenting with respiratory failure with hypoxia and hypercarbia 1. Acute metabolic encephalopathy This was most likely related to her acute hypercapnic respiratory failure since it has improved significantly CT head showed a stroke, age indeterminate. An MRI can be done at a later time, on hold for now since she is clinically better. 2. Acute hypercarbic respiratory failure Initially was put on BiPAP with no improvement Required to be intubated Credit Coordinator managing vent Weaning to extubate Most likely due to severe asthma/COPD exacerbation. On IV Solu-Medrol, reduced dose to 40 mg IV every 8 on 05/25 CT chest showed aspiration pneumonia for which she is now on IV cefepime since 05/25. Must have aspirated during hypersomnolent state Not spiking fevers Leukocytosis resolved Bronchoscopy performed 05/23 revealed eosinophilia in the bronchial washings. All cultures negative from 05/23 and from 05/26 3. Cor pulmonale/right heart failure Echocardiogram showed evidence of cor pulmonale Patient has elevated liver enzymes and lower extremity edema secondary to right heart failure Was diuresed with IV Lasix and IV Diamox in the last few days. Now off of diuretics Cardiology on board Metabolic alkalosis improving 4. Elevated liver enzymes Due to shock liver from right heart failure Improving LFTs Hepatitis panel negative Elevated INR due to shock liver Completed NAC protocol Check LFT in a.m. Check INR in a.m. 5. Acute kidney injury Resolved with diuresis Metabolic alkalosis likely due to a combination of diuretic therapy and compensation of chronic respiratory acidosis 6. Demand ischemia Likely due to severe hypoxia and respiratory failure Echo showed normal EF and no wall motion abnormalities 7. Thrombocytopenia New No bleeding Monitor DVT prophylaxis: Lovenox Full code (2) Coronary artery disease: (3) Hyperlipidemia: (4) Abnormal LFTs: (5) Elevated troponin: Admission and Anticipated Discharge Date Admission Date: May 23, 2023 Subjective Patient remains intubated. Bronchoscopy done today Review of Systems Review of Systems: Unobtainable due to endotracheal tube Physical Exam Physical Exam: General: Intubated. Heart: S1, S2/regular rate and rhythm, no murmur rubs or gallops Lungs: Good air entry bilaterally. Abdomen: Soft/nontender/nondistended. No hepatosplenomegaly Extremities: No clubbing/cyanosis. No edema Behavior: Unable to assess Results & Data Results & Data Vital Signs (Past 12 Hours) Vital Signs Temp Pulse Resp BP Pulse Ox O2 Del Method O2 Del Method 05/27/23 11:30 37.1 C 67 19 95 05/27/23 11:15 37.1 C 64 14 98 05/27/23 11:13 Mechanical Vent 05/27/23 11:00 37.1 C 69 16 99 05/27/23 11:00 111/63 05/27/23 10:50 109/66 05/27/23 10:50 37.1 C 69 16 99 05/27/23 10:48 114/64 05/27/23 10:48 37.1 C 72 16 99 05/27/23 10:46 113/63 05/27/23 10:46 37.1 C 70 16 100 05/27/23 10:45 37.1 C 69 16 100 05/27/23 10:44 108/62 05/27/23 10:44 37.1 C 70 16 100 05/27/23 10:42 37.1 C 70 16 100 05/27/23 10:42 115/65 05/27/23 10:40 114/64 05/27/23 10:40 37.1 C 70 16 100 05/27/23 10:38 115/68 05/27/23 10:38 37.1 C 70 16 100 05/27/23 10:36 127/72 05/27/23 10:36 37.1 C 78 16 100 05/27/23 10:34 120/65 05/27/23 10:34 37.1 C 76 16 100 05/27/23 10:32 37.1 C 76 16 100 05/27/23 10:32 121/68 05/27/23 10:30 132/71 05/27/23 10:30 37.1 C 74 16 100 05/27/23 10:30 78 16 100 05/27/23 10:28 130/69 05/27/23 10:28 37.1 C 80 17 100 05/27/23 10:26 37.0 C 91 H 20 05/27/23 10:26 138/74 05/27/23 10:24 37.0 C 92 H 18 05/27/23 10:24 142/77 H 05/27/23 10:22 135/86 05/27/23 10:22 37.0 C 98 H 22 100 05/27/23 10:20 117/83 05/27/23 10:20 37.0 C 87 32 H 100 05/27/23 10:18 133/75 05/27/23 10:18 37.0 C 74 17 100 05/27/23 10:15 37.0 C 77 17 100 05/27/23 10:00 37.0 C 73 16 100 05/27/23 09:45 37.0 C 78 17 100 05/27/23 09:30 124/69 05/27/23 09:30 37.0 C 78 14 98 05/27/23 09:00 119/66 05/27/23 09:00 37.0 C 79 16 90 05/27/23 08:38 37.0 C 82 16 83 L 05/27/23 08:38 121/64 05/27/23 08:15 125/77 05/27/23 08:15 37.0 C 99 H 22 90 05/27/23 08:00 130/71 05/27/23 08:00 37.0 C 94 H 18 95 05/27/23 08:00 Mechanical Vent 05/27/23 08:00 05/27/23 08:00 Mechanical Vent 05/27/23 07:45 37.0 C 97 H 19 91 05/27/23 07:45 139/82 05/27/23 07:30 132/79 05/27/23 07:30 37.0 C 89 17 95 05/27/23 07:15 122/74 05/27/23 07:15 37.0 C 92 H 16 94 05/27/23 07:10 88 14 96 05/27/23 07:00 123/69 05/27/23 07:00 37.0 C 81 11 L 92 05/27/23 06:00 37.1 C 77 15 122/69 92 05/27/23 05:43 76 16 93 05/27/23 05:00 120/68 05/27/23 05:00 37.2 C 73 16 91 05/27/23 04:27 05/27/23 04:00 115/62 05/27/23 04:00 37.2 C 77 20 87 L 05/27/23 03:00 118/58 L 05/27/23 03:00 37.4 C 80 18 93 05/27/23 02:25 20 92 05/27/23 02:00 128/64 05/27/23 02:00 37.4 C 88 20 92 05/27/23 01:00 121/60 05/27/23 01:00 37.5 C 79 19 92 FiO2 05/27/23 11:30 05/27/23 11:15 05/27/23 11:13 05/27/23 11:00 05/27/23 11:00 05/27/23 10:50 05/27/23 10:50 05/27/23 10:48 05/27/23 10:48 05/27/23 10:46 05/27/23 10:46 05/27/23 10:45 05/27/23 10:44 05/27/23 10:44 05/27/23 10:42 05/27/23 10:42 05/27/23 10:40 05/27/23 10:40 05/27/23 10:38 05/27/23 10:38 05/27/23 10:36 05/27/23 10:36 05/27/23 10:34 05/27/23 10:34 05/27/23 10:32 05/27/23 10:32 05/27/23 10:30 05/27/23 10:30 05/27/23 10:30 100 05/27/23 10:28 05/27/23 10:28 05/27/23 10:26 05/27/23 10:26 05/27/23 10:24 05/27/23 10:24 05/27/23 10:22 05/27/23 10:22 05/27/23 10:20 05/27/23 10:20 05/27/23 10:18 05/27/23 10:18 05/27/23 10:15 05/27/23 10:00 05/27/23 09:45 05/27/23 09:30 05/27/23 09:30 05/27/23 09:00 05/27/23 09:00 05/27/23 08:38 05/27/23 08:38 05/27/23 08:15 05/27/23 08:15 05/27/23 08:00 05/27/23 08:00 05/27/23 08:00 70 05/27/23 08:00 70 05/27/23 08:00 05/27/23 07:45 05/27/23 07:45 05/27/23 07:30 05/27/23 07:30 05/27/23 07:15 05/27/23 07:15 05/27/23 07:10 60 05/27/23 07:00 05/27/23 07:00 05/27/23 06:00 05/27/23 05:43 60 05/27/23 05:00 05/27/23 05:00 05/27/23 04:27 50 05/27/23 04:00 05/27/23 04:00 05/27/23 03:00 05/27/23 03:00 05/27/23 02:25 50 05/27/23 02:00 05/27/23 02:00 05/27/23 01:00 05/27/23 01:00 Laboratory Results Abnormal lab results 05/26/23 05/26/23 05/27/23 Range/Units 16:17 20:13 00:17 MCHC (32.0-36.0) g/dL RDW Std Deviation (36.4-46.3) fL RDW Coeff of Macario (11.5-14.5) % Plt Count (130-400) K/uL Neut # (Auto) (1.40-6.50) K/uL Lymph # (Auto) (1.20-3.40) K/uL Cherry # (Auto) (0.11-0.59) K/uL Platelet Estimate (Normal) POC pCO2 (35-46) mmHg POC pO2 (80-95) mmHg POC HCO3 (19-24) augustina/L POC Total CO2 (24-31) mmol/L POC Base Excess (-9-1.8) augustina/L ABG pCO2 (Temp Corrct (35-46) mmHg POC ABG O2 Sat (90-95) % POC Sodium (135-144) mmol/L Chloride (98-107) mmol/L Carbon Dioxide (21-32) mmol/L BUN (6-23) mg/dl BUN/Creatinine Ratio (10-20) Glucose (70-99(Fasting)) mg/dl POC Glucose 181 H 205 H 182 H (70-99) mg/dl Phosphorus (2.5-4.9) mg/dl 05/27/23 05/27/23 05/27/23 Range/Units 04:22 04:26 05:22 MCHC 29.9 L (32.0-36.0) g/dL RDW Std Deviation 55.2 H (36.4-46.3) fL RDW Coeff of Macario 18.1 H (11.5-14.5) % Plt Count 99 L (130-400) K/uL Neut # (Auto) 9.54 H (1.40-6.50) K/uL Lymph # (Auto) 0.18 L (1.20-3.40) K/uL Cherry # (Auto) 0.71 H (0.11-0.59) K/uL Platelet Estimate Decreased L (Normal) POC pCO2 64 H (35-46) mmHg POC pO2 56 L (80-95) mmHg POC HCO3 42 H (19-24) augustina/L POC Total CO2 > 40 H* (24-31) mmol/L POC Base Excess 17.0 H (-9-1.8) augustina/L ABG pCO2 (Temp Corrct 66 H (35-46) mmHg POC ABG O2 Sat 88.0 L (90-95) % POC Sodium 133 L (135-144) mmol/L Chloride 91 L (98-107) mmol/L Carbon Dioxide 41 H* (21-32) mmol/L BUN 45 H (6-23) mg/dl BUN/Creatinine Ratio 56.3 H (10-20) Glucose 179 H (70-99(Fasting)) mg/dl POC Glucose 167 H (70-99) mg/dl Phosphorus 2.4 L (2.5-4.9) mg/dl 05/27/23 05/27/23 Range/Units 07:57 11:58 MCHC (32.0-36.0) g/dL RDW Std Deviation (36.4-46.3) fL RDW Coeff of Macario (11.5-14.5) % Plt Count (130-400) K/uL Neut # (Auto) (1.40-6.50) K/uL Lymph # (Auto) (1.20-3.40) K/uL Cherry # (Auto) (0.11-0.59) K/uL Platelet Estimate (Normal) POC pCO2 (35-46) mmHg POC pO2 (80-95) mmHg POC HCO3 (19-24) augustina/L POC Total CO2 (24-31) mmol/L POC Base Excess (-9-1.8) augustina/L ABG pCO2 (Temp Corrct (35-46) mmHg POC ABG O2 Sat (90-95) % POC Sodium (135-144) mmol/L Chloride (98-107) mmol/L Carbon Dioxide (21-32) mmol/L BUN (6-23) mg/dl BUN/Creatinine Ratio (10-20) Glucose (70-99(Fasting)) mg/dl POC Glucose 141 H 124 H (70-99) mg/dl Phosphorus (2.5-4.9) mg/dl Diagnostic Findings Chest X-Ray 05/27/23 07:00 XR chest 1V portable CLINICAL HISTORY: f/u COMPARISON STUDY: Chest CT May 23, 2023. Chest radiograph May 26, 2023. FINDINGS: Tip of endotracheal tube is 5.6 cm above the chris. Tip of nasogastric tube is below the lower aspect of this image but at least within the body of the stomach. Left lower lung retrocardiac opacity has slightly increased. There is a trace left pleural effusion. There is no pneumothorax. Right lung is clear. Cardiomediastinal silhouette is stable. IMPRESSION: 1. Satisfactory positioning of the endotracheal tube. 2. Dense left lower lung airspace opacity which has slightly increased. This could reflect pneumonia or atelectasis. Trace left pleural effusion. ACT 112: Negative or not required by law. Electronically signed by: Ryan Chase M.D. 05/27/2023 7:13 AM PG Care Time/CCT Total # of Minutes Spent Total Time Spent with Patient: Total time spent is greater than 50% in coordination of care (as documented) at patient's floor/unit and/or counseling patient: Coding Level of Care Code 12656 SUB INP/OBS CARE 2/35MIN Diagnoses Acute on chronic respiratory failure with hypoxia and hypercapnia J96.21; J96.22 Coronary artery disease I25.10 Hyperlipidemia E78.5 Abnormal LFTs R79.89 Elevated troponin R79.89
--- NOTE | 2023-05-27 12:34 | XRay Report ---
XR chest 1V portable CLINICAL HISTORY: post bronch COMPARISON STUDY: Chest radiograph performed earlier today. FINDINGS: Tip of endotracheal tube is 5.2 cm above the chris. Tip of nasogastric tube is below the l ower aspect of this image but at least within the body of the stomach. Gaseous distention of bowel lo ops is partially imaged on this exam. There is no pneumothorax. Small left pleural effusion is presen t. Mild right basilar opacity has developed. Extensive left lower lung airspace opacity is again note d. Aeration has slightly improved. IMPRESSION: 1. Satisfactory positioning of the endotracheal tube. 2. No pneumothorax. 3. Persistent left lower lung retrocardiac opacity which favors left lower lobe atelectasis. Mild im provement in aeration post bronchoscopy. Pneumonia could appear similar. 4. Gaseous distention of several bowel loops, partially imaged on this exam. KUB could be obtained fo r further evaluation. ACT 112: Negative or not required by law. Electronically signed by: Ryan Chase M.D. 05/27/2023 12:33 PM
[2023-05-27 13:37] LABS: Fluid Mono/Macrophage 7 %; Lymphocyte Body Fluid Man 1 %; Neutrophil Body Fluid Man 92 %
[2023-05-27] MEDS ORDERED: Nursing to Pharmacy Communication SCH (15:45)
[2023-05-27] MEDS ORDERED: STAT IV Infusion **Titration per Protocol STA (23:45)
--- NOTE | 2023-05-27 23:52 | Communication Note ---
Date of Service: May 27, 2023 8520- Patient awake she pulled out IV and pulling off her BiPAP/CPAP mask. She states she just wants to go home and is unaware of where she is. She states that she will stop pulling off her mask and try to sleep, but wants to go to home. Appears to be delirious at this time, will place patient on Precedex infusion as long as her BP and HR tolerate this as redirection, and reorientation has not been successful. She will also need another IV site. Goal RASS would be 0 to -1. Donald ALSTON (ACNP-)
[2023-05-28] MEDS: dexMEDEtomidine 200 MCG/50 ML BAG IV SCH (00:02)
[2023-05-28 05:41] LABS: Albumin Level 3.5 gm/dl (3.4-5.0); BUN Creatinine Ratio 53.1 (10-20); Bilirubin Direct 0.8 mg/dl (0-0.2); Bilirubin,Total 2.8 mg/dl (0.2-1.0); Calcium 9.9 mg/dl (8.6-10.3); Creatinine Clr Calc Pharmacy 92.8 ml/min; Est GFR (African American) 93.4 ml/min; Est GFR (Non-African American) 80.6 ml/min; Magnesium 2.3 mg/dl (1.7-2.4); Potassium 4.2 mmol/L (3.5-5.1); Total Protein 6.2 gm/dl (6.0-8.3)
[2023-05-28 05:42] LABS: Hematocrit (blood only) 50.1 % (37.0-47.0); Hemoglobin 14.3 g/dl (12.0-16.0); Mean Corpuscular Hemoglobin 25.4 pg (25.0-34.0); Mean Corpuscular Hgb Conc 28.5 g/dL (32.0-36.0); Mean Corpuscular Volume 88.8 fL (80.0-100.0); Mean Platelet Volume 12.6 fL (9.4-12.4); Nucleated RBC # (auto) 0.04 K/uL (0.00-0.12); Nucleated RBC % (auto) 0.4 %; Platelet Count 100 K/uL (130-400); RDW Coefficient of Variation 18.9 % (11.5-14.5); RDW Standard Deviation 58.9 fL (36.4-46.3); Red Blood Count 5.64 M/uL (4.20-5.40); White Blood Count 11.35 K/ul (4.8-10.8)
[2023-05-28 05:44] LABS: Basophils # (auto) 0.01 K/uL (0.00-0.20); Basophils % (auto) 0.1 %; Hypochromasia Present; Immature Granulocytes # (auto) 0.05 K/uL (0.01-0.20); Immature Granulocytes % (auto) 0.4 %; Lymphocytes % (auto) 1.8 %; Monocytes # (auto) 0.64 K/uL (0.11-0.59); Monocytes % (auto) 5.6 %; Neutrophils # (auto) 10.45 K/uL (1.40-6.50); Neutrophils % (auto) 92.1 %
[2023-05-28 05:49] LABS: INR 1.2 (0.9-1.1); Prothrombin Time 13.5 Seconds (9.0-12.0)
--- NOTE | 2023-05-28 07:24 | XRay Report ---
XR chest 1V portable HISTORY: 58 years-old Female f/u acute shortness of breath COMPARISON: 05/27/2023 TECHNIQUE: AP view of the chest FINDINGS: Cardiac silhouette is enlarged. Trace right and small left pleural effusions. Persistent left basilar with minimal right basilar densities. Bones appear grossly intact. Interval extubation with removal of the enteric tube. IMPRESSION: 1. Interval extubation with removal of the enteric tube. 2. Unchanged small left pleural effusion with left basilar consolidation. 3. Mildly improved aeration of the right lung base. ACT 112: Negative or not required by law. The above report was generated using voice recognition software. It may contain grammatical, syntax o r spelling errors. Electronically signed by: Altaf Harrison M.D. 05/28/2023 7:22 AM
--- NOTE | 2023-05-28 07:51 | Critical Care Progress Note ---
Date of Service May 28, 2023 Assessment & Plan (1) Status asthmaticus with COPD (chronic obstructive pulmonary disease): (2) Acute CHF (congestive heart failure): (3) Acute encephalopathy: (4) Transaminitis: (5) Coronary artery disease: (6) Elevated troponin: (7) Endotracheally intubated: (8) RVF (right ventricular failure): (9) Aspiration pneumonia: Plan 58-year-old female with a past medical history of coronary artery disease, COPD, asthma and obesity who presented to the hospital due to altered mental status and hypoxemic respiratory failure. Neurologic: -- Metabolic encephalopathy --> improved Secondary to hypercapnic respiratory failure CT head did not show any new stroke, history of old stroke --Bouts of delirium On Precedex as needed Pulmonary: --S/p VDRF Extubated 05/27/2023 -- COPD-asthma overlap syndrome Acute exacerbation On steroids and bronchodilators --Eosinophilic BAL Continue with steroids She will most likely need prolonged taper Bronchoscopy performed 05/23/2023 revealed 89% eosinophilia from the bronchial washings consistent with asthma. --> Repeat BAL 05/27/2023 showed significant decrease in the number of eosinophils Such findings can also be seen in acute eosinophilic pneumonia, but CT chest findings are not compatible with that at this time. CT chest was negative for PE. Cardiovascular: -- Cor pulmonale Continue with diuresis Echocardiogram with evidence of cor pulmonale which is likely contributing significantly to her hypoxemia. --S/p shock Gastrointestinal: -- Transaminitis --> improving Likely secondary to cor pulmonale S/p NAC protocol Continue to monitor Hepatitis profile negative Renal: -- S/p EH Likely secondary to cardiorenal failure Avoid nephrotoxic medication Monitor BUNs/creatinine --Metabolic alkalosis Likely compensation to chronic respiratory acidosis as well as diuretics Patient got acetazolamide x 2 Continue to monitor Infectious disease: -- Aspiration pneumonia Nasal MRSA negative Bronc cultures negative to date Meropenem was changed to cefepime 05/25/2023--> will complete the course for total of 5-7 days Repeat blood culture negative to date Hematologic: -- New onset thrombocytopenia Monitor for signs of bleeding Continue to monitor -- Coagulopathy INR 1.6, secondary to liver failure. Endocrine: ICU hypoglycemia protocol --Prophylaxis VTE: Lovenox GI: Pantoprazole twice daily Lines: Peripheral Diet: N.p.o. Plan: In/out: -736, urine output 1270 Decrease Solu-Medrol to 40 mg twice daily, can transition to p.o. prednisone tomorrow Complete the course of cefepime for total of 5 days Will give a dose of acetazolamide 250 mg Jesse amor Tried to take the patient off Precedex. Frequent reorientation Patient will benefit from AVAPS machine prior to discharge Due to chronic respiratory failure consequent to COPD, patient now requires a noninvasive home ventilator. Bilevel therapy with and without a rate would be ineffective as patient requires a volume targeted mode. Ventilation is required to decrease work of breathing and improve pulmonary status. Interruption of ventilator support would lead to decline of health status. Patient would benefit greatly from noninvasive ventilation which would improve lung function and potentially reduce worsening of symptoms. A BiPAP would be ineffective as patient requires a volume targeted mode. Interruption of ventilator support would lead to a decline of health status. NIMV settings should be AVAPS-AE; Breath rate: auto; Inspiratory time:auto; Sigh: off; Tidal Volume: 350-450, PS min: 4-10 PS max: 12-20; EPAP min: 6-10; EPAP max: 10-16; AVAPS rate: 14 during sleep and as needed Case management involved I have personally spent 33 minutes of critical care time in the direct management of this patient. This is a life/limb threatening event. This includes time spent evaluating patient, direct bedside care, chart review, placing orders, interpretation of diagnostic studies, discussion with consultants, patient, and family members, as well as other required patient management activities. This time is exclusive of all separately billable procedures, and teaching time and separate from and in addition to any other critical care service time. Thank you for allowing us to participate in the care of this patient. Admission and Anticipated Discharge Date Admission Date: May 23, 2023 Subjective Patient seen and examined at bedside. No acute distress Overnight she did have bouts of delirium for which she was started on Precedex on and off. The time of examination she was on 0.3 of Precedex. She was trying to pull the BiPAP off. Her saturation was 93-94% on 60% FiO2. Getting good tidal volumes on pressure support of 8 and PEEP of 6. Denies any headache, no chest pain, no nausea vomiting Asking where her partner was. Review of Systems 2 Review of Systems: All systems reviewed & are unremarkable except as noted in Subjective Physical Exam 2 Physical Exam: Constitutional: No acute distress HEENT: EOMI, PERRLA Respiratory system: Decreased air entry bilaterally, no rhonchi, mild crackles bilateral lower lobes, no wheeze CVS: S1-S2 positive, no murmurs or gallops Abdomen: Soft, nontender, nondistended, positive bowel sounds x4 Extremities: +2 pulses bilaterally radialis/ dorsalis pedis, no cyanosis, +2 pitting edema bilateral lower extremity Neuro: Awake alert oriented to self and place Psych: Normal mood and affect G/U: Positive Coe Skin: no rashes, warm and dry Lymphatic: no cervical or axillary lymphadenopathy Results & Data Results & Data Vital Signs (Past 12 Hours) Vital Signs Temp Pulse Pulse Resp BP Pulse Ox O2 Del Method 05/28/23 07:29 88 22 95 05/28/23 07:29 22 96 BiPAP 05/28/23 05:01 36.9 C 85 22 88 L 05/28/23 05:01 165/79 H 05/28/23 04:00 121/71 05/28/23 04:00 37.1 C 81 18 90 05/28/23 03:00 37.2 C 61 14 92 05/28/23 03:00 99/59 L 05/28/23 02:51 61 20 96 05/28/23 02:45 97/56 L 05/28/23 02:45 37.2 C 59 L 14 92 05/28/23 02:30 37.2 C 61 17 96 05/28/23 02:30 96/59 L 05/28/23 02:15 103/63 05/28/23 02:15 37.2 C 62 16 95 05/28/23 01:45 91/56 L 05/28/23 01:45 37.2 C 59 L 18 94 05/28/23 01:30 37.2 C 58 L 16 95 05/28/23 01:30 88/53 L 05/28/23 01:15 87/54 L 05/28/23 01:15 37.2 C 59 L 17 95 05/28/23 01:00 37.1 C 61 14 95 05/28/23 01:00 88/58 L 05/28/23 00:48 70 21 96 05/28/23 00:47 71 21 96 BiPAP 05/28/23 00:00 36.9 C 84 17 94 05/28/23 00:00 132/77 05/27/23 23:00 139/80 05/27/23 23:00 36.8 C 94 H 23 94 05/27/23 22:00 36.9 C 104 H 20 134/76 91 05/27/23 21:01 121/78 05/27/23 21:01 36.9 C 96 H 18 94 05/27/23 20:45 93 H 24 93 05/27/23 20:00 36.9 C 90 19 132/75 93 05/27/23 19:53 93 H 24 93 BiPAP FiO2 05/28/23 07:29 60 05/28/23 07:29 60 05/28/23 05:01 05/28/23 05:01 05/28/23 04:00 05/28/23 04:00 05/28/23 03:00 05/28/23 03:00 05/28/23 02:51 40 05/28/23 02:45 05/28/23 02:45 05/28/23 02:30 05/28/23 02:30 05/28/23 02:15 05/28/23 02:15 05/28/23 01:45 05/28/23 01:45 05/28/23 01:30 05/28/23 01:30 05/28/23 01:15 05/28/23 01:15 05/28/23 01:00 05/28/23 01:00 05/28/23 00:48 50 05/28/23 00:47 50 05/28/23 00:00 05/28/23 00:00 05/27/23 23:00 05/27/23 23:00 05/27/23 22:00 05/27/23 21:01 05/27/23 21:01 05/27/23 20:45 55 05/27/23 20:00 05/27/23 19:53 55 Laboratory Results 05/28/23 04:45 05/28/23 04:45 Coding Level of Care Code 49183 CRITICAL CARE 1ST 30-74M Diagnoses Status asthmaticus with COPD (chronic obstructive pulmonary disease) J44.89; J45.902 Acute CHF (congestive heart failure) I50.9 Acute encephalopathy G93.40 Transaminitis R74.01 Coronary artery disease I25.10 Elevated troponin R79.89 Endotracheally intubated Z97.8 RVF (right ventricular failure) I50.810 Aspiration pneumonia J69.0
[2023-05-28] MEDS: LANTUS PER UNIT CHARGE SC ONE (08:15)
[2023-05-28] MEDS ORDERED: Nursing to Pharmacy Communication SCH ×2 (12:30→13:30)
[2023-05-28] MEDS: acetaZOLAMIDE 250 MG in SYRINGE 0 ML IV STA (13:54)
[2023-05-28] MEDS: INSULIN ASPART PER UNIT CHARGE SC SCH (13:57)
--- NOTE | 2023-05-28 14:49 | Hospitalist Progress Note ---
Date of Service May 28, 2023 Assessment & Plan (1) Acute on chronic respiratory failure with hypoxia and hypercapnia: Plan: 58yo female with history of COPD presenting with respiratory failure with hypoxia and hypercarbia 1. Acute metabolic encephalopathy This was most likely related to her acute hypercapnic respiratory failure since it has improved significantly CT head showed a stroke, age indeterminate. An MRI can be done at a later time, on hold for now since she is clinically better. 2. Delirium Most likely hospital-acquired delirium or ICU delirium Precedex drip ordered. However she is off of it now. 2. Acute hypercarbic respiratory failure Initially was put on BiPAP with no improvement Required to be intubated Plate Developer managing vent Extubated 05/27 Most likely due to severe asthma/COPD exacerbation. On IV Solu-Medrol, reduced dose to 40 mg IV every 8 on 05/25. Will switch to prednisone p.o. tomorrow 05/29. CT chest showed aspiration pneumonia for which she is now on IV cefepime since 05/25. Must have aspirated during hypersomnolent state. Plan to complete a 7- day course. Not spiking fevers Leukocytosis resolved Bronchoscopy performed 05/23 revealed eosinophilia in the bronchial washings. All cultures negative from 05/23 and from 05/26 3. Cor pulmonale/right heart failure Echocardiogram showed evidence of cor pulmonale Patient has elevated liver enzymes and lower extremity edema secondary to right heart failure Was diuresed with IV Lasix and IV Diamox in the last few days. Given a dose of Diamox to 50 mg IV x 1 today Cardiology on board Metabolic alkalosis improving 4. Elevated liver enzymes Due to shock liver from right heart failure Improving LFTs Hepatitis panel negative Elevated INR due to shock liver, improved Completed NAC protocol 5. Acute kidney injury Resolved with diuresis Metabolic alkalosis likely due to a combination of diuretic therapy and compensation of chronic respiratory acidosis. Given a dose of Diamox today. 6. Demand ischemia Likely due to severe hypoxia and respiratory failure Echo showed normal EF and no wall motion abnormalities 7. Thrombocytopenia New Improved No bleeding Monitor DVT prophylaxis: Lovenox Full code (2) Coronary artery disease: (3) Hyperlipidemia: (4) Abnormal LFTs: (5) Elevated troponin: Admission and Anticipated Discharge Date Admission Date: May 23, 2023 Subjective Patient was extubated yesterday! Was on BiPAP overnight but had issues with disorientation and delirium for which she needed to be started on a Precedex drip. Currently off of the Precedex drip. When I walked into the room, she was eating lunch. Family at bedside. Review of Systems Review of Systems: Unobtainable due to cognitive status Physical Exam Physical Exam: General: Awake, conversant. Asking the same questions over and over again. Heart: S1, S2/regular rate and rhythm, no murmur rubs or gallops Lungs: Diminished breath sounds bilaterally. Normal effort Abdomen: Soft/nontender/nondistended. No hepatosplenomegaly Extremities: No clubbing/cyanosis. Mild bilateral edema Behavior: Unable to assess Results & Data Results & Data Vital Signs (Past 12 Hours) Vital Signs Temp Pulse Resp BP Pulse Ox O2 Del Method FiO2 05/28/23 14:02 36.8 C 67 16 93 05/28/23 14:02 117/68 05/28/23 14:00 36.8 C 71 23 94 05/28/23 13:00 36.7 C 85 14 91 05/28/23 12:10 36.7 C 74 23 89 L 05/28/23 12:10 114/69 05/28/23 12:00 36.7 C 84 20 90 05/28/23 11:38 156/105 H 05/28/23 11:38 36.8 C 87 28 H 84 L 05/28/23 11:00 36.8 C 87 27 H 90 05/28/23 10:30 115/70 05/28/23 10:30 36.7 C 66 19 93 05/28/23 10:00 36.9 C 64 16 92 05/28/23 09:00 91/57 L 05/28/23 09:00 37.0 C 56 L 20 94 05/28/23 08:00 37.1 C 74 22 95 05/28/23 08:00 128/79 05/28/23 08:00 BiPAP 55 05/28/23 07:40 138/80 05/28/23 07:40 37.1 C 87 20 90 05/28/23 07:30 37.1 C 79 17 96 05/28/23 07:30 106/87 05/28/23 07:29 88 22 95 60 05/28/23 07:29 22 96 BiPAP 60 05/28/23 07:20 37.1 C 82 21 94 05/28/23 07:20 122/74 05/28/23 07:10 37.1 C 76 18 95 05/28/23 07:10 112/72 05/28/23 07:00 37.1 C 76 17 96 05/28/23 07:00 124/76 05/28/23 05:01 36.9 C 85 22 88 L 05/28/23 05:01 165/79 H 05/28/23 04:00 121/71 05/28/23 04:00 37.1 C 81 18 90 05/28/23 03:00 37.2 C 61 14 92 05/28/23 03:00 99/59 L 05/28/23 02:51 61 20 96 40 Laboratory Results Abnormal lab results 05/27/23 05/27/23 05/27/23 Range/Units 16:19 20:07 23:58 WBC (4.8-10.8) K/ul RBC (4.20-5.40) M/uL Hct (37.0-47.0) % MCHC (32.0-36.0) g/dL RDW Std Deviation (36.4-46.3) fL RDW Coeff of Macario (11.5-14.5) % Plt Count (130-400) K/uL MPV (9.4-12.4) fL Neut # (Auto) (1.40-6.50) K/uL Lymph # (Auto) (1.20-3.40) K/uL Kings # (Auto) (0.11-0.59) K/uL PT (9.0-12.0) Seconds INR (0.9-1.1) Chloride (98-107) mmol/L Carbon Dioxide (21-32) mmol/L BUN (6-23) mg/dl BUN/Creatinine Ratio (10-20) Glucose (70-99(Fasting)) mg/dl POC Glucose 137 H 157 H 134 H (70-99) mg/dl Total Bilirubin (0.2-1.0) mg/dl Direct Bilirubin (0-0.2) mg/dl ALT (7-52) U/L 05/28/23 05/28/23 05/28/23 Range/Units 03:10 04:45 07:35 WBC 11.35 H (4.8-10.8) K/ul RBC 5.64 H (4.20-5.40) M/uL Hct 50.1 H (37.0-47.0) % MCHC 28.5 L (32.0-36.0) g/dL RDW Std Deviation 58.9 H (36.4-46.3) fL RDW Coeff of Macario 18.9 H (11.5-14.5) % Plt Count 100 L (130-400) K/uL MPV 12.6 H (9.4-12.4) fL Neut # (Auto) 10.45 H (1.40-6.50) K/uL Lymph # (Auto) 0.20 L (1.20-3.40) K/uL Kings # (Auto) 0.64 H (0.11-0.59) K/uL PT 13.5 H (9.0-12.0) Seconds INR 1.2 H (0.9-1.1) Chloride 95 L (98-107) mmol/L Carbon Dioxide 40 H (21-32) mmol/L BUN 43 H (6-23) mg/dl BUN/Creatinine Ratio 53.1 H (10-20) Glucose 157 H (70-99(Fasting)) mg/dl POC Glucose 140 H 181 H (70-99) mg/dl Total Bilirubin 2.8 H (0.2-1.0) mg/dl Direct Bilirubin 0.8 H (0-0.2) mg/dl ALT 241 H (7-52) U/L 05/28/23 Range/Units 12:08 WBC (4.8-10.8) K/ul RBC (4.20-5.40) M/uL Hct (37.0-47.0) % MCHC (32.0-36.0) g/dL RDW Std Deviation (36.4-46.3) fL RDW Coeff of Macario (11.5-14.5) % Plt Count (130-400) K/uL MPV (9.4-12.4) fL Neut # (Auto) (1.40-6.50) K/uL Lymph # (Auto) (1.20-3.40) K/uL Kings # (Auto) (0.11-0.59) K/uL PT (9.0-12.0) Seconds INR (0.9-1.1) Chloride (98-107) mmol/L Carbon Dioxide (21-32) mmol/L BUN (6-23) mg/dl BUN/Creatinine Ratio (10-20) Glucose (70-99(Fasting)) mg/dl POC Glucose 233 H (70-99) mg/dl Total Bilirubin (0.2-1.0) mg/dl Direct Bilirubin (0-0.2) mg/dl ALT (7-52) U/L Diagnostic Findings Chest X-Ray 05/28/23 07:00 XR chest 1V portable HISTORY: 58 years-old Female f/u acute shortness of breath COMPARISON: 05/27/2023 TECHNIQUE: AP view of the chest FINDINGS: Cardiac silhouette is enlarged. Trace right and small left pleural effusions. Persistent left basilar with minimal right basilar densities. Bones appear grossly intact. Interval extubation with removal of the enteric tube. IMPRESSION: 1. Interval extubation with removal of the enteric tube. 2. Unchanged small left pleural effusion with left basilar consolidation. 3. Mildly improved aeration of the right lung base. ACT 112: Negative or not required by law. The above report was generated using voice recognition software. It may contain grammatical, syntax or spelling errors. Electronically signed by: Altaf Harrison M.D. 05/28/2023 7:22 AM PG Care Time/CCT Total # of Minutes Spent Total Time Spent with Patient: Total time spent is greater than 50% in coordination of care (as documented) at patient's floor/unit and/or counseling patient: Coding Level of Care Code 91537 SUB INP/OBS CARE 2/35MIN Diagnoses Acute on chronic respiratory failure with hypoxia and hypercapnia J96.21; J 96.22 Coronary artery disease I25.10 Hyperlipidemia E78.5 Abnormal LFTs R79.89 Elevated troponin R79.89
[2023-05-28 15:47] LABS: Appearance Urine Clear (Clear); Bacteria Urine Automated Negative (Negative); Bilirubin Urine Negative (Negative); Blood Urine Negative (Negative); Color Urine Orange; Epithelial Cell Urine Auto 20-30 /lpf (0-5); Glucose Urine UA Negative (Negative); Ketones Urine Negative (Negative); Leukocyte Esterase Urine Trace (Negative); Nitrite Urine Negative (Negative); Protein Urine Negative (Negative); Specific Gravity Urine 1.024 (1.000-1.030); Urobilinogen Urine Negative (Negative); pH Urine 6.5 (4.5-7.5)
[2023-05-28] MEDS: methylPREDNISolone 40 MG in SYRINGE 0 ML IV SCH (20:20)
[2023-05-29] MEDS: INSULIN ASPART PER UNIT CHARGE SC SCH (00:11)
[2023-05-29 06:29] LABS: BUN Creatinine Ratio 52.8 (10-20); Calcium 9.8 mg/dl (8.6-10.3); Creatinine Clr Calc Pharmacy 100.7 ml/min; Est GFR (African American) 107.7 ml/min; Magnesium 2.3 mg/dl (1.7-2.4); Phosphorus 2.6 mg/dl (2.5-4.9); Potassium 4.2 mmol/L (3.5-5.1)
[2023-05-29 06:53] LABS: Hematocrit (blood only) 51.4 % (37.0-47.0); Hemoglobin 14.5 g/dl (12.0-16.0); Mean Corpuscular Hemoglobin 25.2 pg (25.0-34.0); Mean Corpuscular Hgb Conc 28.2 g/dL (32.0-36.0); Mean Corpuscular Volume 89.2 fL (80.0-100.0); Platelet Count 98 K/uL (130-400); RDW Standard Deviation 58.9 fL (36.4-46.3); Red Blood Count 5.76 M/uL (4.20-5.40); White Blood Count 13.12 K/ul (4.8-10.8)
[2023-05-29 07:28] LABS: Anisocytosis Present; Basophils # (auto) 0.01 K/uL (0.00-0.20); Basophils % (auto) 0.1 %; Immature Granulocytes % (auto) 0.8 %; Lymphocytes # (auto) 0.42 K/uL (1.20-3.40); Lymphocytes % (auto) 3.2 %; Monocytes # (auto) 0.77 K/uL (0.11-0.59); Monocytes % (auto) 5.9 %; Neutrophils # (auto) 11.82 K/uL (1.40-6.50); Polychromasia 1+
--- NOTE | 2023-05-29 07:44 | Critical Care Progress Note ---
Date of Service May 29, 2023 Assessment & Plan (1) Status asthmaticus with COPD (chronic obstructive pulmonary disease): (2) Acute CHF (congestive heart failure): (3) Acute encephalopathy: (4) Transaminitis: (5) Coronary artery disease: (6) Elevated troponin: (7) Endotracheally intubated: (8) RVF (right ventricular failure): (9) Aspiration pneumonia: Plan 58-year-old female with a past medical history of coronary artery disease, COPD, asthma and obesity who presented to the hospital due to altered mental status and hypoxemic respiratory failure. Neurologic: -- Metabolic encephalopathy --> improved Secondary to hypercapnic respiratory failure CT head did not show any new stroke, history of old stroke --Bouts of delirium On Precedex as needed Pulmonary: --S/p VDRF Extubated 05/27/2023 -- COPD-asthma overlap syndrome Acute exacerbation On steroids and bronchodilators --Eosinophilic BAL --> improved on repeat bronchoscopy 05/27/2023 Continue with steroids She will most likely need prolonged taper Bronchoscopy performed 05/23/2023 revealed 89% eosinophilia from the bronchial washings consistent with asthma. --> Repeat BAL 05/27/2023 showed significant decrease in the number of eosinophils Such findings can also be seen in acute eosinophilic pneumonia, but CT chest findings are not compatible with that at this time. CT chest was negative for PE. Cardiovascular: -- Cor pulmonale Continue with diuresis Echocardiogram with evidence of cor pulmonale which is likely contributing significantly to her hypoxemia. --S/p shock Gastrointestinal: -- Transaminitis --> improving Likely secondary to cor pulmonale S/p NAC protocol Continue to monitor Hepatitis profile negative Renal: -- S/p EH Likely secondary to cardiorenal failure Avoid nephrotoxic medication Monitor BUNs/creatinine --Metabolic alkalosis Likely compensation to chronic respiratory acidosis as well as diuretics Patient got acetazolamide x 3 Continue to monitor Infectious disease: -- Aspiration pneumonia Nasal MRSA negative Bronc cultures negative to date Meropenem was changed to cefepime 05/25/2023--> will complete the course for total of 5-7 days Repeat blood culture negative to date Hematologic: -- New onset thrombocytopenia Monitor for signs of bleeding Continue to monitor -- Coagulopathy INR 1.6, secondary to liver failure. Endocrine: ICU hypoglycemia protocol --Prophylaxis VTE: Lovenox GI: Pantoprazole twice daily Lines: Peripheral Diet: Cardiac Plan: In/out: -975, urine output 1000 mL Transition Solu-Medrol to prednisone 40 mg for 5 days followed by 20 mg for 5 days and then decrease by 5 mg till she is seen by admissions coordinator. Complete the course of cefepime for total of 5 days Given 1 dose of acetazolamide Swallow eval Hemoglobin is stable. No more blood in the urine. Resume Lovenox. Patient does have instances when she is not using her oxygen and her oxygen does go down and takes time for it to come back up. Out of bed to chair, will also add chest PT from the bed. PT OT eval Please note the above document was generated using voice recognition software. It may contain grammatical, syntax or spelling errors.Any formal questions or concerns about the content, text or information contained within the body of this dictation should be directly addressed to the provider for clarification. Admission and Anticipated Discharge Date Admission Date: May 23, 2023 Subjective Patient seen and examined at bedside. No acute distress, notable since overnight She did use BiPAP overnight. Still has bouts of confusion. Denies any headache, no nausea, no vomiting She is oriented to self and place. No headache, no chest pain Coughing up clear phlegm. Review of Systems 2 Review of Systems: All systems reviewed & are unremarkable except as noted in Subjective Physical Exam 2 Physical Exam: Constitutional: No acute distress HEENT: EOMI, PERRLA Respiratory system: Decreased air entry bilaterally, mild rhonchi, mild crackles bilateral lower lobes, no wheeze CVS: S1-S2 positive, no murmurs or gallops Abdomen: Soft, nontender, nondistended, positive bowel sounds x4 Extremities: +2 pulses bilaterally radialis/ dorsalis pedis, no cyanosis, +2 pitting edema bilateral lower extremity Neuro: Awake alert oriented to self and place Psych: Normal mood and affect G/U: Positive Coe Skin: no rashes, warm and dry Lymphatic: no cervical or axillary lymphadenopathy Results & Data Results & Data Vital Signs (Past 12 Hours) Vital Signs Temp Pulse Pulse Resp BP Pulse Ox O2 Del Method 05/29/23 04:15 36.6 C 55 L 19 93 05/29/23 04:00 103/64 05/29/23 04:00 36.6 C 55 L 16 91 05/29/23 03:45 36.6 C 56 L 18 89 L 05/29/23 03:30 36.6 C 58 L 27 H 93 05/29/23 03:15 36.6 C 58 L 17 92 05/29/23 03:00 36.5 C 60 17 96 05/29/23 02:45 36.5 C 64 20 94 05/29/23 02:30 36.5 C 56 L 16 91 05/29/23 02:15 36.5 C 51 L 18 92 05/29/23 02:00 98/63 L 05/29/23 02:00 36.5 C 52 L 16 90 05/29/23 01:45 36.5 C 58 L 18 90 05/29/23 01:30 36.5 C 59 L 18 90 05/29/23 01:15 36.5 C 63 18 92 05/29/23 01:00 131/84 05/29/23 01:00 36.5 C 77 24 90 05/29/23 00:45 36.5 C 75 19 89 L 05/29/23 00:33 36.6 C 82 17 88 L 05/29/23 00:33 127/76 05/29/23 00:30 36.6 C 63 15 88 L 05/29/23 00:15 36.7 C 75 20 88 L 05/29/23 00:00 36.7 C 80 23 90 05/28/23 23:45 36.7 C 72 21 87 L 05/28/23 23:30 36.7 C 86 21 85 L 05/28/23 23:15 36.7 C 88 20 85 L 05/28/23 23:00 36.6 C 82 26 H 86 L 05/28/23 22:45 36.6 C 72 18 88 L 05/28/23 22:30 36.7 C 74 18 87 L 05/28/23 22:15 36.7 C 73 20 86 L 05/28/23 22:00 36.7 C 68 18 87 L 05/28/23 21:45 36.8 C 65 18 89 L 05/28/23 21:30 36.8 C 77 L 05/28/23 21:15 36.8 C 72 18 89 L 05/28/23 21:00 36.8 C 62 15 89 L 05/28/23 20:45 36.8 C 64 18 88 L 05/28/23 20:30 36.9 C 69 17 89 L 05/28/23 20:22 73 23 91 Nasal Cannula 05/28/23 20:15 36.9 C 62 18 92 05/28/23 20:00 36.9 C 68 16 93 05/28/23 20:00 Nasal Cannula 05/28/23 19:45 36.9 C 59 L 20 92 O2 Flow Rate 05/29/23 04:15 05/29/23 04:00 05/29/23 04:00 05/29/23 03:45 05/29/23 03:30 05/29/23 03:15 05/29/23 03:00 05/29/23 02:45 05/29/23 02:30 05/29/23 02:15 05/29/23 02:00 05/29/23 02:00 05/29/23 01:45 05/29/23 01:30 05/29/23 01:15 05/29/23 01:00 05/29/23 01:00 05/29/23 00:45 05/29/23 00:33 05/29/23 00:33 05/29/23 00:30 05/29/23 00:15 05/29/23 00:00 05/28/23 23:45 05/28/23 23:30 05/28/23 23:15 05/28/23 23:00 05/28/23 22:45 05/28/23 22:30 05/28/23 22:15 05/28/23 22:00 05/28/23 21:45 05/28/23 21:30 05/28/23 21:15 05/28/23 21:00 05/28/23 20:45 05/28/23 20:30 05/28/23 20:22 5 05/28/23 20:15 05/28/23 20:00 05/28/23 20:00 6 05/28/23 19:45 Laboratory Results 05/29/23 05:20 05/29/23 05:20 Coding Level of Care Code 62395 SUB INP/OBS CARE 3/50MIN Diagnoses Status asthmaticus with COPD (chronic obstructive pulmonary disease) J44.89; J45.902 Acute CHF (congestive heart failure) I50.9 Acute encephalopathy G93.40 Transaminitis R74.01 Coronary artery disease I25.10 Elevated troponin R79.89 Endotracheally intubated Z97.8 RVF (right ventricular failure) I50.810 Aspiration pneumonia J69.0
--- NOTE | 2023-05-29 09:33 | XRay Report ---
XR chest 1V portable CLINICAL HISTORY: f/u COMPARISON STUDY: Chest CT May 23, 2023. Chest radiograph May 28, 2023. FINDINGS: There is no pneumothorax. Dense left lower lung retrocardiac opacity with volume loss persi sts. There is a small left pleural effusion. Mild right basilar opacity is present. No evidence for p ulmonary edema. Cardiomediastinal silhouette is stable. IMPRESSION: 1. Persistent dense left lower lung retrocardiac opacity with volume loss. This favors left lower lob e atelectasis, possibly on the basis of mucus plugging. Pneumonia could appear similar. 2. Small left pleural effusion. 3. Mild right basilar opacity. ACT 112: Negative or not required by law. Electronically signed by: Ryan Chase M.D. 05/29/2023 9:32 AM
[2023-05-29] MEDS: acetaZOLAMIDE 250 MG in SYRINGE 0 ML IV ONE (11:12)
[2023-05-29] MEDS: LANTUS PER UNIT CHARGE SC SCH (11:50)
--- NOTE | 2023-05-29 14:20 | Pharmacy Report ---
Pharmacy Glycemic Short Note 2 - Date of Service May 29, 2023 - Glycemic Short BSG Results (Last 24 hours): 05/28/23 05/28/23 05/29/23 16:13 20:09 00:00 Glucose POC Glucose 149 H 74 117 H 05/29/23 05/29/23 05/29/23 05:15 05:20 11:24 Glucose 147 H POC Glucose 134 H 293 H OUTPATIENT ANTIDIABETIC REGIMEN: * n/a ASSESSMENT: 05/29: * BSGs in last 24 hours [phone] mg/dL * Patient extubated 05/27 afternoon, experiencing some delirium. Diet now ordered. * Received 10 units of lantus yesterday, fasting this AM 134 mg/dL, will continue same for now * Steroids are being tapered, received 40 mg IV solumedrol this AM, will begins 40 mg prednisone x 5 days tomorrow, then 20 mg prednisone x 5 days with a 5mg taper after that. Novolog parameters were loosened this morning- high lunch BSG, will monitor as it was also elevated yesterday then down trended. 05/25: * BSGs within goal the last 24h. Received 30 units of basal and 24 units of bolus insulin yesterday. * Remains intubated and requiring slight vasopressor support. Receiving Solu Medrol 80mg TID, as well as IV cefepime. Tube feeds initiated today ([facility]). * Lantus 20 units SQ X 1 this AM given BSGs down-trending and with several days of NPO status. Will add a scale for HS depending on BSG (coverage greater than 180mg/dL) given initiation of tube feeds. Novolog q4- no change to parameters, include coverage of feeds. 05/24: * 58 year old admitted with altered mental status and hypoxemic respiratory failure. Intubated on admission. High dose steroids started, solumedrol 125 mg iv tid. Pharmacy consulted for glycemic management. No outpatient DM medications, awaiting A1c. * BSGs this AM elevated >250 mg/dL - Received Lantus 20 units x 1 last evening * Continues on solumedrol this morning, 125 mg iv given this AM - will give Lantus 30 units x 1 now. Changed to Q4 hours checks and also tightened CF. * Steroids now decreasing to 80 mg iv TID starting this afternoon. Plan to have Lantus scale for HS time in case BSGs remain elevated PLAN FOR INPATIENT GLYCEMIC CONTROL: * Hold outpatient oral diabetes medications * Basal insulin * Lantus 10 units daily * Bolus insulin * NovoLog per scale ACHS or Q6hrs while NPO * Goal Range: Low 110 mg/dL - High 140 mg/dL * Correction Factor: 25 mg/dL/unit * Nutritional / Prandial insulin per carb ratio of 1 unit per 7 grams CHO consumed
--- NOTE | 2023-05-29 15:21 | Hospitalist Progress Note ---
Date of Service May 29, 2023 Assessment & Plan (1) Acute on chronic respiratory failure with hypoxia and hypercapnia: Plan: 58yo female with history of COPD presenting with respiratory failure with hypoxia and hypercarbia 1. Acute metabolic encephalopathy This was most likely related to her acute hypercapnic respiratory failure since it has improved significantly CT head showed a stroke, age indeterminate. An MRI can be done at a later time, on hold for now since she is clinically better. 2. Delirium Most likely hospital-acquired delirium or ICU delirium Off Precedex drip Has been taking off BiPAP mask as well as oxygen Desaturates when she removes oxygen 2. 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 On IV Solu-Medrol, reduced dose to 40 mg IV every 8 on 05/25. Has been switched to p.o. prednisone today 05/23 CT chest showed aspiration pneumonia for which she is now on IV cefepime since 05/25. Must have aspirated during hypersomnolent state. Plan to complete a 7- day course. Not spiking fevers Leukocytosis resolved Bronchoscopy performed 05/23 revealed eosinophilia in the bronchial washings. All cultures negative from 05/23 and from 05/26 3. Cor pulmonale/right heart failure Echocardiogram showed evidence of cor pulmonale Patient has elevated liver enzymes and lower extremity edema secondary to right heart failure Was diuresed with IV Lasix and IV Diamox in the last few days. Given a dose of Diamox 250 mg IV x 1 today Metabolic alkalosis 4. Elevated liver enzymes Due to shock liver from right heart failure Improving LFTs Hepatitis panel negative Elevated INR due to shock liver, improved Completed NAC protocol 5. Acute kidney injury Resolved with diuresis Metabolic alkalosis likely due to a combination of diuretic therapy and compensation of chronic respiratory acidosis. Given a dose of Diamox today. 6. Demand ischemia Likely due to severe hypoxia and respiratory failure Echo showed normal EF and no wall motion abnormalities 7. Thrombocytopenia New Improved No bleeding Monitor DVT prophylaxis: Lovenox Full code (2) Coronary artery disease: (3) Hyperlipidemia: (4) Abnormal LFTs: (5) Elevated troponin: Admission and Anticipated Discharge Date Admission Date: May 23, 2023 Subjective Patient has not been keeping BiPAP mask on. She has also removed oxygen. She desats when she does so. She remains confused and delirious Review of Systems Review of Systems: All systems reviewed & are unremarkable except as noted in Subjective Physical Exam Physical Exam: General: Awake, conversant. Heart: S1, S2/regular rate and rhythm, no murmur rubs or gallops Lungs: Diminished breath sounds bilaterally. Normal effort Abdomen: Soft/nontender/nondistended. No hepatosplenomegaly Extremities: No clubbing/cyanosis. Mild bilateral edema Behavior: Unable to assess Results & Data Results & Data Vital Signs (Past 12 Hours) Vital Signs Temp Pulse Pulse Resp BP Pulse Ox O2 Del Method 05/29/23 13:52 85 26 H 90 High Flow Nasal Cannula 05/29/23 12:30 36.9 C 86 19 05/29/23 12:24 101 H 22 92 Nasal Cannula 05/29/23 12:00 37.0 C 94 H 19 88 L 05/29/23 12:00 109/61 05/29/23 11:30 36.9 C 88 25 H 88 L 05/29/23 11:00 36.9 C 74 20 84 L 05/29/23 11:00 113/72 05/29/23 10:34 36.8 C 79 27 H 90 05/29/23 10:12 36.8 C 69 26 H 88 L 05/29/23 09:30 36.8 C 80 24 97 05/29/23 09:27 62 24 98 05/29/23 09:02 36.7 C 67 22 87 L 05/29/23 09:02 05/29/23 08:55 74 25 H 05/29/23 08:55 25 H BiPAP 05/29/23 08:30 36.7 C 75 23 86 L 05/29/23 08:00 86 05/29/23 08:00 High Flow Nasal Cannula 05/29/23 08:00 05/29/23 08:00 121/65 05/29/23 08:00 36.6 C 75 17 92 05/29/23 07:30 36.6 C 91 H 22 90 05/29/23 07:00 128/79 05/29/23 07:00 36.6 C 72 92 05/29/23 04:15 36.6 C 55 L 19 93 05/29/23 04:00 103/64 05/29/23 04:00 36.6 C 55 L 16 91 05/29/23 03:45 36.6 C 56 L 18 89 L 05/29/23 03:30 36.6 C 58 L 27 H 93 O2 Del Method O2 Flow Rate FiO2 05/29/23 13:52 30 100 05/29/23 12:30 05/29/23 12:24 15 05/29/23 12:00 05/29/23 12:00 05/29/23 11:30 05/29/23 11:00 05/29/23 11:00 05/29/23 10:34 05/29/23 10:12 05/29/23 09:30 05/29/23 09:27 60 05/29/23 09:02 05/29/23 09:02 100 05/29/23 08:55 100 05/29/23 08:55 100 05/29/23 08:30 05/29/23 08:00 05/29/23 08:00 15 05/29/23 08:00 High Flow Nasal Cannula 05/29/23 08:00 05/29/23 08:00 05/29/23 07:30 05/29/23 07:00 05/29/23 07:00 05/29/23 04:15 05/29/23 04:00 05/29/23 04:00 05/29/23 03:45 05/29/23 03:30 Laboratory Results Abnormal lab results 05/28/23 05/28/23 05/29/23 Range/Units 15:20 16:13 00:00 WBC (4.8-10.8) K/ul RBC (4.20-5.40) M/uL Hct (37.0-47.0) % MCHC (32.0-36.0) g/dL RDW Std Deviation (36.4-46.3) fL RDW Coeff of Macario (11.5-14.5) % Plt Count (130-400) K/uL Neut # (Auto) (1.40-6.50) K/uL Lymph # (Auto) (1.20-3.40) K/uL [place] # (Auto) (0.11-0.59) K/uL Chloride (98-107) mmol/L Carbon Dioxide (21-32) mmol/L Anion Gap (3-11) BUN (6-23) mg/dl BUN/Creatinine Ratio (10-20) Glucose (70-99(Fasting)) mg/dl POC Glucose 149 H 117 H (70-99) mg/dl Ur Leukocyte Esterase Trace H (Negative) Urine WBC (Auto) 10-30 H (0-5) /hpf Urine RBC (Auto) 10-30 H (0-4) /hpf U Epithel Cells (Auto) 20-30 H (0-5) /lpf 05/29/23 05/29/23 05/29/23 Range/Units 05:15 05:20 11:24 WBC 13.12 H (4.8-10.8) K/ul RBC 5.76 H (4.20-5.40) M/uL Hct 51.4 H (37.0-47.0) % MCHC 28.2 L (32.0-36.0) g/dL RDW Std Deviation 58.9 H (36.4-46.3) fL RDW Coeff of Macario 19.0 H (11.5-14.5) % Plt Count 98 L (130-400) K/uL Neut # (Auto) 11.82 H (1.40-6.50) K/uL Lymph # (Auto) 0.42 L (1.20-3.40) K/uL [place] # (Auto) 0.77 H (0.11-0.59) K/uL Chloride 94 L (98-107) mmol/L Carbon Dioxide 43 H* (21-32) mmol/L Anion Gap 2 L (3-11) BUN 38 H (6-23) mg/dl BUN/Creatinine Ratio 52.8 H (10-20) Glucose 147 H (70-99(Fasting)) mg/dl POC Glucose 134 H 293 H (70-99) mg/dl Ur Leukocyte Esterase (Negative) Urine WBC (Auto) (0-5) /hpf Urine RBC (Auto) (0-4) /hpf U Epithel Cells (Auto) (0-5) /lpf Diagnostic Findings Chest X-Ray 05/29/23 08:58 XR chest 1V portable CLINICAL HISTORY: f/u COMPARISON STUDY: Chest CT May 23, 2023. Chest radiograph May 28, 2023. FINDINGS: There is no pneumothorax. Dense left lower lung retrocardiac opacity with volume loss persists. There is a small left pleural effusion. Mild right basilar opacity is present. No evidence for pulmonary edema. Cardiomediastinal silhouette is stable. IMPRESSION: 1. Persistent dense left lower lung retrocardiac opacity with volume loss. This favors left lower lobe atelectasis, possibly on the basis of mucus plugging. Pneumonia could appear similar. 2. Small left pleural effusion. 3. Mild right basilar opacity. ACT 112: Negative or not required by law. Electronically signed by: Ryan Chase M.D. 05/29/2023 9:32 AM PG Care Time/CCT Total # of Minutes Spent Total Time Spent with Patient: Total time spent is greater than 50% in coordination of care (as documented) at patient's floor/unit and/or counseling patient: Coding Level of Care Code 61632 SUB INP/OBS CARE 2/35MIN Diagnoses Acute on chronic respiratory failure with hypoxia and hypercapnia J96.21; J96.22 Coronary artery disease I25.10 Hyperlipidemia E78.5 Abnormal LFTs R79.89 Elevated troponin R79.89
[2023-05-29] MEDS: PANTOprazole 40 MG TAB PO SCH (19:36)
[2023-05-30 04:35] LABS: BUN Creatinine Ratio 52.3 (10-20); Calcium 9.4 mg/dl (8.6-10.3); Creatinine Clr Calc Pharmacy 111.6 ml/min; Est GFR (African American) 114.2 ml/min; Est GFR (Non-African American) 98.6 ml/min; Magnesium 2.1 mg/dl (1.7-2.4); Phosphorus 1.7 mg/dl (2.5-4.9); Potassium 3.9 mmol/L (3.5-5.1)
[2023-05-30 04:40] LABS: Basophils # (auto) 0.02 K/uL (0.00-0.20); Basophils % (auto) 0.1 %; Eosinophils # (auto) 0.06 K/uL (0.00-0.50); Eosinophils % (auto) 0.4 %; Hematocrit (blood only) 47.1 % (37.0-47.0); Hemoglobin 14.3 g/dl (12.0-16.0); Immature Granulocytes # (auto) 0.06 K/uL (0.01-0.20); Immature Granulocytes % (auto) 0.4 %; Lymphocytes # (auto) 0.74 K/uL (1.20-3.40); Lymphocytes % (auto) 5.1 %; Mean Corpuscular Hemoglobin 25.8 pg (25.0-34.0); Mean Corpuscular Hgb Conc 30.4 g/dL (32.0-36.0); Mean Corpuscular Volume 84.9 fL (80.0-100.0); Monocytes # (auto) 1.14 K/uL (0.11-0.59); Monocytes % (auto) 7.9 %; Neutrophils # (auto) 12.44 K/uL (1.40-6.50); Neutrophils % (auto) 86.1 %; Platelet Count 100 K/uL (130-400); RDW Coefficient of Variation 18.8 % (11.5-14.5); RDW Standard Deviation 57.1 fL (36.4-46.3); Red Blood Count 5.55 M/uL (4.20-5.40); White Blood Count 14.46 K/ul (4.8-10.8)
[2023-05-30] MEDS ORDERED: POTASSIUM PHOS 3 MMOL/1 ML INFUSION IV STA (06:38)
[2023-05-30] MEDS: POTASSIUM PHOSPHATE 15 MMOL in SODIUM CHLORIDE 0.9% 250 ML IV ONE (07:05)
--- NOTE | 2023-05-30 07:27 | Critical Care Progress Note ---
Date of Service May 30, 2023 Assessment & Plan (1) Status asthmaticus with COPD (chronic obstructive pulmonary disease): (2) Acute CHF (congestive heart failure): (3) Acute encephalopathy: (4) Transaminitis: (5) Coronary artery disease: (6) Elevated troponin: (7) Endotracheally intubated: (8) RVF (right ventricular failure): (9) Aspiration pneumonia: Plan 58-year-old female with a past medical history of coronary artery disease, COPD, asthma and obesity who presented to the hospital due to altered mental status and hypoxemic respiratory failure. Neurologic: -- Metabolic encephalopathy --> improved Secondary to hypercapnic respiratory failure CT head did not show any new stroke, history of old stroke --Bouts of delirium On Precedex as needed Pulmonary: --S/p VDRF Extubated 05/27/2023 -- COPD-asthma overlap syndrome Acute exacerbation On steroids and bronchodilators --Eosinophilic BAL --> improved on repeat bronchoscopy 05/27/2023 Continue with steroids She will most likely need prolonged taper Bronchoscopy performed 05/23/2023 revealed 89% eosinophilia from the bronchial washings consistent with asthma. --> Repeat BAL 05/27/2023 showed significant decrease in the number of eosinophils Such findings can also be seen in acute eosinophilic pneumonia, but CT chest findings are not compatible with that at this time. CT chest was negative for PE. Cardiovascular: -- Cor pulmonale Continue with diuresis Echocardiogram with evidence of cor pulmonale which is likely contributing significantly to her hypoxemia. --S/p shock Gastrointestinal: -- Transaminitis --> improving Likely secondary to cor pulmonale S/p NAC protocol Continue to monitor Hepatitis profile negative Renal: -- S/p EH Likely secondary to cardiorenal failure Avoid nephrotoxic medication Monitor BUNs/creatinine --Metabolic alkalosis Likely compensation to chronic respiratory acidosis as well as diuretics Patient got acetazolamide x 3 Continue to monitor Infectious disease: -- Aspiration pneumonia Nasal MRSA negative Bronc cultures negative to date Meropenem was changed to cefepime 05/25/2023--> will complete the course for total of 5-7 days Repeat blood culture negative to date Hematologic: -- New onset thrombocytopenia Monitor for signs of bleeding Continue to monitor -- Coagulopathy INR 1.6, secondary to liver failure. Endocrine: ICU hypoglycemia protocol --Prophylaxis VTE: Lovenox GI: Pantoprazole daily Lines: Peripheral Diet: Cardiac Plan: In/out: -1250, urine output 1250 Chest x-ray from today shows small bilateral pleural effusion, it is poor inspiratory effort. Will give acetazolamide 250 mg now followed by Flor later in the afternoon. Will see how the course is when it comes to her oxygen requirement. She is not in labored breathing, I do not think there is an absolute indication for indication right now, but if she refuses BiPAP then he might be headed that way Potassium and magnesium being replaced Please note the above document was generated using voice recognition software. It may contain grammatical, syntax or spelling errors.Any formal questions or concerns about the content, text or information contained within the body of this dictation should be directly addressed to the provider for clarification. Admission and Anticipated Discharge Date Admission Date: May 23, 2023 Subjective Patient seen and examined at bedside. No acute distress. Overnight patient unfortunately did not use her BiPAP She was saturating 89-90% on 40 L, 100% high flow I tried to explain to her the importance of BiPAP but she refused Denies any chest pain, no headache, no nausea, no vomiting Review of Systems 2 Review of Systems: All systems reviewed & are unremarkable except as noted in Subjective Physical Exam 2 Physical Exam: Constitutional: No acute distress HEENT: EOMI, PERRLA Respiratory system: Decreased air entry bilaterally, mild rhonchi, mild crackles bilateral lower lobes, no wheeze CVS: S1-S2 positive, no murmurs or gallops Abdomen: Soft, nontender, nondistended, positive bowel sounds x4 Extremities: +2 pulses bilaterally radialis/ dorsalis pedis, no cyanosis, +2 pitting edema bilateral lower extremity Neuro: Awake alert oriented to self and place Psych: Normal mood and affect G/U: Positive Coe Skin: no rashes, warm and dry Lymphatic: no cervical or axillary lymphadenopathy Results & Data Results & Data Vital Signs (Past 12 Hours) Vital Signs Temp Pulse Pulse Resp BP Pulse Ox O2 Del Method 05/30/23 04:15 76 18 92 High Flow Nasal Cannula 05/30/23 02:52 36.9 C 05/30/23 02:45 80 18 92 05/30/23 02:30 93 H 18 90 05/30/23 02:15 69 17 89 L 05/30/23 02:00 93 H 28 H 83 L 05/30/23 01:45 86 23 88 L 05/30/23 01:30 66 21 92 05/30/23 01:15 60 20 91 05/30/23 01:01 67 20 91 05/30/23 01:01 98/69 L 05/30/23 01:00 68 21 92 05/30/23 00:45 70 20 92 05/30/23 00:30 85 16 91 05/30/23 00:15 77 19 91 05/30/23 00:00 84 15 87 L 05/29/23 23:45 86 24 89 L 05/29/23 23:30 83 23 90 05/29/23 23:15 67 18 91 05/29/23 23:05 68 18 91 High Flow Nasal Cannula 05/29/23 23:00 119/76 05/29/23 23:00 82 13 91 05/29/23 22:45 73 22 90 05/29/23 22:30 83 19 88 L 05/29/23 22:15 72 20 90 05/29/23 22:02 78 19 89 L 05/29/23 22:02 128/75 05/29/23 22:00 83 20 92 05/29/23 21:45 80 23 90 05/29/23 21:30 70 18 91 05/29/23 21:15 78 19 91 05/29/23 21:02 82 14 89 L 05/29/23 21:02 120/68 05/29/23 21:00 37 C 05/29/23 21:00 90 18 88 L 05/29/23 20:45 86 20 91 05/29/23 20:30 77 20 92 05/29/23 20:15 87 25 H 95 05/29/23 20:00 80 15 95 05/29/23 20:00 124/61 05/29/23 20:00 76 18 92 High Flow Nasal Cannula 05/29/23 20:00 76 18 92 High Flow Nasal Cannula 05/29/23 20:00 High Flow Nasal Cannula 05/29/23 19:45 66 26 H 93 05/29/23 19:30 71 17 93 O2 Flow Rate FiO2 05/30/23 04:15 30 100 05/30/23 02:52 05/30/23 02:45 05/30/23 02:30 05/30/23 02:15 05/30/23 02:00 05/30/23 01:45 05/30/23 01:30 05/30/23 01:15 05/30/23 01:01 05/30/23 01:01 05/30/23 01:00 05/30/23 00:45 05/30/23 00:30 05/30/23 00:15 05/30/23 00:00 05/29/23 23:45 05/29/23 23:30 05/29/23 23:15 05/29/23 23:05 30 100 05/29/23 23:00 05/29/23 23:00 05/29/23 22:45 05/29/23 22:30 05/29/23 22:15 05/29/23 22:02 05/29/23 22:02 05/29/23 22:00 05/29/23 21:45 05/29/23 21:30 05/29/23 21:15 05/29/23 21:02 05/29/23 21:02 05/29/23 21:00 05/29/23 21:00 05/29/23 20:45 05/29/23 20:30 05/29/23 20:15 05/29/23 20:00 05/29/23 20:00 05/29/23 20:00 30 100 05/29/23 20:00 30 100 05/29/23 20:00 30 100 05/29/23 19:45 05/29/23 19:30 Laboratory Results 05/30/23 03:57 05/30/23 03:57 Coding Level of Care Code 39279 SUB INP/OBS CARE 3/50MIN Diagnoses Status asthmaticus with COPD (chronic obstructive pulmonary disease) J44.89; J45.902 Acute CHF (congestive heart failure) I50.9 Acute encephalopathy G93.40 Transaminitis R74.01 Coronary artery disease I25.10 Elevated troponin R79.89 Endotracheally intubated Z97.8 RVF (right ventricular failure) I50.810 Aspiration pneumonia J69.0
[2023-05-30] MEDS: LANTUS PER UNIT CHARGE SC SCH (08:21)
[2023-05-30] MEDS: acetaZOLAMIDE 250 MG in SYRINGE 0 ML IV STA (08:21)
[2023-05-30] MEDS: PANTOprazole 40 MG TAB PO SCH (08:24)
[2023-05-30] MEDS: predniSONE 20 MG TAB PO SCH (08:25)
[2023-05-30] MEDS ORDERED: Nursing to Pharmacy Communication SCH ×4 (08:45→16:15)
[2023-05-30] MEDS: CEROVITE ADV FORMULA TAB PO SCH (10:06)
[2023-05-30] MEDS: FUROSEMIDE INJ 20 MG/2 ML VIAL IV ONE (12:15)
[2023-05-30] MEDS ORDERED: STAT IV Infusion **Titration per Protocol STA ×4 (12:22→14:47)
--- NOTE | 2023-05-30 12:29 | Hospitalist Progress Note ---
Date of Service May 30, 2023 Assessment & Plan (1) Acute on chronic respiratory failure with hypoxia and hypercapnia: Plan: 58yo female with history of COPD presenting with respiratory failure with hypoxia and hypercarbia 1. Acute metabolic encephalopathy This was most likely related to her acute hypercapnic respiratory failure since it has improved significantly CT head showed a stroke, age indeterminate. An MRI can be done at a later time, on hold for now since she is clinically better. 2. Delirium Most likely hospital-acquired delirium or ICU delirium Off Precedex drip Had been taking off BiPAP mask as well as oxygen but now has been keeping the o xygen on overnight. Desaturates when she removes oxygen 2. 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 On IV Solu-Medrol, reduced dose to 40 mg IV every 8 on 05/25. Has been switched to p.o. prednisone today 05/23 CT chest showed aspiration pneumonia for which she is now on IV cefepime since 05/25. Must have aspirated during hypersomnolent state. Plan to complete a 7- day course. Not spiking fevers Leukocytosis resolved Bronchoscopy performed 05/23 revealed eosinophilia in the bronchial washings. All cultures negative from 05/23 and from 05/26 05/30: Still needing high oxygen on 05/30 Chest x-ray showed bilateral pleural effusion Being diuresed 3. Cor pulmonale/right heart failure Echocardiogram showed evidence of cor pulmonale Patient has elevated liver enzymes and lower extremity edema secondary to right heart failure Was diuresed with IV Lasix and IV Diamox in the last few days. Given a dose of Diamox 250 mg IV x 1 today. Will be given a dose of Lasix as well Metabolic alkalosis 4. Elevated liver enzymes Due to shock liver from right heart failure Improving LFTs Hepatitis panel negative Elevated INR due to shock liver, improved Completed NAC protocol 5. Acute kidney injury Resolved with diuresis Metabolic alkalosis likely due to a combination of diuretic therapy and compensation of chronic respiratory acidosis. Given a dose of Diamox today. 6. Demand ischemia Likely due to severe hypoxia and respiratory failure Echo showed normal EF and no wall motion abnormalities 7. Thrombocytopenia New Improved No bleeding Monitor DVT prophylaxis: Lovenox Full code (2) Coronary artery disease: (3) Hyperlipidemia: (4) Abnormal LFTs: (5) Elevated troponin: Admission and Anticipated Discharge Date Admission Date: May 23, 2023 Subjective Patient is awake but still confused. She is keeping her oxygen on. She is still requiring high flow nasal cannula. Review of Systems Review of Systems: All systems reviewed & are unremarkable except as noted in Subjective Physical Exam Physical Exam: General: Awake, conversant. Confused pleasantly Heart: S1, S2/regular rate and rhythm, no murmur rubs or gallops Lungs: Diminished breath sounds bilaterally. Normal effort Abdomen: Soft/nontender/nondistended. No hepatosplenomegaly Extremities: No clubbing/cyanosis. Mild bilateral edema Behavior: Unable to assess Results & Data Results & Data Vital Signs (Past 12 Hours) Vital Signs Temp Pulse Pulse Resp BP Pulse Ox O2 Del Method 05/30/23 12:24 87 26 H High Flow Nasal Cannula 05/30/23 11:51 80 31 H BiPAP 05/30/23 11:42 87 26 H 87 L 05/30/23 10:48 85 20 88 L High Flow Nasal Cannula 05/30/23 08:00 67 05/30/23 08:00 67 05/30/23 08:00 High Flow Nasal Cannula 05/30/23 07:32 81 20 86 L High Flow Nasal Cannula 05/30/23 07:30 80 22 86 L 05/30/23 04:15 76 18 92 High Flow Nasal Cannula 05/30/23 02:52 36.9 C 05/30/23 02:45 80 18 92 05/30/23 02:30 93 H 18 90 05/30/23 02:15 69 17 89 L 05/30/23 02:00 93 H 28 H 83 L 05/30/23 01:45 86 23 88 L 05/30/23 01:30 66 21 92 05/30/23 01:15 60 20 91 05/30/23 01:01 67 20 91 05/30/23 01:01 98/69 L 05/30/23 01:00 68 21 92 05/30/23 00:45 70 20 92 05/30/23 00:30 85 16 91 O2 Flow Rate FiO2 05/30/23 12:24 60 100 05/30/23 11:51 100 05/30/23 11:42 100 05/30/23 10:48 40 100 05/30/23 08:00 05/30/23 08:00 05/30/23 08:00 40 100 05/30/23 07:32 40 100 05/30/23 07:30 40 100 05/30/23 04:15 30 100 05/30/23 02:52 05/30/23 02:45 05/30/23 02:30 05/30/23 02:15 05/30/23 02:00 05/30/23 01:45 05/30/23 01:30 05/30/23 01:15 05/30/23 01:01 05/30/23 01:01 05/30/23 01:00 05/30/23 00:45 05/30/23 00:30 Laboratory Results Abnormal lab results 05/29/23 05/29/23 05/30/23 Range/Units 16:19 20:31 03:57 WBC 14.46 H (4.8-10.8) K/ul RBC 5.55 H (4.20-5.40) M/uL Hct 47.1 H (37.0-47.0) % MCHC 30.4 L (32.0-36.0) g/dL RDW Std Deviation 57.1 H (36.4-46.3) fL RDW Coeff of Macario 18.8 H (11.5-14.5) % Plt Count 100 L (130-400) K/uL Neut # (Auto) 12.44 H (1.40-6.50) K/uL Lymph # (Auto) 0.74 L (1.20-3.40) K/uL [place] # (Auto) 1.14 H (0.11-0.59) K/uL Chloride 95 L (98-107) mmol/L Carbon Dioxide 40 H (21-32) mmol/L BUN 34 H (6-23) mg/dl BUN/Creatinine Ratio 52.3 H (10-20) Glucose 120 H (70-99(Fasting)) mg/dl POC Glucose 110 H 110 H (70-99) mg/dl Phosphorus 1.7 L (2.5-4.9) mg/dl 05/30/23 Range/Units 12:02 WBC (4.8-10.8) K/ul RBC (4.20-5.40) M/uL Hct (37.0-47.0) % MCHC (32.0-36.0) g/dL RDW Std Deviation (36.4-46.3) fL RDW Coeff of Macario (11.5-14.5) % Plt Count (130-400) K/uL Neut # (Auto) (1.40-6.50) K/uL Lymph # (Auto) (1.20-3.40) K/uL [place] # (Auto) (0.11-0.59) K/uL Chloride (98-107) mmol/L Carbon Dioxide (21-32) mmol/L BUN (6-23) mg/dl BUN/Creatinine Ratio (10-20) Glucose (70-99(Fasting)) mg/dl POC Glucose 186 H (70-99) mg/dl Phosphorus (2.5-4.9) mg/dl PG Care Time/CCT Total # of Minutes Spent Total Time Spent with Patient: Total time spent is greater than 50% in coordination of care (as documented) at patient's floor/unit and/or counseling patient: Coding Level of Care Code 62414 SUB INP/OBS CARE 2/35MIN Diagnoses Acute on chronic respiratory failure with hypoxia and hypercapnia J96.21; J96.22 Coronary artery disease I25.10 Hyperlipidemia E78.5 Abnormal LFTs R79.89 Elevated troponin R79.89
[2023-05-30] MEDS: MIDAZOLAM HCL 1 MG/ML 2ML VIAL IM STA (12:42)
[2023-05-30] MEDS: dexMEDEtomidine 200 MCG/50 ML BAG IV SCH (12:46)
[2023-05-30] MEDS ORDERED: ETOMIDATE 2 MG/ML 20 ML VIAL IV ONE (12:50)
[2023-05-30] MEDS ORDERED: LIDOCAINE 2% 20 MG/ML 5 ML SYR IV ONE (12:50)
[2023-05-30] MEDS ORDERED: ROCURONIUM BROMIDE 10 MG/ML 5 ML VIAL IV ONE (12:50)
[2023-05-30] MEDS ORDERED: PROPOFOL BOLUS FROM BAG IV PRN ×2 (13:10→14:22)
--- NOTE | 2023-05-30 13:16 | XRay Report ---
XR chest 1V portable CLINICAL HISTORY: Resp failure TECHNIQUE: Single frontal radiograph of the chest was obtained. Comparison: Comparison is made to chest radiograph 05/29/2023 FINDINGS: Exam is limited by underpenetration. The cardiomediastinal silhouette is normal. The lungs are clear. Small bilateral pleural effusions are seen. IMPRESSION: Small bilateral pleural effusions. ACT 112: Negative or not required by law. Electronically signed by: Evangelist Reynoso M.D. 05/30/2023 1:15 PM
--- NOTE | 2023-05-30 13:16 | Procedure Note ---
Procedure Note Date of Service May 30, 2023 Note INTUBATION PROCEDURE NOTE: Attending: Dr Clayton Levin MD Patient was evaluated and plan to intubate was made for respiratory hypoxic failure. Sedative agent used: 2 mg of midazolam, 100 mg of lidocaine Paralysis agent used: 20 mg etomidate, 40 mg rocuronium Emergent consent was implied given patients rapidly declining clinical status and need for airway protection. The patient was prepared in the appropriate fashion. The patient was easily pre-oxygenated by using [id number] ventilation. With help of CMAC grade 2 vocal cords were visualized and 7.5 [place] ETT was introduced on first attempt to 23 cm at the lip. The stylette was removed and balloon was inflated with 10mL of air. Appropriate Colorimetric change was appreciated for at least 10 breaths. Bilateral chest rise and breath sounds were appreciated without air sounds in the epigastrium. Patient tolerated the procedure well and there were no immediate complications. Chest Xray to follow for confirming placement. Coding CPT Codes Resuscitation - Resuscitation: 60632 Endotracheal Intubation, emergency ([id number]) [facility] Procedure Codes (Charges) Resuscitation Resuscitation: 05709 Endotracheal Intubation, emergency
--- NOTE | 2023-05-30 13:17 | Communication Note ---
Date of Service: May 30, 2023 Critical care addendum: Was called to evaluate the patient as she was refusing high flow as well as BiPAP and was only willing to use oxy mask Her saturation on 60 L, 100% FiO2 was 86%. I did come down and speak with the patient personally and explained the importance of using BiPAP but she refused Incidentally patient's partner also walked into the room. Report tried to persuade the patient to use it but she was refusing. I did speak with patient's partner who is HIPAA as well as decision maker for the patient, went over the possibilities if the patient continues to refuse BiPAP. Patient's partner wanted everything to be done which includes reintubation if need be. Given the patient was not letting any medical measures by the nurses are needed. She was given 2 mg of midazolam IM and she was started on Precedex to calm her down. When she was aware of it, she was put on BiPAP and intubated. Chest x-ray did not show any signs of pneumothorax OGT as well as ETT were in good position. Patient does have small bilateral pleural effusion. The increasing requirement of patient's oxygen could be from underlying pulmonary hypertension, she has been on Lovenox since she is admitted, possibility of blood clot/PE is low. I will order Doppler bilateral lower extremity to rule out DVT if they are positive then will not do CTA but if they are negative then CTA chest will be pursued I discussed everything with patient's brother as well as patient's partner. All questions and inquiries were answered in depth I have personally spent 48 minutes of critical care time in the direct management of this patient. This is a life/limb threatening event. This includes time spent evaluating patient, direct bedside care, chart review, placing orders, interpretation of diagnostic studies, discussion with consultants, patient, and family members, as well as other required patient management activities. This time is exclusive of all separately billable procedures, and teaching time and separate from and in addition to any other critical care service time. Please note the above document was generated using voice recognition software. It may contain grammatical, syntax or spelling errors. Coding Level of Care Code 45472 CRITICAL CARE 1ST 30-74M
[2023-05-30] MEDS: RAPID SEQUENCE INDUCTION BAG ONE (14:03)
[2023-05-30] MEDS: MIDAZOLAM HCL 1 MG/ML 2ML VIAL ONE (14:03)
[2023-05-30] MEDS: fentaNYL citrate 2,500 MCG/250 ML BAG IV ONE (14:05)
[2023-05-30] MEDS: PROPOFOL IV EMULSION 10 MG/ML 100 ML VIAL IV ONE (14:05)
--- NOTE | 2023-05-30 14:05 | XRay Report ---
XR chest 1V portable CLINICAL HISTORY: Intubation TECHNIQUE: Single frontal radiograph of the chest was obtained. Comparison: Comparison is made to chest radiograph 05/30/2023 FINDINGS: Endotracheal tube terminates 36 mm from the chris. Enteric tube tip and side-port lie below the diap hragm. Cardiomegaly is noted. The lungs are clear. Small bilateral pleural effusions are seen. IMPRESSION: Small bilateral pleural effusions. ACT 112: Negative or not required by law. Electronically signed by: Evangelist Reynoso M.D. 05/30/2023 2:03 PM
[2023-05-30] MEDS: propofoL 1,000 MG/100 ML VIAL IV SCH (14:06)
[2023-05-30 14:09] LABS: iSTAT Allen Test Pass; iSTAT Art Bld Gas pCO2 Correct 64 mmHg (35-46); iSTAT Art Bld Gas pH Corrected 7.399 (7.35-7.45); iSTAT Arterial Blood Gas HCO3 39 meg/L (19-24); iSTAT Arterial Blood Gas pCO2 64 mmHg (35-46); iSTAT Arterial Blood Gas pO2 40 mmHg (80-95); iSTAT Arterial Blood Gas pO2 C 39; iSTAT Carbon Dioxide > 40 mmol/L (24-31); iSTAT FiO2 100 %; iSTAT Hematocrit 52 % (37-47); iSTAT Hemoglobin 17.7 g/dl (12.0-16.0); iSTAT Potassium 3.9 mmol/L (3.3-5.0); iSTAT Site R Radial; iSTAT Sodium 136 mmol/L (135-144)
[2023-05-30] MEDS ORDERED: fentaNYL BOLUS from BAG IV PRN (14:22)
[2023-05-30] MEDS ORDERED: propofoL 1,000 MG/100 ML VIAL IV SCH (14:30)
[2023-05-30] MEDS: fentaNYL citrate 2,500 MCG/250 ML BAG IV SCH ×2 (14:48→15:14)
[2023-05-30] MEDS: NOREPINEPHRINE/D5W 4 MG/250 ML IV ONE (14:48)
[2023-05-30] MEDS: NOREPINEPHRINE/D5W 4 MG/250 ML PLCT IV SCH (15:07)
[2023-05-30] MEDS: ATROPINE SULFATE 0.1 MG/ML 10ML SYR IV ONE (15:11)
[2023-05-30] MEDS ORDERED: ENOXAPARIN 1 MG/KG SQ SCH (15:15)
[2023-05-30] MEDS: STAT IV Infusion **Titration per Protocol STA (15:17)
--- NOTE | 2023-05-30 15:30 | Ultrasound Report ---
BILATERAL LOWER EXTREMITY VENOUS DOPPLER HISTORY: Lower extremity swelling. r/o DVT, B/l COMPARISON STUDY: None. FINDINGS: There is normal compressibility, flow, and augmentation within the bilateral lower extremit y deep venous systems. IMPRESSION: No DVT within the right or left lower extremity. ACT 112: Negative or not required by law. Electronically signed by: Chris Winter M.D. 05/30/2023 3:29 PM
[2023-05-30] MEDS: INSULIN ASPART PER UNIT CHARGE SC SCH (17:54)
[2023-05-30] MEDS: FUROSEMIDE 40 MG/4 ML VIAL IV ONE (17:54)
[2023-05-30] MEDS: OPTIRAY 320 125ml IV ONE (19:46)
--- NOTE | 2023-05-30 20:13 | CT Scan Report ---
CHEST CTA for PULMONARY ARTERIES CT DOSE: 1243.04 mGy.cm HISTORY: Intubation. Shortness of breath. PE TECHNIQUE: Multiaxial CT images of the chest were performed following the intravenous administration of contrast to evaluate the pulmonary arteries. 3D/Maximal intensity projection images were also obta ined. Sagittal and coronal reformations were also reviewed. A dose lowering technique was utilized a dhering to the principles of ALARA. COMPARISON STUDY: Chest x-ray 05/30/2023. Chest CTA 05/23/2023. FINDINGS: There is an old mild inferior endplate compression deformity at T11, unchanged. No acute fr actures within the chest. The nasogastric tube extends into the stomach. The tip is not included on t his study. Endotracheal tube terminates approximately 1 cm from the chris. No pneumothorax. Emphysem a again noted. Complete mucoid opacification of the bilateral lower lobe bronchi which has progressed in the interval. Remaining central airways are patent. There are small bilateral pleural effusions. Complete consolidation of the left lower lobe with consolidation involving the majority of the right lower lobe. This could be due to a combination of compressive atelectasis from the bilateral pleural effusions and a pneumonia possibly secondary to aspiration. This has progressed in the interval. Ther e is a new small patchy airspace opacity within the right upper lobe medially. No evidence for pulmon rosangela edema. Limited views the upper abdomen demonstrate a normal liver and spleen. Prior cholecystecto my. Bilateral adrenal gland hypodense nodules/masses again noted. Trace ascites within the upper abdo men. Persistent body wall edema. No mediastinal or hilar lymphadenopathy. Moderate coronary artery ca lcifications. No pericardial effusion. The heart is normal in size. Normal caliber thoracic aorta wit h no evidence for a dissection. There is a single filling defect within a subsegmental branch of the left upper lobe pulmonary artery within the left lung apex on image 196. This is new compared to the prior study and is consistent with acute pulmonary embolus. The remaining pulmonary arteries are goldberg nt. The patient's right lower lobe pulmonary nodule seen on the prior study is not identified on this study due to the right lower lobe consolidation. IMPRESSION: 1. A single new subsegmental pulmonary embolus within the left upper lobe. Otherwise, the central pul monary arteries are patent. 2. Endotracheal tube terminates 1 cm from the chris. This could be pulled back by approximately 1 cm . 3. Emphysema. 4. Complete opacification of the bilateral lower lobe bronchi which has progressed in the interval. 5. Complete consolidation within the left lower lobe with consolidation involving the majority of the right lower lobe. This could be due to a combination of compressive atelectasis from the bilateral p leural effusions and a pneumonia, possibly secondary to aspiration. This has progressed in the interv al. 6. Small bilateral pleural effusions have progressed. 7. Additional findings as described above. ACT 112: Negative or not required by law. Electronically signed by: Chris Winter M.D. 05/30/2023 8:11 PM
[2023-05-30] MEDS ORDERED: Heparin IV Adult Wt-Based Standard w/ INITIAL Bolus Protocol IV SCH (21:05)
[2023-05-30] MEDS: HEPARIN SOD (PORCINE) 1000 UNIT/ML IV ONE (21:41)
[2023-05-30] MEDS: HEPARIN SODIUM/DEXTROSE 25,000 UNITS/500 ML BAG IV SCH (21:42)
[2023-05-30 22:15] LABS: Basophils # (auto) 0.03 K/uL (0.00-0.20); Basophils % (auto) 0.1 %; Eosinophils # (auto) 0.01 K/uL (0.00-0.50); Hematocrit (blood only) 51.3 % (37.0-47.0); Hemoglobin 15.3 g/dl (12.0-16.0); Immature Granulocytes # (auto) 0.18 K/uL (0.01-0.20); Immature Granulocytes % (auto) 0.8 %; Lymphocytes # (auto) 0.76 K/uL (1.20-3.40); Lymphocytes % (auto) 3.2 %; Mean Corpuscular Hgb Conc 29.8 g/dL (32.0-36.0); Mean Corpuscular Volume 83.8 fL (80.0-100.0); Monocytes # (auto) 1.79 K/uL (0.11-0.59); Monocytes % (auto) 7.6 %; Neutrophils # (auto) 20.88 K/uL (1.40-6.50); Neutrophils % (auto) 88.3 %; Platelet Count 129 K/uL (130-400); RDW Coefficient of Variation 19.8 % (11.5-14.5); RDW Standard Deviation 56.8 fL (36.4-46.3); Red Blood Count 6.12 M/uL (4.20-5.40); White Blood Count 23.65 K/ul (4.8-10.8)
[2023-05-30 22:19] LABS: INR 1.2 (0.9-1.1); Partial Thromboplastin Ratio 0.9; Partial Thromboplastin Time 24 Seconds (21-31); Prothrombin Time 12.9 Seconds (9.0-12.0)
[2023-05-31] MEDS ORDERED: STAT IV Infusion **Titration per Protocol STA ×2 (03:39→12:21)
[2023-05-31] MEDS: dexMEDEtomidine 200 MCG/50 ML BAG IV SCH (03:56)
[2023-05-31 04:01] LABS: iSTAT Allen Test Pass; iSTAT Art Bld Gas pCO2 Correct 57 mmHg (35-46); iSTAT Art Bld Gas pH Corrected 7.413 (7.35-7.45); iSTAT Arterial Blood Gas HCO3 36 meg/L (19-24); iSTAT Arterial Blood Gas pCO2 56 mmHg (35-46); iSTAT Arterial Blood Gas pH 7.42 (7.35-7.45); iSTAT Arterial Blood Gas pO2 50 mmHg (80-95); iSTAT Arterial Blood Gas pO2 C 52; iSTAT Carbon Dioxide 38 mmol/L (24-31); iSTAT FiO2 100 %; iSTAT Hematocrit 53 % (37-47); iSTAT Potassium 3.7 mmol/L (3.3-5.0); iSTAT Site R Radial; iSTAT Sodium 135 mmol/L (135-144)
[2023-05-31 04:47] LABS: BUN Creatinine Ratio 45.6 (10-20); Calcium 9.4 mg/dl (8.6-10.3); Est GFR (African American) 112.5 ml/min; Est GFR (Non-African American) 97.1 ml/min; Phosphorus 2.5 mg/dl (2.5-4.9); Potassium 3.7 mmol/L (3.5-5.1)
[2023-05-31 04:56] LABS: Anisocytosis Present; Basophils # (auto) 0.03 K/uL (0.00-0.20); Basophils % (auto) 0.1 %; Eosinophils # (auto) 0.03 K/uL (0.00-0.50); Eosinophils % (auto) 0.1 %; Hematocrit (blood only) 51.7 % (37.0-47.0); Hemoglobin 15.3 g/dl (12.0-16.0); Immature Granulocytes # (auto) 0.21 K/uL (0.01-0.20); Immature Granulocytes % (auto) 0.9 %; Lymphocytes # (auto) 1.03 K/uL (1.20-3.40); Lymphocytes % (auto) 4.7 %; Mean Corpuscular Hgb Conc 29.6 g/dL (32.0-36.0); Mean Corpuscular Volume 84.6 fL (80.0-100.0); Monocytes # (auto) 1.68 K/uL (0.11-0.59); Monocytes % (auto) 7.6 %; Neutrophils # (auto) 19.17 K/uL (1.40-6.50); Neutrophils % (auto) 86.6 %; Platelet Count 122 K/uL (130-400); Polychromasia 1+; RDW Coefficient of Variation 20.2 % (11.5-14.5); RDW Standard Deviation 57.6 fL (36.4-46.3); Red Blood Count 6.11 M/uL (4.20-5.40); White Blood Count 22.15 K/ul (4.8-10.8)
[2023-05-31 05:31] LABS: ANTI-Xa, UFH(UnfractionatedHep 1.21 IU/ml (0.3-0.7)
[2023-05-31] MEDS: POTASSIUM CHLORIDE / WTR 10 MEQ/100 ML PLCT IV SCH (06:15)
[2023-05-31 08:05] LABS: ANTI-Xa, UFH(UnfractionatedHep 0.35 IU/ml (0.3-0.7)
[2023-05-31] MEDS: LANTUS PER UNIT CHARGE SC SCH (09:23)
--- NOTE | 2023-05-31 10:49 | XCELERA ---
[id number]
--- NOTE | 2023-05-31 11:06 | Critical Care Progress Note ---
Date of Service May 31, 2023 Assessment & Plan (1) Status asthmaticus with COPD (chronic obstructive pulmonary disease): (2) Acute CHF (congestive heart failure): (3) Acute encephalopathy: (4) Transaminitis: (5) Coronary artery disease: (6) Elevated troponin: (7) Endotracheally intubated: (8) RVF (right ventricular failure): (9) Aspiration pneumonia: Plan 58-year-old female with a past medical history of coronary artery disease, COPD, asthma and obesity who presented to the hospital due to altered mental status and hypoxemic respiratory failure. Neurologic: -- Metabolic encephalopathy --> improved Secondary to hypercapnic respiratory failure CT head did not show any new stroke, history of old stroke Pulmonary: --S/p VDRF Extubated 05/27/2023. Reintubated 05/30/2023. -- COPD-asthma overlap syndrome Acute exacerbation On steroids and bronchodilators --Eosinophilic BAL --> improved on repeat bronchoscopy 05/27/2023 Decrease prednisone to 30 mg daily and likely continue drop to 20 mg daily after a couple days. She will most likely need prolonged taper Bronchoscopy performed 05/23/2023 revealed 89% eosinophilia from the bronchial washings consistent with asthma. --> Repeat BAL 05/27/2023 showed significant decrease in the number of eosinophils Such findings can also be seen in acute eosinophilic pneumonia, but CT chest findings are not compatible with that at this time. CT chest was negative for PE. CT chest yesterday with evidence of small subsegmental left upper lobe PE. Likely minimally contributing to hypoxia. She has bibasilar atelectasis with small pleural effusions. Suspect intrapulmonary shunt resulting in severe hypoxemia. Will strongly consider proning the patient given bibasilar atelectasis to help VQ matching. Limit PEEP given RV dysfunction Cardiovascular: -- Cor pulmonale Patient also has evidence of PFO. Will ask cardiology input and consider placement of PA catheter for monitoring of wedge pressures and PVR. May also be beneficial to help determine shunt fraction. The patient was substantially elevated PVR normal wedge pressures, may need transfer to tertiary center for IV prostanoid therapy --S/p shock --On Plavix for history of drug-eluting stent in 2021. Cardiology consulted for consideration of left heart cath and right heart cath. --Maintain MAP above 65 mmHg with Levophed infusion. May need central access and arterial line if pressor requirement escalates. Will hold on diuresis at this time given the patient is borderline hypotensive. --Patient had significant troponin leak earlier this admission. Will repeat troponins today. Gastrointestinal: -- Transaminitis --> improving Likely secondary to cor pulmonale S/p NAC protocol Continue to monitor Hepatitis profile negative Renal: -- S/p EH Likely secondary to cardiorenal failure Avoid nephrotoxic medication Monitor BUNs/creatinine --Metabolic alkalosis Likely compensation to chronic respiratory acidosis as well as diuretics Patient got acetazolamide x 3 Continue to monitor Infectious disease: -- Aspiration pneumonia Nasal MRSA negative Bronc cultures negative to date Meropenem was changed to cefepime 05/25/2023--> completed a course of antibiotics. Repeat blood culture negative to date. Repeat procalcitonin today 0.18. Will hold on further antibiotics. Urine cultures growing Tatiana glabrata complex. Sensitivities pending. Probable colonizer. If worsening hypotension, will consider initiation of antifungal regimen and ID consult. Hematologic: -- New onset thrombocytopenia which is stable. Likely from acute liver failure which is improving. Monitor for signs of bleeding -- Coagulopathy INR 1.2 on 05/30/2023. Endocrine: ICU hypoglycemia protocol --Prophylaxis VTE: Lovenox GI: Pantoprazole daily Lines: Peripheral Diet: N.p.o. currently. OG in place. CRITICAL CARE TIME - I have personally spent 44 minutes of critical care time in the direct management of this patient. This is a life/limb threatening event. This includes time spent evaluating patient, direct bedside care, chart review, placing orders, interpretation of diagnostic studies, discussion with consultants, patient, and family members, as well as other required patient management activities. This time is exclusive of all separately billable procedures, and teaching time and separate from and in addition to any other critical care service time. Admission and Anticipated Discharge Date Admission Date: May 23, 2023 Subjective Patient seen and examined. She is on low-dose sedative infusion. She is able to follow simple complaints. She denies any shortness of breath or discomfort. Otherwise review of systems is limited as she is intubated. She is on low-dose Levophed via an ultrasound-guided IV. Review of Systems Review of Systems: Unobtainable due to endotracheal tube Physical Exam Physical Exam: Constitutional: Patient appears obese and frail. She is alert and following commands. Eyes: Pupils are equal round and reactive to light. Conjunctivae are normal. Anicteric sclera. Ears nose, mouth and throat: Endotracheal tube in place Neck: Trachea is midline. Visual inspection is normal. Respiratory: Mildly diminished at the bases. Clear elsewhere. Cardiovascular: Regular rate and rhythm. No murmurs. 4+ edema of the lower extremities bilaterally Gastrointestinal: Normal bowel sounds, soft, nontender and nondistended. No hepatosplenomegaly noted. Musculoskeletal: No cyanosis. Patient is able to move all extremities. Strength is 5 out of 5 in the upper and lower extremities. Skin: No rashes, warm dry and intact. Neurologic: No focal neurological signs. Psychiatric: Appears mildly anxious. Results & Data Results & Data Vital Signs (Past 12 Hours) Vital Signs Temp Pulse Pulse Resp BP Pulse Ox O2 Del Method 05/31/23 08:00 63 05/31/23 08:00 05/31/23 07:51 63 21 95 05/31/23 07:36 Mechanical Vent 05/31/23 07:30 98/67 L 05/31/23 07:00 96/68 L 05/31/23 07:00 37.4 C 66 27 H 94 05/31/23 06:15 37.3 C 69 20 93 05/31/23 06:00 100/70 05/31/23 06:00 37.3 C 68 21 92 05/31/23 05:45 37.3 C 67 20 91 05/31/23 05:30 99/65 L 05/31/23 05:30 37.3 C 68 21 91 05/31/23 05:15 37.2 C 67 23 90 05/31/23 05:00 107/66 05/31/23 05:00 37.3 C 58 L 21 90 05/31/23 04:45 37.3 C 58 L 24 90 05/31/23 04:30 113/69 05/31/23 04:30 37.4 C 76 21 90 05/31/23 04:15 37.4 C 65 19 88 L 05/31/23 04:13 71 24 90 05/31/23 04:00 111/62 05/31/23 04:00 37.4 C 70 22 87 L 05/31/23 04:00 05/31/23 03:45 37.5 C 69 18 90 05/31/23 03:30 108/56 L 05/31/23 03:30 37.4 C 73 23 89 L 05/31/23 03:15 37.5 C 63 22 90 05/31/23 03:00 101/63 05/31/23 03:00 37.5 C 65 20 90 05/31/23 02:45 37.5 C 64 18 90 05/31/23 02:30 101/63 05/31/23 02:30 37.5 C 64 18 90 05/31/23 02:15 37.5 C 63 18 90 05/31/23 02:00 93/59 L 05/31/23 02:00 37.5 C 63 18 89 L 05/31/23 01:45 37.5 C 63 18 89 L 05/31/23 01:30 37.5 C 62 18 89 L 05/31/23 01:30 96/66 L 05/31/23 01:30 74 18 90 Mechanical Vent 05/31/23 01:15 37.5 C 63 18 89 L 05/31/23 01:00 94/64 L 05/31/23 01:00 37.5 C 62 18 89 L 05/31/23 00:45 37.5 C 63 18 89 L 05/31/23 00:30 37.5 C 62 18 89 L 05/31/23 00:30 98/66 L 05/31/23 00:15 37.5 C 63 18 90 05/31/23 00:00 100/66 05/31/23 00:00 37.5 C 60 18 90 05/30/23 23:45 37.5 C 58 L 18 89 L 05/30/23 23:30 105/66 05/30/23 23:30 37.5 C 64 19 90 05/30/23 23:15 37.5 C 63 18 90 05/30/23 23:07 05/30/23 23:01 64 18 90 05/30/23 23:00 37.5 C 64 18 90 05/30/23 23:00 93/62 L FiO2 05/31/23 08:00 05/31/23 08:00 100 05/31/23 07:51 100 05/31/23 07:36 100 05/31/23 07:30 05/31/23 07:00 05/31/23 07:00 100 05/31/23 06:15 05/31/23 06:00 05/31/23 06:00 05/31/23 05:45 05/31/23 05:30 05/31/23 05:30 05/31/23 05:15 05/31/23 05:00 05/31/23 05:00 05/31/23 04:45 05/31/23 04:30 05/31/23 04:30 05/31/23 04:15 05/31/23 04:13 100 05/31/23 04:00 05/31/23 04:00 05/31/23 04:00 100 05/31/23 03:45 05/31/23 03:30 05/31/23 03:30 05/31/23 03:15 05/31/23 03:00 05/31/23 03:00 05/31/23 02:45 05/31/23 02:30 05/31/23 02:30 05/31/23 02:15 05/31/23 02:00 05/31/23 02:00 05/31/23 01:45 05/31/23 01:30 05/31/23 01:30 05/31/23 01:30 05/31/23 01:15 05/31/23 01:00 05/31/23 01:00 05/31/23 00:45 05/31/23 00:30 05/31/23 00:30 05/31/23 00:15 05/31/23 00:00 05/31/23 00:00 05/30/23 23:45 05/30/23 23:30 05/30/23 23:30 05/30/23 23:15 05/30/23 23:07 100 05/30/23 23:01 100 05/30/23 23:00 05/30/23 23:00 Coding Level of Care Code 15764 CRITICAL CARE 1ST 30-74M Diagnoses Status asthmaticus with COPD (chronic obstructive pulmonary disease) J44.89; J45.902 Acute CHF (congestive heart failure) I50.9 Acute encephalopathy G93.40 Transaminitis R74.01 Coronary artery disease I25.10 Elevated troponin R79.89 Endotracheally intubated Z97.8 RVF (right ventricular failure) I50.810 Aspiration pneumonia J69.0
[2023-05-31] MEDS: PANTOprazole 40 MG in SYRINGE 0 ML IV SCH (11:11)
--- NOTE | 2023-05-31 12:20 | Hospitalist Progress Note ---
Date of Service May 31, 2023 Assessment & Plan (1) Acute on chronic respiratory failure with hypoxia and hypercapnia: Plan: 58yo female with history of COPD presenting with respiratory failure with hypoxia and hypercarbia 1. Acute metabolic encephalopathy This was most likely related to her acute hypercapnic respiratory failure since it has improved significantly CT head showed a stroke, age indeterminate. Most likely old stroke. An MRI can be done at a later time 2. Delirium Most likely hospital-acquired delirium or ICU delirium Got intubated because of delirium. On Precedex drip 2. Acute hypercarbic respiratory failure Initially was put on BiPAP with no improvement Required to be intubated soon after admission Crozer Operator managed vent Extubated 05/27 Most likely due to severe asthma/COPD exacerbation. On IV Solu-Medrol, reduced dose to 40 mg IV every 8 on 05/25. Has been switched to p.o. prednisone, now on [address] chest showed aspiration pneumonia for which she is now on IV cefepime since 05/25. Completed a 5-day course. Bronchoscopy performed 05/23 revealed eosinophilia in the bronchial washings. All cultures negative from 05/23 and from 05/26 Was being diuresed for bilateral pleural effusion Was still requiring high oxygen. Got delirious and was taking oxygen off on 05/30 Reintubated on 05/30 CT angio of the chest on 05/30 showed small subsegmental left upper lobe PE. Most likely not the reason for hypoxia. However she has been started on heparin drip. Crozer Operator suspects intrapulmonary shunt resulting in severe hypoxemia. They are considering proning to help VQ matching 3. Cor pulmonale/right heart failure Echocardiogram showed evidence of cor pulmonale Patient has elevated liver enzymes and lower extremity edema secondary to right heart failure Was diuresed with IV Lasix and IV Diamox in the last few days. Metabolic alkalosis Cardiology will be brought back on board to consider placement of a PA catheter Patient has PFO 4. Elevated liver enzymes Due to shock liver from right heart failure Improving LFTs Hepatitis panel negative Elevated INR due to shock liver, improved Completed NAC protocol 5. Acute kidney injury Resolved with diuresis Metabolic alkalosis likely due to a combination of diuretic therapy and compensation of chronic respiratory acidosis. Given a dose of Diamox today. 6. Demand ischemia Likely due to severe hypoxia and respiratory failure Echo showed normal EF and no wall motion abnormalities 7. Thrombocytopenia Improved No bleeding Monitor DVT prophylaxis: Currently on heparin drip Full code (2) Coronary artery disease: (3) Hyperlipidemia: (4) Abnormal LFTs: (5) Elevated troponin: Admission and Anticipated Discharge Date Admission Date: May 23, 2023 Subjective Patient got reintubated yesterday 05/30. She would not keep oxygen or BiPAP on. She was desaturating and the decision was made to reintubate her. CT was done that showed a PE. She was started on a heparin drip Review of Systems Review of Systems: Unobtainable due to endotracheal tube Physical Exam Physical Exam: General: Intubated Heart: S1, S2/regular rate and rhythm, no murmur rubs or gallops Lungs: Good air entry bilaterally. No adventitious sounds heard Abdomen: Soft/nontender/nondistended. No hepatosplenomegaly Extremities: No clubbing/cyanosis. Mild bilateral edema Behavior: Unable to assess Results & Data Results & Data Vital Signs (Past 12 Hours) Vital Signs Temp Pulse Pulse Resp BP Pulse Ox O2 Del Method 05/31/23 12:00 37.6 C H 69 31 H 84 L 05/31/23 12:00 115/69 05/31/23 12:00 05/31/23 11:03 55 L 18 89 L 05/31/23 11:00 37.6 C H 55 L 18 89 L 05/31/23 11:00 131/77 05/31/23 10:00 114/68 05/31/23 10:00 37.6 C H 58 L 20 89 L 05/31/23 09:00 101/63 05/31/23 09:00 37.6 C H 61 26 H 86 L 05/31/23 08:00 92/62 L 05/31/23 08:00 37.7 C H 60 22 94 05/31/23 08:00 63 05/31/23 08:00 05/31/23 07:51 63 21 95 05/31/23 07:36 Mechanical Vent 05/31/23 07:30 98/67 L 05/31/23 07:00 96/68 L 05/31/23 07:00 37.4 C 66 27 H 94 05/31/23 06:15 37.3 C 69 20 93 05/31/23 06:00 100/70 05/31/23 06:00 37.3 C 68 21 92 05/31/23 05:45 37.3 C 67 20 91 05/31/23 05:30 99/65 L 05/31/23 05:30 37.3 C 68 21 91 05/31/23 05:15 37.2 C 67 23 90 05/31/23 05:00 107/66 05/31/23 05:00 37.3 C 58 L 21 90 05/31/23 04:45 37.3 C 58 L 24 90 05/31/23 04:30 113/69 05/31/23 04:30 37.4 C 76 21 90 05/31/23 04:15 37.4 C 65 19 88 L 05/31/23 04:13 71 24 90 05/31/23 04:00 111/62 05/31/23 04:00 37.4 C 70 22 87 L 05/31/23 04:00 05/31/23 03:45 37.5 C 69 18 90 05/31/23 03:30 108/56 L 05/31/23 03:30 37.4 C 73 23 89 L 05/31/23 03:15 37.5 C 63 22 90 05/31/23 03:00 101/63 05/31/23 03:00 37.5 C 65 20 90 05/31/23 02:45 37.5 C 64 18 90 05/31/23 02:30 101/63 05/31/23 02:30 37.5 C 64 18 90 05/31/23 02:15 37.5 C 63 18 90 05/31/23 02:00 93/59 L 05/31/23 02:00 37.5 C 63 18 89 L 05/31/23 01:45 37.5 C 63 18 89 L 05/31/23 01:30 37.5 C 62 18 89 L 05/31/23 01:30 96/66 L 05/31/23 01:30 74 18 90 Mechanical Vent 05/31/23 01:15 37.5 C 63 18 89 L 05/31/23 01:00 94/64 L 05/31/23 01:00 37.5 C 62 18 89 L 05/31/23 00:45 37.5 C 63 18 89 L 05/31/23 00:30 37.5 C 62 18 89 L 05/31/23 00:30 98/66 L FiO2 05/31/23 12:00 05/31/23 12:00 05/31/23 12:00 100 05/31/23 11:03 400 05/31/23 11:00 05/31/23 11:00 05/31/23 10:00 05/31/23 10:00 05/31/23 09:00 05/31/23 09:00 05/31/23 08:00 05/31/23 08:00 05/31/23 08:00 05/31/23 08:00 100 05/31/23 07:51 100 05/31/23 07:36 100 05/31/23 07:30 05/31/23 07:00 05/31/23 07:00 100 05/31/23 06:15 05/31/23 06:00 05/31/23 06:00 05/31/23 05:45 05/31/23 05:30 05/31/23 05:30 05/31/23 05:15 05/31/23 05:00 05/31/23 05:00 05/31/23 04:45 05/31/23 04:30 05/31/23 04:30 05/31/23 04:15 05/31/23 04:13 100 05/31/23 04:00 05/31/23 04:00 05/31/23 04:00 100 05/31/23 03:45 05/31/23 03:30 05/31/23 03:30 05/31/23 03:15 05/31/23 03:00 05/31/23 03:00 05/31/23 02:45 05/31/23 02:30 05/31/23 02:30 05/31/23 02:15 05/31/23 02:00 05/31/23 02:00 05/31/23 01:45 05/31/23 01:30 05/31/23 01:30 05/31/23 01:30 100 05/31/23 01:15 05/31/23 01:00 05/31/23 01:00 05/31/23 00:45 05/31/23 00:30 05/31/23 00:30 Laboratory Results Abnormal lab results 05/30/23 05/30/23 05/30/23 Range/Units 13:55 17:43 21:30 WBC 23.65 H D (4.8-10.8) K/ul RBC 6.12 H (4.20-5.40) M/uL POC Hgb 17.7 H (12.0-16.0) g/dl Hct 51.3 H (37.0-47.0) % POC Hct 52 H (37-47) % MCHC 29.8 L (32.0-36.0) g/dL RDW Std Deviation 56.8 H (36.4-46.3) fL RDW Coeff of Macario 19.8 H (11.5-14.5) % Plt Count 129 L (130-400) K/uL Neut # (Auto) 20.88 H (1.40-6.50) K/uL Lymph # (Auto) 0.76 L (1.20-3.40) K/uL Overton # (Auto) 1.79 H (0.11-0.59) K/uL Immature Gran # (Auto) (0.01-0.20) K/uL PT 12.9 H (9.0-12.0) Seconds INR 1.2 H (0.9-1.1) Heparin Anti-Xa, Unfract (0.3-0.7) IU/ml POC pCO2 64 H (35-46) mmHg POC pO2 40 L (80-95) mmHg POC HCO3 39 H (19-24) augustina/L POC Total CO2 > 40 H* (24-31) mmol/L POC Base Excess 15.0 H (-9-1.8) augustina/L ABG pCO2 (Temp Corrct 64 H (35-46) mmHg POC ABG O2 Sat 72.0 L (90-95) % Chloride (98-107) mmol/L Carbon Dioxide (21-32) mmol/L BUN (6-23) mg/dl BUN/Creatinine Ratio (10-20) Glucose (70-99(Fasting)) mg/dl POC Glucose 165 H (70-99) mg/dl Troponin I High Sens (0-14) pg/ml 05/30/23 05/31/23 05/31/23 Range/Units 23:40 03:49 03:52 WBC (4.8-10.8) K/ul RBC (4.20-5.40) M/uL POC Hgb 18.0 H (12.0-16.0) g/dl Hct (37.0-47.0) % POC Hct 53 H (37-47) % MCHC (32.0-36.0) g/dL RDW Std Deviation (36.4-46.3) fL RDW Coeff of Macario (11.5-14.5) % Plt Count (130-400) K/uL Neut # (Auto) (1.40-6.50) K/uL Lymph # (Auto) (1.20-3.40) K/uL Overton # (Auto) (0.11-0.59) K/uL Immature Gran # (Auto) (0.01-0.20) K/uL PT (9.0-12.0) Seconds INR (0.9-1.1) Heparin Anti-Xa, Unfract (0.3-0.7) IU/ml POC pCO2 56 H (35-46) mmHg POC pO2 50 L (80-95) mmHg POC HCO3 36 H (19-24) augustina/L POC Total CO2 38 H (24-31) mmol/L POC Base Excess 12.0 H (-9-1.8) augustina/L ABG pCO2 (Temp Corrct 57 H (35-46) mmHg POC ABG O2 Sat 85.0 L (90-95) % Chloride (98-107) mmol/L Carbon Dioxide (21-32) mmol/L BUN (6-23) mg/dl BUN/Creatinine Ratio (10-20) Glucose (70-99(Fasting)) mg/dl POC Glucose 168 H 136 H (70-99) mg/dl Troponin I High Sens (0-14) pg/ml 05/31/23 05/31/23 05/31/23 Range/Units 04:02 11:18 11:23 WBC 22.15 H (4.8-10.8) K/ul RBC 6.11 H (4.20-5.40) M/uL POC Hgb (12.0-16.0) g/dl Hct 51.7 H (37.0-47.0) % POC Hct (37-47) % MCHC 29.6 L (32.0-36.0) g/dL RDW Std Deviation 57.6 H (36.4-46.3) fL RDW Coeff of Macario 20.2 H (11.5-14.5) % Plt Count 122 L (130-400) K/uL Neut # (Auto) 19.17 H (1.40-6.50) K/uL Lymph # (Auto) 1.03 L (1.20-3.40) K/uL Overton # (Auto) 1.68 H (0.11-0.59) K/uL Immature Gran # (Auto) 0.21 H (0.01-0.20) K/uL PT (9.0-12.0) Seconds INR (0.9-1.1) Heparin Anti-Xa, Unfract 1.21 H* (0.3-0.7) IU/ml POC pCO2 (35-46) mmHg POC pO2 (80-95) mmHg POC HCO3 (19-24) augustina/L POC Total CO2 (24-31) mmol/L POC Base Excess (-9-1.8) augustina/L ABG pCO2 (Temp Corrct (35-46) mmHg POC ABG O2 Sat (90-95) % Chloride 93 L (98-107) mmol/L Carbon Dioxide 39 H (21-32) mmol/L BUN 31 H (6-23) mg/dl BUN/Creatinine Ratio 45.6 H (10-20) Glucose 146 H (70-99(Fasting)) mg/dl POC Glucose 139 H (70-99) mg/dl Troponin I High Sens 337.6 H* (0-14) pg/ml PG Care Time/CCT Total # of Minutes Spent Total Time Spent with Patient: Total time spent is greater than 50% in coordination of care (as documented) at patient's floor/unit and/or counseling patient: Coding Level of Care Code 15922 SUB INP/OBS CARE 2/35MIN Diagnoses Acute on chronic respiratory failure with hypoxia and hypercapnia J96.21; J96.22 Coronary artery disease I25.10 Hyperlipidemia E78.5 Abnormal LFTs R79.89 Elevated troponin R79.89
[2023-05-31] MEDS ORDERED: PROPOFOL BOLUS FROM BAG IV PRN (12:21)
[2023-05-31] MEDS: propofoL 1,000 MG/100 ML VIAL IV SCH (12:47)
[2023-05-31] MEDS: MIDAZOLAM HCL 1 MG/ML 2ML VIAL IV STA (12:48)
[2023-05-31] MEDS: VECURONIUM BROMIDE 10 MG VIAL IV STA (12:48)
--- NOTE | 2023-05-31 13:20 | Procedure Note ---
Procedure Note Date of Service May 31, 2023 Note Right INTERNAL JUGULAR CENTRAL LINE PROCEDURE NOTE: Procedure: Internal Jugular Central Line Placement Indication: Central Drug Administration, Poor Venous Access, Multiple Lab Draws Necessary, etc. Anesthesia: Precedex and fentanyl infusing at the time of the procedure Emergency consent was implied due to the patient's hypotension and worsening hypoxemia. A time-out was completed verifying correct patient, procedure, site, positioning, and implants(s) or special equipment if applicable. Patients right neck was cleansed and draped in the typical sterile fashion using Chloraprep. The Internal Jugular Vein and Carotid Artery were identified using ultrasound. The superficial tissue was anesthetized using 0 mL of 1% lidocaine without epinephrine under direct visualization with the ultrasound. After adequate anesthetization was achieved, the Internal Jugular vein was cannulated under direct ultrasound guidance using an introducer needle on a syringe. Good venous blood return was maintained prior to removal of syringe from introducer needle. Using Seldinger Technique, a guide wire was advanced through the introducer needle without resistance. The introducer needle was removed and ultrasound images were obtained of the guide wire within the Internal Jugular Vein and saved to the patients medical record. A small incision was made in penetrating fashion at the guide wire insertion site utilizing an 11 blade scalpel. The dilator was advanced to the vessel without resistance. The dilator was exchanged for the triple lumen catheter which was advanced into the vessel without resistance. The guide wire was removed intact from the catheter without issue. Claves were placed on each catheter tip with confirmation of good blood flow from each lumen. Each port was easily flushed with sterile saline. The catheter was placed at 6 cm and sutured in place. BioPatch was applied to the catheter and a sterile Tegaderm dressing was applied over the catheter with careful attention to sterility. Patient tolerated procedure well. No immediate complications were met. Post procedure x-ray was completed, placement was appropriate and no pneumothorax was noted. Ultrasound guidance was utilized during the procedure. Coding CPT Codes Tubes, Drains, and Vasc Access - Tubes, Drains, and Vasc Access: [id number] Place catheter in vein superior or inferior vena cava ([id number]) Tubes, Drains, and Vasc Access - Tubes, Drains, and Vasc Access: [id number] Ultrasound Guidance For Vascular ([id number]) [facility] [place] Procedure Codes (Charges) Tubes, Drains, and Vasc Access Procedure 1: Tubes, Drains, and Vasc Access: [id number] Place catheter in vein superior or inferior vena cava Procedure 2: Tubes, Drains, and Vasc Access: [id number] Ultrasound Guidance For Vascular
--- NOTE | 2023-05-31 13:21 | Procedure Note ---
Procedure Note Date of Service May 31, 2023 Note ARTERIAL LINE PROCEDURE NOTE: Procedure: Arterial Line Placement Indication: Monitoring on Pressors Anesthesia: Precedex and fentanyl infusing at the time of the procedure Emergency consent was implied given the patient's hemodynamic status and sedation. A time-out was completed verifying correct patient, procedure, site, positioning, and implant(s) or special equipment if applicable. Patients right wrist was prepped and draped in the usual sterile fashion. Ultrasound guidance was used to aid needle placement. A 20g Arrow arterial line was introduced into the right radial artery. Catheter was threaded, and the needle was removed with appropriate blood return. Good waveform was observed. The patient tolerated the procedure well. Blood Loss: Minimal Complications: None Coding CPT Codes Tubes, Drains, and Vasc Access - Tubes, Drains, and Vasc Access: [id number] Ultrasound Guidance For Vascular ([id number]) Tubes, Drains, and Vasc Access - Tubes, Drains, and Vasc Access: [id number] Arterial Cath/Cannulation Sampling/Monitoring/Transfusion ([id number]) [facility] [place] Codes (Charges) Tubes, Drains, and Vasc Access Procedure 1: Tubes, Drains, and Vasc Access: [id number] Ultrasound Guidance For Vascular Procedure 2: Tubes, Drains, and Vasc Access: [id number] Arterial Cath/Cannulation Sampling/Monitoring/Transfusion
--- NOTE | 2023-05-31 13:35 | XRay Report ---
XR chest 1V portable CLINICAL HISTORY: Resp failure TECHNIQUE: Single frontal radiograph of the chest was obtained. Comparison: Comparison is made to chest radiograph 05/30/2023 FINDINGS: Lines and tubes are stable. The cardiomediastinal silhouette is normal. The lungs are clear. Small bi lateral pleural effusions are seen. IMPRESSION: Small bilateral pleural effusions. ACT 112: Negative or not required by law. Electronically signed by: Evangelist Reynoso M.D. 05/31/2023 1:33 PM
[2023-05-31] MEDS: FUROSEMIDE 40 MG/4 ML VIAL IV ONE (13:40)
--- NOTE | 2023-05-31 14:01 | XRay Report ---
XR chest 1V portable CLINICAL HISTORY: s/p rij TECHNIQUE: Single frontal radiograph of the chest was obtained. Comparison: Comparison is made to chest radiograph 05/31/2023 FINDINGS: Right IJ catheter terminates in the lower SVC. The cardiomediastinal silhouette is normal. The lungs are clear. Small bilateral pleural effusions are seen. IMPRESSION: Satisfactory position of right IJ catheter. Stable small bilateral pleural effusions. ACT 112: Negative or not required by law. Electronically signed by: Evangelist Reynoso M.D. 05/31/2023 2:00 PM
[2023-05-31] MEDS: VECURONIUM BROMIDE 10 MG VIAL IV ONE (14:46)
[2023-05-31] MEDS: MIDAZOLAM HCL 1 MG/ML 2ML VIAL ONE (14:46)
--- NOTE | 2023-05-31 15:16 | Pre Anesthesia Assessment ---
Date of Service May 31, 2023 Pre Sedation Assessment Vital Signs Temp Pulse Pulse Resp BP Pulse Ox O2 Del Method 05/31/23 12:00 37.6 C H 69 31 H 84 L 05/31/23 12:00 115/69 05/31/23 12:00 05/31/23 11:03 55 L 18 89 L 05/31/23 11:00 37.6 C H 55 L 18 89 L 05/31/23 11:00 131/77 05/31/23 10:00 114/68 05/31/23 10:00 37.6 C H 58 L 20 89 L 05/31/23 09:00 101/63 05/31/23 09:00 37.6 C H 61 26 H 86 L 05/31/23 08:00 92/62 L 05/31/23 08:00 37.7 C H 60 22 94 05/31/23 08:00 63 05/31/23 08:00 05/31/23 07:51 63 21 95 05/31/23 07:36 Mechanical Vent 05/31/23 07:30 98/67 L 05/31/23 07:00 96/68 L 05/31/23 07:00 37.4 C 66 27 H 94 05/31/23 06:15 37.3 C 69 20 93 05/31/23 06:00 100/70 05/31/23 06:00 37.3 C 68 21 92 05/31/23 05:45 37.3 C 67 20 91 05/31/23 05:30 99/65 L 05/31/23 05:30 37.3 C 68 21 91 05/31/23 05:15 37.2 C 67 23 90 05/31/23 05:00 107/66 05/31/23 05:00 37.3 C 58 L 21 90 05/31/23 04:45 37.3 C 58 L 24 90 05/31/23 04:30 113/69 05/31/23 04:30 37.4 C 76 21 90 05/31/23 04:15 37.4 C 65 19 88 L 05/31/23 04:13 71 24 90 05/31/23 04:00 111/62 05/31/23 04:00 37.4 C 70 22 87 L 05/31/23 04:00 05/31/23 03:45 37.5 C 69 18 90 05/31/23 03:30 108/56 L 05/31/23 03:30 37.4 C 73 23 89 L 05/31/23 03:15 37.5 C 63 22 90 05/31/23 03:00 101/63 05/31/23 03:00 37.5 C 65 20 90 05/31/23 02:45 37.5 C 64 18 90 05/31/23 02:30 101/63 05/31/23 02:30 37.5 C 64 18 90 05/31/23 02:15 37.5 C 63 18 90 05/31/23 02:00 93/59 L 05/31/23 02:00 37.5 C 63 18 89 L 05/31/23 01:45 37.5 C 63 18 89 L 05/31/23 01:30 37.5 C 62 18 89 L 05/31/23 01:30 96/66 L 05/31/23 01:30 74 18 90 Mechanical Vent 05/31/23 01:15 37.5 C 63 18 89 L 05/31/23 01:00 94/64 L 05/31/23 01:00 37.5 C 62 18 89 L 05/31/23 00:45 37.5 C 63 18 89 L 05/31/23 00:30 37.5 C 62 18 89 L 05/31/23 00:30 98/66 L 05/31/23 00:15 37.5 C 63 18 90 05/31/23 00:00 100/66 05/31/23 00:00 37.5 C 60 18 90 05/30/23 23:45 37.5 C 58 L 18 89 L 05/30/23 23:30 105/66 05/30/23 23:30 37.5 C 64 19 90 05/30/23 23:15 37.5 C 63 18 90 05/30/23 23:07 05/30/23 23:01 64 18 90 05/30/23 23:00 37.5 C 64 18 90 05/30/23 23:00 93/62 L 05/30/23 22:45 37.5 C 64 22 89 L 05/30/23 22:30 99/66 L 05/30/23 22:30 37.5 C 65 18 89 L 05/30/23 22:15 37.5 C 66 18 89 L 05/30/23 22:00 97/62 L 05/30/23 22:00 37.4 C 68 18 88 L 05/30/23 21:45 37.4 C 65 18 89 L 05/30/23 21:30 114/71 05/30/23 21:30 37.4 C 65 18 87 L 05/30/23 21:15 37.4 C 64 18 88 L 05/30/23 21:04 37.4 C 60 18 86 L 05/30/23 21:04 89/60 L 05/30/23 21:00 37.4 C 64 18 85 L 05/30/23 21:00 78/53 L 05/30/23 20:45 37.3 C 63 18 86 L 05/30/23 20:30 115/72 05/30/23 20:30 37.3 C 61 18 87 L 05/30/23 20:15 37.3 C 61 18 86 L 05/30/23 20:07 98/62 L 05/30/23 20:07 37.3 C 62 18 87 L 05/30/23 20:00 37.3 C 60 18 87 L 05/30/23 20:00 Mechanical Vent 05/30/23 19:58 37.2 C 60 18 89 L 05/30/23 19:30 110/65 05/30/23 19:30 37.3 C 70 21 86 L 05/30/23 19:30 64 20 90 05/30/23 19:15 37.3 C 71 18 85 L 05/30/23 19:00 101/63 05/30/23 19:00 37.3 C 63 18 85 L 05/30/23 18:45 37.3 C 64 18 86 L 05/30/23 18:30 100/64 05/30/23 18:30 37.3 C 64 18 86 L 05/30/23 18:15 37.4 C 63 18 87 L 05/30/23 18:00 94/62 L 05/30/23 18:00 37.5 C 65 18 87 L 05/30/23 17:00 37.4 C 65 18 87 L 05/30/23 17:00 97/63 L 05/30/23 16:00 05/30/23 16:00 130/83 05/30/23 16:00 37.1 C 64 18 88 L 05/30/23 15:30 175/104 H 05/30/23 15:30 37.0 C 74 19 93 05/30/23 15:15 37.1 C 72 15 91 FiO2 05/31/23 12:00 05/31/23 12:00 05/31/23 12:00 100 05/31/23 11:03 400 05/31/23 11:00 05/31/23 11:00 05/31/23 10:00 05/31/23 10:00 05/31/23 09:00 05/31/23 09:00 05/31/23 08:00 05/31/23 08:00 05/31/23 08:00 05/31/23 08:00 100 05/31/23 07:51 100 05/31/23 07:36 100 05/31/23 07:30 05/31/23 07:00 05/31/23 07:00 100 05/31/23 06:15 05/31/23 06:00 05/31/23 06:00 05/31/23 05:45 05/31/23 05:30 05/31/23 05:30 05/31/23 05:15 05/31/23 05:00 05/31/23 05:00 05/31/23 04:45 05/31/23 04:30 05/31/23 04:30 05/31/23 04:15 05/31/23 04:13 100 05/31/23 04:00 05/31/23 04:00 05/31/23 04:00 100 05/31/23 03:45 05/31/23 03:30 05/31/23 03:30 05/31/23 03:15 05/31/23 03:00 05/31/23 03:00 05/31/23 02:45 05/31/23 02:30 05/31/23 02:30 05/31/23 02:15 05/31/23 02:00 05/31/23 02:00 05/31/23 01:45 05/31/23 01:30 05/31/23 01:30 05/31/23 01:30 100 05/31/23 01:15 05/31/23 01:00 05/31/23 01:00 05/31/23 00:45 05/31/23 00:30 05/31/23 00:30 05/31/23 00:15 05/31/23 00:00 05/31/23 00:00 05/30/23 23:45 05/30/23 23:30 05/30/23 23:30 05/30/23 23:15 05/30/23 23:07 05/30/23 23:01 05/30/23 23:00 05/30/23 23:00 05/30/23 22:45 05/30/23 22:30 05/30/23 22:30 05/30/23 22:15 05/30/23 22:00 05/30/23 22:00 05/30/23 21:45 05/30/23 21:30 05/30/23 21:30 05/30/23 21:15 05/30/23 21:04 05/30/23 21:04 05/30/23 21:00 05/30/23 21:00 05/30/23 20:45 05/30/23 20:30 05/30/23 20:30 05/30/23 20:15 05/30/23 20:07 05/30/23 20:07 05/30/23 20:00 05/30/23 20:00 05/30/23 19:58 05/30/23 19:30 05/30/23 19:30 05/30/23 19:30 05/30/23 19:15 05/30/23 19:00 05/30/23 19:00 05/30/23 18:45 05/30/23 18:30 05/30/23 18:30 05/30/23 18:15 05/30/23 18:00 05/30/23 18:00 05/30/23 17:00 05/30/23 17:00 05/30/23 16:00 05/30/23 16:00 05/30/23 16:00 05/30/23 15:30 05/30/23 15:30 05/30/23 15:15 Cardiovascular RRR, no murmur, no edema Respiratory Additional Comments: Intubated and sedated Pre-Sedation Airway Assessment Smoking Status: Current every day smoker Hx Sleep Apnea: No Hx Difficult Intubation: No Intubated ASA 4 Notes The planned sedation has been discussed with the patient. Informed Consent was obtained. I have identified the patient, determined the appropriateness of sedation and have assessed the patient immediately prior to the procedure. All medicine(s) and interventions are by my order. [facility] [place] Procedure Codes (Charges) Indication for Procedure Indication for procedure: Cor pulmonale Hypoxia Addendum May 31, 2023 15:13
--- NOTE | 2023-05-31 15:22 | Post Anesthesia Assessment ---
Date of Service May 31, 2023 Post Sedation Assessment Vital Signs Temp Pulse Pulse Resp BP Pulse Ox O2 Del Method 05/31/23 12:00 37.6 C H 69 31 H 84 L 05/31/23 12:00 115/69 05/31/23 12:00 05/31/23 11:03 55 L 18 89 L 05/31/23 11:00 37.6 C H 55 L 18 89 L 05/31/23 11:00 131/77 05/31/23 10:00 114/68 05/31/23 10:00 37.6 C H 58 L 20 89 L 05/31/23 09:00 101/63 05/31/23 09:00 37.6 C H 61 26 H 86 L 05/31/23 08:00 92/62 L 05/31/23 08:00 37.7 C H 60 22 94 05/31/23 08:00 63 05/31/23 08:00 05/31/23 07:51 63 21 95 05/31/23 07:36 Mechanical Vent 05/31/23 07:30 98/67 L 05/31/23 07:00 96/68 L 05/31/23 07:00 37.4 C 66 27 H 94 05/31/23 06:15 37.3 C 69 20 93 05/31/23 06:00 100/70 05/31/23 06:00 37.3 C 68 21 92 05/31/23 05:45 37.3 C 67 20 91 05/31/23 05:30 99/65 L 05/31/23 05:30 37.3 C 68 21 91 05/31/23 05:15 37.2 C 67 23 90 05/31/23 05:00 107/66 05/31/23 05:00 37.3 C 58 L 21 90 05/31/23 04:45 37.3 C 58 L 24 90 05/31/23 04:30 113/69 05/31/23 04:30 37.4 C 76 21 90 05/31/23 04:15 37.4 C 65 19 88 L 05/31/23 04:13 71 24 90 05/31/23 04:00 111/62 05/31/23 04:00 37.4 C 70 22 87 L 05/31/23 04:00 05/31/23 03:45 37.5 C 69 18 90 05/31/23 03:30 108/56 L 05/31/23 03:30 37.4 C 73 23 89 L 05/31/23 03:15 37.5 C 63 22 90 05/31/23 03:00 101/63 05/31/23 03:00 37.5 C 65 20 90 05/31/23 02:45 37.5 C 64 18 90 05/31/23 02:30 101/63 05/31/23 02:30 37.5 C 64 18 90 05/31/23 02:15 37.5 C 63 18 90 05/31/23 02:00 93/59 L 05/31/23 02:00 37.5 C 63 18 89 L 05/31/23 01:45 37.5 C 63 18 89 L 05/31/23 01:30 37.5 C 62 18 89 L 05/31/23 01:30 96/66 L 05/31/23 01:30 74 18 90 Mechanical Vent 05/31/23 01:15 37.5 C 63 18 89 L 05/31/23 01:00 94/64 L 05/31/23 01:00 37.5 C 62 18 89 L 05/31/23 00:45 37.5 C 63 18 89 L 05/31/23 00:30 37.5 C 62 18 89 L 05/31/23 00:30 98/66 L 05/31/23 00:15 37.5 C 63 18 90 05/31/23 00:00 100/66 05/31/23 00:00 37.5 C 60 18 90 05/30/23 23:45 37.5 C 58 L 18 89 L 05/30/23 23:30 105/66 05/30/23 23:30 37.5 C 64 19 90 05/30/23 23:15 37.5 C 63 18 90 05/30/23 23:07 05/30/23 23:01 64 18 90 05/30/23 23:00 37.5 C 64 18 90 05/30/23 23:00 93/62 L 05/30/23 22:45 37.5 C 64 22 89 L 05/30/23 22:30 99/66 L 05/30/23 22:30 37.5 C 65 18 89 L 05/30/23 22:15 37.5 C 66 18 89 L 05/30/23 22:00 97/62 L 05/30/23 22:00 37.4 C 68 18 88 L 05/30/23 21:45 37.4 C 65 18 89 L 05/30/23 21:30 114/71 05/30/23 21:30 37.4 C 65 18 87 L 05/30/23 21:15 37.4 C 64 18 88 L 05/30/23 21:04 37.4 C 60 18 86 L 05/30/23 21:04 89/60 L 05/30/23 21:00 37.4 C 64 18 85 L 05/30/23 21:00 78/53 L 05/30/23 20:45 37.3 C 63 18 86 L 05/30/23 20:30 115/72 05/30/23 20:30 37.3 C 61 18 87 L 05/30/23 20:15 37.3 C 61 18 86 L 05/30/23 20:07 98/62 L 05/30/23 20:07 37.3 C 62 18 87 L 05/30/23 20:00 37.3 C 60 18 87 L 05/30/23 20:00 Mechanical Vent 05/30/23 19:58 37.2 C 60 18 89 L 05/30/23 19:30 110/65 05/30/23 19:30 37.3 C 70 21 86 L 05/30/23 19:30 64 20 90 05/30/23 19:15 37.3 C 71 18 85 L 05/30/23 19:00 101/63 05/30/23 19:00 37.3 C 63 18 85 L 05/30/23 18:45 37.3 C 64 18 86 L 05/30/23 18:30 100/64 05/30/23 18:30 37.3 C 64 18 86 L 05/30/23 18:15 37.4 C 63 18 87 L 05/30/23 18:00 94/62 L 05/30/23 18:00 37.5 C 65 18 87 L 05/30/23 17:00 37.4 C 65 18 87 L 05/30/23 17:00 97/63 L 05/30/23 16:00 05/30/23 16:00 130/83 05/30/23 16:00 37.1 C 64 18 88 L 05/30/23 15:30 175/104 H 05/30/23 15:30 37.0 C 74 19 93 FiO2 05/31/23 12:00 05/31/23 12:00 05/31/23 12:00 100 05/31/23 11:03 400 05/31/23 11:00 05/31/23 11:00 05/31/23 10:00 05/31/23 10:00 05/31/23 09:00 05/31/23 09:00 05/31/23 08:00 05/31/23 08:00 05/31/23 08:00 05/31/23 08:00 100 05/31/23 07:51 100 05/31/23 07:36 100 05/31/23 07:30 05/31/23 07:00 05/31/23 07:00 100 05/31/23 06:15 05/31/23 06:00 05/31/23 06:00 05/31/23 05:45 05/31/23 05:30 05/31/23 05:30 05/31/23 05:15 05/31/23 05:00 05/31/23 05:00 05/31/23 04:45 05/31/23 04:30 05/31/23 04:30 05/31/23 04:15 05/31/23 04:13 100 05/31/23 04:00 05/31/23 04:00 05/31/23 04:00 100 05/31/23 03:45 05/31/23 03:30 05/31/23 03:30 05/31/23 03:15 05/31/23 03:00 05/31/23 03:00 05/31/23 02:45 05/31/23 02:30 05/31/23 02:30 05/31/23 02:15 05/31/23 02:00 05/31/23 02:00 05/31/23 01:45 05/31/23 01:30 05/31/23 01:30 05/31/23 01:30 100 05/31/23 01:15 05/31/23 01:00 05/31/23 01:00 05/31/23 00:45 05/31/23 00:30 05/31/23 00:30 05/31/23 00:15 05/31/23 00:00 05/31/23 00:00 05/30/23 23:45 05/30/23 23:30 05/30/23 23:30 05/30/23 23:15 05/30/23 23:07 05/30/23 23:01 05/30/23 23:00 05/30/23 23:00 05/30/23 22:45 05/30/23 22:30 05/30/23 22:30 05/30/23 22:15 05/30/23 22:00 05/30/23 22:00 05/30/23 21:45 05/30/23 21:30 05/30/23 21:30 05/30/23 21:15 05/30/23 21:04 05/30/23 21:04 05/30/23 21:00 05/30/23 21:00 05/30/23 20:45 05/30/23 20:30 05/30/23 20:30 05/30/23 20:15 05/30/23 20:07 05/30/23 20:07 05/30/23 20:00 05/30/23 20:00 05/30/23 19:58 05/30/23 19:30 05/30/23 19:30 05/30/23 19:30 05/30/23 19:15 05/30/23 19:00 05/30/23 19:00 05/30/23 18:45 05/30/23 18:30 05/30/23 18:30 05/30/23 18:15 05/30/23 18:00 05/30/23 18:00 05/30/23 17:00 05/30/23 17:00 05/30/23 16:00 05/30/23 16:00 05/30/23 16:00 05/30/23 15:30 05/30/23 15:30 Recovery Score Activity: Moves 0 extremities Respiration: Apneic/Obstructed Airway (Intubated on ventilator) Circulation: +/-20% PreAnes Value Consciousness: Nonresponsive Oxygen Saturation: O2 needed for >90% Discharge Sedation Level of Care: Higher Level of Care Post Sedation Plan On clinical assessment, the patient appears to have tolerated the sedation without complications. Patient is recovering as anticipated. Patient will continue to be monitored by nursing and may be discharged when sedation discharge criteria are met per below protocol. Upon Completions of procedure up to 15 minutes continue every 5 minute vital signs and the P.A.R. score; then discharge to a Phase I or Fast Track to Phase II per the following guidelines: * Discharge Patient to appropriate Phase II area if PAR is 8 or greater or return to pre- procedure baseline. The post - procedure orders will be as directed. * If PAR score is less than 8 or not return to pre-procedure baseline then patient will follow Phase I monitoring till PAR is reached for Phase II. The Phase I may be done in procedure room or may call to secure a Phase I area. * If naloxone or flumazenil are used for reversal, hold in Phase I for continued monitoring from when last reversal dose was given for a minimum of 60 minutes or longer pending the nurse and/or physician discretion of patient condition before discharge to Phase II. Please call the Sedation Physician to re-evaluate and complete post-note for discharge to Phase II area. Do NOT discharge from procedure sedation or Phase 1 until post- sedation evaluation note is complete by procedure /sedation MD Sedation Discharge Instructions to be given to the patient at discharge to home.
[2023-05-31 15:27] LABS: iSTAT Arterial Blood Gas HCO3 35 meg/L (19-24); iSTAT Arterial Blood Gas pCO2 54 mmHg (35-46); iSTAT Arterial Blood Gas pH 7.43 (7.35-7.45); iSTAT Arterial Blood Gas pO2 33 mmHg (80-95); iSTAT Carbon Dioxide 37 mmol/L (24-31); iSTAT Hematocrit 49 % (37-47); iSTAT Hemoglobin 16.7 g/dl (12.0-16.0); iSTAT Potassium 3.5 mmol/L (3.3-5.0); iSTAT Sodium 136 mmol/L (135-144)
[2023-05-31 15:27] LABS: iSTAT Arterial Blood Gas HCO3 35 meg/L (19-24); iSTAT Arterial Blood Gas pCO2 52 mmHg (35-46); iSTAT Arterial Blood Gas pH 7.43 (7.35-7.45); iSTAT Arterial Blood Gas pO2 35 mmHg (80-95); iSTAT Carbon Dioxide 36 mmol/L (24-31); iSTAT Hematocrit 50 % (37-47); iSTAT Potassium 3.6 mmol/L (3.3-5.0); iSTAT Sodium 136 mmol/L (135-144)
[2023-05-31 15:27] LABS: iSTAT Arterial Blood Gas HCO3 34 meg/L (19-24); iSTAT Arterial Blood Gas pCO2 49 mmHg (35-46); iSTAT Arterial Blood Gas pH 7.45 (7.35-7.45); iSTAT Arterial Blood Gas pO2 67 mmHg (80-95); iSTAT Carbon Dioxide 36 mmol/L (24-31); iSTAT Hematocrit 51 % (37-47); iSTAT Hemoglobin 17.3 g/dl (12.0-16.0); iSTAT Potassium 3.7 mmol/L (3.3-5.0); iSTAT Sodium 135 mmol/L (135-144)
--- NOTE | 2023-05-31 15:34 | Cardiac Catheterization ---
[facility] Data: [employer] Cardiac Status Clinical evaluation leading to the procedure CAD Presenation: No Sxs, No angina Heart Failure: NYHA Class: CCS IV Diagnostic Physicians Name: Mynor Aparicio MD, PhD Closure Device Recommendations: Medical Therapy and/or Counseling Cardiac Cath Procedure Full Procedure Date May 31, 2023 Pre-Procedure Diagnosis Pre-Procedure Diagnosis: CHF AUC Score AUC Score: 9 Post-Procedure Diagnosis Post-Procedure Diagnosis: Elevated Intracardiac Pressures Procedure(s) Performed Procedure(s) Performed: Right Heart Cath and Ultrasound Guided Vascular Access Medical Cash Poster Mynor Aparicio MD, PhD Estimated Blood Loss Estimated Blood Loss: 5 cc Medication(s) Medication(s): Lidocaine 1% Summary of Findings Brief description: Patient was brought to the cardiac catheterization suite. She was already intubated and sedated. She was shaved and prepped in a sterile fashion. Soft tissues of the left neck were anesthetized with 3 mL of 1% Xylocaine. Using the ultrasound for guidance, the left internal jugular was accessed and a 7 Solomon Islander sheath was placed. Through this, a 6 [place] Islander Crawford-Jhon catheter was advanced with the balloon inflated and using a Crawford-John wire was passed through the right heart, across the pulmonic valve and to the terminal "wedge position". Guidewire was removed and the system was flushed. Pulmonary capillary wedge pressure was measured. The balloon was then deflated and pulmonary arterial pressure and oxygen saturation were obtained. Cardiac output was obtained using both thermodilution method as well as the method of Marisa. Crawford-John catheter was pulled back into the right ventricle where right ventricular hemodynamics and oxygen saturation were measured. Catheter was then pulled back to the right atrium or right atrial pressure and oxygen saturation were measured. Systemic arterial oxygen saturation sample was obtained via the previously placed arterial line. The balloon was reinflated and the Crawford-John wire was 3 advanced. Crawford-John catheter was then again advanced into the pulmonary artery and the balloon was deflated. The Crawford-John wire was removed. Final flushing of the catheter was performed and the catheter was then left in place to be utilized in the ICU as determined by the critical care doctor. The sheath was sutured in place and dressed to keep it sterile. Patient was hemodynamically stable. She was returned to the ICU. This ended the case. Right heart catheterization findings: PCWP: 32 mmHg PAP: 67/37 mmHg, mean 46 mmHg. RVP: 65/18 mmHg, RVEDP 20 mmHg RAP: 20 mmHg Ao: 147/73 mmHg Pulmonary arterial oxygen saturation: 64% Right ventricular oxygen saturation: 65% Right atrial oxygen saturation: 68% Systemic arterial oxygen saturation: 94% Cardiac output (thermal): 3.67 L/min. Cardiac index (thermal): 1.76 liters per minute per meter squared Cardiac output (Marisa): 4.98 L/min. Cardiac index (Marisa): 2.39 liters per minute per meter squared Qp: 4.98 L/min Qs: 4.98 L/min QP/QS: 1.0 Pulmonary vascular resistance: 3.2 Zhu units, total pulmonary resistance: 9.23 Zhu units Systemic vascular resistance: 14.45 Zhu units Total vascular resistance: 18.26 Zhu units Hemodynamics Rest Ao:: 122/69 mmHg Final Ao: 147/73 mmHg LV: Not performed Recommendations Recommendations: Medical Therapy and/or Counseling Radiation Exposure (mGy) 283 mGy, fluoroscopy time 4.3 minutes Contrast (mls) 0 mL Anesthesia Start 1415, end 1459 Procedural Complication(s) None Disposition ICU I attest to the content of the Intraoperative Record and any orders documented therein. Any exceptions are noted below. MNP Card Cath Procedure Codes Cardiac Catheterization Procedure 1: Cardiovascular Cath Procedures: 23601 Right Heart Cath Therapeutic Services & Ancillary Procedure 1: Cardiovascular Tx and Anc Procedures: 91623 Ultrasonic Guidance Vascular Access PG Care Time/CCT Total # of Minutes Spent Total Time Spent with Patient: Total time spent is greater than 50% in coordination of care (as documented) at patient's floor/unit and/or counseling patient:
[2023-05-31] MEDS: FUROSEMIDE 100 MG in 0.9 % SODIUM CHLORIDE 90 ML IV SCH (15:51)
[2023-05-31] MEDS: CHLOROTHIAZIDE SODIUM 500 MG in DEXTROSE 5% 50 ML IV ONE (15:51)
[2023-05-31 18:42] LABS: ANTI-Xa, UFH(UnfractionatedHep 0.24 IU/ml (0.3-0.7)
[2023-05-31] MEDS: FORMOTEROL 20 MCG/2 ML VIAL ONE (19:12)
[2023-05-31 19:57] LABS: BUN Creatinine Ratio 48.4 (10-20); Calcium 8.8 mg/dl (8.6-10.3); Creatinine Clr Calc Pharmacy 116.8 ml/min; Est GFR (African American) 114.8 ml/min; Est GFR (Non-African American) 99.1 ml/min; Magnesium 1.7 mg/dl (1.7-2.4); Potassium 3.7 mmol/L (3.5-5.1)
--- NOTE | 2023-05-31 20:00 | XRay Report ---
XR chest 1V portable CLINICAL HISTORY: pa cath placement TECHNIQUE: Single frontal radiograph of the chest was obtained. Comparison: Comparison is made to chest radiograph 05/23/2023 FINDINGS: Interval placement of a pulmonary arterial catheter are in satisfactory position. Remaining lines and tubes are stable. The cardiomediastinal silhouette is normal. The lungs are clear. Small bilateral p leural effusions are seen. IMPRESSION: 1. Satisfactory position of pulmonary arterial catheter. 2. Small bilateral pleural effusions. ACT 112: Negative or not required by law. Electronically signed by: Evangelist Reynoso M.D. 05/31/2023 7:59 PM
[2023-05-31 21:23] LABS: iSTAT Art Bld Gas pCO2 Correct 52 mmHg (35-46); iSTAT Arterial Blood Gas HCO3 38 meg/L (19-24); iSTAT Arterial Blood Gas pCO2 51 mmHg (35-46); iSTAT Arterial Blood Gas pH 7.48 (7.35-7.45); iSTAT Arterial Blood Gas pO2 < 32 mmHg (80-95); iSTAT Arterial Blood Gas pO2 C 33; iSTAT Carbon Dioxide 39 mmol/L (24-31); iSTAT FiO2 80 %; iSTAT Hematocrit 50 % (37-47); iSTAT Potassium 3.4 mmol/L (3.3-5.0); iSTAT Site Art Line; iSTAT Sodium 134 mmol/L (135-144)
[2023-05-31 23:01] LABS: iSTAT Art Bld Gas pCO2 Correct 43 mmHg (35-46); iSTAT Art Bld Gas pH Corrected 7.539 (7.35-7.45); iSTAT Arterial Blood Gas HCO3 37 meg/L (19-24); iSTAT Arterial Blood Gas pCO2 43 mmHg (35-46); iSTAT Arterial Blood Gas pH 7.54 (7.35-7.45); iSTAT Arterial Blood Gas pO2 101 mmHg (80-95); iSTAT Arterial Blood Gas pO2 C 103; iSTAT Carbon Dioxide 38 mmol/L (24-31); iSTAT FiO2 90 %; iSTAT Hematocrit 50 % (37-47); iSTAT Potassium 3.1 mmol/L (3.3-5.0); iSTAT Site Art Line; iSTAT Sodium 134 mmol/L (135-144)
[2023-05-31] MEDS: POTASSIUM CHLORIDE / WTR 20 MEQ/100 ML PLCT IV SCH (23:03)
[2023-05-31] MEDS: MAGNESIUM SULFATE / D5W 1 GM/100 ML BAG IV SCH (23:04)
[2023-06-01 01:08] LABS: iSTAT Art Bld Gas pCO2 Correct 45 mmHg (35-46); iSTAT Art Bld Gas pH Corrected 7.551 (7.35-7.45); iSTAT Arterial Blood Gas HCO3 39 meg/L (19-24); iSTAT Arterial Blood Gas pCO2 45 mmHg (35-46); iSTAT Arterial Blood Gas pH 7.55 (7.35-7.45); iSTAT Arterial Blood Gas pO2 44 mmHg (80-95); iSTAT Arterial Blood Gas pO2 C 44; iSTAT Carbon Dioxide > 40 mmol/L (24-31); iSTAT FiO2 100 %; iSTAT Hematocrit 49 % (37-47); iSTAT Hemoglobin 16.7 g/dl (12.0-16.0); iSTAT Potassium 3.3 mmol/L (3.3-5.0); iSTAT Site Art Line; iSTAT Sodium 132 mmol/L (135-144)
[2023-06-01 01:29] LABS: ANTI-Xa, UFH(UnfractionatedHep 0.37 IU/ml (0.3-0.7)
[2023-06-01 04:22] LABS: BUN Creatinine Ratio 47.6 (10-20); Calcium 8.8 mg/dl (8.6-10.3); Creatinine Clr Calc Pharmacy 118.7 ml/min; Est GFR (African American) 115.4 ml/min; Est GFR (Non-African American) 99.6 ml/min; Magnesium 2.2 mg/dl (1.7-2.4); Phosphorus 2.8 mg/dl (2.5-4.9); Potassium 3.6 mmol/L (3.5-5.1)
[2023-06-01 04:33] LABS: Basophils # (auto) 0.03 K/uL (0.00-0.20); Basophils % (auto) 0.2 %; Eosinophils # (auto) 0.04 K/uL (0.00-0.50); Eosinophils % (auto) 0.2 %; Hemoglobin 14.2 g/dl (12.0-16.0); Immature Granulocytes # (auto) 0.13 K/uL (0.01-0.20); Immature Granulocytes % (auto) 0.7 %; Lymphocytes # (auto) 0.76 K/uL (1.20-3.40); Mean Corpuscular Hemoglobin 25.3 pg (25.0-34.0); Mean Corpuscular Hgb Conc 30.9 g/dL (32.0-36.0); Monocytes # (auto) 1.11 K/uL (0.11-0.59); Monocytes % (auto) 5.9 %; Neutrophils # (auto) 16.78 K/uL (1.40-6.50); Platelet Count 104 K/uL (130-400); Platelet Estimate Decreased (Normal); RDW Standard Deviation 55.6 fL (36.4-46.3); Red Blood Count 5.61 M/uL (4.20-5.40); White Blood Count 18.85 K/ul (4.8-10.8)
[2023-06-01] MEDS: POTASSIUM CHLORIDE / WTR 20 MEQ/100 ML PLCT IV SCH ×2 (04:51→18:06)
[2023-06-01 05:37] LABS: iSTAT Art Bld Gas pCO2 Correct 62 mmHg (35-46); iSTAT Art Bld Gas pH Corrected 7.409 (7.35-7.45); iSTAT Arterial Blood Gas HCO3 39 meg/L (19-24); iSTAT Arterial Blood Gas pCO2 62 mmHg (35-46); iSTAT Arterial Blood Gas pH 7.41 (7.35-7.45); iSTAT Arterial Blood Gas pO2 89 mmHg (80-95); iSTAT Arterial Blood Gas pO2 C 89; iSTAT Carbon Dioxide > 40 mmol/L (24-31); iSTAT FiO2 80 %; iSTAT Hematocrit 48 % (37-47); iSTAT Hemoglobin 16.3 g/dl (12.0-16.0); iSTAT Potassium 3.3 mmol/L (3.3-5.0); iSTAT Site Art Line; iSTAT Sodium 132 mmol/L (135-144)
[2023-06-01 07:10] LABS: iSTAT Arterial Blood Gas HCO3 36 meg/L (19-24); iSTAT Arterial Blood Gas pCO2 54 mmHg (35-46); iSTAT Arterial Blood Gas pH 7.43 (7.35-7.45); iSTAT Arterial Blood Gas pO2 34 mmHg (80-95); iSTAT Carbon Dioxide 37 mmol/L (24-31); iSTAT Hematocrit 50 % (37-47); iSTAT Potassium 3.5 mmol/L (3.3-5.0); iSTAT Sodium 136 mmol/L (135-144)
--- NOTE | 2023-06-01 07:33 | XRay Report ---
XR chest 1V portable HISTORY: PA cath placement COMPARISON: Chest 05/31/2023. FINDINGS: The PA catheter has been slightly withdrawn and now terminates along the left side of the t horacic spine. This likely remains within the proximal right main pulmonary artery. No pneumothorax. The heart is normal in size. There are small bilateral pleural effusions and bibasilar linear densiti es. Mild emphysema. No evidence for pulmonary edema. The endotracheal tube terminates 4.7 cm from the chris. A right jugular central venous catheter terminates in the SVC. The nasogastric tube terminat es below the diaphragm. The tip is not included on this study. IMPRESSION: 1. The PA catheter has been slightly withdrawn and now terminates along the left side of the thoracic spine. This likely remains within the proximal right main pulmonary artery. 2. Small bilateral pleural effusions and bibasilar densities persist. ACT 112: Negative or not required by law. Electronically signed by: Chris Winter M.D. 06/01/2023 7:31 AM
[2023-06-01 07:47] LABS: ANTI-Xa, UFH(UnfractionatedHep 0.37 IU/ml (0.3-0.7)
--- NOTE | 2023-06-01 07:58 | XRay Report ---
XR chest 1V portable HISTORY: Respiratory failure. Follow-up. COMPARISON: Chest 05/23/2023. FINDINGS: The PA catheter terminates at the mid mediastinum overlying the mid thoracic spine. Endotra cheal tube terminates 5.3 cm from the chris. A right jugular central venous catheter terminates at t he SVC. Nasogastric tube terminates below the diaphragm. The tip is not included on this study. No pn eumothorax. No evidence for pulmonary edema. Small bilateral pleural effusions persist. Prior cholecy stectomy. IMPRESSION: 1. Satisfactory support line placement. 2. Small bilateral pleural effusions and bibasilar densities persist. ACT 112: Negative or not required by law. Electronically signed by: Chris Winter M.D. 06/01/2023 7:56 AM
[2023-06-01] MEDS: FORMOTEROL 20 MCG/2 ML VIAL ONE (08:02)
[2023-06-01] MEDS: acetaZOLAMIDE 500 MG in SYRINGE 0 ML IV STA (09:08)
[2023-06-01] MEDS: predniSONE 10 MG TABLET PO SCH (09:09)
[2023-06-01] MEDS: ALBUT/IPRATROP 3MG/0.5MG NEB 3 ML VIAL ONE (10:48)
[2023-06-01 11:09] LABS: iSTAT Art Bld Gas pCO2 Correct 67 mmHg (35-46); iSTAT Art Bld Gas pH Corrected 7.369 (7.35-7.45); iSTAT Arterial Blood Gas HCO3 39 meg/L (19-24); iSTAT Arterial Blood Gas pCO2 67 mmHg (35-46); iSTAT Arterial Blood Gas pH 7.37 (7.35-7.45); iSTAT Arterial Blood Gas pO2 51 mmHg (80-95); iSTAT Arterial Blood Gas pO2 C 52; iSTAT Carbon Dioxide > 40 mmol/L (24-31); iSTAT FiO2 100 %; iSTAT Hematocrit 50 % (37-47); iSTAT Site Art Line; iSTAT Sodium 133 mmol/L (135-144)
[2023-06-01] MEDS: VECURONIUM BROMIDE 10 MG VIAL IV STA (11:45)
[2023-06-01] MEDS: VECURONIUM BROMIDE 10 MG VIAL IV ONE (11:45)
[2023-06-01] MEDS: PEPTAMEN INTENSE VHP 1.0 CAL 1,000 ML BAG GT SCH (11:47)
[2023-06-01] MEDS: TUBE FEEDING WATER FLUSH GT SCH (11:48)
--- NOTE | 2023-06-01 11:54 | Cardiology Progress Note ---
Date of Service June 01, 2023 Assessment & Plan (1) Acute CHF (congestive heart failure): Plan: 2. Hypoxic/hypercarbic respiratory failure 3. Severe pulmonary hypertension (post-capillary) with dilated RV/dysfunction 4. Pneumonia/atelectasis 5. Subsegmental PE 6. CAD post remote PCI to circumflex 7. Demand ischemia 8. PFO Persistently hypoxic, intermittently requiring proning Negative 2600, renal function stable PA diastolic pressure remains elevated on swan Stable BP on low dose norepi Electrically stable Congestion persists. Cardiac output preserved. No signs of ACS. -- Agree with continued diuresis, on lasix drip. Consider additional acetaz olivia -- Clopidogrel alone sufficient for CAD. Can stop ASA -- Continue heparin infusion. -- [place] removed Will follow Admission and Anticipated Discharge Date Admission Date: May 23, 2023 Subjective No acute events overnight. Review of Systems Review of Systems: All systems reviewed & are unremarkable except as noted in HPI & below Physical Exam Physical Exam: General: Intubated Lungs: Coarse BS anteriorly Cardiac: Regular rate no murmurs. Abdomen: Soft Extremities: Trace edema Neuro: Nonfocal Psych: intubated, sedated Results & Data Vital Signs (Past 12 Hours) Vital Signs Temp Pulse Resp BP BP Pulse Ox O2 Del Method 06/01/23 08:34 142/59 H 06/01/23 08:27 102/45 L 06/01/23 08:15 98.6 F 63 14 95 06/01/23 08:00 98.6 F 78 14 96 06/01/23 08:00 06/01/23 08:00 73 06/01/23 07:45 98.6 F 79 14 96 06/01/23 07:30 98.6 F 72 14 95 06/01/23 07:00 76 15 96 06/01/23 07:00 98.4 F 75 14 96 Mechanical Vent 06/01/23 06:00 98.4 F 73 13 97 Mechanical Vent 06/01/23 05:38 06/01/23 05:30 98.6 F 74 14 97 Mechanical Vent 06/01/23 05:00 98.8 F 77 14 96 Mechanical Vent 06/01/23 04:30 98.6 F 78 14 97 Mechanical Vent 06/01/23 04:00 98.6 F 78 14 97 Mechanical Vent 06/01/23 04:00 77 116/55 L 06/01/23 04:00 06/01/23 03:30 98.6 F 74 14 96 Mechanical Vent 06/01/23 03:00 98.4 F 58 L 14 93 Mechanical Vent 06/01/23 02:30 98.4 F 61 14 98 Mechanical Vent 06/01/23 02:20 55 L 14 93 06/01/23 02:00 98.4 F 58 L 14 98 Mechanical Vent 06/01/23 01:30 98.4 F 60 14 97 Mechanical Vent 06/01/23 01:00 98.2 F 61 14 90 Mechanical Vent 06/01/23 01:00 14 06/01/23 00:30 98.2 F 59 L 20 88 L 06/01/23 00:00 98.4 F 60 20 88 L Mechanical Vent 06/01/23 00:00 FiO2 06/01/23 08:34 06/01/23 08:27 06/01/23 08:15 06/01/23 08:00 06/01/23 08:00 65 06/01/23 08:00 06/01/23 07:45 06/01/23 07:30 06/01/23 07:00 65 06/01/23 07:00 65 06/01/23 06:00 70 06/01/23 05:38 70 06/01/23 05:30 70 06/01/23 05:00 70 06/01/23 04:30 70 06/01/23 04:00 80 06/01/23 04:00 06/01/23 04:00 80 06/01/23 03:30 80 06/01/23 03:00 80 06/01/23 02:30 80 06/01/23 02:20 80 06/01/23 02:00 80 06/01/23 01:30 80 06/01/23 01:00 90 06/01/23 01:00 100 06/01/23 00:30 06/01/23 00:00 80 06/01/23 00:00 90 PG Care Time/CCT Total # of Minutes Spent Total Time Spent with Patient: Total time spent is greater than 50% in coordination of care (as documented) at patient's floor/unit and/or counseling patient: Coding Level of Care Code 03873 SUB INP/OBS CARE 3/50MIN Diagnoses Acute CHF (congestive heart failure) I50.9
[2023-06-01] MEDS ORDERED: 1.2 MICRON FILTER 1 EACH IV SCH (12:00)
--- NOTE | 2023-06-01 12:15 | XRay Report ---
XR chest 1V portable HISTORY: hypoxemia COMPARISON: Chest 06/01/2023. FINDINGS: The PA catheter has been removed. Endotracheal tube terminates 4.5 cm from the chris. A ri ght jugular central venous catheter terminates in the distal SVC. Nasogastric tube terminates below t he diaphragm. There has been interval placement of a left jugular central venous catheter which termi nates at the brachiocephalic/SVC junction. No pneumothorax. The heart is stable in size. Small bilate ral pleural effusions and bibasilar densities persist. There is mild pulmonary vascular congestion wi thout overt edema. No pneumothorax. IMPRESSION: 1. Interval placement of a left jugular central venous catheter which terminates at the brachiocephal ic/SVC junction. No pneumothorax. 2. The remaining lines/tubes are in good position. 3. Pulmonary vascular congestion and small bilateral pleural effusions persist. ACT 112: Negative or not required by law. Electronically signed by: Chris Winter M.D. 06/01/2023 12:14 PM
[2023-06-01 12:26] LABS: iSTAT Art Bld Gas pCO2 Correct 77 mmHg (35-46); iSTAT Art Bld Gas pH Corrected 7.318 (7.35-7.45); iSTAT Arterial Blood Gas HCO3 40 meg/L (19-24); iSTAT Arterial Blood Gas pCO2 77 mmHg (35-46); iSTAT Arterial Blood Gas pH 7.32 (7.35-7.45); iSTAT Arterial Blood Gas pO2 59 mmHg (80-95); iSTAT Arterial Blood Gas pO2 C 58; iSTAT Carbon Dioxide > 40 mmol/L (24-31); iSTAT FiO2 100 %; iSTAT Hematocrit 50 % (37-47); iSTAT Potassium 3.9 mmol/L (3.3-5.0); iSTAT Site Art Line; iSTAT Sodium 132 mmol/L (135-144)
--- NOTE | 2023-06-01 13:06 | Pharmacy Report ---
Pharmacy Glycemic Short Note 2 - Date of Service June 01, 2023 - Glycemic Short BSG Results (Last 24 hours): 05/31/23 05/31/23 06/01/23 18:09 19:18 00:22 Glucose 226 H POC Glucose POC Glucose (other) 219 H 175 H 06/01/23 06/01/23 06/01/23 03:49 06:13 12:37 Glucose 148 H POC Glucose 108 H POC Glucose (other) 200 H OUTPATIENT ANTIDIABETIC REGIMEN: * n/a ASSESSMENT: 06/01: * BSGs in last 24 hours [phone] mg/dL * Patient was reintubated over the weekend, on heparin gtt, low dose norepinephrine * Prednisone has been decreased to 30 mg daily * Fasting this AM was 108 mg/dL with 8 units of lantus- continue for now * Adjusted novolog to q4 hours checks with initiation of trickle feeds- monitor for BSG increase 05/29: * BSGs in last 24 hours [phone] mg/dL * Patient extubated 05/27 afternoon, experiencing some delirium. Diet now ordered. * Received 10 units of lantus yesterday, fasting this AM 134 mg/dL, will continue same for now * Steroids are being tapered, received 40 mg IV solumedrol this AM, will begins 40 mg prednisone x 5 days tomorrow, then 20 mg prednisone x 5 days with a 5mg taper after that. Novolog parameters were loosened this morning- high lunch BSG, will monitor as it was also elevated yesterday then down trended. 05/25: * BSGs within goal the last 24h. Received 30 units of basal and 24 units of bolus insulin yesterday. * Remains intubated and requiring slight vasopressor support. Receiving Solu Medrol 80mg TID, as well as IV cefepime. Tube feeds initiated today (Peptamen VHP). * Lantus 20 units SQ X 1 this AM given BSGs down-trending and with several days of NPO status. Will add a scale for HS depending on BSG (coverage greater than 180mg/dL) given initiation of tube feeds. Novolog q4- no change to parameters, include coverage of feeds. 05/24: * 58 year old admitted with altered mental status and hypoxemic respiratory failure. Intubated on admission. High dose steroids started, solumedrol 125 mg iv tid. Pharmacy consulted for glycemic management. No outpatient DM medications, awaiting A1c. * BSGs this AM elevated >250 mg/dL - Received Lantus 20 units x 1 last evening * Continues on solumedrol this morning, 125 mg iv given this AM - will give Lantus 30 units x 1 now. Changed to Q4 hours checks and also tightened CF. * Steroids now decreasing to 80 mg iv TID starting this afternoon. Plan to have Lantus scale for HS time in case BSGs remain elevated PLAN FOR INPATIENT GLYCEMIC CONTROL: * Hold outpatient oral diabetes medications * Basal insulin * Lantus 8 units daily * Bolus insulin * NovoLog per scale ACHS or Q6hrs while NPO * Goal Range: Low 110 mg/dL - High 140 mg/dL * Correction Factor: 25 mg/dL/unit * Nutritional / Prandial insulin per carb ratio of 1 unit per 7 grams CHO consumed
[2023-06-01] MEDS: fentaNYL BOLUS from BAG IV PRN (14:33)
--- NOTE | 2023-06-01 16:03 | Hospitalist Progress Note ---
Date of Service June 01, 2023 Assessment & Plan (1) Acute on chronic respiratory failure with hypoxia and hypercapnia: Plan: 58yo female with history of COPD presenting with respiratory failure with hypoxia and hypercarbia 1. Acute metabolic encephalopathy This was most likely related to her acute hypercapnic respiratory failure since it has improved significantly CT head showed a stroke, age indeterminate. Most likely old stroke. An MRI can be done at a later time 2. Delirium Most likely hospital-acquired delirium or ICU delirium Got intubated because of delirium. Initially on Precedex drip, which was discontinued 2. Acute hypercarbic respiratory failure Initially was put on BiPAP with no improvement Required to be intubated soon after admission [employer] managed vent Extubated 05/27 Most likely due to severe asthma/COPD exacerbation. On IV Solu-Medrol, reduced dose to 40 mg IV every 8 on 05/25. Has been switched to p.o. prednisone, now on [address] chest showed aspiration pneumonia for which she is now on IV cefepime since 05/25. Completed a 5-day course. Bronchoscopy performed 05/23 revealed eosinophilia in the bronchial washings. All cultures negative from 05/23 and from 05/26 Was being diuresed for bilateral pleural effusion Was still requiring high oxygen. Got delirious and was taking oxygen off on 05/30 Reintubated on 05/30 CT angio of the chest on 05/30 showed small subsegmental left upper lobe PE. Most likely not the reason for hypoxia. However she has been started on heparin drip. Furn[employer] suspects intrapulmonary shunt resulting in severe hypoxemia. Currently in the prone position 3. Cor pulmonale/right heart failure Status post right cardiac cath Echocardiogram showed evidence of cor pulmonale Patient has elevated liver enzymes and lower extremity edema secondary to right heart failure Cardiology on consult Continue diuresis Patient has PFO 4. Elevated liver enzymes Due to shock liver from right heart failure Improving LFTs Hepatitis panel negative Elevated INR due to shock liver, improved Completed NAC protocol 5. Acute kidney injury Resolved with diuresis Metabolic alkalosis likely due to a combination of diuretic therapy and compensation of chronic respiratory acidosis. Given a dose of Diamox today. 6. Demand ischemia Likely due to severe hypoxia and respiratory failure Echo showed normal EF and no wall motion abnormalities 7. Thrombocytopenia Improved No bleeding Monitor DVT prophylaxis: Currently on heparin drip Full code (2) Coronary artery disease: (3) Hyperlipidemia: (4) Abnormal LFTs: (5) Elevated troponin: Admission and Anticipated Discharge Date Admission Date: May 23, 2023 Subjective Patient seen and examined, intubated and in the prone position Review of Systems Review of Systems: Unable to obtain Physical Exam Physical Exam: The patient is intubated and improved position HEENT--PERRL, EOMI, mucous membranes and oropharynx mildly dry Neck--supple. No JVD. No bruits. Thyroid normal, trachea midline, no adenopathy. Heart--normal S1 and S2. No murmurs, rubs or gallops. Lungs--clear bilaterally, no respiratory distress, no accessory muscle use. Abdomen--normal bowel sounds and soft. Mild epigastric and left sided abdominal pain Extremities--no cyanosis or clubbing. No edema. Dermatologic--normal skin turgor, normal color, no abnormal lymph nodes, no rash. Neurologic--unable to fully assess Rheumatologic--normal range of motion. Psychiatric--unable to assess Results & Data Results & Data Vital Signs (Past 12 Hours) Vital Signs Temp Pulse Resp BP BP Pulse Ox O2 Del Method 06/01/23 13:00 98.4 F 107 H 18 93 Mechanical Vent 06/01/23 12:59 82 19 87 L 06/01/23 12:00 98.6 F 108 H 23 88 L 06/01/23 12:00 123/75 06/01/23 12:00 06/01/23 12:00 82 06/01/23 11:30 99.0 F 82 18 82 L 06/01/23 11:30 105/61 06/01/23 11:00 99.1 F 101 H 18 81 L 06/01/23 11:00 74/57 L 06/01/23 11:00 74/57 L 06/01/23 10:49 Mechanical Vent 06/01/23 10:00 98.8 F 82 14 97 06/01/23 09:00 98.6 F 59 L 15 92 Mechanical Vent 06/01/23 08:34 142/59 H 06/01/23 08:27 102/45 L 06/01/23 08:15 98.6 F 63 14 95 06/01/23 08:00 71 06/01/23 08:00 Mechanical Vent 06/01/23 08:00 98.6 F 78 14 96 06/01/23 08:00 06/01/23 08:00 73 06/01/23 07:45 98.6 F 79 14 96 06/01/23 07:30 98.6 F 72 14 95 06/01/23 07:00 76 15 96 06/01/23 07:00 98.4 F 75 14 96 Mechanical Vent 06/01/23 06:00 98.4 F 73 13 97 Mechanical Vent 06/01/23 05:38 06/01/23 05:30 98.6 F 74 14 97 Mechanical Vent 06/01/23 05:00 98.8 F 77 14 96 Mechanical Vent 06/01/23 04:30 98.6 F 78 14 97 Mechanical Vent FiO2 06/01/23 13:00 06/01/23 12:59 100 06/01/23 12:00 06/01/23 12:00 06/01/23 12:00 100 06/01/23 12:00 06/01/23 11:30 06/01/23 11:30 06/01/23 11:00 06/01/23 11:00 06/01/23 11:00 06/01/23 10:49 06/01/23 10:00 06/01/23 09:00 100 06/01/23 08:34 06/01/23 08:27 06/01/23 08:15 06/01/23 08:00 06/01/23 08:00 100 06/01/23 08:00 06/01/23 08:00 65 06/01/23 08:00 06/01/23 07:45 06/01/23 07:30 06/01/23 07:00 65 06/01/23 07:00 65 06/01/23 06:00 70 06/01/23 05:38 70 06/01/23 05:30 70 06/01/23 05:00 70 06/01/23 04:30 70 PG Care Time/CCT Total # of Minutes Spent Total Time Spent with Patient: Total time spent is greater than 50% in coordination of care (as documented) at patient's floor/unit and/or counseling patient: Coding Level of Care Code 48782 SUB INP/OBS CARE 2/35MIN Diagnoses Acute on chronic respiratory failure with hypoxia and hypercapnia J96.21; J96.22 Coronary artery disease I25.10 Hyperlipidemia E78.5 Abnormal LFTs R79.89 Elevated troponin R79.89 Time Spent (min) 35
--- NOTE | 2023-06-01 16:09 | Critical Care Progress Note ---
Date of Service June 01, 2023 Assessment & Plan (1) Status asthmaticus with COPD (chronic obstructive pulmonary disease): (2) Acute CHF (congestive heart failure): (3) Acute encephalopathy: (4) Transaminitis: (5) Coronary artery disease: (6) Elevated troponin: (7) Endotracheally intubated: (8) RVF (right ventricular failure): (9) Aspiration pneumonia: Plan Impression: 58-year-old female with a past medical history of coronary artery disease, COPD, asthma and obesity who presented to the hospital due to altered mental status and hypoxemic respiratory failure. 24-hour events: Patient continues to demonstrate significant hypoxemia. Her chest x-ray did not show much in the way of new airspace opacities. She was proned last evening with improvement in her oxygenation indices. Her PA catheter is no longer functioning and unable to deliver a wedge pressure. She was returned back to the supine position earlier today and transiently had oxygen saturations in the low 80% range with a PaO2 of around 50. She did respond favorably to decreasing her level of PEEP. She is maintained on a Lasix infusion Recommendations: Neurologic: Continue sedation. Try and wean as tolerated. Suspect hypercapnic metabolic encephalopathy. Imaging unremarkable. Continue to follow and avoid medications which may potentiate delirium. Pulmonary: Hypoxemic hypercapnic respiratory failure status post reintubation 05/30/2023. Bronchoscopy revealed significant eosinophils on BAL. May be a candidate for Xolair in the outpatient setting. Continue steroids at this point in time with aggressive bronchodilators. CT showed small left upper lobe PE. She does have significant shunt physiology with a PFO which is patent but did not demonstrate significant shunt during her cardiac catheterization. Unclear if there might be an intrapulmonary shunt as well. She has significant pulmonary hypertension: Continue diuresis. Do not see any pulmonary AVMs on the CT angiogram which would account for her degree of shunt physiology. Continue to optimize ventilator strategy to allow adequate exhalation time. The patient responded favorably to decreasing her PEEP down to 5 or 6. Pressures including peak and plateau pressures are adequate currently. The patient did have significant plugging of the lower lobe airways with small bilateral pleural effusions. Continue with diuresis. Follow-up chest x-ray in a.m. May be reasonable to consider bronchoscopy to evacuate lower lobe mucous plugging. Cardiovascular: Per pulmonology. The PA catheter is no longer functional so will be removed at this point in time. Given her elevated wedge pressures, I am reluctant to use inhaled nitric oxide or other direct pulmonary vasodilators. Continue Plavix. Wean Levophed as tolerated. Gastrointestinal: Increased LFTs potentially secondary to congestive hepatopathy. Completed NAC protocol. Continue to trend. Trophic tube feeds. Renal: Potential cardiorenal syndrome. Continue Lasix infusion until BUN and creatinine bump or hemodynamics become problematic. Will continue to use Diamox as needed for contraction alkalosis. Infectious disease: Completed course of meropenem/cefepime. White blood cell count increased yesterday, unclear if margination due to steroids. Holding on antibiotics for now. Suspect Tatiana in the urine is not pathogenic and defer antifungal therapies for now. Hematologic: Stable thrombocytopenia. Continue to follow coagulopathy. Endocrine: Glycemic protocol per ICU --Prophylaxis VTE: heparin infusion GI: Pantoprazole daily Lines: Peripheral Diet: Trophic tube feed. OG in place. CRITICAL CARE TIME - I have personally spent 50 minutes of critical care time in the direct management of this patient. This is a life/limb threatening event. This includes time spent evaluating patient, direct bedside care, chart review, placing orders, interpretation of diagnostic studies, discussion with consultants, patient, and family members, as well as other required patient management activities. This time is exclusive of all separately billable procedures, and teaching time and separate from and in addition to any other critical care service time. Admission and Anticipated Discharge Date Admission Date: May 23, 2023 Subjective Patient is intubated and sedated Review of Systems Review of Systems: Unobtainable due to endotracheal tube Physical Exam Constitutional: + mechanically ventilated Sedated Neck: trachea midline, no thyromegaly Respiratory: no respiratory distress, no labored breathing, no cough and not tachypneic Auscultation: + wheezes; no crackles Cardiovascular: RRR, no murmur, no edema Gastrointestinal (Abdomen): normal bowel sounds, soft, nontender, no hepatosplenomegaly Musculoskeletal: Extremities: extremities normal to inspection Skin: no rashes, warm and dry Neurologic: Sedated Lymphatic: no cervical lymphadenopathy Results & Data Results & Data Vital Signs (Past 12 Hours) Vital Signs Temp Pulse Resp BP BP Pulse Ox O2 Del Method 06/01/23 13:00 36.9 C 107 H 18 93 Mechanical Vent 06/01/23 12:59 82 19 87 L 06/01/23 12:00 37.0 C 108 H 23 88 L 06/01/23 12:00 123/75 06/01/23 12:00 06/01/23 12:00 82 06/01/23 11:30 37.2 C 82 18 82 L 06/01/23 11:30 105/61 06/01/23 11:00 37.3 C 101 H 18 81 L 06/01/23 11:00 74/57 L 06/01/23 11:00 74/57 L 06/01/23 10:49 Mechanical Vent 06/01/23 10:00 37.1 C 82 14 97 06/01/23 09:00 37.0 C 59 L 15 92 Mechanical Vent 06/01/23 08:34 142/59 H 06/01/23 08:27 102/45 L 06/01/23 08:15 37.0 C 63 14 95 06/01/23 08:00 71 06/01/23 08:00 Mechanical Vent 06/01/23 08:00 37.0 C 78 14 96 06/01/23 08:00 06/01/23 08:00 73 06/01/23 07:45 37.0 C 79 14 96 06/01/23 07:30 37.0 C 72 14 95 06/01/23 07:00 76 15 96 06/01/23 07:00 36.9 C 75 14 96 Mechanical Vent 06/01/23 06:00 36.9 C 73 13 97 Mechanical Vent 06/01/23 05:38 06/01/23 05:30 37.0 C 74 14 97 Mechanical Vent 06/01/23 05:00 37.1 C 77 14 96 Mechanical Vent 06/01/23 04:30 37.0 C 78 14 97 Mechanical Vent 06/01/23 04:00 37.0 C 78 14 97 Mechanical Vent 06/01/23 04:00 77 116/55 L 06/01/23 04:00 FiO2 06/01/23 13:00 06/01/23 12:59 100 06/01/23 12:00 06/01/23 12:00 06/01/23 12:00 100 06/01/23 12:00 06/01/23 11:30 06/01/23 11:30 06/01/23 11:00 06/01/23 11:00 06/01/23 11:00 06/01/23 10:49 06/01/23 10:00 06/01/23 09:00 100 06/01/23 08:34 06/01/23 08:27 06/01/23 08:15 06/01/23 08:00 06/01/23 08:00 100 06/01/23 08:00 06/01/23 08:00 65 06/01/23 08:00 06/01/23 07:45 06/01/23 07:30 06/01/23 07:00 65 06/01/23 07:00 65 06/01/23 06:00 70 06/01/23 05:38 70 06/01/23 05:30 70 06/01/23 05:00 70 06/01/23 04:30 70 06/01/23 04:00 80 06/01/23 04:00 06/01/23 04:00 80 Critical Care Results & Data Vital Signs (Past 12 Hours) Vital Signs Temp Pulse Resp BP BP Pulse Ox O2 Del Method 06/01/23 13:00 36.9 C 107 H 18 93 Mechanical Vent 06/01/23 12:59 82 19 87 L 06/01/23 12:00 37.0 C 108 H 23 88 L 06/01/23 12:00 123/75 06/01/23 12:00 06/01/23 12:00 82 06/01/23 11:30 37.2 C 82 18 82 L 06/01/23 11:30 105/61 06/01/23 11:00 37.3 C 101 H 18 81 L 06/01/23 11:00 74/57 L 06/01/23 11:00 74/57 L 06/01/23 10:49 Mechanical Vent 06/01/23 10:00 37.1 C 82 14 97 06/01/23 09:00 37.0 C 59 L 15 92 Mechanical Vent 06/01/23 08:34 142/59 H 06/01/23 08:27 102/45 L 06/01/23 08:15 37.0 C 63 14 95 06/01/23 08:00 71 06/01/23 08:00 Mechanical Vent 06/01/23 08:00 37.0 C 78 14 96 06/01/23 08:00 06/01/23 08:00 73 06/01/23 07:45 37.0 C 79 14 96 06/01/23 07:30 37.0 C 72 14 95 06/01/23 07:00 76 15 96 06/01/23 07:00 36.9 C 75 14 96 Mechanical Vent 06/01/23 06:00 36.9 C 73 13 97 Mechanical Vent 06/01/23 05:38 06/01/23 05:30 37.0 C 74 14 97 Mechanical Vent 06/01/23 05:00 37.1 C 77 14 96 Mechanical Vent 06/01/23 04:30 37.0 C 78 14 97 Mechanical Vent 06/01/23 04:00 37.0 C 78 14 97 Mechanical Vent 06/01/23 04:00 77 116/55 L 06/01/23 04:00 FiO2 06/01/23 13:00 06/01/23 12:59 100 06/01/23 12:00 06/01/23 12:00 06/01/23 12:00 100 06/01/23 12:00 06/01/23 11:30 06/01/23 11:30 06/01/23 11:00 06/01/23 11:00 06/01/23 11:00 06/01/23 10:49 06/01/23 10:00 06/01/23 09:00 100 06/01/23 08:34 06/01/23 08:27 06/01/23 08:15 06/01/23 08:00 06/01/23 08:00 100 06/01/23 08:00 06/01/23 08:00 65 06/01/23 08:00 06/01/23 07:45 06/01/23 07:30 06/01/23 07:00 65 06/01/23 07:00 65 06/01/23 06:00 70 06/01/23 05:38 70 06/01/23 05:30 70 06/01/23 05:00 70 06/01/23 04:30 70 06/01/23 04:00 80 06/01/23 04:00 06/01/23 04:00 80 Lab & Micro Results (Past 24 Hours) RBC 5.61 M/uL (4.20-5.40) H 06/01/23 WBC 18.85 K/ul (4.8-10.8) H 06/01/23 Hgb 14.2 g/dl (12.0-16.0) 06/01/23 Hct 46.0 % (37.0-47.0) 06/01/23 MCV 82.0 fL (80.0-100.0) 06/01/23 MCH 25.3 pg (25.0-34.0) 06/01/23 MCHC 30.9 g/dL (32.0-36.0) L 06/01/23 RDW Standard Deviation 55.6 fL (36.4-46.3) H 06/01/23 RDW Coefficient of Variation 20.0 % (11.5-14.5) H 06/01/23 Plt Count 104 K/uL (130-400) L 06/01/23 Neutrophils (%) (Auto) 89.0 % 06/01/23 Lymphocytes (%) (Auto) 4.0 % 06/01/23 Monocytes # (Auto) 1.11 K/uL (0.11-0.59) H 06/01/23 Eosinophils # (Auto) 0.04 K/uL (0.00-0.50) 06/01/23 Immature Granulocyte % (Auto) 0.7 % 06/01/23 Neutrophils # (Auto) 16.78 K/uL (1.40-6.50) H 06/01/23 Lymphocytes # (Auto) 0.76 K/uL (1.20-3.40) L 06/01/23 Monocytes # (Auto) 1.11 K/uL (0.11-0.59) H 06/01/23 Eosinophils # (Auto) 0.04 K/uL (0.00-0.50) 06/01/23 Basophils # (Auto) 0.03 K/uL (0.00-0.20) 06/01/23 Immature Granulocyte # (Auto) 0.13 K/uL (0.01-0.20) 4 Na 134 mmol/L (136-145) L 06/01/23 K 3.6 mmol/L (3.5-5.1) 06/01/23 Cl 90 mmol/L (98-107) L 06/01/23 CO2 39 mmol/L (21-32) H 06/01/23 Anion Gap 5 (3-11) 06/01/23 BUN 30 mg/dl (6-23) H 06/01/23 Creatinine 0.63 mg/dl (0.6-1.2) 06/01/23 Estimated GFR ( Amer) 115.4 ml/min 06/01/23 Estimated GFR (Non-Af Amer) 99.6 ml/min 06/01/23 BUN/Creatinine Ratio 47.6 (10-20) H 06/01/23 Glu 148 mg/dl (70-99(Fasting)) H 06/01/23 Ca 8.8 mg/dl (8.6-10.3) 06/01/23 Phosphorus Level 2.8 mg/dl (2.5-4.9) 06/01/23 Mg 2.2 mg/dl (1.7-2.4) 06/01/23 03:49 Calcium Level 8.8 mg/dl (8.6-10.3) 06/01/23 03:49 García Test NA 06/01/23 16:05 Diagnostic Findings (Past 24 Hours) Chest X-Ray 05/31/23 19:18 XR chest 1V portable CLINICAL HISTORY: pa cath placement TECHNIQUE: Single frontal radiograph of the chest was obtained. Comparison: Comparison is made to chest radiograph 05/23/2023 FINDINGS: Interval placement of a pulmonary arterial catheter are in satisfactory positio n. Remaining lines and tubes are stable. The cardiomediastinal silhouette is normal. The lungs are clear. Small bilateral pleural effusions are seen. IMPRESSION: 1. Satisfactory position of pulmonary arterial catheter. 2. Small bilateral pleural effusions. ACT 112: Negative or not required by law. Electronically signed by: Evangelist Reynoso M.D. 05/31/2023 7:59 PM Chest X-Ray 05/31/23 21:43 XR chest 1V portable HISTORY: PA cath placement COMPARISON: Chest 05/31/2023. FINDINGS: The PA catheter has been slightly withdrawn and now terminates along the left side of the thoracic spine. This likely remains within the proximal right main pulmonary artery. No pneumothorax. The heart is normal in size. There are small bilateral pleural effusions and bibasilar linear densities. Mild emphysema. No evidence for pulmonary edema. The endotracheal tube terminates 4.7 cm from the chris. A right jugular central venous catheter terminates in the SVC. The nasogastric tube terminates below the diaphragm. The tip is not included on this study. IMPRESSION: 1. The PA catheter has been slightly withdrawn and now terminates along the left side of the thoracic spine. This likely remains within the proximal right main pulmonary artery. 2. Small bilateral pleural effusions and bibasilar densities persist. ACT 112: Negative or not required by law. Electronically signed by: Chris Winter M.D. 06/01/2023 7:31 AM Chest X-Ray 06/01/23 07:00 XR chest 1V portable HISTORY: Respiratory failure. Follow-up. COMPARISON: Chest 05/23/2023. FINDINGS: The PA catheter terminates at the mid mediastinum overlying the mid thoracic spine. Endotracheal tube terminates 5.3 cm from the chris. A right jugular central venous catheter terminates at the SVC. Nasogastric tube terminates below the diaphragm. The tip is not included on this study. No pneumothorax. No evidence for pulmonary edema. Small bilateral pleural effusions persist. Prior cholecystectomy. IMPRESSION: 1. Satisfactory support line placement. 2. Small bilateral pleural effusions and bibasilar densities persist. ACT 112: Negative or not required by law. Electronically signed by: Chris Winter M.D. 06/01/2023 7:56 AM Chest X-Ray 06/01/23 11:31 XR chest 1V portable HISTORY: hypoxemia COMPARISON: Chest 06/01/2023. FINDINGS: The PA catheter has been removed. Endotracheal tube terminates 4.5 cm from the chris. A right jugular central venous catheter terminates in the distal SVC. Nasogastric tube terminates below the diaphragm. There has been interval placement of a left jugular central venous catheter which terminates at the brachiocephalic/SVC junction. No pneumothorax. The heart is stable in size. Small bilateral pleural effusions and bibasilar densities persist. There is mild pulmonary vascular congestion without overt edema. No pneumothorax. IMPRESSION: 1. Interval placement of a left jugular central venous catheter which terminates at the brachiocephalic/SVC junction. No pneumothorax. 2. The remaining lines/tubes are in good position. 3. Pulmonary vascular congestion and small bilateral pleural effusions persist. ACT 112: Negative or not required by law. Electronically signed by: Chris Winter M.D. 06/01/2023 12:14 PM I & O Totals 24 Hours 05/31/23 06/01/23 06/02/23 06:59 06:59 06:59 Intake Total 845.975 / 566.594 1846.856 / 1959.856 557.448 / 557.448 Output Total 2825 / 2825 4595 / 4595 1000 / 1000 Balance -1979.025 / -1979.025 -2635.144 / -2635.144 -442.552 / -442.552 Cumulative 05/23/23 01:22 thru 06/01/23 14:32 Intake Total 7846.222 Output Total 11124 Balance -97633.778 RT Ventilator Mngmt (Last Documented) Ventilator Ordered Settings Ventilator Support Mode Assist Control 06/01/23 12:59 Respiratory Rate 18 06/01/23 13:00 Ventilator Tidal Volume 330 06/01/23 12:59 Setting Minute Ventilation 5.9 06/01/23 12:59 Ventilator Positive Pressure 9 05/27/23 07:10 Support Setting Positive End Expiratory 6 06/01/23 12:59 Pressure Fraction of Inspired Oxygen 100 06/01/23 12:59 Peak Inspiratory Flow 48 05/26/23 07:07 Machine Comment Changes made by Vazquez ALSTON 06/01/23 02:20 CCM Ventilator - PT Measurements Respiratory Rate 18 Exhaled Tidal Volume 330 Minute Ventilation 5.9 Peak Inspiratory Airway 19 Pressure Plateau Pressure 15.7 Respiratory Cycle Inspiratory: 1:1.4 Expiratory Ratio Inspiratory Phase Time 1.4 End-Tidal CO2 30 Static Lung Compliance 34.02 Dynamic Lung Compliance 25.38 Normal Static Lung Compliance 47.00 Patient Measurements Comment Breath Sounds TIGHT AND WHEEZY Coding Level of Care Code 78922 CRITICAL CARE 1ST 30-74M Diagnoses Status asthmaticus with COPD (chronic obstructive pulmonary disease) J44.89; J45.902 Acute CHF (congestive heart failure) I50.9 Acute encephalopathy G93.40 Transaminitis R74.01 Coronary artery disease I25.10 Elevated troponin R79.89 Endotracheally intubated Z97.8 RVF (right ventricular failure) I50.810 Aspiration pneumonia J69.0
[2023-06-01 16:15] LABS: iSTAT Art Bld Gas pCO2 Correct 72 mmHg (35-46); iSTAT Art Bld Gas pH Corrected 7.339 (7.35-7.45); iSTAT Arterial Blood Gas HCO3 38 meg/L (19-24); iSTAT Arterial Blood Gas pCO2 71 mmHg (35-46); iSTAT Arterial Blood Gas pH 7.34 (7.35-7.45); iSTAT Arterial Blood Gas pO2 60 mmHg (80-95); iSTAT Arterial Blood Gas pO2 C 60; iSTAT Carbon Dioxide > 40 mmol/L (24-31); iSTAT FiO2 80 %; iSTAT Hematocrit 46 % (37-47); iSTAT Hemoglobin 15.6 g/dl (12.0-16.0); iSTAT Potassium 3.9 mmol/L (3.3-5.0); iSTAT Site Art Line; iSTAT Sodium 132 mmol/L (135-144)
--- NOTE | 2023-06-01 16:24 | Procedure Note ---
Procedure Note: Bronchoscopy Procedure Procedure: Therapeutic aspiration of secretions, subsequent Provider: Reji Gaming MD Consent: Signed by patient and timeout verified prior to procedure. Procedure was emergent. Patient unable to provide consent due to being on the ventilator and being sedated. Indication: Bilateral lower lobe atelectasis with mucous plugging Procedure: Patient was in the ICU intubated on the ventilator. Appropriate radiographic studies had been reviewed prior to the procedure. Patient was on 100% FiO2 on the ventilator Scope was advanced through the existing endotracheal tube via the Bodai adapter. The tube was approximately 4 cm above the chris. The distal trachea and main chris were normal. Right and left mainstem bronchi were normal. The right upper lobe and left upper lobe appeared normal. There were some thick mucoid secretions present in the bilateral lower lobes, more right greater than left. These were cleared with saline lavage. No specimens were collected. The mucosa was minimally erythematous. Impression: 1. Mucous plugging of the bilateral lower lobes status post therapeutic aspiration of secretions [facility] [place] Procedure Codes (Charges) Pulmonary/Thoracic Procedure 1: Pulmonary and Thoracic: 86654 Bronchoscopy, reclear airway
[2023-06-01] MEDS: INSULIN ASPART PER UNIT CHARGE SC SCH (16:32)
[2023-06-01 17:06] LABS: BUN Creatinine Ratio 40.2 (10-20); Calcium 8.8 mg/dl (8.6-10.3); Creatinine Clr Calc Pharmacy 87.7 ml/min; Est GFR (African American) 92.1 ml/min; Est GFR (Non-African American) 79.4 ml/min; Magnesium 1.9 mg/dl (1.7-2.4); Phosphorus 3.7 mg/dl (2.5-4.9); Potassium 3.9 mmol/L (3.5-5.1)
[2023-06-01] MEDS: MAGNESIUM SULFATE / D5W 1 GM/100 ML BAG IV SCH (17:59)
[2023-06-01] MEDS: ICU ELECTROLYTE REPLACEMENT PROTOCOL SCH (18:06)
[2023-06-01] MEDS: BUDESONIDE 0.5 MG/2 ML VIAL (PULMICORT) NEB SCH (19:28)
[2023-06-01] MEDS: ALBUT/IPRATROP 3MG/0.5MG NEB 3 ML VIAL NEB SCH (19:28)
[2023-06-02 04:01] LABS: Calcium 8.1 mg/dl (8.6-10.3); Creatinine Clr Calc Pharmacy 102.7 ml/min; Est GFR (African American) 111.5 ml/min; Est GFR (Non-African American) 96.2 ml/min; Magnesium 2.2 mg/dl (1.7-2.4); Phosphorus 2.7 mg/dl (2.5-4.9); Potassium 4.1 mmol/L (3.5-5.1)
[2023-06-02 04:07] LABS: iSTAT Art Bld Gas pCO2 Correct 62 mmHg (35-46); iSTAT Art Bld Gas pH Corrected 7.409 (7.35-7.45); iSTAT Arterial Blood Gas HCO3 39 meg/L (19-24); iSTAT Arterial Blood Gas pCO2 60 mmHg (35-46); iSTAT Arterial Blood Gas pH 7.42 (7.35-7.45); iSTAT Arterial Blood Gas pO2 59 mmHg (80-95); iSTAT Arterial Blood Gas pO2 C 60; iSTAT Carbon Dioxide > 40 mmol/L (24-31); iSTAT FiO2 75 %; iSTAT Hematocrit 42 % (37-47); iSTAT Hemoglobin 14.3 g/dl (12.0-16.0); iSTAT Potassium 4.3 mmol/L (3.3-5.0); iSTAT Site Art Line; iSTAT Sodium 131 mmol/L (135-144)
[2023-06-02 04:14] LABS: ANTI-Xa, UFH(UnfractionatedHep 0.26 IU/ml (0.3-0.7)
[2023-06-02 05:10] LABS: Hematocrit (blood only) 32.6 % (37.0-47.0); Hemoglobin 9.9 g/dl (12.0-16.0); Mean Corpuscular Hemoglobin 25.3 pg (25.0-34.0); Mean Corpuscular Hgb Conc 30.4 g/dL (32.0-36.0); Mean Corpuscular Volume 83.4 fL (80.0-100.0); Platelet Count 89 K/uL (130-400); RDW Coefficient of Variation 19.6 % (11.5-14.5); RDW Standard Deviation 57.7 fL (36.4-46.3); Red Blood Count 3.91 M/uL (4.20-5.40); White Blood Count 14.09 K/ul (4.8-10.8)
[2023-06-02 05:11] LABS: Basophils # (auto) 0.01 K/uL (0.00-0.20); Basophils % (auto) 0.1 %; Eosinophils # (auto) 0.03 K/uL (0.00-0.50); Eosinophils % (auto) 0.2 %; Immature Granulocytes # (auto) 0.05 K/uL (0.01-0.20); Immature Granulocytes % (auto) 0.4 %; Lymphocytes # (auto) 0.36 K/uL (1.20-3.40); Lymphocytes % (auto) 2.6 %; Monocytes # (auto) 0.78 K/uL (0.11-0.59); Monocytes % (auto) 5.5 %; Neutrophils # (auto) 12.86 K/uL (1.40-6.50); Neutrophils % (auto) 91.2 %; Platelet Estimate Decreased (Normal)
[2023-06-02] MEDS: acetaZOLAMIDE 500 MG in SYRINGE 0 ML IV STA (10:02)
[2023-06-02] MEDS: FUROSEMIDE 40 MG/4 ML VIAL IV SCH (10:09)
[2023-06-02 11:18] LABS: ANTI-Xa, UFH(UnfractionatedHep 0.29 IU/ml (0.3-0.7)
--- NOTE | 2023-06-02 12:51 | XRay Report ---
SINGLE VIEW CHEST CLINICAL HISTORY: Respiratory failure. FINDINGS: An AP, portable, upright chest radiograph is compared to study dated 06/01/2023. Correlation is made with chest CT dated 05/30/2023. The examination is degraded by portable technique and patient rotation. A left internal jugular central venous catheter has been removed. The endotracheal tube, a n enteric tube, and a right internal jugular central venous catheter are unchanged in position. The h eart is enlarged. There is mild pulmonary vascular congestion. Emphysema and chronic interstitial thi ckening is similar to previous. There are layering pleural effusions with dense bibasilar consolidati on. No pneumothorax is seen. The skeletal structures are osteopenic. The bony thorax is grossly intac t. IMPRESSION: 1. A left internal jugular central venous catheters been removed. Otherwise stable lines and tubes. 2. Cardiomegaly and emphysema with mild pulmonary vascular congestion. 3. Layering pleural effusions with dense bibasilar consolidation. This appears increased from yesterd ay. ACT 112: Negative or not required by law. Electronically signed by: Jose Lemos M.D. 06/02/2023 12:49 PM
--- NOTE | 2023-06-02 13:12 | Cardiology Progress Note ---
Date of Service June 02, 2023 Assessment & Plan (1) Acute CHF (congestive heart failure): Plan: 2. Hypoxic/hypercarbic respiratory failure 3. Severe pulmonary hypertension (post-capillary) with dilated RV/dysfunction 4. Pneumonia/atelectasis 5. Subsegmental PE 6. CAD post remote PCI to circumflex 7. Demand ischemia 8. PFO Persistently hypoxic Urine output limited yesterday. Increased pulm congestion, pleural effusions on chest xray. Hemodynamically and electrically stable. Off levophed. Congestion persists. Cardiac output preserved. No signs of ACS. -- Likely will need additional IV loop diuretics. Consider increased bolus dose -- Received acetazolamide today. -- Consider BID thiazide. -- Clopidogrel alone sufficient for CAD. -- Continue heparin infusion. Will follow Admission and Anticipated Discharge Date Admission Date: May 23, 2023 Subjective No events overnight. Net even last 24 hrs. Remains Intubated FiO2, 65% currently . Off levophed. No arrhythmia on telemetry. Review of Systems Review of Systems: Unobtainable due to endotracheal tube Physical Exam Physical Exam: General: Intubated Lungs: Coarse BS anteriorly Cardiac: Regular rate no murmurs. Abdomen: Soft Extremities: warm, 2+ edema to mid vergara. 2+ DP pulses, 2+ radial pulses Psych: intubated, sedated Results & Data Vital Signs (Past 12 Hours) Vital Signs Temp Pulse Resp BP Pulse Ox O2 Del Method FiO2 06/02/23 12:14 65 06/02/23 10:00 75 19 93 65 06/02/23 08:30 0.7 06/02/23 08:15 Mechanical Vent 0.7 06/02/23 08:00 102/59 L 06/02/23 08:00 99.7 F H 80 18 93 Mechanical Vent 0.7 06/02/23 07:30 78 18 88 L 70 06/02/23 07:30 99.5 F 73 18 89 L 06/02/23 07:00 99.5 F 68 18 88 L 06/02/23 06:00 117/61 06/02/23 06:00 117/61 06/02/23 06:00 99.7 F H 75 18 96 70 06/02/23 05:30 99.7 F H 80 18 95 06/02/23 05:00 99.5 F 73 18 92 06/02/23 05:00 80 01/30/24 04:30 99.1 F 89 18 89 L 06/02/23 04:00 99.3 F 66 18 95 06/02/23 04:00 118/69 06/02/23 04:00 72 06/02/23 03:56 72 19 92 75 06/02/23 03:30 99.1 F 72 18 93 06/02/23 03:00 99.1 F 77 18 92 06/02/23 02:30 99.1 F 80 18 94 06/02/23 02:00 99.1 F 80 18 94 06/02/23 02:00 110/68 06/02/23 01:30 99.1 F 81 18 94 PG Care Time/CCT Total # of Minutes Spent Total Time Spent with Patient: Total time spent is greater than 50% in coordination of care (as documented) at patient's floor/unit and/or counseling patient: Coding Level of Care Code 24117 SUB INP/OBS CARE 3/50MIN Diagnoses Acute CHF (congestive heart failure) I50.9
--- NOTE | 2023-06-02 14:38 | Hospitalist Progress Note ---
Date of Service June 02, 2023 Assessment & Plan (1) Acute on chronic respiratory failure with hypoxia and hypercapnia: Plan: 58yo female with history of COPD presenting with respiratory failure with hypoxia and hypercarbia 1. Acute metabolic encephalopathy This was most likely related to her acute hypercapnic respiratory failure since it has improved significantly CT head showed a stroke, age indeterminate. Most likely old stroke. An MRI can be done at a later time 2. Acute hypercarbic respiratory failure Initially was put on BiPAP with no improvement Required to be intubated soon after admission [employer] managed vent Extubated 05/27 Most likely due to severe asthma/COPD exacerbation. On IV Solu-Medrol, reduced dose to 40 mg IV every 8 on 05/25. Has been switched to p.o. prednisone, now on [address] chest showed aspiration pneumonia for which she is now on IV cefepime since 05/25. Completed a 5-day course. Bronchoscopy performed 05/23 revealed eosinophilia in the bronchial washings. All cultures negative from 05/23 and from 05/26 Was being diuresed for bilateral pleural effusion Was still requiring high oxygen. Got delirious and was taking oxygen off on 05/30 Reintubated on 05/30 CT angio of the chest on 05/30 showed small subsegmental left upper lobe PE. Most likely not the reason for hypoxia. However she has been started on heparin drip. [employer] suspects intrapulmonary shunt resulting in severe hypoxemia. 3. Cor pulmonale/right heart failure Status post right cardiac cath Echocardiogram showed evidence of cor pulmonale Patient has elevated liver enzymes and lower extremity edema secondary to right heart failure Cardiology on consult Continue diuresis Patient has PFO 4. Elevated liver enzymes Due to shock liver from right heart failure Improving LFTs Hepatitis panel negative Elevated INR due to shock liver, improved Completed NAC protocol 5. Acute kidney injury Resolved with diuresis Metabolic alkalosis likely due to a combination of diuretic therapy and compensation of chronic respiratory acidosis. Given a dose of Diamox today. 6. Demand ischemia Likely due to severe hypoxia and respiratory failure Echo showed normal EF and no wall motion abnormalities 7. Thrombocytopenia Improved No bleeding Monitor DVT prophylaxis: Currently on heparin drip Full code (2) Coronary artery disease: (3) Hyperlipidemia: (4) Abnormal LFTs: (5) Elevated troponin: Admission and Anticipated Discharge Date Admission Date: May 23, 2023 Subjective Patient seen and examined, still intubated Review of Systems Review of Systems: Unable to obtain Physical Exam Physical Exam: The patient is intubated and improved position HEENT--PERRL, EOMI, mucous membranes and oropharynx mildly dry Neck-- Unable to fully assess y. Heart--normal S1 and S2. No murmurs, rubs or gallops. Lungs--reduced air entry on auscultation Abdomen--normal bowel sounds and soft. Mild epigastric and left sided abdominal pain Extremities--trace edema Dermatologic--normal skin turgor, normal color, no abnormal lymph nodes, no rash. Neurologic--unable to fully assess Rheumatologic--unable to fully assess Psychiatric--unable to assess Results & Data Results & Data Vital Signs (Past 12 Hours) Vital Signs Temp Pulse Resp BP Pulse Ox O2 Del Method FiO2 06/02/23 12:14 65 06/02/23 10:00 75 19 93 65 06/02/23 08:30 0.7 06/02/23 08:15 Mechanical Vent 0.7 06/02/23 08:00 102/59 L 06/02/23 08:00 99.7 F H 80 18 93 Mechanical Vent 0.7 06/02/23 07:30 78 18 88 L 70 06/02/23 07:30 99.5 F 73 18 89 L 06/02/23 07:00 99.5 F 68 18 88 L 06/02/23 06:00 117/61 06/02/23 06:00 117/61 06/02/23 06:00 99.7 F H 75 18 96 70 06/02/23 05:30 99.7 F H 80 18 95 06/02/23 05:00 99.5 F 73 18 92 06/02/23 05:00 80 06/02/23 04:30 99.1 F 89 18 89 L 06/02/23 04:00 99.3 F 66 18 95 06/02/23 04:00 118/69 06/02/23 04:00 72 06/02/23 03:56 72 19 92 75 06/02/23 03:30 99.1 F 72 18 93 06/02/23 03:00 99.1 F 77 18 92 PG Care Time/CCT Total # of Minutes Spent Total Time Spent with Patient: Total time spent is greater than 50% in coordination of care (as documented) at patient's floor/unit and/or counseling patient: Coding Level of Care Code 37985 SUB INP/OBS CARE 2MIN Diagnoses Acute on chronic respiratory failure with hypoxia and hypercapnia J96.21; J96.22 Coronary artery disease I25.10 Hyperlipidemia E78.5 Abnormal LFTs R79.89 Elevated troponin R79.89 Time Spent (min) 35
[2023-06-02 14:56] LABS: Hematocrit (blood only) 40.2 % (37.0-47.0); Mean Corpuscular Hemoglobin 25.3 pg (25.0-34.0); Mean Corpuscular Hgb Conc 29.9 g/dL (32.0-36.0); Mean Corpuscular Volume 84.6 fL (80.0-100.0); Platelet Count 114 K/uL (130-400); RDW Coefficient of Variation 20.1 % (11.5-14.5); RDW Standard Deviation 58.9 fL (36.4-46.3); Red Blood Count 4.75 M/uL (4.20-5.40)
[2023-06-02 14:57] LABS: White Blood Count 18.19 K/ul (4.8-10.8)
[2023-06-02 14:58] LABS: Anisocytosis Present; Basophils # (auto) 0.03 K/uL (0.00-0.20); Basophils % (auto) 0.2 %; Hypochromasia Present; Immature Granulocytes # (auto) 0.14 K/uL (0.01-0.20); Immature Granulocytes % (auto) 0.8 %; Lymphocytes # (auto) 0.21 K/uL (1.20-3.40); Lymphocytes % (auto) 1.2 %; Monocytes # (auto) 0.69 K/uL (0.11-0.59); Monocytes % (auto) 3.8 %; Neutrophils # (auto) 17.12 K/uL (1.40-6.50); Stomatocytes 1+
--- NOTE | 2023-06-02 15:30 | Critical Care Progress Note ---
Date of Service June 02, 2023 Assessment & Plan (1) Status asthmaticus with COPD (chronic obstructive pulmonary disease): (2) Acute CHF (congestive heart failure): (3) Acute encephalopathy: (4) Transaminitis: (5) Coronary artery disease: (6) Elevated troponin: (7) Endotracheally intubated: (8) RVF (right ventricular failure): (9) Aspiration pneumonia: Plan Impression: 58-year-old female with a past medical history of coronary artery disease, COPD, asthma and obesity who presented to the hospital due to altered mental status and hypoxemic respiratory failure. 24-hour events: Oxygenation improved over the last 24 hours but not yet at a point where the patient could consider SBT. Continue diuresis. Hemodynamics are better today. Recommendations: Neurologic: Continue sedation. Try and wean as tolerated. Suspect hypercapnic metabolic encephalopathy. Imaging unremarkable. Continue to follow and avoid medications which may potentiate delirium. Pulmonary: Hypoxemic hypercapnic respiratory failure status post reintubation 05/30/2023. Bronchoscopy revealed significant eosinophils on BAL. Continue aggressive nebulized bronchodilators. Will transition steroids to parenteral to see if we can improve the degree of bronchospasm. Did bronchoscopy yesterday. Will follow-up chest x-ray in a.m. and consider repeat bronchoscopy with lavage of lower lobes to evacuate plugs if needed. Restart diuresis. Cardiovascular: Continue attempts at aggressive diuresis. Restart Lasix at 40 twice daily and give additional dose of Diamox today. Continue Plavix. Now off pressors Gastrointestinal: Increased LFTs potentially secondary to congestive hepatopathy. Completed NAC protocol. Continue to trend. Trophic tube feeds. Renal: Potential cardiorenal syndrome. Continue twice daily push dose Lasix and Diamox. May need to potentiate with metolazone. Infectious disease: Completed course of meropenem/cefepime. White count slightly increased again today but no fevers. No eosinophilia. Holding on antibiotics for now. Suspect Tatiana in the urine is not pathogenic and defer antifungal therapies for now. Hematologic: Stable thrombocytopenia. Continue to follow coagulopathy. Endocrine: Glycemic protocol per ICU --Prophylaxis VTE: heparin infusion GI: Pantoprazole daily Lines: Peripheral Diet: Trophic tube feed. OG in place. CRITICAL CARE TIME - I have personally spent 38 minutes of critical care time in the direct management of this patient. This is a life/limb threatening event. This includes time spent evaluating patient, direct bedside care, chart review, placing orders, interpretation of diagnostic studies, discussion with consultants, patient, and family members, as well as other required patient management activities. This time is exclusive of all separately billable procedures, and teaching time and separate from and in addition to any other critical care service time. Admission and Anticipated Discharge Date Admission Date: May 23, 2023 Subjective This patient is intubated and sedated Review of Systems Review of Systems: Unobtainable due to endotracheal tube Physical Exam Constitutional: + mechanically ventilated Neck: trachea midline, no thyromegaly Respiratory: no respiratory distress, no labored breathing, no cough and not tachypneic Auscultation: + wheezes; no crackles Cardiovascular: RRR, no murmur, no edema Gastrointestinal (Abdomen): normal bowel sounds, soft, nontender, no hepatosplenomegaly Musculoskeletal: Extremities: extremities normal to inspection Skin: no rashes, warm and dry Lymphatic: no cervical lymphadenopathy Results & Data Results & Data Vital Signs (Past 12 Hours) Vital Signs Temp Pulse Resp BP Pulse Ox O2 Del Method FiO2 06/02/23 12:14 65 06/02/23 10:00 75 19 93 65 06/02/23 08:30 0.7 06/02/23 08:15 Mechanical Vent 0.7 06/02/23 08:00 102/59 L 06/02/23 08:00 37.6 C H 80 18 93 Mechanical Vent 0.7 06/02/23 07:30 78 18 88 L 70 06/02/23 07:30 37.5 C 73 18 89 L 06/02/23 07:00 37.5 C 68 18 88 L 06/02/23 06:00 117/61 06/02/23 06:00 117/61 06/02/23 06:00 37.6 C H 75 18 96 70 06/02/23 05:30 37.6 C H 80 18 95 06/02/23 05:00 37.5 C 73 18 92 06/02/23 05:00 80 06/02/23 04:30 37.3 C 89 18 89 L 06/02/23 04:00 37.4 C 66 18 95 06/02/23 04:00 118/69 06/02/23 04:00 72 06/02/23 03:56 72 19 92 75 06/02/23 03:30 37.3 C 72 18 93 Critical Care Results & Data Vital Signs (Past 12 Hours) Vital Signs Temp Pulse Resp BP Pulse Ox O2 Del Method FiO2 06/02/23 12:14 65 06/02/23 10:00 75 19 93 65 06/02/23 08:30 0.7 06/02/23 08:15 Mechanical Vent 0.7 06/02/23 08:00 102/59 L 06/02/23 08:00 37.6 C H 80 18 93 Mechanical Vent 0.7 06/02/23 07:30 78 18 88 L 70 06/02/23 07:30 37.5 C 73 18 89 L 06/02/23 07:00 37.5 C 68 18 88 L 06/02/23 06:00 117/61 06/02/23 06:00 117/61 06/02/23 06:00 37.6 C H 75 18 96 70 06/02/23 05:30 37.6 C H 80 18 95 06/02/23 05:00 37.5 C 73 18 92 06/02/23 05:00 80 06/02/23 04:30 37.3 C 89 18 89 L 06/02/23 04:00 37.4 C 66 18 95 06/02/23 04:00 118/69 06/02/23 04:00 72 06/02/23 03:56 72 19 92 75 Lab & Micro Results (Past 24 Hours) RBC 4.75 M/uL (4.20-5.40) 06/02/23 WBC 18.19 K/ul (4.8-10.8) H 06/02/23 Hgb 12.0 g/dl (12.0-16.0) 06/02/23 Hct 40.2 % (37.0-47.0) 06/02/23 MCV 84.6 fL (80.0-100.0) 06/02/23 MCH 25.3 pg (25.0-34.0) 06/02/23 MCHC 29.9 g/dL (32.0-36.0) L 06/02/23 RDW Standard Deviation 58.9 fL (36.4-46.3) H 06/02/23 RDW Coefficient of Variation 20.1 % (11.5-14.5) H 06/02/23 Plt Count 114 K/uL (130-400) L 06/02/23 Neutrophils (%) (Auto) 94.0 % 06/02/23 Lymphocytes (%) (Auto) 1.2 % 06/02/23 Monocytes # (Auto) 0.69 K/uL (0.11-0.59) H 06/02/23 Eosinophils # (Auto) 0.00 K/uL (0.00-0.50) 06/02/23 Immature Granulocyte % (Auto) 0.8 % 06/02/23 Neutrophils # (Auto) 17.12 K/uL (1.40-6.50) H 06/02/23 Lymphocytes # (Auto) 0.21 K/uL (1.20-3.40) L 06/02/23 Monocytes # (Auto) 0.69 K/uL (0.11-0.59) H 06/02/23 Eosinophils # (Auto) 0.00 K/uL (0.00-0.50) 06/02/23 Basophils # (Auto) 0.03 K/uL (0.00-0.20) 06/02/23 Immature Granulocyte # (Auto) 0.14 K/uL (0.01-0.20) 4 Hypochromasia Present 06/02/23 Anisocytosis Present 06/02/23 Stomatocytes 1+ 06/02/23 Na 133 mmol/L (136-145) L 06/02/23 K 4.1 mmol/L (3.5-5.1) 06/02/23 Cl 92 mmol/L (98-107) L 06/02/23 CO2 37 mmol/L (21-32) H 06/02/23 Anion Gap 4 (3-11) 06/02/23 BUN 35 mg/dl (6-23) H 06/02/23 Creatinine 0.70 mg/dl (0.6-1.2) 06/02/23 Estimated GFR ( Amer) 111.5 ml/min 06/02/23 Estimated GFR (Non-Af Amer) 96.2 ml/min 06/02/23 BUN/Creatinine Ratio 50.0 (10-20) H 06/02/23 Glu 125 mg/dl (70-99(Fasting)) H 06/02/23 Ca 8.1 mg/dl (8.6-10.3) L 06/02/23 Phosphorus Level 2.7 mg/dl (2.5-4.9) 06/02/23 Mg 2.2 mg/dl (1.7-2.4) 06/02/23 03:28 Calcium Level 8.1 mg/dl (8.6-10.3) L 06/02/23 03:28 García Test NA 06/02/23 03:56 Diagnostic Findings (Past 24 Hours) Chest X-Ray 06/02/23 07:00 SINGLE VIEW CHEST CLINICAL HISTORY: Respiratory failure. FINDINGS: An AP, portable, upright chest radiograph is compared to study dated 06/01/2023. Correlation is made with chest CT dated 05/30/2023. The examination is degraded by portable technique and patient rotation. A left internal jugular central venous catheter has been removed. The endotracheal tube, an enteric tube, and a right internal jugular central venous catheter are unchanged in position. The heart is enlarged. There is mild pulmonary vascular congestion. Emphysema and chronic interstitial thickening is similar to previous. There are layering pleural effusions with dense bibasilar consolidation. No pneumothorax is seen. The skeletal structures are osteopenic. The bony thorax is grossly intact. IMPRESSION: 1. A left internal jugular central venous catheters been removed. Otherwise stable lines and tubes. 2. Cardiomegaly and emphysema with mild pulmonary vascular congestion. 3. Layering pleural effusions with dense bibasilar consolidation. This appears increased from yesterday. ACT 112: Negative or not required by law. Electronically signed by: Jose Lemos M.D. 06/02/2023 12:49 PM I & O Totals 24 Hours 06/01/23 06/02/23 06/03/23 06:59 06:59 06:59 Intake Total 1959.856 / 5304.855 3900.835 / 1698.835 693.767 / 693.767 Output Total 4595 / 4595 1625 / 1625 550 / 550 Balance -2635.144 / -2635.144 73.835 / 73.835 143.767 / 143.767 Cumulative 05/23/23 01:22 thru 06/02/23 14:00 Intake Total 9681.376 Output Total 06850 Balance -55780.624 RT Ventilator Mngmt (Last Documented) Ventilator Ordered Settings Ventilator Support Mode Assist Control 06/02/23 12:14 Respiratory Rate 19 06/02/23 10:00 Ventilator Tidal Volume 400 06/02/23 12:14 Setting Minute Ventilation 7.2 06/02/23 10:00 Ventilator Positive Pressure 9 05/27/23 07:10 Support Setting Positive End Expiratory 6 06/02/23 12:14 Pressure Fraction of Inspired Oxygen 65 06/02/23 12:14 Peak Inspiratory Flow 23 06/02/23 10:00 Machine Comment WEANED TO 65% 06/02/23 10:00 Ventilator - PT Measurements Respiratory Rate 19 Exhaled Tidal Volume 400 Minute Ventilation 7.2 Peak Inspiratory Airway 21 Pressure Plateau Pressure 17.4 Respiratory Cycle Inspiratory: 1:1.4 Expiratory Ratio Inspiratory Phase Time 1.4 End-Tidal CO2 33 Static Lung Compliance 35.09 Dynamic Lung Compliance 26.67 Normal Static Lung Compliance 47.00 Patient Measurements Comment Breath Sounds TIGHT AND WHEEZY Coding Level of Care Code 01286 CRITICAL CARE 1ST 30-74M Diagnoses Status asthmaticus with COPD (chronic obstructive pulmonary disease) J44.89; J45.902 Acute CHF (congestive heart failure) I50.9 Acute encephalopathy G93.40 Transaminitis R74.01 Coronary artery disease I25.10 Elevated troponin R79.89 Endotracheally intubated Z97.8 RVF (right ventricular failure) I50.810 Aspiration pneumonia J69.0
[2023-06-02] MEDS: methylPREDNISolone 60 MG in SYRINGE 0 ML IV SCH (16:49)
[2023-06-02 18:23] LABS: iSTAT Art Bld Gas pCO2 Correct 62 mmHg (35-46); iSTAT Art Bld Gas pH Corrected 7.403 (7.35-7.45); iSTAT Arterial Blood Gas HCO3 38 meg/L (19-24); iSTAT Arterial Blood Gas pCO2 60 mmHg (35-46); iSTAT Arterial Blood Gas pH 7.41 (7.35-7.45); iSTAT Arterial Blood Gas pO2 53 mmHg (80-95); iSTAT Arterial Blood Gas pO2 C 55; iSTAT Carbon Dioxide > 40 mmol/L (24-31); iSTAT FiO2 65 %; iSTAT Hematocrit 40 % (37-47); iSTAT Hemoglobin 13.6 g/dl (12.0-16.0); iSTAT Potassium 4.1 mmol/L (3.3-5.0); iSTAT Site Art Line; iSTAT Sodium 131 mmol/L (135-144)
[2023-06-02 19:27] LABS: ANTI-Xa, UFH(UnfractionatedHep 0.33 IU/ml (0.3-0.7)
[2023-06-02] MEDS: LANTUS PER UNIT CHARGE SC SCH (20:41)
[2023-06-03 06:00] LABS: BUN Creatinine Ratio 48.6 (10-20); Calcium 9.1 mg/dl (8.6-10.3); Creatinine Clr Calc Pharmacy 99.8 ml/min; Est GFR (African American) 107.7 ml/min; Magnesium 2.1 mg/dl (1.7-2.4); Phosphorus 3.1 mg/dl (2.5-4.9); Potassium 3.7 mmol/L (3.5-5.1)
[2023-06-03 06:06] LABS: Hematocrit (blood only) 38.1 % (37.0-47.0); Hemoglobin 11.9 g/dl (12.0-16.0); Mean Corpuscular Hemoglobin 25.4 pg (25.0-34.0); Mean Corpuscular Hgb Conc 31.2 g/dL (32.0-36.0); Mean Corpuscular Volume 81.4 fL (80.0-100.0); Platelet Count 157 K/uL (130-400); RDW Coefficient of Variation 20.5 % (11.5-14.5); RDW Standard Deviation 56.8 fL (36.4-46.3); Red Blood Count 4.68 M/uL (4.20-5.40); White Blood Count 16.68 K/ul (4.8-10.8)
[2023-06-03 06:07] LABS: Anisocytosis Present; Basophils # (auto) 0.01 K/uL (0.00-0.20); Basophils % (auto) 0.1 %; Hypochromasia Present; Immature Granulocytes # (auto) 0.13 K/uL (0.01-0.20); Immature Granulocytes % (auto) 0.8 %; Lymphocytes # (auto) 0.19 K/uL (1.20-3.40); Lymphocytes % (auto) 1.1 %; Monocytes # (auto) 0.46 K/uL (0.11-0.59); Monocytes % (auto) 2.8 %; Neutrophils # (auto) 15.89 K/uL (1.40-6.50); Neutrophils % (auto) 95.2 %
[2023-06-03 06:19] LABS: iSTAT Art Bld Gas pCO2 Correct 55 mmHg (35-46); iSTAT Art Bld Gas pH Corrected 7.437 (7.35-7.45); iSTAT Arterial Blood Gas HCO3 37 meg/L (19-24); iSTAT Arterial Blood Gas pCO2 53 mmHg (35-46); iSTAT Arterial Blood Gas pH 7.45 (7.35-7.45); iSTAT Arterial Blood Gas pO2 59 mmHg (80-95); iSTAT Arterial Blood Gas pO2 C 62; iSTAT Carbon Dioxide 38 mmol/L (24-31); iSTAT FiO2 70 %; iSTAT Hematocrit 41 % (37-47); iSTAT Hemoglobin 13.9 g/dl (12.0-16.0); iSTAT Potassium 3.5 mmol/L (3.3-5.0); iSTAT Site Art Line; iSTAT Sodium 131 mmol/L (135-144)
[2023-06-03 06:23] LABS: ANTI-Xa, UFH(UnfractionatedHep 0.32 IU/ml (0.3-0.7)
[2023-06-03] MEDS: POTASSIUM CHLORIDE 20 MEQ/15 ML UDC NG SCH (07:12)
--- NOTE | 2023-06-03 07:43 | XRay Report ---
SINGLE VIEW CHEST CLINICAL HISTORY: Respiratory failure. FINDINGS: An AP, portable, upright chest radiograph is compared to study dated 06/03/2023. Correlation is made with chest CT dated 05/30/2023. The examination is degraded by portable technique and patient rotation. An endotracheal tube, an enteric tube, and a right internal jugular central venous cathete r are unchanged in position. The heart is enlarged. Mild pulmonary vascular congestion persists. Emph ysema and chronic interstitial thickening is similar to previous. There are layering pleural effusion s with dense bibasilar consolidation. No pneumothorax is seen. The skeletal structures are osteopenic . The bony thorax is grossly intact. IMPRESSION: 1. Stable lines and tubes. 2. Cardiomegaly and emphysema with mild pulmonary vascular congestion. 3. Layering pleural effusions with dense bibasilar consolidation. This is similar to yesterday. ACT 112: Negative or not required by law. Electronically signed by: Jose Lemos M.D. 06/03/2023 7:41 AM
--- NOTE | 2023-06-03 08:40 | Critical Care Progress Note ---
Date of Service June 03, 2023 Assessment & Plan (1) Status asthmaticus with COPD (chronic obstructive pulmonary disease): (2) Acute CHF (congestive heart failure): (3) Acute encephalopathy: (4) Transaminitis: (5) Coronary artery disease: (6) Elevated troponin: (7) Endotracheally intubated: (8) RVF (right ventricular failure): (9) Aspiration pneumonia: Plan Impression: 58-year-old female with a past medical history of coronary artery disease, COPD, asthma and obesity who presented to the hospital due to altered mental status and hypoxemic respiratory failure. 24-hour events: Patient required reinitiation of Levophed last evening due to low blood pressure. She was administered diuretics. She is awake on sedation today and breathing comfortably but still requiring high FiO2. Recommendations: Neurologic: Continue sedation. Try and wean as tolerated. Suspect hypercapnic metabolic encephalopathy. Imaging unremarkable. Continue to follow and avoid medications which may potentiate delirium. Pulmonary: Hypoxemic hypercapnic respiratory failure status post reintubation 05/30/2023. Bronchoscopy revealed significant eosinophils on BAL. Continue parenteral steroids and bronchodilators. Continue diuresis as tolerated. Her hypoxemia may have been exacerbated by over PEEP as her oxygenation improved significantly with decreasing her PEEP. Optimal PEEP appears to be around 6. Chest x-ray today appears better with aeration. Unclear how much of her hypoxemia may be related to intrapulmonary shunt however review of her CT scan did not demonstrate any pulmonary AVMs. She may be shunting through the atelectatic lower lobes. Will place her on Mucinex, hypertonic saline, and institute chest physiotherapy to see if we can improve basilar atelectasis and shunt fraction. Try and wean oxygen to keep saturations at or above 88 to 90%. She did have a small filling defect on CT angiogram in the left upper lobe from 05/30/2023 and is currently anticoagulated on heparin. Anticipate 3 months anticoagulation Cardiovascular: Continue attempts at aggressive diuresis. Continue Lasix at 40 milligrams IV twice daily and give additional dose of Diamox today. Albumin support. Continue Plavix. Wean norepinephrine as tolerated Gastrointestinal: Abnormal LFTs, potentially congestive hepatopathy. Completed NAC protocol. Now normalized. Advanced tube feeds. Renal: Continue Lasix twice daily. She was 1 L negative yesterday. Mild hyponatremia which appears stable. Continue to follow at this point in time. Blood gas with improving CO2, given additional dose of Diamox today Infectious disease: Completed course of meropenem/cefepime. White count slightly decreased today. No eosinophilia. Holding on antibiotics for now. Suspect Tatiana in the urine is not pathogenic and defer antifungal therapies for now. Hematologic: Thrombocytopenia resolved. Borderline anemia. No indication of acute blood loss. Continue follow-up Endocrine: Glycemic protocol per ICU --Prophylaxis VTE: heparin infusion GI: Pantoprazole daily Lines: Peripheral Diet: Advancing tube feed. OG in place. CRITICAL CARE TIME - I have personally spent 41 minutes of critical care time in the direct management of this patient. This is a life/limb threatening event. This includes time spent evaluating patient, direct bedside care, chart review, placing orders, interpretation of diagnostic studies, discussion with consultants, patient, and family members, as well as other required patient management activities. This time is exclusive of all separately billable procedures, and teaching time and separate from and in addition to any other critical care service time. Admission and Anticipated Discharge Date Admission Date: May 23, 2023 Subjective Patient is intubated and sedated. Review of Systems Review of Systems: Unobtainable due to endotracheal tube Physical Exam Constitutional: + mechanically ventilated Neck: trachea midline, no thyromegaly Respiratory: no respiratory distress, no labored breathing, no cough and not tachypneic Auscultation: + wheezes; no crackles Cardiovascular: RRR, no murmur, no edema Gastrointestinal (Abdomen): normal bowel sounds, soft, nontender, no hepatosplenomegaly Musculoskeletal: Extremities: extremities normal to inspection Skin: no rashes, warm and dry Lymphatic: no cervical lymphadenopathy Results & Data Results & Data Vital Signs (Past 12 Hours) Vital Signs Temp Pulse Pulse Resp BP Pulse Ox O2 Del Method 06/03/23 07:11 63 18 92 Mechanical Vent 06/03/23 05:00 06/03/23 04:39 58 L 18 92 06/03/23 04:00 66 06/03/23 01:00 06/03/23 00:00 66 06/02/23 23:49 66 19 94 06/02/23 23:16 Mechanical Vent 06/02/23 23:00 37.6 C H 67 18 93 06/02/23 22:30 37.6 C H 66 18 96 06/02/23 22:00 37.6 C H 65 18 95 06/02/23 22:00 131/68 06/02/23 21:30 37.6 C H 68 18 93 06/02/23 21:00 37.6 C H 74 18 91 06/02/23 21:00 FiO2 06/03/23 07:11 70 06/03/23 05:00 70 06/03/23 04:39 70 06/03/23 04:00 06/03/23 01:00 70 06/03/23 00:00 06/02/23 23:49 70 06/02/23 23:16 06/02/23 23:00 06/02/23 22:30 06/02/23 22:00 06/02/23 22:00 06/02/23 21:30 06/02/23 21:00 06/02/23 21:00 0.75 Critical Care Results & Data Vital Signs (Past 12 Hours) Vital Signs Temp Pulse Pulse Resp BP Pulse Ox O2 Del Method 06/03/23 07:11 63 18 92 Mechanical Vent 06/03/23 05:00 06/03/23 04:39 58 L 18 92 06/03/23 04:00 66 06/03/23 01:00 06/03/23 00:00 66 06/02/23 23:49 66 19 94 06/02/23 23:16 Mechanical Vent 06/02/23 23:00 37.6 C H 67 18 93 06/02/23 22:30 37.6 C H 66 18 96 06/02/23 22:00 37.6 C H 65 18 95 06/02/23 22:00 131/68 06/02/23 21:30 37.6 C H 68 18 93 06/02/23 21:00 37.6 C H 74 18 91 06/02/23 21:00 FiO2 06/03/23 07:11 70 06/03/23 05:00 70 06/03/23 04:39 70 06/03/23 04:00 06/03/23 01:00 70 06/03/23 00:00 06/02/23 23:49 70 06/02/23 23:16 06/02/23 23:00 06/02/23 22:30 06/02/23 22:00 06/02/23 22:00 06/02/23 21:30 06/02/23 21:00 06/02/23 21:00 0.75 Lab & Micro Results (Past 24 Hours) RBC 4.68 M/uL (4.20-5.40) 06/03/23 WBC 16.68 K/ul (4.8-10.8) H 06/03/23 Hgb 11.9 g/dl (12.0-16.0) L 06/03/23 Hct 38.1 % (37.0-47.0) 06/03/23 MCV 81.4 fL (80.0-100.0) 06/03/23 MCH 25.4 pg (25.0-34.0) 06/03/23 MCHC 31.2 g/dL (32.0-36.0) L 06/03/23 RDW Standard Deviation 56.8 fL (36.4-46.3) H 06/03/23 RDW Coefficient of Variation 20.5 % (11.5-14.5) H 06/03/23 Plt Count 157 K/uL (130-400) 06/03/23 Neutrophils (%) (Auto) 95.2 % 06/03/23 Lymphocytes (%) (Auto) 1.1 % 06/03/23 Monocytes # (Auto) 0.46 K/uL (0.11-0.59) 06/03/23 Eosinophils # (Auto) 0.00 K/uL (0.00-0.50) 06/03/23 Immature Granulocyte % (Auto) 0.8 % 06/03/23 Neutrophils # (Auto) 15.89 K/uL (1.40-6.50) H 06/03/23 Lymphocytes # (Auto) 0.19 K/uL (1.20-3.40) L 06/03/23 Monocytes # (Auto) 0.46 K/uL (0.11-0.59) 06/03/23 Eosinophils # (Auto) 0.00 K/uL (0.00-0.50) 06/03/23 Basophils # (Auto) 0.01 K/uL (0.00-0.20) 06/03/23 Immature Granulocyte # (Auto) 0.13 K/uL (0.01-0.20) 4 Hypochromasia Present 06/03/23 Anisocytosis Present 06/03/23 Stomatocytes 1+ 06/02/23 Na 133 mmol/L (136-145) L 06/03/23 K 3.7 mmol/L (3.5-5.1) 06/03/23 Cl 90 mmol/L (98-107) L 06/03/23 CO2 38 mmol/L (21-32) H 06/03/23 Anion Gap 5 (3-11) 06/03/23 BUN 35 mg/dl (6-23) H 06/03/23 Creatinine 0.72 mg/dl (0.6-1.2) 06/03/23 Estimated GFR ( Amer) 107.7 ml/min 06/03/23 Estimated GFR (Non-Af Amer) 93.0 ml/min 06/03/23 BUN/Creatinine Ratio 48.6 (10-20) H 06/03/23 Glu 199 mg/dl (70-99(Fasting)) H 06/03/23 Ca 9.1 mg/dl (8.6-10.3) 06/03/23 Phosphorus Level 3.1 mg/dl (2.5-4.9) 06/03/23 Mg 2.1 mg/dl (1.7-2.4) 06/03/23 05:24 Calcium Level 9.1 mg/dl (8.6-10.3) 06/03/23 05:24 García Test NA 06/03/23 06:08 Diagnostic Findings (Past 24 Hours) Chest X-Ray 06/02/23 07:00 SINGLE VIEW CHEST CLINICAL HISTORY: Respiratory failure. FINDINGS: An AP, portable, upright chest radiograph is compared to study dated 06/01/2023. Correlation is made with chest CT dated 05/30/2023. The examination is degraded by portable technique and patient rotation. A left internal jugular central venous catheter has been removed. The endotracheal tube, an enteric tube, and a right internal jugular central venous catheter are unchanged in position. The heart is enlarged. There is mild pulmonary vascular congestion. Emphysema and chronic interstitial thickening is similar to previous. There are layering pleural effusions with dense bibasilar consolidation. No pneumothorax is seen. The skeletal structures are osteopenic. The bony thorax is grossly intact. IMPRESSION: 1. A left internal jugular central venous catheters been removed. Otherwise stable lines and tubes. 2. Cardiomegaly and emphysema with mild pulmonary vascular congestion. 3. Layering pleural effusions with dense bibasilar consolidation. This appears increased from yesterday. ACT 112: Negative or not required by law. Electronically signed by: Jose Lemos M.D. 06/02/2023 12:49 PM Chest X-Ray 06/03/23 07:00 SINGLE VIEW CHEST CLINICAL HISTORY: Respiratory failure. FINDINGS: An AP, portable, upright chest radiograph is compared to study dated 06/03/2023. Correlation is made with chest CT dated 05/30/2023. The examination is degraded by portable technique and patient rotation. An endotracheal tube, an enteric tube, and a right internal jugular central venous catheter are unchanged in position. The heart is enlarged. Mild pulmonary vascular congestion persists. Emphysema and chronic interstitial thickening is similar to previous. There are layering pleural effusions with dense bibasilar consolidation. No pneumothorax is seen. The skeletal structures are osteopenic. The bony thorax is grossly intact. IMPRESSION: 1. Stable lines and tubes. 2. Cardiomegaly and emphysema with mild pulmonary vascular congestion. 3. Layering pleural effusions with dense bibasilar consolidation. This is similar to yesterday. ACT 112: Negative or not required by law. Electronically signed by: Jose Lemos M.D. 06/03/2023 7:41 AM I & O Totals 24 Hours 06/02/23 06/03/23 06/04/23 06:59 06:59 06:59 Intake Total 1698.835 / 9056.340 0181.267 / 1034.267 81.617 / 81.617 Output Total 1625 / 1625 1825 / 1825 Balance 73.835 / 73.835 -790.733 / -790.733 81.617 / 81.617 Cumulative 05/23/23 01:22 thru 06/03/23 07:46 Intake Total 88223.493 Output Total 19870 Balance -47546.507 RT Ventilator Mngmt (Last Documented) Ventilator Ordered Settings Ventilator Support Mode Assist Control 06/03/23 05:00 Respiratory Rate 18 06/03/23 07:11 Ventilator Tidal Volume 400 06/03/23 05:00 Setting Minute Ventilation 7.2 06/03/23 04:39 Ventilator Positive Pressure 9 05/27/23 07:10 Support Setting Positive End Expiratory 6 06/03/23 05:00 Pressure Fraction of Inspired Oxygen 70 06/03/23 07:11 Peak Inspiratory Flow 23 06/02/23 15:55 Machine Comment increased to 75% based off abg 06/02/23 19:09 Ventilator - PT Measurements Respiratory Rate 18 Exhaled Tidal Volume 400 Minute Ventilation 7.2 Peak Inspiratory Airway 19 Pressure Plateau Pressure 14.7 Respiratory Cycle Inspiratory: 1:1.4 Expiratory Ratio Inspiratory Phase Time 1.4 End-Tidal CO2 31 Static Lung Compliance 45.98 Dynamic Lung Compliance 36.36 Normal Static Lung Compliance 48.00 Patient Measurements Comment Breath Sounds TIGHT AND WHEEZY Coding Level of Care Code 97888 CRITICAL CARE 1ST 30-74M Diagnoses Status asthmaticus with COPD (chronic obstructive pulmonary disease) J44.89; J45.902 Acute CHF (congestive heart failure) I50.9 Acute encephalopathy G93.40 Transaminitis R74.01 Coronary artery disease I25.10 Elevated troponin R79.89 Endotracheally intubated Z97.8 RVF (right ventricular failure) I50.810 Aspiration pneumonia J69.0
[2023-06-03] MEDS: ALBUMIN 25% 25 GM/100 ML VIAL IV SCH (09:20)
[2023-06-03] MEDS: acetaZOLAMIDE 500 MG in SYRINGE 0 ML IV STA (09:50)
[2023-06-03] MEDS: SODIUM CHLOR 7% 4 ML NEB ONE (10:01)
[2023-06-03] MEDS: guaiFENesin SUGAR FREE 200 MG/10 ML UDC NG SCH (10:29)
--- NOTE | 2023-06-03 14:19 | Hospitalist Progress Note ---
Date of Service June 03, 2023 Assessment & Plan (1) Acute on chronic respiratory failure with hypoxia and hypercapnia: Plan: 58yo female with history of COPD presenting with respiratory failure with hypoxia and hypercarbia 1. Acute hypercarbic respiratory failure Initially was put on BiPAP with no improvement Required to be intubated soon after admission [employer] managed vent Extubated 05/27 Most likely due to severe asthma/COPD exacerbation. On IV Solu-Medrol, reduced dose to 40 mg IV every 8 on 05/25. Has been switched to p.o. prednisone, now on [address] chest showed aspiration pneumonia for which she is now on IV cefepime since 05/25. Completed a 5-day course. Bronchoscopy performed 05/23 revealed eosinophilia in the bronchial washings. All cultures negative from 05/23 and from 05/26 Was being diuresed for bilateral pleural effusion Was still requiring high oxygen. Got delirious and was taking oxygen off on 05/30 Reintubated on 05/30 CT angio of the chest on 05/30 showed small subsegmental left upper lobe PE. Most likely not the reason for hypoxia. However she has been started on heparin drip. [employer] suspects intrapulmonary shunt resulting in severe hypoxemia. Bronchoscopy was done which showed evidence of significant eosinophils. Continue steroids and bronchodilators 2.Acute metabolic encephalopathy This was most likely related to her acute hypercapnic respiratory failure since it has improved significantly CT head showed a stroke, age indeterminate. Most likely old stroke. An MRI can be done at a later time 3. Cor pulmonale/right heart failure Status post right cardiac cath Echocardiogram showed evidence of cor pulmonale Patient has elevated liver enzymes and lower extremity edema secondary to right heart failure Cardiology on consult Continue diuresis Patient has PFO 4. Elevated liver enzymes Due to shock liver from right heart failure Improving LFTs Hepatitis panel negative Elevated INR due to shock liver, improved Completed NAC protocol 5. Acute kidney injury Resolved with diuresis Metabolic alkalosis likely due to a combination of diuretic therapy and compensation of chronic respiratory acidosis. Given a dose of Diamox today. 6. Demand ischemia Likely due to severe hypoxia and respiratory failure Echo showed normal EF and no wall motion abnormalities 7. Thrombocytopenia Improved No bleeding Monitor DVT prophylaxis: Currently on heparin drip Full code (2) Coronary artery disease: (3) Hyperlipidemia: (4) Abnormal LFTs: (5) Elevated troponin: Admission and Anticipated Discharge Date Admission Date: May 23, 2023 Subjective Patient seen and examined, intubated and ventilated but awake Review of Systems Review of Systems: Unable to obtain Physical Exam Physical Exam: The patient is intubated and improved position HEENT--PERRL, EOMI, mucous membranes and oropharynx mildly dry Neck-- Unable to fully assess y. Heart--normal S1 and S2. No murmurs, rubs or gallops. Lungs--reduced air entry on auscultation Abdomen--normal bowel sounds and soft. Mild epigastric and left sided abdominal pain Extremities--trace edema Dermatologic--normal skin turgor, normal color, no abnormal lymph nodes, no rash. Neurologic--unable to fully assess Rheumatologic--unable to fully assess Psychiatric--unable to assess Results & Data Results & Data Vital Signs (Past 12 Hours) Vital Signs Temp Pulse Pulse Resp BP Pulse Ox O2 Del Method 06/03/23 13:30 100.0 F H 94 H 19 89 L 06/03/23 13:00 99.9 F H 98 H 17 90 06/03/23 13:00 06/03/23 12:30 99.7 F H 100 H 22 91 06/03/23 12:00 137/63 06/03/23 12:00 99.7 F H 98 H 18 90 06/03/23 12:00 95 H 06/03/23 11:45 06/03/23 11:30 99.9 F H 79 18 84 L 06/03/23 11:19 72 19 88 L 06/03/23 11:19 74 18 89 L Mechanical Vent 06/03/23 11:00 99.9 F H 76 18 85 L 06/03/23 10:30 100.0 F H 77 18 91 06/03/23 10:02 72 18 92 Mechanical Vent 06/03/23 10:00 108/57 L 06/03/23 10:00 100.0 F H 77 18 92 06/03/23 09:30 99.9 F H 74 18 90 06/03/23 09:00 99.9 F H 63 18 92 06/03/23 09:00 06/03/23 08:30 Mechanical Vent 06/03/23 08:30 99.9 F H 60 18 93 06/03/23 08:00 60 06/03/23 08:00 99.9 F H 59 L 18 93 06/03/23 08:00 118/64 06/03/23 07:30 99.9 F H 63 18 92 06/03/23 07:13 63 18 92 06/03/23 07:11 63 18 92 Mechanical Vent 06/03/23 07:00 99.9 F H 62 18 92 06/03/23 06:45 99.9 F H 59 L 18 92 06/03/23 05:00 06/03/23 04:39 58 L 18 92 06/03/23 04:00 66 FiO2 06/03/23 13:30 06/03/23 13:00 06/03/23 13:00 75 06/03/23 12:30 06/03/23 12:00 06/03/23 12:00 06/03/23 12:00 06/03/23 11:45 75 06/03/23 11:30 06/03/23 11:19 60 06/03/23 11:19 60 06/03/23 11:00 06/03/23 10:30 06/03/23 10:02 60 06/03/23 10:00 06/03/23 10:00 06/03/23 09:30 06/03/23 09:00 06/03/23 09:00 60 06/03/23 08:30 60 06/03/23 08:30 06/03/23 08:00 06/03/23 08:00 06/03/23 08:00 06/03/23 07:30 06/03/23 07:13 70 06/03/23 07:11 70 06/03/23 07:00 06/03/23 06:45 06/03/23 05:00 70 06/03/23 04:39 70 06/03/23 04:00 PG Care Time/CCT Total # of Minutes Spent Total Time Spent with Patient: Total time spent is greater than 50% in coordination of care (as documented) at patient's floor/unit and/or counseling patient: Coding Level of Care Code 84323 SUB INP/OBS CARE 2/35MIN Diagnoses Acute on chronic respiratory failure with hypoxia and hypercapnia J96.21; J96.22 Coronary artery disease I25.10 Hyperlipidemia E78.5 Abnormal LFTs R79.89 Elevated troponin R79.89 Time Spent (min) 35
[2023-06-03] MEDS ORDERED: STAT IV Infusion **Titration per Protocol STA (17:42)
[2023-06-03] MEDS ORDERED: PROPOFOL BOLUS FROM BAG IV PRN (17:42)
[2023-06-03] MEDS: PROPOFOL IV EMULSION 10 MG/ML 100 ML VIAL IV ONE (17:52)
[2023-06-03] MEDS: propofoL 1,000 MG/100 ML VIAL IV SCH (17:52)
[2023-06-03] MEDS: SODIUM CHLOR 7% 4 ML NEB NEB SCH (20:03)
[2023-06-04 04:04] LABS: iSTAT Art Bld Gas pCO2 Correct 61 mmHg (35-46); iSTAT Art Bld Gas pH Corrected 7.395 (7.35-7.45); iSTAT Arterial Blood Gas HCO3 37 meg/L (19-24); iSTAT Arterial Blood Gas pCO2 61 mmHg (35-46); iSTAT Arterial Blood Gas pH 7.39 (7.35-7.45); iSTAT Arterial Blood Gas pO2 53 mmHg (80-95); iSTAT Arterial Blood Gas pO2 C 53; iSTAT Carbon Dioxide 39 mmol/L (24-31); iSTAT FiO2 90 %; iSTAT Hematocrit 38 % (37-47); iSTAT Hemoglobin 12.9 g/dl (12.0-16.0); iSTAT Potassium 3.3 mmol/L (3.3-5.0); iSTAT Site Art Line; iSTAT Sodium 132 mmol/L (135-144)
[2023-06-04 04:31] LABS: BUN Creatinine Ratio 63.5 (10-20); Calcium 9.2 mg/dl (8.6-10.3); Creatinine Clr Calc Pharmacy 114.1 ml/min; Est GFR (African American) 115.4 ml/min; Est GFR (Non-African American) 99.6 ml/min; Phosphorus 2.8 mg/dl (2.5-4.9); Potassium 3.4 mmol/L (3.5-5.1)
[2023-06-04 04:38] LABS: ANTI-Xa, UFH(UnfractionatedHep 0.32 IU/ml (0.3-0.7)
[2023-06-04 04:56] LABS: Anisocytosis Present; Basophils # (auto) 0.04 K/uL (0.00-0.20); Basophils % (auto) 0.2 %; Hematocrit (blood only) 37.7 % (37.0-47.0); Hemoglobin 11.2 g/dl (12.0-16.0); Immature Granulocytes # (auto) 0.18 K/uL (0.01-0.20); Immature Granulocytes % (auto) 0.9 %; Lymphocytes # (auto) 0.17 K/uL (1.20-3.40); Lymphocytes % (auto) 0.9 %; Mean Corpuscular Hemoglobin 25.2 pg (25.0-34.0); Mean Corpuscular Hgb Conc 29.7 g/dL (32.0-36.0); Mean Corpuscular Volume 84.9 fL (80.0-100.0); Mean Platelet Volume 11.8 fL (9.4-12.4); Monocytes # (auto) 0.86 K/uL (0.11-0.59); Monocytes % (auto) 4.4 %; Neutrophils # (auto) 18.47 K/uL (1.40-6.50); Neutrophils % (auto) 93.6 %; Platelet Count 146 K/uL (130-400); Polychromasia 1+; RDW Coefficient of Variation 20.2 % (11.5-14.5); Red Blood Count 4.44 M/uL (4.20-5.40); Stomatocytes 1+; White Blood Count 19.72 K/ul (4.8-10.8)
[2023-06-04] MEDS: POTASSIUM CHLORIDE 20 MEQ/15 ML UDC NG SCH (06:26)
--- NOTE | 2023-06-04 07:52 | XRay Report ---
XR chest 1V portable HISTORY: Respiratory failure. COMPARISON: Chest 06/03/2023. FINDINGS: Endotracheal tube terminates 3.8 cm from the chris. Nasogastric tube terminates below the diaphragm. The tip is not included on this study. There is a right jugular central venous catheter wh ich terminates at the SVC. No pneumothorax. Small right pleural effusion and right basilar density pe rsists. The heart is borderline enlarged. No evidence for pulmonary edema. Calcified granulomas again noted within the left upper lobe. IMPRESSION: 1. Satisfactory support line placement. 2. Small right pleural effusion and right basilar densities persist. ACT 112: Negative or not required by law. Electronically signed by: Chris Winter M.D. 06/04/2023 7:51 AM
[2023-06-04] MEDS: POTASSIUM CHLORIDE / WTR 20 MEQ/100 ML PLCT IV SCH (07:55)
--- NOTE | 2023-06-04 08:12 | Critical Care Progress Note ---
Date of Service June 04, 2023 Assessment & Plan (1) Status asthmaticus with COPD (chronic obstructive pulmonary disease): (2) Acute CHF (congestive heart failure): (3) Acute encephalopathy: (4) Transaminitis: (5) Coronary artery disease: (6) Elevated troponin: (7) Endotracheally intubated: (8) RVF (right ventricular failure): (9) Aspiration pneumonia: Plan Impression: 58-year-old female with a past medical history of coronary artery disease, COPD, asthma and obesity who presented to the hospital due to altered mental status and hypoxemic respiratory failure. 24-hour events: Had an episode of hypoxia overnight and did not tolerate SBP this AM. Remains on mild sedation. Had been titrated down to 50% FiO2 overnight - Back to 90% s/p SBT failure and ABG findings. No other events reported. Recommendations: Neurologic: Continue to wean sedation to remain on minimal effective doses. Suspect hypercapnic metabolic encephalopathy. Imaging unremarkable. Continue to follow and avoid medications which may potentiate delirium. Pulmonary: Hypoxemic hypercapnic respiratory failure status post reintubation 05/30/2023. Bronchoscopy revealed significant eosinophils on BAL. Continue parenteral steroids and bronchodilators. Continue diuresis as tolerated - remains on Lasix 40 mg IV BID. Optimal PEEP appears to be around 6 as previously observed. Chest x-ray remains stable. Unclear how much of her hypoxemia may be related to intrapulmonary shunt however review of her CT scan did not demonstrate any pulmonary AVMs. She may be shunting through the atelectatic lower lobes. Continues with Mucinex, hypertonic saline, chest PT. Goal SaO2 at or above 88 to 90%. She did have a small filling defect on CT angiogram in the left upper lobe from 05/30/2023 and is currently anticoagulated on heparin. Anticipate 3 months anticoagulation Cardiovascular: Continue attempts at aggressive diuresis. Continue Lasix at 40 milligrams IV twice daily. Continue Plavix. Wean norepinephrine as tolerated - continues with low doses for now. Gastrointestinal: Abnormal LFTs, potentially congestive hepatopathy. Completed NAC protocol. Now normalized. Advanced tube feeds. Renal: Continue Lasix twice daily. She was 900 mL negative yesterday. Mild hyponatremia which appears stable. Continue to follow at this point in time. Infectious disease: Completed course of meropenem/cefepime. No eosinophilia. Holding on antibiotics for now. Hematologic: Thrombocytopenia resolved. Borderline anemia. No indication of acute blood loss. Continue follow-up Endocrine: Glycemic protocol per ICU --Prophylaxis VTE: heparin infusion GI: Pantoprazole daily Lines: Peripheral, RIGHT IJ CVL, RIGHT Radial Arterial Line Diet: Advancing tube feed. OG in place. Conversation with the patient's significant other at 1010 and provided update. Reviewed respiratory status at this point. Discussed potential for tracheostomy placement if the patient were to continue to fail aggressive ventilator settings or fail trial extubation. Significant other and patient's brother were both present on the phone call and would be in agreement with proceeding with tracheostomy. Will review this with the patient. We will allow her to recover from her bronchoscopy this morning and see if we can improve oxygenation status. Consideration for tracheostomy placement versus extubation in the next 24 to 48 hours. CRITICAL CARE TIME - I have personally spent 48 minutes of critical care time in the direct management of this patient. This is a life/limb threatening event. This includes time spent evaluating patient, direct bedside care, chart review, placing orders, interpretation of diagnostic studies, discussion with consultants, patient, and family members, as well as other required patient management activities. This time is exclusive of all separately billable procedures, and teaching time and separate from and in addition to any other critical care service time. Admission and Anticipated Discharge Date Admission Date: May 23, 2023 Supervising Physician Co-Signing Physician Notes Patient seen and examined. EMR reviewed. Agree with assessment plan as noted by DEVIKA. The patient continues to have intermittent hypoxemia. Repeat bronchoscopy was performed this morning which demonstrated minimal mucous plugging in the lower lobes. She tolerated sedation breaks but will intermittently require increasing FiO2. Will continue attempts to try and see if we can get her extubated today. Will place her on a trial of clonazepam and methadone to see if we can get her off of IV medications and smooth out her awakening process somewhat. If she is unable to be extubated or if she is extubated and requires reintubation, consideration for tracheostomy might be appropriate. These recommendations were discussed with family members by the critical care DEVIKA. Subjective Patient seen and evaluated at bedside. She remains intubated with mild sedation. She is awake and alert and able to answer simple and complex questions. She is able to move extremities. She offers no complaints of pain at this time. Review of Systems Review of Systems: As per HPI Physical Exam Physical Exam: VITAL SIGNS - Vital signs and nursing notes were reviewed. GENERAL - 58-year-old female appearing her stated age who is intubated and mildly sedated. Able to answer yes/no questions appropriately. SKIN - Without rashes. HEAD - NC/AT. EYES - PERRL with EOMI bilaterally. MOUTH/OROPHARYNX - ETT/OGT in place. Without perioral cyanosis. NECK - Neck with FROM. Supple to palpation. RIGHT IJ in place. LUNGS - Intubated. Diminished breath sounds at the bases with slight occasional inspiratory wheeze appreciated in the apices. CARDIAC - RRR with S1/S2. No murmur, rubs, or gallops appreciated. ABDOMEN - Abdominal contour obese without pulsations or visible masses. BS normoactive. EXTREMITIES - No clubbing or peripheral cyanosis. Able to move all 4 extremities independently. NEUROLOGIC - No focal neurological deficits appreciated. Able to perform commands. Results & Data Results & Data Vital Signs (Past 12 Hours) Vital Signs Temp Pulse Pulse Resp BP Pulse Ox O2 Del Method 06/04/23 07:15 52 L 19 97 Mechanical Vent 06/04/23 06:30 36.7 C 64 19 95 06/04/23 06:00 36.7 C 49 L 18 94 06/04/23 06:00 140/73 06/04/23 05:30 36.8 C 52 L 18 95 06/04/23 05:00 36.8 C 51 L 18 94 06/04/23 04:30 36.8 C 54 L 18 93 06/04/23 04:20 73 18 92 06/04/23 04:02 141/74 H 06/04/23 04:02 36.8 C 62 18 92 06/04/23 04:00 36.8 C 62 18 92 06/04/23 03:30 36.9 C 67 18 88 L 06/04/23 03:00 37.1 C 66 14 94 06/04/23 02:30 37.0 C 73 18 95 06/04/23 02:00 37.0 C 72 18 91 06/04/23 02:00 140/75 06/04/23 01:30 36.9 C 82 18 91 06/04/23 01:00 37.1 C 52 L 18 92 06/04/23 00:30 37.2 C 55 L 18 93 06/04/23 00:00 37.2 C 54 L 18 129/67 93 06/03/23 23:30 37.3 C 56 L 18 93 06/03/23 23:17 66 18 92 06/03/23 23:00 37.6 C H 56 L 18 94 06/03/23 22:30 37.6 C H 61 18 91 06/03/23 22:00 37.6 C H 65 18 120/62 92 06/03/23 21:30 37.7 C H 61 18 91 06/03/23 21:00 37.7 C H 72 18 95 06/03/23 20:30 37.8 C H 70 18 93 FiO2 06/04/23 07:15 30 06/04/23 06:30 06/04/23 06:00 06/04/23 06:00 06/04/23 05:30 06/04/23 05:00 06/04/23 04:30 06/04/23 04:20 90 06/04/23 04:02 06/04/23 04:02 06/04/23 04:00 06/04/23 03:30 06/04/23 03:00 06/04/23 02:30 06/04/23 02:00 06/04/23 02:00 06/04/23 01:30 06/04/23 01:00 06/04/23 00:30 06/04/23 00:00 06/03/23 23:30 06/03/23 23:17 75 06/03/23 23:00 06/03/23 22:30 06/03/23 22:00 06/03/23 21:30 06/03/23 21:00 06/03/23 20:30 Coding Level of Care Code 44250 CRITICAL CARE 1ST 30-74M Diagnoses Status asthmaticus with COPD (chronic obstructive pulmonary disease) J44.89; J45.902 Acute CHF (congestive heart failure) I50.9 Acute encephalopathy G93.40 Transaminitis R74.01 Coronary artery disease I25.10 Elevated troponin R79.89 Endotracheally intubated Z97.8 RVF (right ventricular failure) I50.810 Aspiration pneumonia J69.0
[2023-06-04] MEDS: LANTUS PER UNIT CHARGE SC SCH (08:14)
[2023-06-04] MEDS: PROPOFOL BOLUS FROM BAG IV ONE (10:15)
--- NOTE | 2023-06-04 10:33 | Procedure Note ---
Procedure Note Date of Service June 04, 2023 Note Procedure: Therapeutic aspiration of secretions, subsequent Provider: Reji Gaming MD Consent: Signed by patient and timeout verified prior to procedure Procedure: Patient was in the intensive care unit intubated on the ventilator. She has persistent hypoxemia and atelectatic changes of the bilateral lower lobes. Verbal consent was obtained from the patient. She was administered propofol bolus prior to commencement of the procedure. She was placed on 100% oxygen for the procedure. The fiberoptic scope was advanced through the endotracheal tube via the Bodai adapter. The endotracheal tube was free of significant secretions or obstruction. Was verified to be about 4 cm above the chris. The distal trachea was normal. Main chris was sharp. A sequential and systematic examination of the lower airways was conducted. The right-sided airways were patent with normal anatomic configuration and the mucosa appeared mildly friable. Left-sided airways were patent with normal anatomic configuration and the mucosa appeared friable. There were some scant thick pale secretions in the bilateral lower lobes which were cleared with saline lavage. The bronchoscope was then removed from the airways. The patient tolerated the procedure well without obvious complication. Patient was returned to the recovery room. Impression: 1. Minimal mucous plugging of the bilateral lower lobes. 2. Endotracheal tube in good position Coding CPT Codes Pulmonary/Thoracic - Pulmonary and Thoracic: 98855 Bronchoscopy, reclear airway ([id number]) [facility] [place] Procedure Codes (Charges) Pulmonary/Thoracic Procedure 1: Pulmonary and Thoracic: 89448 Bronchoscopy, reclear airway
[2023-06-04] MEDS: METHADONE HCL 5 MG TAB PO SCH (11:36)
--- NOTE | 2023-06-04 12:42 | Hospitalist Progress Note ---
Date of Service June 04, 2023 Assessment & Plan (1) Acute on chronic respiratory failure with hypoxia and hypercapnia: Plan: 58yo female with history of COPD presenting with respiratory failure with hypoxia and hypercarbia 1. Acute hypercarbic respiratory failure Initially was put on BiPAP with no improvement Required to be intubated soon after admission Director It managed vent Extubated 05/27 Most likely due to severe asthma/COPD exacerbation. On IV Solu-Medrol, reduced dose to 40 mg IV every 8 on 05/25. Has been switched to p.o. prednisone, now on [address] chest showed aspiration pneumonia for which she is now on IV cefepime since 05/25. Completed a 5-day course. Bronchoscopy performed 05/23 revealed eosinophilia in the bronchial washings. All cultures negative from 05/23 and from 05/26 Reintubated on 05/30 CT angio of the chest on 05/30 showed small subsegmental left upper lobe PE. Most likely not the reason for hypoxia. However she has been started on heparin drip. Director It suspects intrapulmonary shunt resulting in severe hypoxemia. on 06/03/23, Bronchoscopy was done which showed evidence of significant eosinophils. Continue steroids and bronchodilators Today, 06/04/23, another bronchoscopy was done today to remove mucous plugs Eventually I think plan is for tracheostomy 2.Acute metabolic encephalopathy Resolving, patient although intubated he is awake with mild sedation This was most likely related to her acute hypercapnic respiratory failure since it has improved significantly CT head showed a stroke, age indeterminate. Most likely old stroke. An MRI can be done at a later time 3. Cor pulmonale/right heart failure Status post right cardiac cath Echocardiogram showed evidence of cor pulmonale Cardiology on consult Continue diuresis Patient has PFO 4. Elevated liver enzymes Due to shock liver from right heart failure Improving LFTs 5. Acute kidney injury Resolved with diuresis 6. Demand ischemia Likely due to severe hypoxia and respiratory failure Echo showed normal EF and no wall motion abnormalities 7. Thrombocytopenia Improved No bleeding Monitor DVT prophylaxis: Currently on heparin drip Full code (2) Coronary artery disease: (3) Hyperlipidemia: (4) Abnormal LFTs: (5) Elevated troponin: Admission and Anticipated Discharge Date Admission Date: May 23, 2023 Subjective Patient seen and examined she remains intubated with mild sedation. She is awake and alert and able to answer some questions unable to follow some instructions. Review of Systems Review of Systems: All systems reviewed are negative, apart from the ones contained in the history. Physical Exam Physical Exam: The patient is intubated but awake HEENT--PERRL, EOMI, mucous membranes and oropharynx mildly dry Neck-- Unable to fully assess y. Heart--normal S1 and S2. No murmurs, rubs or gallops. Lungs--reduced air entry on auscultation Abdomen--normal bowel sounds and soft. Mild epigastric and left sided abdominal pain Extremities--trace edema Dermatologic--normal skin turgor, normal color, no abnormal lymph nodes, no rash. Neurologic--unable to fully assess Rheumatologic--unable to fully assess Psychiatric--unable to assess Results & Data Results & Data Vital Signs (Past 12 Hours) Vital Signs Temp Pulse Pulse Resp BP Pulse Ox O2 Del Method 06/04/23 12:06 86 25 H 93 06/04/23 11:30 97.9 F 73 21 89 L 06/04/23 11:00 98.1 F 72 19 90 06/04/23 10:40 72 20 91 06/04/23 10:30 98.1 F 94 06/04/23 10:00 106/58 L 06/04/23 10:00 98.2 F 63 18 94 06/04/23 09:30 98.4 F 20 87 L 06/04/23 09:00 98.4 F 73 19 91 06/04/23 09:00 06/04/23 08:30 98.2 F 59 L 22 91 06/04/23 08:00 122/56 L 06/04/23 08:00 98.2 F 63 20 92 06/04/23 08:00 93 H 06/04/23 07:37 93 H 20 97 06/04/23 07:30 98.2 F 72 16 95 06/04/23 07:15 52 L 19 97 Mechanical Vent 06/04/23 07:00 98.2 F 83 19 96 06/04/23 06:47 73 06/04/23 06:30 98.1 F 64 19 95 06/04/23 06:00 98.1 F 49 L 18 94 06/04/23 06:00 140/73 06/04/23 05:30 98.2 F 52 L 18 95 06/04/23 05:00 98.2 F 51 L 18 94 06/04/23 04:30 98.2 F 54 L 18 93 06/04/23 04:20 73 18 92 06/04/23 04:02 141/74 H 06/04/23 04:02 98.2 F 62 18 92 06/04/23 04:00 98.2 F 62 18 92 06/04/23 03:30 98.4 F 67 18 88 L 06/04/23 03:00 98.8 F 66 14 94 06/04/23 02:30 98.6 F 73 18 95 06/04/23 02:00 98.6 F 72 18 91 06/04/23 02:00 140/75 06/04/23 01:30 98.4 F 82 18 91 06/04/23 01:00 98.8 F 52 L 18 92 FiO2 06/04/23 12:06 100 06/04/23 11:30 06/04/23 11:00 06/04/23 10:40 65 06/04/23 10:30 06/04/23 10:00 06/04/23 10:00 06/04/23 09:30 06/04/23 09:00 06/04/23 09:00 75 06/04/23 08:30 06/04/23 08:00 06/04/23 08:00 06/04/23 08:00 06/04/23 07:37 70 06/04/23 07:30 06/04/23 07:15 30 06/04/23 07:00 06/04/23 06:47 06/04/23 06:30 06/04/23 06:00 06/04/23 06:00 06/04/23 05:30 06/04/23 05:00 06/04/23 04:30 06/04/23 04:20 90 06/04/23 04:02 06/04/23 04:02 06/04/23 04:00 06/04/23 03:30 06/04/23 03:00 06/04/23 02:30 06/04/23 02:00 06/04/23 02:00 06/04/23 01:30 06/04/23 01:00 PG Care Time/CCT Total # of Minutes Spent Total Time Spent with Patient: Total time spent is greater than 50% in coordination of care (as documented) at patient's floor/unit and/or counseling patient: Coding Level of Care Code 15949 SUB INP/OBS CARE 2/35MIN Diagnoses Acute on chronic respiratory failure with hypoxia and hypercapnia J96.21; J96.22 Coronary artery disease I25.10 Hyperlipidemia E78.5 Abnormal LFTs R79.89 Elevated troponin R79.89 Time Spent (min) 35
[2023-06-04] MEDS: bisacodyL 10 MG SUPP PR STA (13:08)
[2023-06-04] MEDS: POLYETHYLENE (MIRALAX) 17 GM PACK PO PRN (13:13)
--- NOTE | 2023-06-04 13:50 | Pharmacy Report ---
Pharmacy Glycemic Short Note 2 - Date of Service June 04, 2023 - Glycemic Short BSG Results (Last 24 hours): 06/03/23 06/03/23 06/04/23 16:39 20:05 00:24 Glucose POC Glucose 205 H 242 H POC Glucose (other) 188 H 06/04/23 06/04/23 06/04/23 03:56 04:00 08:12 Glucose 203 H POC Glucose 217 H 193 H POC Glucose (other) 06/04/23 11:47 Glucose POC Glucose 127 H POC Glucose (other) OUTPATIENT ANTIDIABETIC REGIMEN: * n/a ASSESSMENT: 06/04: * BSGs increased with TF overnight, BSGs [phone] mg/dL * Patient received 18 units of lantus yesterday, will give 18 units this AM * Continues on SM 60 IV q8H. Tightened correction factor. * TF held for breathing trial, noon check 127 mg/dL- continue to monitor 06/01: * BSGs in last 24 hours [phone] mg/dL * Patient was reintubated over the weekend, on heparin gtt, low dose norepinephrine * Prednisone has been decreased to 30 mg daily * Fasting this AM was 108 mg/dL with 8 units of lantus- continue for now * Adjusted novolog to q4 hours checks with initiation of trickle feeds- monitor for BSG increase 05/29: * BSGs in last 24 hours [phone] mg/dL * Patient extubated 05/27 afternoon, experiencing some delirium. Diet now ordered. * Received 10 units of lantus yesterday, fasting this AM 134 mg/dL, will continue same for now * Steroids are being tapered, received 40 mg IV solumedrol this AM, will begins 40 mg prednisone x 5 days tomorrow, then 20 mg prednisone x 5 days with a 5mg taper after that. Novolog parameters were loosened this morning- high lunch BSG, will monitor as it was also elevated yesterday then down trended. 05/25: * BSGs within goal the last 24h. Received 30 units of basal and 24 units of bolus insulin yesterday. * Remains intubated and requiring slight vasopressor support. Receiving Solu Medrol 80mg TID, as well as IV cefepime. Tube feeds initiated today (Peptamen VHP). * Lantus 20 units SQ X 1 this AM given BSGs down-trending and with several days of NPO status. Will add a scale for HS depending on BSG (coverage greater than 180mg/dL) given initiation of tube feeds. Novolog q4- no change to parameters, include coverage of feeds. 05/24: * 58 year old admitted with altered mental status and hypoxemic respiratory failure. Intubated on admission. High dose steroids started, solumedrol 125 mg iv tid. Pharmacy consulted for glycemic management. No outpatient DM medic ations, awaiting A1c. * BSGs this AM elevated >250 mg/dL - Received Lantus 20 units x 1 last evening * Continues on solumedrol this morning, 125 mg iv given this AM - will give Lantus 30 units x 1 now. Changed to Q4 hours checks and also tightened CF. * Steroids now decreasing to 80 mg iv TID starting this afternoon. Plan to have Lantus scale for HS time in case BSGs remain elevated PLAN FOR INPATIENT GLYCEMIC CONTROL: * Hold outpatient oral diabetes medications * Basal insulin * Lantus 18 units daily * Bolus insulin * NovoLog per scale ACHS or Q6hrs while NPO * Goal Range: Low 110 mg/dL - High 140 mg/dL * Correction Factor: 20 mg/dL/unit * Nutritional / Prandial insulin per carb ratio of 1 unit per 5 grams CHO consumed
--- NOTE | 2023-06-04 15:05 | Electrocardiogram Report ---
Test Reason : Blood Pressure : / mmHG Vent. Rate : 073 BPM Atrial Rate : 277 BPM P-R Int : 000 ms QRS Dur : 094 ms QT Int : 370 ms P-R-T Axes : 000 092 038 degrees QTc Int : 407 ms Normal sinus rhythm Rightward axis Low voltage QRS Nonspecific ST and T wave abnormality Abnormal ECG When compared with ECG of 23-MAY-2023 11:24, No significant change Confirmed by Fred Valerio ([id number]) on 06/04/2023 3:04:56 PM Referred By: REFERRED SELF Confirmed By:Fred Valerio
[2023-06-05 05:01] LABS: Hematocrit (blood only) 35.7 % (37.0-47.0); Hemoglobin 10.9 g/dl (12.0-16.0); Mean Corpuscular Hemoglobin 26.1 pg (25.0-34.0); Mean Corpuscular Hgb Conc 30.5 g/dL (32.0-36.0); Mean Corpuscular Volume 85.4 fL (80.0-100.0); Mean Platelet Volume 12.2 fL (9.4-12.4); Platelet Count 150 K/uL (130-400); RDW Coefficient of Variation 20.3 % (11.5-14.5); RDW Standard Deviation 58.4 fL (36.4-46.3); Red Blood Count 4.18 M/uL (4.20-5.40); White Blood Count 15.26 K/ul (4.8-10.8)
[2023-06-05 05:21] LABS: BUN Creatinine Ratio 82.4 (10-20); Calcium 9.2 mg/dl (8.6-10.3); Creatinine Clr Calc Pharmacy 140.9 ml/min; Est GFR (African American) 123.7 ml/min; Est GFR (Non-African American) 106.7 ml/min; Magnesium 1.9 mg/dl (1.7-2.4); Phosphorus 2.3 mg/dl (2.5-4.9); Potassium 4.1 mmol/L (3.5-5.1)
[2023-06-05 05:30] LABS: Anisocytosis Present; Basophils # (auto) 0.01 K/uL (0.00-0.20); Basophils % (auto) 0.1 %; Hypochromasia Present; Immature Granulocytes # (auto) 0.12 K/uL (0.01-0.20); Immature Granulocytes % (auto) 0.8 %; Lymphocytes # (auto) 0.23 K/uL (1.20-3.40); Lymphocytes % (auto) 1.5 %; Monocytes # (auto) 0.59 K/uL (0.11-0.59); Monocytes % (auto) 3.9 %; Neutrophils # (auto) 14.31 K/uL (1.40-6.50); Neutrophils % (auto) 93.7 %
[2023-06-05] MEDS: PROPOFOL BOLUS FROM BAG IV PRN (05:30)
[2023-06-05 05:36] LABS: ANTI-Xa, UFH(UnfractionatedHep 0.25 IU/ml (0.3-0.7)
[2023-06-05] MEDS ORDERED: SODIUM PHOSPHATE 3 MMOL/1 ML INFUSION IV STA (05:44)
[2023-06-05] MEDS: SODIUM PHOSPHATE 6 MMOL in 0.9 % SODIUM CHLORIDE 100 ML IV ONE (06:14)
--- NOTE | 2023-06-05 07:02 | XRay Report ---
XR chest 1V portable HISTORY: Respiratory failure. COMPARISON: Chest 06/04/2023. FINDINGS: The endotracheal tube terminates 3.8 cm from the chris. Nasogastric tube terminates below the diaphragm. The tip is not included on this study. The fenestrated line of the nasogastric tube ap pears to be at the distal esophagus. Therefore, this could be advanced by proximal a 5 cm. A right ju gular central venous catheter terminates in the distal SVC. No pneumothorax. Small bilateral pleural fusions and patchy bibasilar densities persist. The heart remains mildly enlarged. There is mild pulm onary vascular congestion. IMPRESSION: 1. The nasogastric tube terminates below the diaphragm with the fenestrated line at the distal esopha era. Therefore, this could be advanced by approximately 5 cm. 2. Otherwise, satisfactory support line placement. 3. Patchy bibasilar densities and small bilateral pleural effusions persist. 3. Pulmonary vascular congestion again noted. ACT 112: Negative or not required by law. Electronically signed by: Chris Winter M.D. 06/05/2023 7:01 AM
--- NOTE | 2023-06-05 08:09 | Critical Care Progress Note ---
Date of Service June 05, 2023 Assessment & Plan (1) Status asthmaticus with COPD (chronic obstructive pulmonary disease): (2) Acute CHF (congestive heart failure): (3) Acute encephalopathy: (4) Transaminitis: (5) Coronary artery disease: (6) Elevated troponin: (7) Endotracheally intubated: (8) RVF (right ventricular failure): (9) Aspiration pneumonia: Plan Impression: 58-year-old female with a past medical history of coronary artery disease, COPD, asthma and obesity who presented to the hospital due to altered mental status and hypoxemic respiratory failure. 24-hour events: Relatively uneventful night. Does desaturate with any movement or turning. Currently requiring 90% FiO2. This has been relatively labile for the last 24 hours. Had an episode of hypoxia overnight and did not tolerate SBP this AM. Remains on mild sedation. Had been titrated down to 50% FiO2 overnight - Back to 90% s/p SBT failure and ABG findings. No other events reported. Recommendations: Neurologic: Continue to wean sedation to remain on minimal effective doses. Clonazepam and methadone added yesterday to hopefully decrease sedation requirements. Previously with encephalopathy - improved. Imaging unremarkable. Continue to follow and avoid medications which may potentiate delirium. Pulmonary: Hypoxemic hypercapnic respiratory failure status post reintubation 05/30/2023. Bronchoscopy revealed significant eosinophils on BAL. Continue parenteral steroids and bronchodilators. Continue diuresis as tolerated - remains on Lasix 40 mg IV BID. Optimal PEEP appears to be around 6 as previously observed. Chest x-ray remains stable. Unclear how much of her hypoxemia may be related to intrapulmonary shunt however review of her CT scan did not demonstrate any pulmonary AVMs. She may be shunting through the atelectatic lower lobes. Continues with Mucinex, hypertonic saline, chest PT. Goal SaO2 at or above 88 to 90%. She did have a small filling defect on CT angiogram in the left upper lobe from 05/30/2023 and is currently anticoagulated on heparin. Anticipate 3 months anticoagulation. Unfortunately, patient continues to require high FiO2 ventilator settings and this has not been responsive to aggressive diuresis or multiple ventilator changes. This is day 10 total of mechanical ventilator. Did review yesterday with the patient's significant other and family the likelihood of tracheostomy. Given the ongoing oxygen requirement and inability to wean ventilator settings, the patient would likely benefit from tracheostomy placement to aid in oxygenation with goal of eventual liberation from before PPV. This was reviewed with the patient who is mildly sedated, but does nod her head yes. Additionally, I did discuss the case with the patient's significant other and son who reports that they discussed this with the family yesterday and all agree with proceeding with tracheostomy placement. Did review with them that patient will likely require long-term care facility admission after discharge from this institution. They recognize this and are still agreeable moving forward. Patient's anticoagulation will need to be held for approximate 4 hours prior to procedure. Heparin placed on hold at this time. Cardiovascular: Continue attempts at aggressive diuresis. Continue Lasix at 40 milligrams IV twice daily. Continue Plavix. Wean norepinephrine as tolerated - continues with low doses for now - seems to be sedation related. Gastrointestinal: Abnormal LFTs, potentially congestive hepatopathy. Completed NAC protocol. Now normalized. Advanced tube feeds. Renal: Continue Lasix twice daily. She was 1000 mL negative yesterday. Mild hyponatremia which appears stable. Continue to follow at this point in time. Infectious disease: Completed course of meropenem/cefepime. No eosinophilia. Holding on antibiotics for now. Hematologic: Thrombocytopenia resolved. Borderline anemia. Currently on Heparin gtt. Will hold for now in anticipation of percutaneous tracheostomy placement later today. Endocrine: Glycemic protocol per ICU --Prophylaxis VTE: heparin infusion - hold until after perc trach GI: Pantoprazole daily Lines: Peripheral, RIGHT IJ CVL, RIGHT Radial Arterial Line Diet: Hold tube feeds for now in anticipation of perc trach. OG in place. CRITICAL CARE TIME - I have personally spent 45 minutes of critical care time in the direct management of this patient. This is a life/limb threatening event. This includes time spent evaluating patient, direct bedside care, chart review, placing orders, interpretation of diagnostic studies, discussion with consultants, patient, and family members, as well as other required patient management activities. This time is exclusive of all separately billable procedures, and teaching time and separate from and in addition to any other critical care service time. Admission and Anticipated Discharge Date Admission Date: May 23, 2023 Supervising Physician Co-Signing Physician Notes Patient seen and examined. EMR reviewed. Discussed with critical care DEVIKA and on multidisciplinary rounds and with bedside critical care nurse. Minimal progress in weaning ventilator. She is now total vent day 7 or 8 without significant progress. I think given her prior history of difficulty tolerating noninvasive positive pressure ventilation and even a nasal cannula, proceeding with tracheostomy would be appropriate. Family has been consented and agrees to proceed. This will allow us for discontinuation of sedatives which might improve her pulmonary mechanics. Will have nursing place a nasogastric feeding tube at the time of the tracheostomy to provide enteric access. Should be able to wean off of sedative medications going forward. Will continue diuresis. Discussed with case management. Will need long-term acute care placement. Unfortunately her insurance makes placement somewhat difficult due to limited resources. Heparin is currently on hold. Will start plan on restarting heparin without a bolus this evening or tomorrow morning. Subjective Patient was seen and evaluated at bedside. Patient was tenuous overnight with her oxygen requirement with any movement or positioning. Patient is sedated, but able to answer yes/no commands. Offers no complaints of pain. Review of Systems Review of Systems: As per HPI Physical Exam Physical Exam: VITAL SIGNS - Vital signs and nursing notes were reviewed. GENERAL - 58-year-old female appearing her stated age who is intubated and mildly sedated. Able to answer yes/no questions appropriately. SKIN - Without rashes. HEAD - NC/AT. EYES - PERRL with EOMI bilaterally. MOUTH/OROPHARYNX - ETT/OGT in place. Without perioral cyanosis. NECK - Neck with FROM. Supple to palpation. RIGHT IJ in place. LUNGS - Intubated. Diminished breath sounds at the bases with slight occasional inspiratory wheeze appreciated in the apices. CARDIAC - RRR with S1/S2. No murmur, rubs, or gallops appreciated. ABDOMEN - Abdominal contour obese without pulsations or visible masses. BS normoactive. EXTREMITIES - No clubbing or peripheral cyanosis. Able to move all 4 extremities independently. NEUROLOGIC - No focal neurological deficits appreciated. Able to perform commands. Results & Data Results & Data Vital Signs (Past 12 Hours) Vital Signs Temp Pulse Pulse Resp BP Pulse Ox O2 Del Method 06/05/23 07:26 68 18 87 L 06/05/23 07:00 36.9 C 53 L 18 92 06/05/23 06:30 37.0 C 59 L 18 88 L 06/05/23 06:00 112/61 06/05/23 06:00 36.9 C 63 16 100 06/05/23 05:00 36.8 C 49 L 18 95 06/05/23 04:00 83/49 L 06/05/23 04:00 36.7 C 52 L 18 96 06/05/23 04:00 06/05/23 03:53 54 L 18 95 06/05/23 03:30 36.7 C 56 L 18 95 06/05/23 03:00 36.7 C 54 L 18 95 06/05/23 02:30 36.7 C 55 L 18 96 06/05/23 02:00 125/66 06/05/23 02:00 36.6 C 78 14 95 06/05/23 01:30 36.6 C 62 17 96 06/05/23 01:00 36.5 C 57 L 19 93 06/05/23 00:30 36.4 C L 48 L 18 94 06/05/23 00:00 90/53 L 06/05/23 00:00 36.4 C L 57 L 18 96 06/05/23 00:00 06/04/23 23:30 36.3 C L 54 L 18 95 06/04/23 23:28 56 L 06/04/23 23:00 36.3 C L 58 L 18 91 06/04/23 22:56 59 L 19 90 06/04/23 22:30 36.4 C L 59 L 18 90 06/04/23 22:00 36.5 C 59 L 18 91 06/04/23 22:00 83/51 L 06/04/23 21:00 36.6 C 73 18 97 06/04/23 20:22 62 19 90 06/04/23 20:22 62 19 92 Mechanical Vent 06/04/23 20:00 87/51 L 06/04/23 20:00 36.4 C L 65 18 92 FiO2 06/05/23 07:26 90 06/05/23 07:00 06/05/23 06:30 06/05/23 06:00 06/05/23 06:00 06/05/23 05:00 06/05/23 04:00 06/05/23 04:00 06/05/23 04:00 90 06/05/23 03:53 90 06/05/23 03:30 06/05/23 03:00 06/05/23 02:30 06/05/23 02:00 06/05/23 02:00 06/05/23 01:30 06/05/23 01:00 06/05/23 00:30 06/05/23 00:00 06/05/23 00:00 06/05/23 00:00 90 06/04/23 23:30 06/04/23 23:28 06/04/23 23:00 06/04/23 22:56 85 06/04/23 22:30 06/04/23 22:00 06/04/23 22:00 06/04/23 21:00 06/04/23 20:22 95 06/04/23 20:22 95 06/04/23 20:00 06/04/23 20:00 Coding Level of Care Code 48863 CRITICAL CARE 1ST 30-74M Diagnoses Status asthmaticus with COPD (chronic obstructive pulmonary disease) J44.89; J45.902 Acute CHF (congestive heart failure) I50.9 Acute encephalopathy G93.40 Transaminitis R74.01 Coronary artery disease I25.10 Elevated troponin R79.89 Endotracheally intubated Z97.8 RVF (right ventricular failure) I50.810 Aspiration pneumonia J69.0
[2023-06-05] MEDS: LANTUS PER UNIT CHARGE SC SCH (08:36)
[2023-06-05] MEDS ORDERED: LANTUS PER UNIT CHARGE SC SCH (09:00)
[2023-06-05] MEDS: VECURONIUM BROMIDE 10 MG VIAL IV PRN (11:45)
--- NOTE | 2023-06-05 12:02 | Hospitalist Progress Note ---
Date of Service June 05, 2023 Assessment & Plan (1) Acute on chronic respiratory failure with hypoxia and hypercapnia: Plan: 58yo female with history of COPD presenting with respiratory failure with hypoxia and hypercarbia 1. Acute hypercarbic respiratory failure Initially was put on BiPAP with no improvement Required to be intubated soon after admission Survey Technologist managed vent Extubated 05/27 Most likely due to severe asthma/COPD exacerbation. On IV Solu-Medrol, reduced dose to 40 mg IV every 8 on 05/25. Has been switched to p.o. prednisone, now on [address] chest showed aspiration pneumonia for which she is now on IV cefepime since 05/25. Completed a 5-day course. Bronchoscopy performed 05/23 revealed eosinophilia in the bronchial washings. All cultures negative from 05/23 and from 05/26 Reintubated on 05/30 CT angio of the chest on 05/30 showed small subsegmental left upper lobe PE. Most likely not the reason for hypoxia. However she has been started on heparin drip. Survey Technologist suspects intrapulmonary shunt resulting in severe hypoxemia. on 06/03/23, Bronchoscopy was done which showed evidence of significant eosinophils. Continue steroids and bronchodilators on 06/04/23, another bronchoscopy was done to remove mucous plugs Given inability to be weaned off from the ventilator, patient will require tracheostomy. This has been discussed with family 2.Acute metabolic encephalopathy Resolving, patient although intubated he is awake with mild sedation This was most likely related to her acute hypercapnic respiratory failure since it has improved significantly CT head showed a stroke, age indeterminate. Most likely old stroke. An MRI can be done at a later time 3. Cor pulmonale/right heart failure Status post right cardiac cath Echocardiogram showed evidence of cor pulmonale Cardiology on consult Continue diuresis Patient has PFO 4. Elevated liver enzymes Due to shock liver from right heart failure Improving LFTs 5. Acute kidney injury Resolved with diuresis 6. Demand ischemia Likely due to severe hypoxia and respiratory failure Echo showed normal EF and no wall motion abnormalities 7. Thrombocytopenia Improved No bleeding Monitor DVT prophylaxis: Currently on heparin drip Full code (2) Coronary artery disease: (3) Hyperlipidemia: (4) Abnormal LFTs: (5) Elevated troponin: Admission and Anticipated Discharge Date Admission Date: May 23, 2023 Subjective Patient seen and examined, still intubated and ventilated Review of Systems Review of Systems: Unable to be obtained Physical Exam Physical Exam: The patient is intubated but awake HEENT--PERRL, EOMI, mucous membranes and oropharynx mildly dry Neck-- Unable to fully assess y. Heart--normal S1 and S2. No murmurs, rubs or gallops. Lungs--reduced air entry on auscultation Abdomen--normal bowel sounds and soft. Mild epigastric and left sided abdominal pain Extremities--trace edema Dermatologic--normal skin turgor, normal color, no abnormal lymph nodes, no rash. Neurologic--unable to fully assess Rheumatologic--unable to fully assess Psychiatric--unable to assess Results & Data Results & Data Vital Signs (Past 12 Hours) Vital Signs Temp Pulse Resp BP Pulse Ox O2 Del Method FiO2 06/05/23 10:30 98.2 F 61 18 90 06/05/23 10:11 61 19 93 90 06/05/23 10:00 98.4 F 56 L 18 94 06/05/23 10:00 93/55 L 06/05/23 09:30 98.4 F 57 L 18 99 06/05/23 09:00 18 06/05/23 08:01 98.6 F 63 18 98 06/05/23 08:01 94/56 L 06/05/23 08:00 90 06/05/23 08:00 Mechanical Vent 90 06/05/23 08:00 98.6 F 61 18 98 06/05/23 07:26 68 18 87 L 90 06/05/23 07:00 98.4 F 53 L 18 92 06/05/23 06:30 98.6 F 59 L 18 88 L 06/05/23 06:00 112/61 06/05/23 06:00 98.4 F 63 16 100 06/05/23 05:00 98.2 F 49 L 18 95 06/05/23 04:00 83/49 L 06/05/23 04:00 98.1 F 52 L 18 96 06/05/23 04:00 90 06/05/23 03:53 54 L 18 95 90 06/05/23 03:30 98.1 F 56 L 18 95 06/05/23 03:00 98.1 F 54 L 18 95 06/05/23 02:30 98.1 F 55 L 18 96 06/05/23 02:00 125/66 06/05/23 02:00 97.9 F 78 14 95 06/05/23 01:30 97.9 F 62 17 96 06/05/23 01:00 97.7 F 57 L 19 93 06/05/23 00:30 97.5 F L 48 L 18 94 PG Care Time/CCT Total # of Minutes Spent Total Time Spent with Patient: Total time spent is greater than 50% in coordination of care (as documented) at patient's floor/unit and/or counseling patient: Coding Level of Care Code 75903 SUB INP/OBS CARE 2/35MIN Diagnoses Acute on chronic respiratory failure with hypoxia and hypercapnia J96.21; J96.22 Coronary artery disease I25.10 Hyperlipidemia E78.5 Abnormal LFTs R79.89 Elevated troponin R79.89 Time Spent (min) 35
--- NOTE | 2023-06-05 12:40 | Procedure Note ---
Procedure Note Date of Service June 05, 2023 Note Procedure: 1. Percutaneous dilatation of 6.o Shiley tracheostomy Indication respiratory failure Food Inspector Dr. Reji Gaming Anesthesia: Patient was maintained on a propofol infusion. 10 mL bolus was administered as well as infusion at continuous rate. 2 mg Versed administered. 10 mg vecuronium. Consent: Risks and benefits were discussed with the patient's . Consent was verified and timeout was performed prior to starting the procedure. Missing Persons Investigator: MANUELA Askew Estimated blood loss: Less than 10 mL Sedation: 10 mg of vecuronium, maintained on propofol and fentanyl infusions Procedure: The patient is in the ICU intubated and on the ventilator. She was placed on 100 percent FiO2. A timeout was performed. Consent was verified. Patient was paralyzed and sedation maintained. Once anesthesia was appropriate, neck roll was placed under the shoulders to allow for extension of the neck. Landmarks were easily palpable. An area approximately 1 cm below the cricoid cartilage was cleaned and draped using chlorhexidine. A sterile field was established. Using an 11 blade scalpel, a 1.5 cm longitudinal incision of the trachea was made. Blunt dissection with my index finger and the curved hemostats was conducted down until I could palpate tracheal rings with my index finger. At that point in time, MANUELA Askew advanced the bronchoscope through the existing endotracheal tube. The bronchoscope was left at the tip of the ET tube. The cuff was deflated and the bronchoscope and endotracheal tube were withdrawn to a level just below the glottis. I was able to observe external ballottement using a curved forceps. Using an 18-gauge over the needle Angiocath, the trachea was entered between the second and third cartilaginous ring. A wire was passed through the catheter into the distal airway and visualized bronchoscopically to be distending into the lower airways. Catheter was removed leaving the wire in place. Stiff dilator was used to dilate the tract and then the Rhino dilator and guiding catheter were advanced over the wire into the airway. The Rhino dilator was removed leaving the wire and guiding catheter in place. A previously tested 6 oh Shiley cuffed tracheostomy had been lubricated and loading on a 26 Chadian delivery catheter. This was advanced over the wire and guiding catheter into the airway. Once the tracheostomy was in place, the loading catheter, guiding catheter, and wire were removed. The bronchoscope was then removed from the endotracheal tube and advanced through the newly placed tracheostomy tube and verified to be within the airway. The balloon was inflated. The inner cannula was replaced and the patient was attached to the ventilator. Good return tidal volumes were obtained. 3 Vicryl stay sutures were placed in the newly placed tracheostomy through the eyelets and at the 6 o'clock position. A drain sponge was placed and trach ties were attached. The roll under the shoulder blades was removed. Patient tolerated the procedure well. Coding CPT Codes ENT - E[place]: 38373 Incision of [place][id number][place] [facility] [place] ENT: 95416 Incision of windpipe
--- NOTE | 2023-06-05 12:52 | Procedure Note ---
Procedure Note Date of Service June 05, 2023 Note Procedure: Flexible Bronchoscopy for direct visualization of percutaneous tracheostomy tube placement Attending/Shorts Sifter: Dr. Gaming, Aba Askew PA-C Anesthetic/Sedation: Propofol, Fentanyl, Vecuronium Indication: [facility] Consent was signed and placed on the chart prior to procedure. Indication, risks, and benefits were explained at length. A time-out was completed verifying correct patient, procedure, site, positioning, and implant(s) or special equipment if applicable. Findings: Prior to initiation of percutaneous tracheostomy procedure, the bronchoscope was introduced into the endotracheal tube and visualization of the airway was achieved. Findings of irritation of the airway in the LEFT upper airway. Some areas of clear, thick secretions were suctioned. Upon starting the procedure, visualization of the anterior airway was achieved at the distal tip of the endotracheal tube. With the assistance of respiratory therapy, the bronchoscope was secured in the endotracheal tube and slowly retracted after deflating the cuff. The bronchoscope was extracted until visualization the entrance point for the needle site was achieved. Cannulation of the trachea with introducer needle/catheter was appreciated without back walling. Guidewire was noted to descend into the distal airways. Serial dilation was performed without back walling noted. Tracheostomy tube was confirmed to enter the airway and descend appropriately into the distal airway. After tracheostomy tube was in place, the scope was removed from the endotracheal tube and ran down the tracheostomy tube site and visualization of the chris and airways was appreciated. No significant or active bleeding appreciated. Anticipated postprocedural blood noted. The bronchoscope was removed to allow for completion of procedure. Please refer to my attendings note for formal tracheostomy tube procedure. Complications: NONE Impression: Successful Percutaneous Tracheostomy Tube Placement Coding CPT Codes Pulmonary/Thoracic - Pulmonary and Thoracic: 87868 Bronchoscopy, clear airways ([id number]) [facility] [place] Codes (Charges) Pulmonary/Thoracic Procedure 1: Pulmonary and Thoracic: 70605 Bronchoscopy, clear airways
[2023-06-05] MEDS: LIDOCAINE 1% LOCAL 20 ML VIAL ONE (12:53)
[2023-06-05] MEDS: LIDOCAINE 1%/EPINEPHRINE 1:100,000 50 ML VIAL INFIL ONE (12:53)
--- NOTE | 2023-06-05 13:05 | Pharmacy Report ---
Pharmacy Glycemic Short Note 2 - Date of Service June 05, 2023 - Glycemic Short BSG Results (Last 24 hours): 06/04/23 06/04/23 06/05/23 16:05 20:13 00:10 Glucose POC Glucose 177 H 244 H 256 H 06/05/23 06/05/23 06/05/23 04:04 04:04 04:37 Glucose 200 H POC Glucose 194 H 194 H 06/05/23 06/05/23 08:28 11:37 Glucose POC Glucose 136 H 154 H OUTPATIENT ANTIDIABETIC REGIMEN: * n/a ASSESSMENT: 06/05: * BSGs again trended up overnight with resumption of tube feeds, tube feeds held for tracheostomy and BSGs improved. * Will continue 15 units of lantus for now as BSGs off tube feeds within goal, suggesting need for tighter carb coverage * Will continue on SM 60 mg IV q8H today- monitor. 06/04: * BSGs increased with TF overnight, BSGs [phone] mg/dL * Patient received 18 units of lantus yesterday, will give 18 units this AM * Continues on SM 60 IV q8H. Tightened correction factor. * TF held for breathing trial, noon check 127 mg/dL- continue to monitor 06/01: * BSGs in last 24 hours [id number] mg/dL * Patient was reintubated over the weekend, on heparin gtt, low dose norepinephrine * Prednisone has been decreased to 30 mg daily * Fasting this AM was 108 mg/dL with 8 units of lantus- continue for now * Adjusted novolog to q4 hours checks with initiation of trickle feeds- monitor for BSG increase 05/29: * BSGs in last 24 hours [phone] mg/dL * Patient extubated 05/27 afternoon, experiencing some delirium. Diet now ordered. * Received 10 units of lantus yesterday, fasting this AM 134 mg/dL, will continue same for now * Steroids are being tapered, received 40 mg IV solumedrol this AM, will begins 40 mg prednisone x 5 days tomorrow, then 20 mg prednisone x 5 days with a 5mg taper after that. Novolog parameters were loosened this morning- high lunch BSG, will monitor as it was also elevated yesterday then down trended. 05/25: * BSGs within goal the last 24h. Received 30 units of basal and 24 units of bolus insulin yesterday. * Remains intubated and requiring slight vasopressor support. Receiving Solu Medrol 80mg TID, as well as IV cefepime. Tube feeds initiated today ([facility]). * Lantus 20 units SQ X 1 this AM given BSGs down-trending and with several days of NPO status. Will add a scale for HS depending on BSG (coverage greater than 180mg/dL) given initiation of tube feeds. Novolog q4- no change to parameters, include coverage of feeds. 05/24: * 58 year old admitted with altered mental status and hypoxemic respiratory failure. Intubated on admission. High dose steroids started, solumedrol 125 mg iv tid. Pharmacy consulted for glycemic management. No outpatient DM medications, awaiting A1c. * BSGs this AM elevated >250 mg/dL - Received Lantus 20 units x 1 last evening * Continues on solumedrol this morning, 125 mg iv given this AM - will give Lantus 30 units x 1 now. Changed to Q4 hours checks and also tightened CF. * Steroids now decreasing to 80 mg iv TID starting this afternoon. Plan to have Lantus scale for HS time in case BSGs remain elevated PLAN FOR INPATIENT GLYCEMIC CONTROL: * Hold outpatient oral diabetes medications * Basal insulin * Lantus 15 units daily * Bolus insulin * NovoLog per scale ACHS or Q6hrs while NPO * Goal Range: Low 110 mg/dL - High 140 mg/dL * Correction Factor: 20 mg/dL/unit * Nutritional / Prandial insulin per carb ratio of 1 unit per 4 grams CHO consumed
--- NOTE | 2023-06-05 13:34 | XRay Report ---
XR chest 1V portable CLINICAL HISTORY: New tracheostomy, New NG tube TECHNIQUE: Single frontal radiograph of the chest was obtained. Comparison: Comparison is made to chest radiograph 05/30/2023 FINDINGS: Tracheostomy tube is stable. Enteric tube tip and side-port lie below the diaphragm. Right IJ cathete r terminates at the cavoatrial junction. Cardiomegaly is noted. The lungs are clear. Small bilateral pleural effusions are seen. IMPRESSION: Small bilateral pleural effusions. Stable cardiomegaly. ACT 112: Negative or not required by law. Electronically signed by: Evangelist Reynoso M.D. 06/05/2023 1:32 PM
[2023-06-05] MEDS ORDERED: Nursing to Pharmacy Communication SCH (15:30)
[2023-06-05] MEDS: clonazePAM 0.25 MG TAB PO PRN (15:32)
--- NOTE | 2023-06-05 16:46 | XRay Report ---
KUB CLINICAL HISTORY: Enteric tube placement. FINDINGS: AP, portable, upright view of the lower chest and upper abdomen is correlated with abdomina l CT dated 05/23/2023. An enteric tube has been placed. The tip projects below the diaphragm over the stomach. The tip of a central venous catheter projects over the right atrium. There are distended bow el loops seen in the upper abdomen. No intraperitoneal free air is seen below the diaphragm. Cholecys tectomy clips are noted in the right upper quadrant. Trace pleural effusions are identified. The hear t is enlarged. IMPRESSION: 1. An enteric tube has been placed as above. 2. There are distended and gas-filled bowel loops partially visualized in the upper abdomen. Correlat e clinically for evidence of ileus or obstruction. 3. Cardiomegaly and small pleural effusions. Electronically signed by: Jose Lemos M.D. 06/05/2023 4:44 PM
[2023-06-05] MEDS ORDERED: STAT IV Infusion **Titration per Protocol STA (20:52)
[2023-06-05] MEDS: dexMEDEtomidine 200 MCG/50 ML BAG IV SCH (21:06)
[2023-06-06 06:19] LABS: Hematocrit (blood only) 40.7 % (37.0-47.0); Hemoglobin 11.9 g/dl (12.0-16.0); Mean Corpuscular Hemoglobin 24.9 pg (25.0-34.0); Mean Corpuscular Hgb Conc 29.2 g/dL (32.0-36.0); Mean Corpuscular Volume 85.3 fL (80.0-100.0); Mean Platelet Volume 11.5 fL (9.4-12.4); Platelet Count 145 K/uL (130-400); RDW Coefficient of Variation 21.2 % (11.5-14.5); RDW Standard Deviation 60.1 fL (36.4-46.3); Red Blood Count 4.77 M/uL (4.20-5.40); White Blood Count 11.59 K/ul (4.8-10.8)
[2023-06-06 06:40] LABS: Calcium 9.2 mg/dl (8.6-10.3); Creatinine Clr Calc Pharmacy 123.9 ml/min; Est GFR (African American) 118.6 ml/min; Est GFR (Non-African American) 102.3 ml/min; Magnesium 1.9 mg/dl (1.7-2.4); Phosphorus 3.1 mg/dl (2.5-4.9); Potassium 3.7 mmol/L (3.5-5.1)
[2023-06-06 06:45] LABS: Anisocytosis Present; Basophils # (auto) 0.02 K/uL (0.00-0.20); Basophils % (auto) 0.2 %; Eosinophils # (auto) 0.01 K/uL (0.00-0.50); Eosinophils % (auto) 0.1 %; Immature Granulocytes # (auto) 0.09 K/uL (0.01-0.20); Immature Granulocytes % (auto) 0.8 %; Lymphocytes # (auto) 0.35 K/uL (1.20-3.40); Monocytes # (auto) 0.51 K/uL (0.11-0.59); Monocytes % (auto) 4.4 %; Neutrophils # (auto) 10.61 K/uL (1.40-6.50); Neutrophils % (auto) 91.5 %; Target Cells 1+
[2023-06-06 06:52] LABS: ANTI-Xa, UFH(UnfractionatedHep 0.24 IU/ml (0.3-0.7)
--- NOTE | 2023-06-06 07:25 | XRay Report ---
XR chest 1V portable HISTORY: 58 years-old Female resp failure acute respiratory failure COMPARISON: June 05, 2023 TECHNIQUE: AP view of the chest FINDINGS: Tracheostomy cannula overlies the midline. An enteric tube courses below the diaphragm into the stoma ch with distal tip outside the [id number]. Right IJ central venous catheter distal tip projects ov er the right atrium. Cardiac silhouette is enlarged. Pulmonary vascular congestion with interstitial coarsening redemonstr ated. Small pleural effusions with mild bibasilar densities. Bones appear grossly intact. IMPRESSION: 1. Lines and tubes as above. 2. Cardiomegaly with pulmonary vascular congestion. 3. Unchanged small pleural effusions with mild bibasilar densities. ACT 112: Negative or not required by law. The above report was generated using voice recognition software. It may contain grammatical, syntax o r spelling errors. Electronically signed by: Altaf Harrison M.D. 06/06/2023 7:24 AM
[2023-06-06] MEDS: MAGNESIUM OXIDE 400 MG TAB NG ONE (07:39)
[2023-06-06] MEDS: POTASSIUM CHLORIDE 20 MEQ/15 ML UDC NG ONE (07:39)
--- NOTE | 2023-06-06 08:00 | Critical Care Progress Note ---
Date of Service June 06, 2023 Assessment & Plan (1) Status asthmaticus with COPD (chronic obstructive pulmonary disease): (2) Acute CHF (congestive heart failure): (3) Acute encephalopathy: (4) Transaminitis: (5) Coronary artery disease: (6) Elevated troponin: (7) Endotracheally intubated: (8) RVF (right ventricular failure): (9) Aspiration pneumonia: Plan Impression: 58-year-old female with a past medical history of coronary artery disease, COPD, asthma and obesity who presented to the hospital due to altered mental status and hypoxemic respiratory failure. 24-hour events: Bedside percutaneous dilatation and placement of 6.0 Shiley trach without difficulty. Patient became agitated intermittently overnight requiring upper extremity restraints and initiation of Precedex. She remains on high FiO2 Recommendations: Neurologic: Agitated delirium. Will increase her clonazepam and methadone. Wean Precedex as tolerated. Add Zyprexa. Try and maintain sleep-wake cycles and reorient the patient as frequently as possible. Discontinue continuous fentanyl and propofol infusions. Will initiate therapy with dangling and PT and OT as tolerated Pulmonary: Hypoxemic hypercapnic respiratory failure status post reintubation 05/30/2023. Bronchoscopy revealed significant eosinophils on BAL. Unable to wean despite 7 days of mechanical ventilation. Tracheostomy placed 06/05/2023. Will work on weaning vent settings and trying to transition to pressure support. Continue nebulized Perforomist and budesonide. Transition steroids to oral and taper over the next week Cardiovascular: Continue attempts at aggressive diuresis. Continue Lasix at 40 milligrams IV twice daily. Continue Plavix. Off pressors currently. Gastrointestinal: Advancing tube feeds as tolerated Renal: Continue Lasix twice daily. She was 800 mL negative yesterday. Mild hyponatremia resolved. Bicarb continues to increase and will give an additional dose of Diamox today Infectious disease: Completed course of meropenem/cefepime. No eosinophilia. Holding on antibiotics for now. Hematologic: Thrombocytopenia resolved. Borderline anemia. Currently on Heparin gtt. can consider transition to alternative oral anticoagulants for small segmental PE at some point. Will need 3 months of anticoagulation Endocrine: Glycemic protocol per ICU --Prophylaxis VTE: heparin infusion GI: Pantoprazole daily Lines: Peripheral, RIGHT IJ CVL, RIGHT Radial Arterial Line Diet: Advancing as tolerated Admission and Anticipated Discharge Date Admission Date: May 23, 2023 Subjective Patient seen and examined. EMR reviewed. Discussed with overnight critical care DEVIKA. The patient thinks that she is outside of the hospital. She is delirious but easily reorients. Review of Systems Review of Systems: Unobtainable due to mental health condition Physical Exam Constitutional: + mechanically ventilated Neck: trachea midline, no thyromegaly Respiratory: no respiratory distress, no labored breathing, no cough and not tachypneic Auscultation: + wheezes; no crackles Cardiovascular: RRR, no murmur, no edema Gastrointestinal (Abdomen): normal bowel sounds, soft, nontender, no hepatos plenomegaly Musculoskeletal: Extremities: extremities normal to inspection Skin: no rashes, warm and dry Lymphatic: no cervical lymphadenopathy Results & Data Results & Data Vital Signs (Past 12 Hours) Vital Signs Temp Pulse Resp BP Pulse Ox O2 Del Method FiO2 06/06/23 07:38 54 L 18 90 75 06/06/23 07:23 Mechanical Vent 75 06/06/23 07:00 37.3 C 58 L 18 95 06/06/23 06:30 37.4 C 72 23 89 L 06/06/23 06:00 37.5 C 53 L 18 95 06/06/23 06:00 114/69 06/06/23 05:30 37.4 C 64 18 97 06/06/23 05:00 37.4 C 53 L 18 95 06/06/23 04:15 52 L 19 94 80 06/06/23 04:00 138/80 06/06/23 04:00 37.3 C 56 L 18 95 06/06/23 04:00 80 06/06/23 03:00 37.2 C 58 L 18 98 06/06/23 02:00 113/65 06/06/23 02:00 37.2 C 55 L 18 92 06/06/23 01:00 37.2 C 71 18 95 06/06/23 00:26 62 19 94 70 06/06/23 00:00 134/95 06/06/23 00:00 37.0 C 68 18 99 06/06/23 00:00 80 06/06/23 00:00 58 L 06/05/23 23:00 36.9 C 79 19 98 06/05/23 22:00 117/62 06/05/23 22:00 37.0 C 65 18 98 06/05/23 21:00 37.0 C 84 18 99 06/05/23 20:07 87 20 93 80 06/05/23 20:00 130/71 06/05/23 20:00 36.9 C 86 19 93 06/05/23 20:00 Mechanical Vent 80 06/05/23 20:00 80 Critical Care Results & Data Vital Signs (Past 12 Hours) Vital Signs Temp Pulse Resp BP Pulse Ox O2 Del Method FiO2 06/06/23 07:38 54 L 18 90 75 06/06/23 07:23 Mechanical Vent 75 06/06/23 07:00 37.3 C 58 L 18 95 06/06/23 06:30 37.4 C 72 23 89 L 06/06/23 06:00 37.5 C 53 L 18 95 06/06/23 06:00 114/69 06/06/23 05:30 37.4 C 64 18 97 06/06/23 05:00 37.4 C 53 L 18 95 06/06/23 04:15 52 L 19 94 80 06/06/23 04:00 138/80 06/06/23 04:00 37.3 C 56 L 18 95 06/06/23 04:00 80 06/06/23 03:00 37.2 C 58 L 18 98 06/06/23 02:00 113/65 06/06/23 02:00 37.2 C 55 L 18 92 06/06/23 01:00 37.2 C 71 18 95 06/06/23 00:26 62 19 94 70 06/06/23 00:00 134/95 06/06/23 00:00 37.0 C 68 18 99 06/06/23 00:00 80 06/06/23 00:00 58 L 06/05/23 23:00 36.9 C 79 19 98 06/05/23 22:00 117/62 06/05/23 22:00 37.0 C 65 18 98 06/05/23 21:00 37.0 C 84 18 99 06/05/23 20:07 87 20 93 80 06/05/23 20:00 130/71 06/05/23 20:00 36.9 C 86 19 93 06/05/23 20:00 Mechanical Vent 80 06/05/23 20:00 80 Lab & Micro Results (Past 24 Hours) RBC 4.77 M/uL (4.20-5.40) 06/06/23 WBC 11.59 K/ul (4.8-10.8) H 06/06/23 Hgb 11.9 g/dl (12.0-16.0) L 06/06/23 Hct 40.7 % (37.0-47.0) 06/06/23 MCV 85.3 fL (80.0-100.0) 06/06/23 MCH 24.9 pg (25.0-34.0) L 06/06/23 MCHC 29.2 g/dL (32.0-36.0) L 06/06/23 RDW Standard Deviation 60.1 fL (36.4-46.3) H 06/06/23 RDW Coefficient of Variation 21.2 % (11.5-14.5) H 06/06/23 Plt Count 145 K/uL (130-400) 06/06/23 MPV 11.5 fL (9.4-12.4) 06/06/23 Neutrophils (%) (Auto) 91.5 % 06/06/23 Lymphocytes (%) (Auto) 3.0 % 06/06/23 Monocytes # (Auto) 0.51 K/uL (0.11-0.59) 06/06/23 Eosinophils # (Auto) 0.01 K/uL (0.00-0.50) 06/06/23 Immature Granulocyte % (Auto) 0.8 % 06/06/23 Neutrophils # (Auto) 10.61 K/uL (1.40-6.50) H 06/06/23 Lymphocytes # (Auto) 0.35 K/uL (1.20-3.40) L 06/06/23 Monocytes # (Auto) 0.51 K/uL (0.11-0.59) 06/06/23 Eosinophils # (Auto) 0.01 K/uL (0.00-0.50) 06/06/23 Basophils # (Auto) 0.02 K/uL (0.00-0.20) 06/06/23 Immature Granulocyte # (Auto) 0.09 K/uL (0.01-0.20) 4 Anisocytosis Present 06/06/23 Target Cells 1+ 06/06/23 Na 138 mmol/L (136-145) 06/06/23 K 3.7 mmol/L (3.5-5.1) 06/06/23 Cl 93 mmol/L (98-107) L 06/06/23 CO2 39 mmol/L (21-32) H 06/06/23 Anion Gap 6 (3-11) 06/06/23 BUN 40 mg/dl (6-23) H 06/06/23 Creatinine 0.58 mg/dl (0.6-1.2) L 06/06/23 Estimated GFR ( Amer) 118.6 ml/min 06/06/23 Estimated GFR (Non-Af Amer) 102.3 ml/min 06/06/23 BUN/Creatinine Ratio 69.0 (10-20) H 06/06/23 Glu 141 mg/dl (70-99(Fasting)) H 06/06/23 Ca 9.2 mg/dl (8.6-10.3) 06/06/23 Phosphorus Level 3.1 mg/dl (2.5-4.9) 06/06/23 Mg 1.9 mg/dl (1.7-2.4) 06/06/23 06:01 Calcium Level 9.2 mg/dl (8.6-10.3) 06/06/23 06:01 Microbiology 05/28/23 15:20 Urine Culture - Final Urine,Indwelling Cath Tatiana glabrata complex Diagnostic Findings (Past 24 Hours) Chest X-Ray 06/05/23 13:00 XR chest 1V portable CLINICAL HISTORY: New tracheostomy, New NG tube TECHNIQUE: Single frontal radiograph of the chest was obtained. Comparison: Comparison is made to chest radiograph 05/30/2023 FINDINGS: Tracheostomy tube is stable. Enteric tube tip and side-port lie below the diaphragm. Right IJ catheter terminates at the cavoatrial junction. Cardiomegaly is noted. The lungs are clear. Small bilateral pleural effusions are seen. IMPRESSION: Small bilateral pleural effusions. Stable cardiomegaly. ACT 112: Negative or not required by law. Electronically signed by: Evangelist Reynoso M.D. 06/05/2023 1:32 PM KUB X-Ray 06/05/23 16:01 KUB CLINICAL HISTORY: Enteric tube placement. FINDINGS: AP, portable, upright view of the lower chest and upper abdomen is correlated with abdominal CT dated 05/23/2023. An enteric tube has been placed. The tip projects below the diaphragm over the stomach. The tip of a central venous catheter projects over the right atrium. There are distended bowel loops seen in the upper abdomen. No intraperitoneal free air is seen below the diaphragm. Cholecystectomy clips are noted in the right upper quadrant. Trace pleural effusions are identified. The heart is enlarged. IMPRESSION: 1. An enteric tube has been placed as above. 2. There are distended and gas-filled bowel loops partially visualized in the upper abdomen. Correlate clinically for evidence of ileus or obstruction. 3. Cardiomegaly and small pleural effusions. Electronically signed by: Jose Lemos M.D. 06/05/2023 4:44 PM Chest X-Ray 06/06/23 07:00 XR chest 1V portable HISTORY: 58 years-old Female resp failure acute respiratory failure COMPARISON: June 05, 2023 TECHNIQUE: AP view of the chest FINDINGS: Tracheostomy cannula overlies the midline. An enteric tube courses below the diaphragm into the stomach with distal tip outside the [id number]. Right IJ central venous catheter distal tip projects over the right atrium. Cardiac silhouette is enlarged. Pulmonary vascular congestion with interstitial coarsening redemonstrated. Small pleural effusions with mild bibasilar densities. Bones appear grossly intact. IMPRESSION: 1. Lines and tubes as above. 2. Cardiomegaly with pulmonary vascular congestion. 3. Unchanged small pleural effusions with mild bibasilar densities. ACT 112: Negative or not required by law. The above report was generated using voice recognition software. It may contain grammatical, syntax or spelling errors. Electronically signed by: Altaf Harrison M.D. 06/06/2023 7:24 AM I & O Totals 24 Hours 06/05/23 06/06/23 06/07/23 06:59 06:59 06:59 Intake Total 2166.461 / 2522.342 1366.437 / 1366.437 Output Total 3150 / 3150 2245 / 2245 Balance -983.539 / -627.658 -878.563 / -878.563 Cumulative 05/23/23 01:22 thru 06/06/23 07:21 Intake Total 34785.949 Output Total 16635 Balance -43094.051 RT Ventilator Mngmt (Last Documented) Ventilator Ordered Settings Ventilator Support Mode Assist Control 06/06/23 07:38 Respiratory Rate 18 06/06/23 07:38 Ventilator Tidal Volume 400 06/06/23 07:38 Setting Minute Ventilation 6.9 06/06/23 07:38 Ventilator Positive Pressure 8 06/04/23 10:40 Support Setting Positive End Expiratory 8 06/06/23 07:38 Pressure Fraction of Inspired Oxygen 75 06/06/23 07:38 Peak Inspiratory Flow 23 06/02/23 15:55 Machine Comment found on 80% 06/05/23 16:30 Ventilator - PT Measurements Respiratory Rate 18 Exhaled Tidal Volume 420 Minute Ventilation 6.9 Peak Inspiratory Airway 20 Pressure Plateau Pressure 18 Respiratory Cycle Inspiratory: 1:1.2 Expiratory Ratio Inspiratory Phase Time 1.5 End-Tidal CO2 25 Static Lung Compliance 42.00 Dynamic Lung Compliance 35.00 Normal Static Lung Compliance 48.00 Patient Measurements Comment Patient sats dropped to 77% post moving her around per RN. Patient peed increased to +8 and FiO2 increased to 100% at this time, patient suctioned for no secretions and saturations ca me up to 90%. FiO2 decreased back to 85% once patient recovered. Coding Level of Care Code 48918 SUB INP/OBS CARE 350MIN Diagnoses Status asthmaticus with COPD (chronic obstructive pulmonary disease) J44.89; J45.902 Acute CHF (congestive heart failure) I50.9 Acute encephalopathy G93.40 Transaminitis R74.01 Coronary artery disease I25.10 Elevated troponin R79.89 Endotracheally intubated Z97.8 RVF (right ventricular failure) I50.810 Aspiration pneumonia J69.0
[2023-06-06] MEDS: METHADONE HCL 10 MG TAB PO SCH (08:10)
[2023-06-06] MEDS: OLANZapine 5 MG TABLET PO SCH (08:16)
[2023-06-06] MEDS: clonazePAM 0.25 MG TAB PO PRN (08:25)
[2023-06-06] MEDS: predniSONE 10 MG TABLET PO SCH (10:19)
--- NOTE | 2023-06-06 11:23 | Hospitalist Progress Note ---
Date of Service June 06, 2023 Assessment & Plan (1) Acute on chronic respiratory failure with hypoxia and hypercapnia: Plan: 58yo female with history of COPD presenting with respiratory failure with hypoxia and hypercarbia 1. Acute hypercarbic respiratory failure Patient is now status post tracheostomy to vent Initially intubated extubated and reintubated again However could not be weaned off the vent Eventually got tracheostomy yesterday, still on ventilator 2.Acute metabolic encephalopathy Resolving, patient is now awake but occasionally confused This was most likely related to her acute hypercapnic respiratory failure since it has improved significantly CT head showed a stroke, age indeterminate. Most likely old stroke. An MRI can be done at a later time 3. Cor pulmonale/right heart failure Status post right cardiac cath Echocardiogram showed evidence of cor pulmonale Cardiology on consult Continue diuresis, urine output is adequate Patient has PFO Monitor input and output, daily weight 4. Elevated liver enzymes Due to shock liver from right heart failure Continue to monitor liver functions 5. Acute kidney injury Resolved with diuresis 6. Demand ischemia Likely due to severe hypoxia and respiratory failure Echo showed normal EF and no wall motion abnormalities 7. Thrombocytopenia Improved No bleeding Monitor DVT prophylaxis: Currently on heparin drip Full code Eventually will get assessed by PT and OT patient may need rehab or SNF or LTAC (2) Coronary artery disease: (3) Hyperlipidemia: (4) Abnormal LFTs: (5) Elevated troponin: Admission and Anticipated Discharge Date Admission Date: May 23, 2023 Subjective patient seen and examined, awake, but lethargic, s/p tracheostomy Review of Systems Review of Systems: All systems reviewed are negative, apart from the ones contained in the history. Physical Exam Physical Exam: The patient awake, lethargic, trach to vent HEENT--PERRL, EOMI, mucous membranes and oropharynx mildly dry Neck-- Unable to fully assess y. Heart--normal S1 and S2. No murmurs, rubs or gallops. Lungs--reduced air entry on auscultation Abdomen--normal bowel sounds and soft. Mild epigastric and left sided abdominal pain Extremities--trace edema Dermatologic--normal skin turgor, normal color, no abnormal lymph nodes, no rash. Neurologic--unable to fully assess Rheumatologic--unable to fully assess Psychiatric--unable to assess Results & Data Results & Data Vital Signs (Past 12 Hours) Vital Signs Temp Pulse Resp BP Pulse Ox O2 Del Method FiO2 06/06/23 10:01 138/69 06/06/23 10:01 99.1 F 69 23 90 06/06/23 10:00 99.1 F 78 92 06/06/23 09:00 99.1 F 62 18 94 06/06/23 08:01 99.1 F 52 L 18 91 06/06/23 08:01 91/66 L 06/06/23 08:00 99.1 F 66 21 92 06/06/23 08:00 75 06/06/23 07:38 54 L 18 90 75 06/06/23 07:23 Mechanical Vent 75 06/06/23 07:00 99.1 F 58 L 18 95 06/06/23 06:57 55 L 06/06/23 06:30 99.3 F 72 23 89 L 06/06/23 06:00 99.5 F 53 L 18 95 06/06/23 06:00 114/69 06/06/23 05:30 99.3 F 64 18 97 06/06/23 05:00 99.3 F 53 L 18 95 06/06/23 04:15 52 L 19 94 80 06/06/23 04:00 138/80 06/06/23 04:00 99.1 F 56 L 18 95 06/06/23 04:00 80 06/06/23 03:00 99.0 F 58 L 18 98 06/06/23 02:00 113/65 06/06/23 02:00 99.0 F 55 L 18 92 06/06/23 01:00 99.0 F 71 18 95 06/06/23 00:26 62 19 94 70 06/06/23 00:00 134/95 06/06/23 00:00 98.6 F 68 18 99 06/06/23 00:00 80 06/06/23 00:00 58 L PG Care Time/CCT Total # of Minutes Spent Total Time Spent with Patient: Total time spent is greater than 50% in coordination of care (as documented) at patient's floor/unit and/or counseling patient: Coding Level of Care Code 39933 SUB INP/OBS CARE 2/35MIN Diagnoses Acute on chronic respiratory failure with hypoxia and hypercapnia J96.21; J96.22 Coronary artery disease I25.10 Hyperlipidemia E78.5 Abnormal LFTs R79.89 Elevated troponin R79.89 Time Spent (min) 35
[2023-06-06 13:31] LABS: ANTI-Xa, UFH(UnfractionatedHep 0.36 IU/ml (0.3-0.7)
[2023-06-07 05:17] LABS: ANTI-Xa, UFH(UnfractionatedHep 0.36 IU/ml (0.3-0.7)
[2023-06-07 05:41] LABS: BUN Creatinine Ratio 76.5 (10-20); Creatinine Clr Calc Pharmacy 144.6 ml/min; Est GFR (African American) 123.7 ml/min; Est GFR (Non-African American) 106.7 ml/min; Phosphorus 2.8 mg/dl (2.5-4.9); Potassium 3.3 mmol/L (3.5-5.1)
[2023-06-07 05:46] LABS: Anisocytosis Present; Basophils # (auto) 0.03 K/uL (0.00-0.20); Basophils % (auto) 0.2 %; Eosinophils % (auto) 0.6 %; Hematocrit (blood only) 41.4 % (37.0-47.0); Hemoglobin 12.6 g/dl (12.0-16.0); Immature Granulocytes # (auto) 0.13 K/uL (0.01-0.20); Immature Granulocytes % (auto) 0.7 %; Lymphocytes # (auto) 0.86 K/uL (1.20-3.40); Lymphocytes % (auto) 4.8 %; Mean Corpuscular Hemoglobin 25.8 pg (25.0-34.0); Mean Corpuscular Hgb Conc 30.4 g/dL (32.0-36.0); Mean Corpuscular Volume 84.7 fL (80.0-100.0); Monocytes # (auto) 0.91 K/uL (0.11-0.59); Monocytes % (auto) 5.1 %; Neutrophils # (auto) 15.83 K/uL (1.40-6.50); Neutrophils % (auto) 88.6 %; Platelet Count 150 K/uL (130-400); RDW Coefficient of Variation 21.7 % (11.5-14.5); RDW Standard Deviation 60.8 fL (36.4-46.3); Red Blood Count 4.89 M/uL (4.20-5.40); Stomatocytes 1+; White Blood Count 17.86 K/ul (4.8-10.8)
[2023-06-07] MEDS: MAGNESIUM SULFATE / D5W 1 GM/100 ML BAG IV SCH (06:28)
[2023-06-07] MEDS: POTASSIUM CHLORIDE 20 MEQ/15 ML UDC NG SCH (06:28)
--- NOTE | 2023-06-07 07:43 | Critical Care Progress Note ---
Date of Service June 07, 2023 Assessment & Plan (1) Status asthmaticus with COPD (chronic obstructive pulmonary disease): (2) Acute CHF (congestive heart failure): (3) Acute encephalopathy: (4) Transaminitis: (5) Coronary artery disease: (6) Elevated troponin: (7) Endotracheally intubated: (8) RVF (right ventricular failure): (9) Aspiration pneumonia: Plan Impression: 58-year-old female with a past medical history of coronary artery disease, COPD, asthma and obesity who presented to the hospital due to altered mental status and hypoxemic respiratory failure. Severely bronchospastic and required reintubation and eventually percutaneous tracheostomy placement. She does have an extracardiac shunt which has not been identified 24-hour events: Transition to pressure support ventilation. Made progress weaning her required oxygen. Became bradycardic again last night associated with Precedex so was discontinued. Recommendations: Neurologic: Agitated delirium, much improved today. Continue clonazepam, methadone, and Zyprexa. Precedex now off. Try and maintain sleep-wake cycles and reorient the patient as frequently as possible. Await PT and OT evaluations. Okay to dangle at the bedside and work on transitioning to chair as tolerated Pulmonary: Hypoxemic hypercapnic respiratory failure status post reintubation 05/30/2023. Tracheostomy placed 06/05/2023. Significant eosinophilia on BAL. Transition to prednisone and will wean as tolerated. Continue nebulized bronchodilators in the form of Perforomist and budesonide. Will see how she tolerates pressure support ventilation and continue weaning protocols. Evidence of an extracardiac shunt on echocardiogram of unclear etiology. This certainly could be contributing to her refractory hypoxemia but appears improving today. She had significant pulmonary hypertension with an elevated wedge pressure and will continue diuresis as tolerated. See comments under cardiovascular. Will need follow-up echocardiogram in 3 months once volume status is optimized. Cardiovascular: Tachycardic now. Will hold Lasix and give 50 g of 25% albumin at this point in time and follow response to heart rate. Appears to be sinus tach on the monitor. Patient is asymptomatic. Gastrointestinal: Tolerating tube feeding Renal: Bicarb significantly increased but will hold additional doses of Diamox given her tachycardia Infectious disease: Completed course of meropenem/cefepime. She is trending towards fever and her white count is elevated today. Will recheck procalcitonin as well as blood cultures and urine cultures. Her chest x-ray is relatively clear and there were minimal secretions present on bronchoscopy performed during the tracheostomy placement on Thursday. Holding antibiotics Hematologic: Thrombocytopenia resolved. Borderline anemia. Currently on Heparin gtt. Consider transition to alternative oral anticoagulants for small segmental PE at some point. Will need 3 months of anticoagulation Endocrine: Glycemic protocol per ICU --Prophylaxis VTE: heparin infusion GI: Pantoprazole daily Lines: Peripheral, RIGHT IJ CVL, RIGHT Radial Arterial Line Diet: Advancing as tolerated Disposition: Keep in ICU for now. Family will be updated when present. Admission and Anticipated Discharge Date Admission Date: May 23, 2023 Subjective Patient seen and examined. MR gray. Discussed with bedside critical care nurse and on multidisciplinary rounds. Patient is showing some slow and steady improvement. She has been transitioned to pressure support ventilation and I turned her oxygen down to 50% this morning. She is awake and conversant. She remains intermittently confused. She denies any chest pain or palpitations. She states that is a little bit difficult to breathe but overall that she feels better. She is tolerating tube feedings. She has developed tachycardia and an increased temp overnight. Review of Systems Review of Systems: All systems reviewed & are unremarkable except as noted in Subjective Physical Exam Constitutional: + mechanically ventilated Neck: trachea midline, no thyromegaly Respiratory: no respiratory distress, no labored breathing, no cough and not tachypneic Auscultation: + wheezes; no crackles Cardiovascular: RRR, no murmur, no edema Gastrointestinal (Abdomen): normal bowel sounds, soft, nontender, no hepatosplenomegaly Musculoskeletal: Extremities: extremities normal to inspection Skin: no rashes, warm and dry Lymphatic: no cervical lymphadenopathy Results & Data Results & Data Vital Signs (Past 12 Hours) Vital Signs Temp Pulse Resp BP Pulse Ox O2 Del Method FiO2 06/07/23 07:20 126 H 28 H 97 60 06/07/23 06:00 37.7 C H 112 H 25 H 95/69 L 95 06/07/23 05:30 37.6 C H 90 21 102/72 95 06/07/23 05:00 37.6 C H 87 21 100/64 94 06/07/23 04:30 37.5 C 91 H 22 84/66 L 90 06/07/23 04:00 37.5 C 85 23 119/83 89 L 06/07/23 04:00 65 06/07/23 03:37 68 21 91 65 06/07/23 03:30 37.6 C H 89 25 H 118/72 90 06/07/23 03:00 37.3 C 77 27 H 118/73 91 06/07/23 02:31 37.4 C 30 H 105/75 90 06/07/23 02:30 37.5 C 68 25 H 91 06/07/23 02:00 37.4 C 63 22 159/98 H 95 06/07/23 01:52 60 06/07/23 01:30 37.5 C 54 L 18 98 06/07/23 01:28 37.5 C 60 18 86/48 L 92 06/07/23 01:27 37.5 C 18 80/52 L 91 06/07/23 01:25 37.5 C 57 L 18 79/48 L 92 06/07/23 01:17 37.5 C 58 L 18 77/47 L 92 06/07/23 01:14 37.5 C 58 L 18 92 06/07/23 01:14 78/49 L 06/07/23 01:00 37.5 C 58 L 18 81/48 L 91 06/07/23 00:30 37.5 C 55 L 96 06/07/23 00:04 37.4 C 60 19 92/53 L 100 06/07/23 00:00 37.4 C 59 L 22 89/54 L 95 06/07/23 00:00 75 06/06/23 23:30 37.3 C 61 25 H 91 06/06/23 23:15 64 21 90 75 06/06/23 23:00 37.3 C 62 17 127/75 89 L 06/06/23 22:30 37.2 C 60 22 87 L 06/06/23 22:00 37.2 C 67 23 111/62 95 06/06/23 21:00 37.2 C 66 23 96 06/06/23 20:36 64 23 96 75 06/06/23 20:00 37.1 C 55 L 17 108/64 99 06/06/23 19:43 75 06/06/23 19:43 Mechanical Vent 75 Critical Care Results & Data Vital Signs (Past 12 Hours) Vital Signs Temp Pulse Resp BP Pulse Ox FiO2 06/07/23 07:20 126 H 28 H 97 60 06/07/23 06:00 37.7 C H 112 H 25 H 95/69 L 95 06/07/23 05:30 37.6 C H 90 21 102/72 95 06/07/23 05:00 37.6 C H 87 21 100/64 94 06/07/23 04:30 37.5 C 91 H 22 84/66 L 90 06/07/23 04:00 37.5 C 85 23 119/83 89 L 06/07/23 04:00 65 06/07/23 03:37 68 21 91 65 06/07/23 03:30 37.6 C H 89 25 H 118/72 90 06/07/23 03:00 37.3 C 77 27 H 118/73 91 06/07/23 02:31 37.4 C 30 H 105/75 90 06/07/23 02:30 37.5 C 68 25 H 91 06/07/23 02:00 37.4 C 63 22 159/98 H 95 06/07/23 01:52 60 06/07/23 01:30 37.5 C 54 L 18 98 06/07/23 01:28 37.5 C 60 18 86/48 L 92 06/07/23 01:27 37.5 C 18 80/52 L 91 06/07/23 01:25 37.5 C 57 L 18 79/48 L 92 06/07/23 01:17 37.5 C 58 L 18 77/47 L 92 06/07/23 01:14 37.5 C 58 L 18 92 06/07/23 01:14 78/49 L 06/07/23 01:00 37.5 C 58 L 18 81/48 L 91 06/07/23 00:30 37.5 C 55 L 96 06/07/23 00:04 37.4 C 60 19 92/53 L 100 06/07/23 00:00 37.4 C 59 L 22 89/54 L 95 06/07/23 00:00 75 06/06/23 23:30 37.3 C 61 25 H 91 06/06/23 23:15 64 21 90 75 06/06/23 23:00 37.3 C 62 17 127/75 89 L 06/06/23 22:30 37.2 C 60 22 87 L 06/06/23 22:00 37.2 C 67 23 111/62 95 06/06/23 21:00 37.2 C 66 23 96 06/06/23 20:36 64 23 96 75 06/06/23 20:00 37.1 C 55 L 17 108/64 99 Lab & Micro Results (Past 24 Hours) RBC 4.89 M/uL (4.20-5.40) 06/07/23 WBC 17.86 K/ul (4.8-10.8) H 06/07/23 Hgb 12.6 g/dl (12.0-16.0) 06/07/23 Hct 41.4 % (37.0-47.0) 06/07/23 MCV 84.7 fL (80.0-100.0) 06/07/23 MCH 25.8 pg (25.0-34.0) 06/07/23 MCHC 30.4 g/dL (32.0-36.0) L 06/07/23 RDW Standard Deviation 60.8 fL (36.4-46.3) H 06/07/23 RDW Coefficient of Variation 21.7 % (11.5-14.5) H 06/07/23 Plt Count 150 K/uL (130-400) 06/07/23 MPV 12.0 fL (9.4-12.4) 06/07/23 Neutrophils (%) (Auto) 88.6 % 06/07/23 Lymphocytes (%) (Auto) 4.8 % 06/07/23 Monocytes # (Auto) 0.91 K/uL (0.11-0.59) H 06/07/23 Eosinophils # (Auto) 0.10 K/uL (0.00-0.50) 06/07/23 Immature Granulocyte % (Auto) 0.7 % 06/07/23 Neutrophils # (Auto) 15.83 K/uL (1.40-6.50) H 06/07/23 Lymphocytes # (Auto) 0.86 K/uL (1.20-3.40) L 06/07/23 Monocytes # (Auto) 0.91 K/uL (0.11-0.59) H 06/07/23 Eosinophils # (Auto) 0.10 K/uL (0.00-0.50) 06/07/23 Basophils # (Auto) 0.03 K/uL (0.00-0.20) 06/07/23 Immature Granulocyte # (Auto) 0.13 K/uL (0.01-0.20) 4 Anisocytosis Present 06/07/23 Stomatocytes 1+ 06/07/23 Na 141 mmol/L (136-145) 06/07/23 K 3.3 mmol/L (3.5-5.1) L 06/07/23 Cl 93 mmol/L (98-107) L 06/07/23 CO2 41 mmol/L (21-32) H* 06/07/23 Anion Gap 7 (3-11) 06/07/23 BUN 39 mg/dl (6-23) H 06/07/23 Creatinine 0.51 mg/dl (0.6-1.2) L 06/07/23 Estimated GFR ( Amer) 123.7 ml/min 06/07/23 Estimated GFR (Non-Af Amer) 106.7 ml/min 06/07/23 BUN/Creatinine Ratio 76.5 (10-20) H 06/07/23 Glu 144 mg/dl (70-99(Fasting)) H 06/07/23 Ca 9.0 mg/dl (8.6-10.3) 06/07/23 Phosphorus Level 2.8 mg/dl (2.5-4.9) 06/07/23 Mg 2.0 mg/dl (1.7-2.4) 06/07/23 04:28 Calcium Level 9.0 mg/dl (8.6-10.3) 06/07/23 04:28 Diagnostic Findings (Past 24 Hours) Chest X-Ray 06/07/23 07:00 XR chest 1V portable HISTORY: 58 years-old Female resp failure acute respiratory failure COMPARISON: June 06, 2023 TECHNIQUE: AP view of the chest FINDINGS: Tracheostomy cannula overlies the midline. An enteric tube courses below the diaphragm into the stomach with distal tip outside the [id number]. Right IJ central venous catheter distal tip projects over the right atrium. Cardiac silhouette is enlarged. Pulmonary vascular congestion with interstitial coarsening redemonstrated. Small pleural effusions with mild bibasilar densities. Mildly improved aeration of the right lung base. Bones appear grossly intact. IMPRESSION: 1. Lines and tubes as above. 2. No pneumothorax. 3. Small pleural effusions with persistent bibasilar opacities, mildly improved within the right lung base. ACT 112: Negative or not required by law. The above report was generated using voice recognition software. It may contain grammatical, syntax or spelling errors. Electronically signed by: Altaf Harrison M.D. 06/07/2023 7:46 AM I & O Totals 24 Hours 06/06/23 06/07/23 06/08/23 06:59 06:59 06:59 Intake Total 1366.437 / 1366.437 983.439 / 983.439 12.5 / 12.5 Output Total 2245 / 2245 3370 / 3370 Balance -878.563 / -878.563 -2386.561 / -2386.561 12.5 / 12.5 Cumulative 05/23/23 01:22 thru 06/07/23 07:08 Intake Total 37924.888 Output Total 99825 Balance -31068.112 RT Ventilator Mngmt (Last Documented) Ventilator Ordered Settings Ventilator Support Mode CPAP 06/07/23 07:20 Respiratory Rate 28 06/07/23 07:20 Ventilator Tidal Volume 400 06/07/23 04:00 Setting Minute Ventilation 10.1 06/07/23 07:20 Ventilator Positive Pressure 8 06/07/23 07:20 Support Setting Positive End Expiratory 8 06/07/23 07:20 Pressure Fraction of Inspired Oxygen 60 06/07/23 07:20 Peak Inspiratory Flow 23 06/02/23 15:55 Machine Comment DECREASED TO 70% FIO2 06/06/23 11:23 Ventilator - PT Measurements Respiratory Rate 28 Exhaled Tidal Volume 375 Minute Ventilation 10.1 Peak Inspiratory Airway 17 Pressure Plateau Pressure 20.2 Respiratory Cycle Inspiratory: 1.1:1 Expiratory Ratio Inspiratory Phase Time 1.1 End-Tidal CO2 30 Static Lung Compliance 33.11 Dynamic Lung Compliance 41.67 Normal Static Lung Compliance 48.00 Patient Measurements Comment Patient sats dropped to 77% post moving her around per RN. Patient peed increased to +8 and FiO2 increased to 100% at this time, patient suctioned for no secretions and saturations came up to 90%. FiO2 decreased back to 85% once patient recovered. Coding Level of Care Code 54112 SUB INP/OBS CARE 50MIN Diagnoses Status asthmaticus with COPD (chronic obstructive pulmonary disease) J44.89; J45.902 Acute CHF (congestive heart failure) I50.9 Acute encephalopathy G93.40 Transaminitis R74.01 Coronary artery disease I25.10 Elevated troponin R79.89 Endotracheally intubated Z97.8 RVF (right ventricular failure) I50.810 Aspiration pneumonia J69.0
--- NOTE | 2023-06-07 07:47 | XRay Report ---
XR chest 1V portable HISTORY: 58 years-old Female resp failure acute respiratory failure COMPARISON: June 06, 2023 TECHNIQUE: AP view of the chest FINDINGS: Tracheostomy cannula overlies the midline. An enteric tube courses below the diaphragm into the stoma ch with distal tip outside the [id number]. Right IJ central venous catheter distal tip projects ov er the right atrium. Cardiac silhouette is enlarged. Pulmonary vascular congestion with interstitial coarsening redemonstrated. Small pleural effusions wi th mild bibasilar densities. Mildly improved aeration of the right lung base. Bones appear grossly in tact. IMPRESSION: 1. Lines and tubes as above. 2. No pneumothorax. 3. Small pleural effusions with persistent bibasilar opacities, mildly improved within the right lung base. ACT 112: Negative or not required by law. The above report was generated using voice recognition software. It may contain grammatical, syntax o r spelling errors. Electronically signed by: Altaf Harrison M.D. 06/07/2023 7:46 AM
[2023-06-07] MEDS: LANTUS PER UNIT CHARGE SC SCH (08:29)
[2023-06-07] MEDS: ALBUMIN 25% 25 GM/100 ML VIAL IV SCH (08:35)
[2023-06-07 09:34] LABS: iSTAT Allen Test Pass; iSTAT Art Bld Gas pCO2 Correct 55 mmHg (35-46); iSTAT Art Bld Gas pH Corrected 7.468 (7.35-7.45); iSTAT Arterial Blood Gas HCO3 40 meg/L (19-24); iSTAT Arterial Blood Gas pCO2 54 mmHg (35-46); iSTAT Arterial Blood Gas pH 7.48 (7.35-7.45); iSTAT Arterial Blood Gas pO2 55 mmHg (80-95); iSTAT Arterial Blood Gas pO2 C 58; iSTAT Carbon Dioxide > 40 mmol/L (24-31); iSTAT FiO2 50 %; iSTAT Hematocrit 41 % (37-47); iSTAT Hemoglobin 13.9 g/dl (12.0-16.0); iSTAT Potassium 3.4 mmol/L (3.3-5.0); iSTAT Site L Radial; iSTAT Sodium 136 mmol/L (135-144)
--- NOTE | 2023-06-07 10:39 | Hospitalist Progress Note ---
Date of Service June 07, 2023 Assessment & Plan (1) Acute on chronic respiratory failure with hypoxia and hypercapnia: Plan: 58yo female with history of COPD presenting with respiratory failure with hypoxia and hypercarbia 1. Acute hypercarbic respiratory failure Patient is now status post tracheostomy to vent Initially intubated extubated and reintubated again However could not be weaned off the vent Eventually got tracheostomy on 06/05/2023, still on ventilator 2.Acute metabolic encephalopathy Waxing and waning, earlier this morning patient was awake and alert but when I went to see her she was difficult to arouse She is on olanzapine and clonazepam I will suggest reducing the dose ABG showed only mild hypercapnia may not be fully responsible for her condition this morning Will also suggest a repeat CT scan of the head if she continues to be drowsy CT head done earlier showed a stroke, age indeterminate. Most likely old stroke. An MRI can be done at a later time 3. Cor pulmonale/right heart failure Status post right cardiac cath Echocardiogram showed evidence of cor pulmonale Cardiology on consult Continue diuresis, urine output is adequate Patient has PFO Monitor input and output, daily weight 4. Elevated liver enzymes Due to shock liver from right heart failure Continue to monitor liver functions 5. Acute kidney injury Resolved with diuresis 6. Demand ischemia Likely due to severe hypoxia and respiratory failure Echo showed normal EF and no wall motion abnormalities 7. Thrombocytopenia Improved No bleeding Monitor 8 deconditioning: Physical deconditioning and possible ICU myopathy Encourage physical therapy DVT prophylaxis: Currently on heparin drip Full code Eventually will get assessed by PT and OT patient may need rehab or SNF or LTAC (2) Coronary artery disease: (3) Hyperlipidemia: (4) Abnormal LFTs: (5) Elevated troponin: Admission and Anticipated Discharge Date Admission Date: May 23, 2023 Subjective Patient seen and examined, was very difficult to arouse this morning, although reports showed earlier she was awake and alert Review of Systems Review of Systems: Unable to obtain Physical Exam Physical Exam: The patient awake, lethargic, trach to vent HEENT--PERRL, EOMI, mucous membranes and oropharynx mildly dry Neck-- Unable to fully assess y. Heart--normal S1 and S2. No murmurs, rubs or gallops. Lungs--reduced air entry on auscultation Abdomen--normal bowel sounds and soft. Mild epigastric and left sided abdominal pain Extremities--trace edema Dermatologic--normal skin turgor, normal color, no abnormal lymph nodes, no rash. Neurologic--unable to fully assess Rheumatologic--unable to fully assess Psychiatric--unable to assess Results & Data Results & Data Vital Signs (Past 12 Hours) Vital Signs Temp Pulse Resp BP Pulse Ox FiO2 06/07/23 08:00 98/67 L 06/07/23 08:00 99.7 F H 120 H 28 H 94 06/07/23 07:30 100/70 06/07/23 07:30 100.2 F H 124 H 29 H 97 06/07/23 07:29 100.2 F H 124 H 25 H 96 06/07/23 07:29 98/64 L 06/07/23 07:20 126 H 28 H 97 60 06/07/23 07:00 103/71 06/07/23 07:00 100.2 F H 121 H 24 98 06/07/23 06:30 93/59 L 06/07/23 06:30 100.0 F H 115 H 25 H 94 06/07/23 06:00 99.9 F H 112 H 25 H 95/69 L 95 06/07/23 05:30 99.7 F H 90 21 102/72 95 06/07/23 05:00 99.7 F H 87 21 100/64 94 06/07/23 04:30 99.5 F 91 H 22 84/66 L 90 06/07/23 04:00 99.5 F 85 23 119/83 89 L 06/07/23 04:00 65 06/07/23 03:37 68 21 91 65 06/07/23 03:30 99.7 F H 89 25 H 118/72 90 06/07/23 03:00 99.1 F 77 27 H 118/73 91 06/07/23 02:31 99.3 F 30 H 105/75 90 06/07/23 02:30 99.5 F 68 25 H 91 06/07/23 02:00 99.3 F 63 22 159/98 H 95 06/07/23 01:52 60 06/07/23 01:30 99.5 F 54 L 18 98 06/07/23 01:28 99.5 F 60 18 86/48 L 92 06/07/23 01:27 99.5 F 18 80/52 L 91 02/04/24 01:25 99.5 F 57 L 18 79/48 L 92 06/07/23 01:17 99.5 F 58 L 18 77/47 L 92 06/07/23 01:14 99.5 F 58 L 18 92 06/07/23 01:14 78/49 L 06/07/23 01:00 99.5 F 58 L 18 81/48 L 91 06/07/23 00:30 99.5 F 55 L 96 06/07/23 00:04 99.3 F 60 19 92/53 L 100 06/07/23 00:00 99.3 F 59 L 22 89/54 L 95 06/07/23 00:00 75 06/06/23 23:30 99.1 F 61 25 H 91 06/06/23 23:15 64 21 90 75 06/06/23 23:00 99.1 F 62 17 127/75 89 L PG Care Time/CCT Total # of Minutes Spent Total Time Spent with Patient: Total time spent is greater than 50% in coordination of care (as documented) at patient's floor/unit and/or counseling patient: Coding Level of Care Code 83331 SUB INP/OBS CARE 2/35MIN Diagnoses Acute on chronic respiratory failure with hypoxia and hypercapnia J96.21; J96. 22 Coronary artery disease I25.10 Hyperlipidemia E78.5 Abnormal LFTs R79.89 Elevated troponin R79.89 Time Spent (min) 35
--- NOTE | 2023-06-07 15:05 | Pharmacy Report ---
Pharmacy Glycemic Short Note 2 - Date of Service June 07, 2023 - Glycemic Short BSG Results (Last 24 hours): 06/06/23 06/06/23 06/06/23 16:20 20:52 23:53 Glucose POC Glucose 109 H 111 H 115 H 06/07/23 06/07/23 06/07/23 04:09 04:28 07:43 Glucose 144 H POC Glucose 132 H 139 H 06/07/23 11:39 Glucose POC Glucose 133 H OUTPATIENT ANTIDIABETIC REGIMEN: * n/a ASSESSMENT: 06/07: * Patient received total of 27 units of insulin yesterday, of which 15 units were basal * Fasting BSG 139 mg/dL - Steroids decreased yesterday to pred 10 mg bid, anticipate insulin needs to decrease. Will decrease to 10 units of basal this AM * May loosen CR slightly 06/05: * BSGs again trended up overnight with resumption of tube feeds, tube feeds held for tracheostomy and BSGs improved. * Will continue 15 units of lantus for now as BSGs off tube feeds within goal, suggesting need for tighter carb coverage * Will continue on SM 60 mg IV q8H today- monitor. 06/04: * BSGs increased with TF overnight, BSGs [phone] mg/dL * Patient received 18 units of lantus yesterday, will give 18 units this AM * Continues on SM 60 IV q8H. Tightened correction factor. * TF held for breathing trial, noon check 127 mg/dL- continue to monitor 06/01: * BSGs in last 24 hours [phone] mg/dL * Patient was reintubated over the weekend, on heparin gtt, low dose norepinephrine * Prednisone has been decreased to 30 mg daily * Fasting this AM was 108 mg/dL with 8 units of lantus- continue for now * Adjusted novolog to q4 hours checks with initiation of trickle feeds- monitor for BSG increase 05/29: * BSGs in last 24 hours [phone] mg/dL * Patient extubated 05/27 afternoon, experiencing some delirium. Diet now ordered. * Received 10 units of lantus yesterday, fasting this AM 134 mg/dL, will continue same for now * Steroids are being tapered, received 40 mg IV solumedrol this AM, will begins 40 mg prednisone x 5 days tomorrow, then 20 mg prednisone x 5 days with a 5mg taper after that. Novolog parameters were loosened this morning- high lunch BSG, will monitor as it was also elevated yesterday then down trended. 05/25: * BSGs within goal the last 24h. Received 30 units of basal and 24 units of bolus insulin yesterday. * Remains intubated and requiring slight vasopressor support. Receiving Solu Medrol 80mg TID, as well as IV cefepime. Tube feeds initiated today ([facility]). * Lantus 20 units SQ X 1 this AM given BSGs down-trending and with several days of NPO status. Will add a scale for HS depending on BSG (coverage greater than 180mg/dL) given initiation of tube feeds. Novolog q4- no change to parameters, include coverage of feeds. 05/24: * 58 year old admitted with altered mental status and hypoxemic respiratory failure. Intubated on admission. High dose steroids started, solumedrol 125 mg iv tid. Pharmacy consulted for glycemic management. No outpatient DM medications, awaiting A1c. * BSGs this AM elevated >250 mg/dL - Received Lantus 20 units x 1 last evening * Continues on solumedrol this morning, 125 mg iv given this AM - will give Lantus 30 units x 1 now. Changed to Q4 hours checks and also tightened CF. * Steroids now decreasing to 80 mg iv TID starting this afternoon. Plan to have Lantus scale for HS time in case BSGs remain elevated PLAN FOR INPATIENT GLYCEMIC CONTROL: * Hold outpatient oral diabetes medications * Basal insulin * Lantus 15 units daily * Bolus insulin * NovoLog per scale ACHS or Q6hrs while NPO * Goal Range: Low 110 mg/dL - High 140 mg/dL * Correction Factor: 20 mg/dL/unit * Nutritional / Prandial insulin per carb ratio of 1 unit per 9 grams CHO consumed
[2023-06-07] MEDS: INSULIN ASPART PER UNIT CHARGE SC SCH (18:18)
[2023-06-07] MEDS: MIDAZOLAM HCL 1 MG/ML 2ML VIAL IV STA (19:20)
[2023-06-07] MEDS ORDERED: MIDAZOLAM HCL 5 MG/ML 2ML VIAL IV PRN (19:21)
--- NOTE | 2023-06-07 19:28 | Communication Note ---
Date of Service: June 07, 2023 1916- Called to bedside at 1914 for patient unresponsive and fluttering of eyes. This occurred earlier in the day as well and spontaneously resolved with no intervention. On exam the patient is with eyes bilaterally looking up and to the left and rolling back, no change with changing head position, Associated with facial twitching of mouth, no other tonic clpatient is unresponsive to any stimuli including noxious stimuli. There was no change in her hemodynamics, HR, RR (although on ventilator) or pulse oximetry. Following 3 minutes of witnessed activity, patient was given versed 3mg IV with spontaneous resolution, with patient moving arms and opened eyes and back to more of a baseline. Concern for Seizure like activity secondary to intracranial process vs. subclinical vs. status - Will send patient to CT scan of head without contrast stat - IV benzodiazepine available for transport - EEG stat confirmed with environmental field services technician for ability to obtain study and get interpreted tonight - Further management/antiseizure medications post EEG- if needed to be suppressed again will place on propofol - Consider transfer to tertiary center with continuous EEG if warranted. CT head resulted with trace LEFT frontal SAH and subacute to chronic right occipital infarct that was compared to previous on admission - Heparin infusion stopped - Plavix discontinued - Load with Keppra 2GM. If continues for now increase load es to have episodes and add back on Propofol - D[place] [facility] [place] - and feels that this is not aneurysmal based on location and would require monitoring and not urgent/emergent. Discussed case with MICU Dr. Elizabeth who accepted patient to MICU for following, as our concern at [facility] is we do not have capabilities to intervene surgically or intervention this rapidly decompensates or changes. 2054- has been accepted with bed [place] [facility] [place] - and will go ground transport. Awaiting transport. 2239- Notified of [facility] Dispat[facility] Patient remains awake, interacting with family at bedside, no change in neurological status, no further seizure like activity, BP remains stable without vasodilators or vasopressors. Donald ALSTON ([facility]-) Coding Level of Care Code 39530 CRITICAL CARE EA ADD 30M
[2023-06-07] MEDS: MIDAZOLAM HCL 1 MG/ML 2ML VIAL ONE ×2 (19:32→19:54)
--- NOTE | 2023-06-07 19:50 | CT Scan Report ---
CT head/brain wo con CLINICAL HISTORY: 58 years-old Female with eval for intrcranial mass/bleed- siezure activity. Acute seizure-like activity TECHNIQUE: Multiple axial CT images of the head were obtained without contrast. A dose lowering tech nique was utilized adhering to the principles of ALARA. CT DOSE: 625.8 mGy.cm COMPARISON: 05/23/2023 FINDINGS: Trace acute subarachnoid hemorrhage of the superior left frontal lobe. No significant mass effect or midline shift. No hydrocephalus or intra-axial mass identified. There is ill-defined 4.5 cm focus of decreased attenuation within the right occipital lobe and 17 series 2 which is more conspicuous than the prior study. Unchanged ill-defined white matter hypodensity of the left parietal lobe suggestive of a chronic infarct. Possible underlying chronic microvascular ischemic disease. The calvarium is intact. A nasopharyngeal cannulas partially imaged. The paranasal sinuses, mastoid a ir cells, and middle ear cavities are clear. IMPRESSION: 1. Trace acute left frontal lobe subarachnoid hemorrhage. 2. Subacute to chronic appearing right occipital infarct is more conspicuous than the prior study. 3. Probable chronic left parietal infarct. 4. No midline shift or hydrocephalus. Findings were discussed with Donald Foster on 06/07/2023 at 7:46 PM ACT 112: Negative or not required by law. The above report was generated using voice recognition software. It may contain grammatical, syntax o r spelling errors. Electronically signed by: Altaf Harrison M.D. 06/07/2023 7:48 PM
[2023-06-07] MEDS: levETIRAcetam 500 MG/5 ML VIAL IV STA (20:01)
--- NOTE | 2023-06-07 21:41 | Discharge Summary ---
Date of Service June 07, 2023 Admission HPI Per Admitting Provider Zuly Mendoza is a 58yo female with history of COPD, inferior STEMI in February 2022 s/p stent placement to LCx presenting from home with hypoxia and confusion. History obtained by patient's son at bedside as patient is unable to provide history. Son reports that patient was in her usual state of health this evening until around 23:00 when she was found sitting up in bed, pale in appearance, confused and with difficulty breathing. Son called EMS - reported hypoxia with saturations of 55% in the field, ETCO2 in the 70's. Patient with cold extremities. She was given DuoNeb x 2 prior to arrival. In the ER she is afebrile, HD stable. Hypoxic at 85% on room air which improved to the low 90's with 4L NC. She has since been placed on BiPAP 19/12 with improvement in oxygenation. Son reports that patient has not voiced any complaints over the last several days. No new medications. No use of home O2 or home CPAP. ER Course: Lasix 40mg IV Cefepime 2gm IV Discharge Data Consultations 05/23/23 04:48 ED Decision to Admit Stat 05/23/23 08:16 Consult Senior Executive Assistant Stat 05/23/23 09:07 Consult Gastroenterology Routine 05/23/23 09:19 Consult Senior Executive Assistant Routine 05/23/23 11:56 Consult Cardiology Routine 05/31/23 10:54 Consult Cardiology Routine 06/07/23 19:22 Consult Neurology Routine 06/07/23 20:12 Burn CD for patient Stat Procedures Performed Operation Date: 05/31/23 13:45 Actual Procedures p Right Heart Cath Only - Mynor Aparicio MD, PhD p Cineradiography w/Routine Exam - Mynor Aparicio MD, PhD Hospital Course (1) Status asthmaticus with COPD (chronic obstructive pulmonary disease): (2) Acute CHF (congestive heart failure): (3) Acute encephalopathy: (4) Transaminitis: (5) Coronary artery disease: (6) Elevated troponin: (7) Endotracheally intubated: (8) RVF (right ventricular failure): (9) Aspiration pneumonia: Plan Impression: 58-year-old female with a past medical history of coronary artery disease, COPD, asthma and obesity who presented to the hospital due to altered mental status and hypoxemic respiratory failure. Severely bronchospastic and required reintubation and eventually percutaneous tracheostomy placement. She does have an extracardiac shunt which has not been identified 24-hour events: Transition to pressure support ventilation. Made progress weaning her required oxygen. Became bradycardic again last night associated with Precedex so was discontinued. Recommendations: Neurologic: Agitated delirium, much improved today. Continue clonazepam, methadone, and Zyprexa. Precedex now off. Try and maintain sleep-wake cycles and reorient the patient as frequently as possible. Await PT and OT evaluations. Okay to dangle at the bedside and work on transitioning to chair as tolerated Pulmonary: Hypoxemic hypercapnic respiratory failure status post reintubation 05/30/2023. Tracheostomy placed 06/05/2023. Significant eosinophilia on BAL. Transition to prednisone and will wean as tolerated. Continue nebulized bronchodilators in the form of Perforomist and budesonide. Will see how she tolerates pressure support ventilation and continue weaning protocols. Evidence of an extracardiac shunt on echocardiogram of unclear etiology. This certainly could be contributing to her refractory hypoxemia but appears improving today. She had significant pulmonary hypertension with an elevated wedge pressure and will continue diuresis as tolerated. See comments under cardiovascular. Will need follow-up echocardiogram in 3 months once volume status is optimized. Cardiovascular: Tachycardic now. Will hold Lasix and give 50 g of 25% albumin at this point in time and follow response to heart rate. Appears to be sinus tach on the monitor. Patient is asymptomatic. Gastrointestinal: Tolerating tube feeding Renal: Bicarb significantly increased but will hold additional doses of Diamox given her tachycardia Infectious disease: Completed course of meropenem/cefepime. She is trending towards fever and her white count is elevated today. Will recheck procalcitonin as well as blood cultures and urine cultures. Her chest x-ray is relatively clear and there were minimal secretions present on bronchoscopy performed during the tracheostomy placement on Thursday. Holding antibiotics Hematologic: Thrombocytopenia resolved. Borderline anemia. Currently on Heparin gtt. Consider transition to alternative oral anticoagulants for small segmental PE at some point. Will need 3 months of anticoagulation Endocrine: Glycemic protocol per ICU --Prophylaxis VTE: heparin infusion GI: Pantoprazole daily Lines: Peripheral, RIGHT IJ CVL, RIGHT Radial Arterial Line Diet: Advancing as tolerated Disposition: Keep in ICU for now. Family will be updated when present. Addendum: On 06/07/23 patient had seizure like activity that responded to benzodiazipines non con head CT revealed small left Frontal SAH and subacute changes to her Rt occiptal CVA. Anticoagulation unforunately had to be stopped secondary to this. She has been accepted for transfer to [facility] bed 7125, for continuing medical care while following her SAH in-case any surgical intervention would be required. Supervising Physician Co-Signing Physician Notes Patient discussed with Anastacio at the time of discharge. Aggree with above. She is to be transported by ground to [facility] for acute intracranial bleed Coding Level of Care Code 03286 INP/OBS DISCH >30 MIN Diagnoses Status asthmaticus with COPD (chronic obstructive pulmonary disease) J44.89; J45.902 Acute CHF (congestive heart failure) I50.9 Acute encephalopathy G93.40 Transaminitis R74.01 Coronary artery disease I25.10 Elevated troponin R79.89 Endotracheally intubated Z97.8 RVF (right ventricular failure) I50.810 Aspiration pneumonia J69.0
== END 2023-06-08 01:07 | disposition short-term general hospital (02) | DRG 4 ==
LOC: SUATTDRO → ED 01:57 → EDINP 06:14 → SUATTDRO 06:14 → 1E 08:14
PROC: CLB.CRH (2023-05-31 13:45)

== ENCOUNTER 2024-04-26 13:16 | Inpatient (IN) ==
--- NOTE | 2024-04-26 14:07 | XRay Report ---
XR chest 1V portable CLINICAL HISTORY: dizziness TECHNIQUE: Single frontal radiograph of the chest was obtained. Comparison: Comparison is made to chest radiograph 06/07/2023 FINDINGS: Exam is limited by underpenetration. The cardiomediastinal silhouette is normal. The lungs are clear. No evidence of pleural effusion or pneumothorax. IMPRESSION: No acute chest disease. ACT 112: Negative or not required by law. Electronically signed by: Evangelist Reynoso M.D. 04/26/2024 2:05 PM
[2024-04-26] MEDS: SODIUM CHLORIDE 0.9% 1,000 ML IV ONE (14:22)
[2024-04-26 14:40] LABS: Appearance Urine Clear (Clear); Bacteria Urine Automated None Seen (None Seen); Bilirubin Urine Negative (Negative); Blood Urine Negative (Negative); Cast Urine Automated 0-2 /lpf (0-2); Color Urine Yellow; Epithelial Cell Urine Auto 0-2 /hpf (0-2); Glucose Urine UA Negative (Negative); Ketones Urine Negative (Negative); Leukocyte Esterase Urine Trace (Negative); Nitrite Urine Negative (Negative); Protein Urine Negative (Negative); RBC Urine Automated 0-2 /hpf (0-2); Specific Gravity Urine 1.008 (1.000-1.030); Urobilinogen Urine Negative (Negative); WBC Urine Automated 0-5 /hpf (0-5); pH Urine 6.5 (4.5-7.5)
[2024-04-26 14:44] LABS: Basophils # (auto) 0.03 K/uL (0.00-0.20); Basophils % (auto) 0.4 %; Eosinophils # (auto) 0.05 K/uL (0.00-0.50); Eosinophils % (auto) 0.6 %; Hematocrit (blood only) 42.9 % (37.0-47.0); Hemoglobin 13.9 g/dl (12.0-16.0); Immature Granulocytes # (auto) 0.03 K/uL (0.01-0.20); Immature Granulocytes % (auto) 0.4 %; Lymphocytes # (auto) 0.93 K/uL (1.20-3.40); Lymphocytes % (auto) 10.9 %; Mean Corpuscular Hgb Conc 32.4 g/dL (32.0-36.0); Mean Corpuscular Volume 98.6 fL (80.0-100.0); Mean Platelet Volume 11.4 fL (9.4-12.4); Monocytes # (auto) 0.38 K/uL (0.11-0.59); Monocytes % (auto) 4.4 %; Neutrophils # (auto) 7.15 K/uL (1.40-6.50); Neutrophils % (auto) 83.3 %; Platelet Count 196 K/uL (130-400); RDW Coefficient of Variation 11.6 % (11.5-14.5); RDW Standard Deviation 42.4 fL (36.4-46.3); Red Blood Count 4.35 M/uL (4.20-5.40); White Blood Count 8.57 K/ul (4.8-10.8)
[2024-04-26] MEDS: MECLIZINE HCL 25 MG TAB PO STA (14:51)
--- NOTE | 2024-04-26 14:51 | Emergency Department Note ---
Impression & Plan Cerebellar stroke, Vertigo, Coronary artery disease, Chronic obstructive pulmonary disease ED Provider Note NAME: RIGOBERTO PITTS AGE: 58 SEX: F : 1965 ARRIVES VIA: Ambulance INFORMANT: Patient ED PROVIDER(S): Josh Moura MD CHIEF COMPLAINT: Dizziness/vertigo PLAN: Disposition: Admit MEDICAL DECISION MAKING: The patient is a pleasant 58-year-old woman with a past medical history of COPD with history of acute on chronic respiratory failure with hypoxia and hypercapnia with complex admission requiring intubation in May-June of this year, history of CVA/TIA, diabetic neuropathy obesity, hypertension and hyperlipidemia, hyperhomocystinemia who presents to the emergency department via EMS and then accompanied by her partner for evaluation of dizziness/vertigo that began this morning after she reports waking up and took her pills which she usually does by tilting her head back to swallow. She reports she had a similar more mild episode 1-2 weeks or so ago and has had some intermittent imbalance since then. She reports her symptoms were more persistent and severe this morning. She reports feeling nauseated but denies vomiting. She denies any recent fevers, chills, cough, congestion, chest pain or shortness of breath. On evaluation the patient is in no acute distress, afebrile with stable vital signs. She appears clinically dry. She exhibits no focal neurologic deficits at this time. She exhibits intact finger-nose and alternating palms. EOMI. No nystamgus. PEARRL. EKG without overt acute ischemia. CXR negative for acute cardiopulmonary process per my personal preliminary review/interpretation. WBC, H/H and platelets within normal limits. Chemistry without metabolic acidosis. Electrolytes and LFTs without significant abnormality. Lipase is normal. High-sensitivity troponin 4.4, within normal limits. TSH within normal limits. UA without convincing evidence of infection. CT of the head and CTA of the head and neck were performed. Description of a subtle 1.1 cm hypodense focus within the right cerebellar hemisphere is new when compared to June 2023. This favors acute to subacute infarct. Description of several old right occipital and left parietal infarcts are described. Findings were reviewed with the patient and her partner at the bedside. They did agree with plan for admission for further stroke evaluation and management. Case was discussed with Dr. Mejia, [facility] hospitalist, who will evaluate the patient for admission. Further management per admitting team. Triage Nursing notes reviewed and agree them. Prior/external medical records reviewed Vital Signs: reviewed Differential diagnosis: Infection, dehydration, metabolic abnormality, hypo/hyperglycemia, electrolyte disturbance, anemia, hypoxia, cardiac sources, intracerebral event, toxicologic, neurologic, as well as other pathologies. ER treatment provided: See below. Diagnostics interpreted by me: ECG: NSR, no ectopy, no overt ST elevation or depression. Cardiac Monitoring: An order for continuous cardiac monitoring was placed and demonstrated normal sinus rhythm, 68 bpm, no ectopy. Laboratory studies: See below Imaging studies: See below Consultation(s): Case was discussed with Dr. Mejia, [facility] hospitalist, who will evaluate the patient for admission. HPI: The patient is a pleasant 58-year-old woman with a past medical history of COPD with history of acute on chronic respiratory failure with hypoxia and hypercapnia with complex admission requiring intubation in May-June of this year, history of CVA/TIA, diabetic neuropathy obesity, hypertension and hyperlipidemia, hyperhomocystinemia who presents to the emergency department via EMS and then accompanied by her partner for evaluation of dizziness/vertigo that began this morning after she reports waking up and took her pills which she usually does by tilting her head back to swallow. She reports she had a similar more mild episode 1-2 weeks or so ago and has had some intermittent imbalance since then. She reports her symptoms were more persistent and severe this morning. She reports feeling nauseated but denies vomiting. She denies any recent fevers, chills, cough, congestion, chest pain or shortness of breath. ROS: See above HPI for pertinent positives & negatives. A total of 10 systems reviewed and were otherwise negative. VITALS:See Below PHYSICAL EXAMINATION: GENERAL: Awake, alert, fatigued-appearing, in no distress, BMI 32.1. HENT: Normocephalic, atraumatic. Oropharynx unremarkable. EYES: Normal conjunctiva. Sclera non-icteric. EOMI. No nystamgus. PEARRL. NECK: Supple. No nuchal rigidity. FROM. No JVD. RESPIRATORY: Clear to auscultation. CARDIAC: Regular rate, normal rhythm. Extremities warm and well perfused. Pulses equal. ABDOMEN: Soft, non-distended. No tenderness to palpation. No rebound or guarding. No masses. MUSCULOSKELETAL: Chest examination reveals no tenderness. The back is symmetrical on inspection without obvious abnormality. There is no CVA tenderness to palpation. No joint edema. LOWER EXTREMITIES: Calves are equal size bilaterally and non-tender. No edema. No discoloration. NEURO: No focal sensory or motor deficits noted. 5/5 strength and SILT x 4 extremities. Intact including [id number], alternating palms. SKIN: No rash or jaundice noted. Josh Moura MD Past Med/Surg History Problem List (Updated 04/27/24 @ 03:37 by Josh Moura MD) Vertigo (Acute) Cerebellar stroke (Acute) Cerebellar stroke Diabetic peripheral neuropathy Idiopathic peripheral neuropathy H/O: stroke with residual effects Seizure History of tobacco abuse History of tracheostomy Chronic obstructive pulmonary disease (Acute) Nodule of lower lobe of right lung Aspiration pneumonia RVF (right ventricular failure) Endotracheally intubated Acute encephalopathy (Acute) Status asthmaticus with COPD (chronic obstructive pulmonary disease) Acute on chronic respiratory failure with hypoxia and hypercapnia (Acute) Coronary artery disease (Acute) Presence of drug coated stent in left circumflex coronary artery (02/14/22) Sinus congestion No pertinent past surgical history Thrombophlebitis of deep femoral vein Screening for endocrine, metabolic, and immunity disorder Phlebitis and thrombophlebitis of other site Obesity, Class II, BMI 35-39.9 Hyperhomocystinemia Hyperlipidemia Generalized skin tumors Fatigue Asthma Medical History Elevated troponin Abnormal LFTs Transaminitis Acute CHF (congestive heart failure) History of ST elevation myocardial infarction (STEMI) Screening for tuberculosis Surgical History S/P cardiac catheterization 02/14/22 Dr. Moisés Munoz at [facility]- Cardiac cath- 1 TRELL to distal circumflex Family History Family/Other No problems noted. Sister Ovarian cancer Denies family history of Prostate cancer Myocardial infarction Breast cancer Colorectal cancer Social History Smoking Status: Former smoker Tobacco Type: Cigarettes Second Hand Exposure: No; Do You Dip or Chew Tobacco: No; Hx Alcohol Use: No Hx Substance Use: No Preferred Language: Faroese Communication Ability: Effective Communication Tools: Other Visual Impairment: No Limitations Guide Visitor Required: No Beliefs That Will Affect Care: None marital status: Single Current Living Situation: Significant Other Current Living Situation Comment: with children current occupational status: unemployed Other Information That Helps Us Care for You: No Feels Safe at Home: Yes Safety Concerns: Feels Safe At This Time Childhood Exposure to Second-Hand Smoke: Yes Diet: other Diet Comment: cardio healthy caffeine: Yes Dental Care, Regularly: No Physical Activity Frequency: Daily Seatbelt Use: never Sunscreen Use: Yes Assistive Devices: Denture - Upper, Glasses and Walker Allergies Allergies Allergy/AdvReac Type Severity Reaction Status Date / Time Penicillins Allergy Unknown CAN'T Verified 11/23/23 15:12 REMEMBER [id number] Reductase AdvReac Intermediate Muscle Pain Verified 11/23/23 15:12 Inhibitor STEROIDS AdvReac Severe BLOOD CLOTS Uncoded 11/23/23 15:12 Home Meds Previous Rx's Medication Instructions Recorded tiotropium 2.5 mcg-olodaterol 2.5 2 inh inhalation DAILY #4 grams 08/04/22 mcg/actuation mist for inhalation melatonin 3 mg tablet 6 mg (2 x 3 mg) PO HS PRN sleep 08/05/23 #60 tabs furosemide 20 mg tablet 20 mg PO QAM #90 tabs 11/06/23 potassium chloride 20 mEq 20 meq PO DAILY #90 tabs 11/06/23 tablet,extended release aspirin 81 mg tablet,delayed 81 mg PO DAILY #90 tabs 11/24/23 release (Adult Aspirin Regimen) escitalopram oxalate 10 mg tablet 10 mg PO DAILY #30 tabs 11/24/23 rosuvastatin 10 mg tablet 10 mg PO DAILY #30 tabs 11/24/23 albuterol sulfate 90 mcg/actuation 2 inh inhalation QID PRN shortness 01/10/24 aerosol inhaler of breath or wheezing #8.5 grams levetiracetam 1,000 mg tablet 1,000 mg PO BID #60 tabs 03/01/24 pantoprazole 40 mg tablet,delayed 40 mg PO DAILY #90 tabs 04/04/24 release Results & Data (ED) Vital Signs Vital Signs - 24 hr 04/26/24 13:09 04/26/24 13:10 04/26/24 13:10 Temperature 36.6 C Temperature Source Oral Pulse Rate 84 Pulse Rate from SpO2 Sensor Respiratory Rate 18 16 Blood Pressure 129/83 Blood Pressure Mean 98 Pulse Oximetry 94 Oxygen Delivery Method Room Air Room Air Sepsis Recent Fever Within 48 Hours No Sepsis New/Unexplained Change in Mental Status N/A Sepsis Action Taken by Nursing No Action Required 04/26/24 13:38 04/26/24 13:47 04/26/24 16:30 Temperature Temperature Source Pulse Rate 78 78 66 Pulse Rate from SpO2 Sensor Respiratory Rate 24 Blood Pressure 119/83 Blood Pressure Mean 91 Pulse Oximetry 94 96 Oxygen Delivery Method Sepsis Recent Fever Within 48 Hours Sepsis New/Unexplained Change in Mental Status Sepsis Action Taken by Nursing 04/26/24 16:33 04/26/24 17:00 04/26/24 17:00 Temperature Temperature Source Pulse Rate 66 77 Pulse Rate from SpO2 Sensor 67 Respiratory Rate 18 18 Blood Pressure 130/65 119/86 Blood Pressure Mean 86 104 Pulse Oximetry 95 95 Oxygen Delivery Method Sepsis Recent Fever Within 48 Hours Sepsis New/Unexplained Change in Mental Status Sepsis Action Taken by Nursing 04/26/24 17:30 04/26/24 17:30 04/26/24 17:43 Temperature Temperature Source Pulse Rate 67 68 Pulse Rate from SpO2 Sensor Respiratory Rate 19 Blood Pressure 135/88 Blood Pressure Mean 119 Pulse Oximetry 96 Oxygen Delivery Method Room Air Sepsis Recent Fever Within 48 Hours Sepsis New/Unexplained Change in Mental Status Sepsis Action Taken by Nursing 04/26/24 17:45 04/26/24 18:00 04/26/24 18:03 Temperature Temperature Source Pulse Rate 68 77 Pulse Rate from SpO2 Sensor Respiratory Rate 24 25 H Blood Pressure 151/109 H Blood Pressure Mean 129 Pulse Oximetry 96 96 Oxygen Delivery Method Room Air Room Air Sepsis Recent Fever Within 48 Hours Sepsis New/Unexplained Change in Mental Status Sepsis Action Taken by Nursing 04/26/24 18:21 04/26/24 18:30 Temperature Temperature Source Pulse Rate 81 77 Pulse Rate from SpO2 Sensor Respiratory Rate 27 H 28 H Blood Pressure 125/91 Blood Pressure Mean 102 Pulse Oximetry 98 95 Oxygen Delivery Method Room Air Room Air Sepsis Recent Fever Within 48 Hours Sepsis New/Unexplained Change in Mental Status Sepsis Action Taken by Nursing Laboratory Data Attestation: I reviewed the patient's lab results. 04/26/24 14:20 04/26/24 14:20 Lab Results 04/26/24 Range/Units 14:20 WBC 8.57 (4.8-10.8) K/ul RBC 4.35 (4.20-5.40) M/uL Hgb 13.9 (12.0-16.0) g/dl Hct 42.9 (37.0-47.0) % MCV 98.6 (80.0-100.0) fL MCH 32.0 (25.0-34.0) pg MCHC 32.4 (32.0-36.0) g/dL RDW Std Deviation 42.4 (36.4-46.3) fL RDW Coeff of Macario 11.6 (11.5-14.5) % Plt Count 196 (130-400) K/uL MPV 11.4 (9.4-12.4) fL Immature Gran % (Auto) 0.4 % Neut % (Auto) 83.3 % Lymph % (Auto) 10.9 % [place] % (Auto) 4.4 % Eos % (Auto) 0.6 % Baso % (Auto) 0.4 % Neut # (Auto) 7.15 H (1.40-6.50) K/uL Lymph # (Auto) 0.93 L (1.20-3.40) K/uL [place] # (Auto) 0.38 (0.11-0.59) K/uL Eos # (Auto) 0.05 (0.00-0.50) K/uL Baso # (Auto) 0.03 (0.00-0.20) K/uL Immature Gran # (Auto) 0.03 (0.01-0.20) K/uL PT 10.5 (9.0-12.0) Seconds INR 1.0 (0.9-1.1) Sodium 141 (136-145) mmol/L Potassium 4.4 (3.5-5.1) mmol/L Chloride 100 (98-107) mmol/L Carbon Dioxide 35 H (21-32) mmol/L Anion Gap 6 (3-11) BUN 12 (6-23) mg/dl Creatinine 0.86 (0.6-1.2) mg/dl Est Cr Clr Drug Dosing 83.4 ml/min eGFR 78.75 BUN/Creatinine Ratio 14.0 (10-20) Glucose 125 H (70-99(Fasting)) mg/dl Calcium 9.8 (8.6-10.3) mg/dl Magnesium 2.1 (1.7-2.4) mg/dl Total Bilirubin 0.7 (0.2-1.0) mg/dl AST 13 (13-39) U/L ALT 6 L (7-52) U/L Alkaline Phosphatase 75 (34-104) U/L Troponin I High Sens 4.4 (0-14) pg/ml Total Protein 7.6 (6.0-8.3) gm/dl Albumin 4.2 (3.4-5.0) gm/dl Globulin 3.4 (2.5-4.0) gm/dl Albumin/Globulin Ratio 1.2 (0.9-2) Lipase 10 L (11-82) U/L TSH 1.902 (0.300-4.500) uIu/ml Urine Color Yellow Urine Appearance Clear (Clear) Urine pH 6.5 (4.5-7.5) Ur Specific [place] 1.008 (1.000-1.030) Urine Protein Negative (Negative) Urine Glucose (UA) Negative (Negative) Urine Ketones Negative (Negative) Urine Blood Negative (Negative) Urine Nitrite Negative (Negative) Urine Bilirubin Negative (Negative) Urine Urobilinogen Negative (Negative) Ur Leukocyte Esterase Trace H (Negative) Urine WBC (Auto) 0-5 (0-5) /hpf Urine RBC (Auto) 0-2 (0-2) /hpf U Hyaline Cast (Auto) 0-2 (0-2) /lpf U Epithel Cells (Auto) 0-2 (0-2) /hpf Urine Bacteria (Auto) None Seen (None Seen) Administered Medications Levetiracetam (Levetiracetam 500 Mg Tab) 1,000 mg PO BID ARIADNE Stop: 05/26/24 20:59 Last Admin: 04/26/24 22:01 Dose: 1,000 mg Documented By: SKS Discontinued Medications Sodium Chloride (Nss) 1,000 mls @ 999 mls/hr IV .Q1H1M ONE Stop: 04/26/24 14:48 Last Infusion: 04/26/24 16:44 Dose: Infused Documented By: Admin: 04/26/24 14:22 Dose: 999 mls/hr Documented By: LUIS ALFREDO Ioversol (Optiray 320 125ml) 120 ml IV ONCE ONE Stop: 04/26/24 15:43 Last Admin: 04/26/24 15:43 Dose: 120 ml Documented By: LEAH Meclizine HCl (Meclizine Hcl 25 Mg Tab) 25 mg PO NOW STA Stop: 04/26/24 14:37 Last Admin: 04/26/24 14:51 Dose: 25 mg Documented By: LUIS ALFREDO Imaging Data Radiologist's Impression: Head CT 04/26/24 14:36 CT OF THE HEAD WITHOUT CONTRAST CLINICAL HISTORY: Vertigo. COMPARISON STUDY: Head CT June 07, 2023. TECHNIQUE: Helical axial images of the head were obtained without IV contrast. Automated exposure control was utilized for the study. A dose lowering technique was utilized adhering to the principles of ALARA. FINDINGS: No acute intracranial hemorrhage, midline shift or mass effect is present. Ventricular system is unremarkable. Basal cisterns are patent. There are no axial collections. Old right occipital and left parietal infarcts are again noted. A subtle 1.1 cm hypodense focus within the right cerebellar hemisphere on image 7 of 32 is new since prior head CT. Otherwise, the appearance of the brain is unchanged. IMPRESSION: 1. No acute intracranial hemorrhage. No mass effect. 2. Subtle 1.1 cm hypodense focus within the right cerebellar hemisphere which is new since prior head CT. This favors an acute to subacute infarct. 3. Several old infarcts, as described above. ACT 112: Negative or not required by law. Electronically signed by: Ryan Chase M.D. 04/26/2024 4:02 PM Head CTA 04/26/24 14:36 CT angio head w con CLINICAL HISTORY: vertigo TECHNIQUE: CT angiography of the head was performed following intravenous administration of iodinated contrast. Coronal and sagittal MIPS were obtained from the axial data set and were submitted for review. Automated dose lowering techniques and/or adjustment according to patient size were utilized for this examination. All measurements were calculated based on NASCET criteria. Comparison: Comparison is made to CT head 06/07/2023 FINDINGS: CTA Head: The anterior and posterior cerebral circulations are patent. No hemodynamically significant stenosis, aneurysm, dissection, or arteriovenous malformation is shown. IMPRESSION: No occlusion, hemodynamically significant stenosis, aneurysm, dissection, or arteriovenous malformation in the major intracranial arteries. Assessment of stenosis of the internal carotid arteries is based on NASCET criteria. ACT 112: Negative or not required by law. Electronically signed by: Evangelist Reynoso M.D. 04/26/2024 4:00 PM Neck CTA 04/26/24 14:36 CT ANGIOGRAPHY OF THE NECK WITH CONTRAST CLINICAL HISTORY: Vertigo. COMPARISON STUDY: No previous studies for comparison. Technique: CT angiography of the carotid and vertebral arteries was obtained using Optiray and 3D reconstruction on an independent workstation. NASCET criteria was utilized. Automated exposure control was utilized for the study. A dose lowering technique was utilized adhering to the principles of ALARA. CT DOSE: 1161.53 mGy.cm Findings: Emphysema is incidentally noted within the visualized lung apices. A linear subpleural density within the right upper lobe on image 68 of 436 favors atelectasis. There is no cervical lymphadenopathy. There are no cervical spine fractures. The bilateral common carotid, cervical internal carotid and vertebral arteries are patent. There is mild plaque within the proximal bilateral internal carotid arteries without stenosis. There is no dissection or aneurysm within the neck. IMPRESSION: No stenosis or dissection within the bilateral common carotid, cervical internal carotid or vertebral arteries. ACT 112: Negative or not required by law. Electronically signed by: Ryan Chase M.D. 04/26/2024 4:08 PM Venous Doppler Study 04/26/24 18:22 Exam(s): US VENOUS BILATERAL LOWER EXTREMITIES EXAM: US Duplex Bilateral Lower Extremities Veins CLINICAL HISTORY: Reason for exam: possible embolic stroke. TECHNIQUE: Real-time duplex ultrasound scan of the bilateral lower extremity veins integrating B-mode two-dimensional vascular structure, Doppler spectral analysis, color flow Doppler imaging and compression. COMPARISON: No relevant prior studies available. FINDINGS: Right deep veins: Unremarkable. No DVT in the right common femoral, femoral, proximal deep femoral or popliteal veins. The veins demonstrate normal color flow, are normally compressible, with normal phasic flow and/or augmentation response. Right superficial veins: Unremarkable. No thrombus in the visualized right great saphenous vein. Left deep veins: Unremarkable. No DVT in the left common femoral, femoral, proximal deep femoral or popliteal veins. The veins demonstrate normal color flow, are normally compressible, with normal phasic flow and/or augmentation response. Left superficial veins: Unremarkable. No thrombus in the visualized left great saphenous vein. Soft tissues: There is a solid-appearing mass within the subcutaneous soft tissues of the left leg medially measuring 3.8 x 2.8 x 2.6 cm which contains calcifications and has internal vascularity. No popliteal cyst. IMPRESSION: No acute findings in the bilateral lower extremity veins. 2.8 cm solid-appearing mass with internal vascularity within the medial subcutaneous soft tissues of the left leg. This indeterminate finding but an underlying mass cannot be excluded. Recommend postcontrast MRI of the leg for further evaluation. Electronically signed by: Filipe Foley MD 04/26/24 21:08 PM Discharge Plan Visit Data Chief Complaint: Dizziness Stated Complaint: DIZZYNESS ED Provider: Josh Moura Discharge Problem: Cerebellar stroke, Vertigo, Coronary artery disease, Chronic obstructive pulmonary disease Patient Disposition: Admitted As Inpatient Discharge Instructions Interventions: ED Discharge Assessment Last Done: 04/26/24 20:14 Discharge Problem: Coronary artery disease Qualifiers: Coronary Disease-Associated Artery/Lesion type: unspecified vessel or lesion type [place] vs. transplanted heart: [place] heart Associated angina: unspecified whether angina present Qualified Code(s): I25.10 - Atherosclerotic heart disease of [place] coronary artery without angina pectoris Chronic obstructive pulmonary disease Qualifiers: COPD type: chronic bronchitis Chronic bronchitis type: unspecified Qualified Code(s): J42 - Unspecified chronic bronchitis
[2024-04-26 14:54] LABS: Albumin Globulin Ratio 1.2 (0.9-2); Albumin Level 4.2 gm/dl (3.4-5.0); Bilirubin,Total 0.7 mg/dl (0.2-1.0); Calcium 9.8 mg/dl (8.6-10.3); Creatinine Clr Calc Pharmacy 83.4 ml/min; Globulin 3.4 gm/dl (2.5-4.0); Magnesium 2.1 mg/dl (1.7-2.4); Potassium 4.4 mmol/L (3.5-5.1); Total Protein 7.6 gm/dl (6.0-8.3)
[2024-04-26 14:59] LABS: Troponin I High Sensitivity 4.4 pg/ml (0-14)
[2024-04-26 15:09] LABS: Prothrombin Time 10.5 Seconds (9.0-12.0); Thyroid Stimulating Hormone 1.902 uIu/ml (0.300-4.500)
[2024-04-26] MEDS: OPTIRAY 320 125ml IV ONE (15:43)
--- NOTE | 2024-04-26 16:02 | CT Scan Report ---
CT angio head w con CLINICAL HISTORY: vertigo TECHNIQUE: CT angiography of the head was performed following intravenous administration of iodinate d contrast. Coronal and sagittal MIPS were obtained from the axial data set and were submitted for re view. Automated dose lowering techniques and/or adjustment according to patient size were utilized f or this examination. All measurements were calculated based on NASCET criteria. Comparison: Comparison is made to CT head 06/07/2023 FINDINGS: CTA Head: The anterior and posterior cerebral circulations are patent. No hemodynamically significan t stenosis, aneurysm, dissection, or arteriovenous malformation is shown. IMPRESSION: No occlusion, hemodynamically significant stenosis, aneurysm, dissection, or arteriovenous malformati on in the major intracranial arteries. Assessment of stenosis of the internal carotid arteries is based on NASCET criteria. ACT 112: Negative or not required by law. Electronically signed by: Evangelist Reynoso M.D. 04/26/2024 4:00 PM
--- NOTE | 2024-04-26 16:04 | CT Scan Report ---
CT OF THE HEAD WITHOUT CONTRAST CLINICAL HISTORY: Vertigo. COMPARISON STUDY: Head CT June 07, 2023. TECHNIQUE: Helical axial images of the head were obtained without IV contrast. Automated exposure con trol was utilized for the study. A dose lowering technique was utilized adhering to the principles o f ALARA. FINDINGS: No acute intracranial hemorrhage, midline shift or mass effect is present. Ventricular syst em is unremarkable. Basal cisterns are patent. There are no axial collections. Old right occipital an d left parietal infarcts are again noted. A subtle 1.1 cm hypodense focus within the right cerebellar hemisphere on image 7 of 32 is new since prior head CT. Otherwise, the appearance of the brain is un changed. IMPRESSION: 1. No acute intracranial hemorrhage. No mass effect. 2. Subtle 1.1 cm hypodense focus within the right cerebellar hemisphere which is new since prior head CT. This favors an acute to subacute infarct. 3. Several old infarcts, as described above. ACT 112: Negative or not required by law. Electronically signed by: Ryan Chase M.D. 04/26/2024 4:02 PM
--- NOTE | 2024-04-26 16:09 | CT Scan Report ---
CT ANGIOGRAPHY OF THE NECK WITH CONTRAST CLINICAL HISTORY: Vertigo. COMPARISON STUDY: No previous studies for comparison. Technique: CT angiography of the carotid and vertebral arteries was obtained using Optiray and 3D rec onstruction on an independent workstation. NASCET criteria was utilized. Automated exposure control was utilized for the study. A dose lowering technique was utilized adhering to the principles of ALA RA. CT DOSE: 1161.53 mGy.cm Findings: Emphysema is incidentally noted within the visualized lung apices. A linear subpleural dens ity within the right upper lobe on image 68 of 436 favors atelectasis. There is no cervical lymphaden opathy. There are no cervical spine fractures. The bilateral common carotid, cervical internal caroti d and vertebral arteries are patent. There is mild plaque within the proximal bilateral internal mac[place] tid arteries without stenosis. There is no dissection or aneurysm within the neck. IMPRESSION: No stenosis or dissection within the bilateral common carotid, cervical internal carotid or vertebral arteries. ACT 112: Negative or not required by law. Electronically signed by: Ryan Chase M.D. 04/26/2024 4:08 PM
--- NOTE | 2024-04-26 17:57 | History & Physical Report ---
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 She presents to the ER with acute severe dizziness of 1 day, and some intermittent symptoms 1 week ago to a much lower severity. She had her Eliquis discontinued in February after she was treated for her PE for 6 months and was otherwise doing well. She is on aspirin monotherapy, is prescribed rosuvastatin but has not been taking this due to concerns for potential myalgia side effects. She is admitted with a new right cerebellar stroke seen on CT. No hemorrhage. Given prior history of embolic stroke and PFO Dopplers were obtained to rule out DVT that may require filter evaluation until anticoagulation is able to be initiated. If negative patient is to be admitted for acute CVA. Permissive hypertension deferred as symptoms may have been more than 24 hours in origin and due to history of hemorrhage, was recommended for goal parameters of 180. Will be switched to Plavix, and target restarting Eliquis when safe to do so although this will need to be held for at least a few days. She does have a history of hyperhomocysteinemia/MTHFR gene positive. He does not and has not had any chest pain, EKG is sinus, and does not have a history of A-fib. Subacute/acute cerebellar CVA, history of CVA with seizure - Presents with vertigo, balance instability. Last normal normal 1 week ago with improvement, then worsening again with significantly worsened symptoms 04/26 CThead: No acute intracranial hemorrhage. No mass effect. Subtle 1.1 cm hypodense focus right cerebellar hemisphere new from prior favoring acute to subacute infarct. Several old infarcts are seen CTAhead: No acute significant stenosis/aneurysm/dissection/AVM Chest x-ray: No acute findings Prior EKG: Normal sinus rhythm. No A-fib Follows with [facility] neurology. Known embolic strokes with vascular dis tributions in the setting of NE, and has a history of coronary stenting. Prior history of left hominis hemianopsia and residual ataxia. Patient was scheduled to stop Eliquis in around February. She did have seizures as a result of her course and was placed on Keppra although EEG at [facility] [place] showed encephalopathy without epileptiform activity. She should remain on Keppra for at least 1 year Continue rosuvastatin. Patient reports she was not taking this as she was concerned about the side effect of statins but is willing to start this if would help her prevent future strokes. Continue Keppra 1 g twice daily Did discuss with neurology. Will switch to Plavix at this time. Continue Plavix monotherapy. Would be very cautious resuming Eliquis due to her history of hemorrhagic conversion, will reassess this as patient progresses but will at least need to wait a few days. Patient does have a history of embolic stroke with a known PFO, and should be restarted on Eliquis. Dopplers ordered to R/O DVT potentially contributory to recurrent embolic stroke. She has no tachycardia, hypoxia, pleuritic pain, or dyspnea to suggest PE Patient refuses MRI due to severe claustrophobia and reports that she needs this done under anesthesia. Declines Valium/anxiolytic with MRI attempt. Interval CT ordered Neuro consulted CAD, history of TRELL to LCx 2021 No acute anginal symptoms Continue aspirin Troponin normal on admission EKG sinus without acute territorial ischemia History of seizure versus encephalopathy Noted during hospitalization in the setting of a brain bleed. She has not had any seizure since. Is recommended to continue Keppra for 1 year, Keppra 1 g twice daily continued Depression/anxiety Lexapro continued Sleep apnea, COPD Is on nocturnal oxygen has not yet have sleep study. Does have a history of hypercapnic hypercarbic respiratory failure. CPAP at bedtime as needed. Carbon dioxide is slightly elevated, oxygenation is normal on admission. No wheezing. DVT prophylaxis: SCDs, pharmacal prophylaxis deferred due to high risk of bleeding CODE STATUS: Full code Disposition: PCU Diet: Heart healthy History of Present Illness Primary Care Provider: Paco Morrison, Thursday is a 58-year-old female with a past medical history of DM with ne uropathy, CAD with history of NE and TRELL to LCx 02/2022, COPD with prior respiratory failure requiring tracheostomy subsequent removal, HFpEF, embolic CVA with PFO and subarachnoid hemorrhage, prior subsegmental PE with hyperhomocysteinemia, hypertension, type II DM, former tobacco use who presents for evaluation of dizziness. Balance issues and headaches/dizziness for 2 days. Intermittent, but today symptoms were much worse. Had to call her neice to even helpher get to he bathroom. Also more fatigued than normal. No arm of leg weakness. 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 History of NE with PCI. No chest pain recently. No leg swelling or cramping/pain. Chronic numbness/pain with neuropathy, bu tno other pain. No vision change. Chronic L eye hemianopsia. No speech deficits Stoppedeliquis in November. Was treated for 6 months. History of DVT, PE treated with 6 months of eliquis. PFO known, never repaired Takes aspirin, lexapro, lasix, keppra 1g BID (last seizure activity was while hospitalized), rosubastatin, No shortness of breath. Gets short of breath easily going up steps chronically, a littlemore easily fatigued last few days and gets some referred pressure from her hernia but no dyspnea at rest and no hypoxia. No pain with deep breathing. Uses nighttime oxygen. Does have COPD. Was recommended fornighttime o2 due to nighttime hypoxia and apnea, but has not yet had a sleep study. Never took rosuvastatin, concerned it would cause aches similar to other statins. is prescribed this but is afraid of the side effects of this so has not taken it. Medical History: Reviewed Medications: Reviewed. PCN allergy. Surgical History: Reviewed Family history: Reviewed Allergies: Reviewed Social History: Former smoker. No ETOH. Code Status: Full Allergies Allergy/AdvReac Type Severity Reaction Status Date / Time Penicillins Allergy Unknown CAN'T Verified 11/23/23 15:12 REMEMBER Khiimun-QCL-XbH Reductase AdvReac Intermediate Muscle Pain Verified 11/23/23 15:12 Inhibitor STEROIDS AdvReac Severe BLOOD CLOTS Uncoded 11/23/23 15:12 Home Medications Medication Instructions Recorded Confirmed Type tiotropium 2.5 mcg-olodaterol 2.5 2 inh inhalation DAILY #4 grams 08/04/22 11/23/23 Rx mcg/actuation mist for inhalation melatonin 3 mg tablet 6 mg (2 x 3 mg) PO HS PRN sleep 08/05/23 11/23/23 Rx #60 tabs furosemide 20 mg tablet 20 mg PO QAM #90 tabs 11/06/23 11/23/23 Rx potassium chloride 20 mEq 20 meq PO DAILY #90 tabs 11/06/23 11/23/23 Rx tablet,extended release aspirin 81 mg tablet,delayed 81 mg PO DAILY #90 tabs 11/24/23 11/24/23 Rx release (Adult Aspirin Regimen) escitalopram oxalate 10 mg tablet 10 mg PO DAILY #30 tabs 11/24/23 11/24/23 Rx rosuvastatin 10 mg tablet 10 mg PO DAILY #30 tabs 11/24/23 11/24/23 Rx albuterol sulfate 90 mcg/actuation 2 inh inhalation QID PRN shortness 01/10/24 Rx aerosol inhaler of breath or wheezing #8.5 grams levetiracetam 1,000 mg tablet 1,000 mg PO BID #60 tabs 03/01/24 Rx pantoprazole 40 mg tablet,delayed 40 mg PO DAILY #90 tabs 04/04/24 Rx release Past Med/Surg History Problem List (Updated 04/26/24 @ 18:12 by Jesse Mejia MD) Cerebellar stroke Diabetic peripheral neuropathy Idiopathic peripheral neuropathy H/O: stroke with residual effects Seizure History of tobacco abuse History of tracheostomy Chronic obstructive pulmonary disease Nodule of lower lobe of right lung Aspiration pneumonia RVF (right ventricular failure) Endotracheally intubated Acute encephalopathy (Acute) Status asthmaticus with COPD (chronic obstructive pulmonary disease) Acute on chronic respiratory failure with hypoxia and hypercapnia (Acute) Coronary artery disease Presence of drug coated stent in left circumflex coronary artery (02/14/22) Sinus congestion No pertinent past surgical history Thrombophlebitis of deep femoral vein Screening for endocrine, metabolic, and immunity disorder Phlebitis and thrombophlebitis of other site Obesity, Class II, BMI 35-39.9 Hyperhomocystinemia Hyperlipidemia Generalized skin tumors Fatigue Asthma Medical History History of tobacco abuse Chronic obstructive pulmonary disease Nodule of lower lobe of right lung Elevated troponin Abnormal LFTs Aspiration pneumonia RVF (right ventricular failure) Endotracheally intubated Transaminitis Acute encephalopathy Acute CHF (congestive heart failure) Status asthmaticus with COPD (chronic obstructive pulmonary disease) History of ST elevation myocardial infarction (STEMI) Screening for tuberculosis Thrombophlebitis of deep femoral vein Obesity, Class II, BMI 35-39.9 Hyperhomocystinemia Hyperlipidemia Generalized skin tumors Fatigue Asthma Surgical History History of tracheostomy S/P cardiac catheterization Family History Family/Other No problems noted. Sister Ovarian cancer Denies family history of Prostate cancer Myocardial infarction Breast cancer Colorectal cancer Social History Smoking Status: Never smoker Tobacco Type: Cigarettes Second Hand Exposure: No; Do You Dip or Chew Tobacco: No; Hx Alcohol Use: No Hx Substance Use: No Preferred Language: Azeri Communication Ability: Impaired Communication Tools: Other Visual Impairment: No Limitations Manager Molecular Required: No Beliefs That Will Affect Care: None marital status: Single Current Living Situation: Alone Current Living Situation Comment: with children current occupational status: unemployed Feels Safe at Home: Yes Childhood Exposure to Second-Hand Smoke: Yes Diet: other Diet Comment: cardio healthy caffeine: Yes Dental Care, Regularly: No Physical Activity Frequency: Daily Seatbelt Use: never Sunscreen Use: Yes Assistive Devices: Bedside Commode, Oxygen - Continuous, Walker and Wheelchair Physical Exam Physical Exam: General: A&Ox3. NAD. Cooperative. HEENT: Atraumatic, normocephalic. Left peripheral hemianopsia persists. Pupils are equally reactive to light. Acuity grossly intact. Hearing grossly intact. No facial asymmetry. Pulm: CTAB A&P. -wheezes, -rales, -rhonchi. Symmetrical chest rise. No increased work of breathing. No respiratory distress. Cardiac: RRR, -mrg. Radial pulses intact and symmetrical. Abdominal: Nontender, nondistended, soft. BS present. Extremities: Lower extremities with some neuropathy bilaterally but sensation of soft touch is grossly intact and symmetrical. No calf asymmetry. No lower extremity edema. Ankle dorsiflexion/plantarflexion 5/5 bilaterally. 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 No over reach on [id number] testing. This is somewhat limited due to left persistent hemianopsia from prior stroke Results & Data Results & Data Vital Signs (Past 12 Hours) Vital Signs Temp Pulse Resp BP Pulse Ox O2 Del Method 04/26/24 17:43 68 04/26/24 17:00 77 18 130/65 95 04/26/24 16:33 66 18 95 04/26/24 16:30 66 24 119/83 96 04/26/24 13:47 78 94 04/26/24 13:38 78 04/26/24 13:10 16 04/26/24 13:10 Room Air 04/26/24 13:09 36.6 C 84 18 129/83 94 Room Air PG Care Time/CCT Total # of Minutes Spent Total Time Spent with Patient: Total time spent is greater than 50% in coordination of care (as documented) at patient's floor/unit and/or counseling patient: Coding Level of Care Code 49458 INT INP/OBS CARE MIN Diagnoses Cerebellar stroke I63.9
[2024-04-26] MEDS ORDERED: LABETALOL HCL IV 5 MG/ML 20ML IV PRN (18:35)
[2024-04-26] MEDS ORDERED: ALBUTEROL HFA 8 GM INHALER INH PRN (20:38)
[2024-04-26] MEDS ORDERED: PHARMACIST DISCHARGE MED REC CONSULT PRN (20:38)
--- NOTE | 2024-04-26 21:09 | Ultrasound Report ---
Exam(s): US VENOUS BILATERAL LOWER EXTREMITIES EXAM: US Duplex Bilateral Lower Extremities Veins CLINICAL HISTORY: Reason for exam: possible embolic stroke. TECHNIQUE: Real-time duplex ultrasound scan of the bilateral lower extremity veins integrating B-mode two-dimensional vascular structure, Doppler spectral analysis, color flow Doppler imaging and compression. COMPARISON: No relevant prior studies available. FINDINGS: Right deep veins: Unremarkable. No DVT in the right common femoral, femoral, proximal deep femoral or popliteal veins. The veins demonstrate normal color flow, are normally compressible, with normal phasic flow and/or augmentation response. Right superficial veins: Unremarkable. No thrombus in the visualized right great saphenous vein. Left deep veins: Unremarkable. No DVT in the left common femoral, femoral, proximal deep femoral or popliteal veins. The veins demonstrate normal color flow, are normally compressible, with normal phasic flow and/or augmentation response. Left superficial veins: Unremarkable. No thrombus in the visualized left great saphenous vein. Soft tissues: There is a solid-appearing mass within the subcutaneous soft tissues of the left leg medially measuring 3.8 x 2.8 x 2.6 cm which contains calcifications and has internal vascularity. No popliteal cyst. IMPRESSION: No acute findings in the bilateral lower extremity veins. 2.8 cm solid-appearing mass with internal vascularity within the medial subcutaneous soft tissues of the left leg. This indeterminate finding but an underlying mass cannot be excluded. Recommend postcontrast MRI of the leg for further evaluation. Electronically signed by: Filipe Foley MD 04/26/24 21:08 PM
[2024-04-26] MEDS: levETIRAcetam 500 MG TAB PO SCH (22:01)
[2024-04-27 06:23] LABS: Basophils # (auto) 0.03 K/uL (0.00-0.20); Basophils % (auto) 0.5 %; Eosinophils # (auto) 0.08 K/uL (0.00-0.50); Eosinophils % (auto) 1.2 %; Hematocrit (blood only) 37.8 % (37.0-47.0); Hemoglobin 12.5 g/dl (12.0-16.0); Immature Granulocytes # (auto) 0.02 K/uL (0.01-0.20); Immature Granulocytes % (auto) 0.3 %; Lymphocytes # (auto) 1.57 K/uL (1.20-3.40); Lymphocytes % (auto) 24.1 %; Mean Corpuscular Hemoglobin 32.8 pg (25.0-34.0); Mean Corpuscular Hgb Conc 33.1 g/dL (32.0-36.0); Mean Corpuscular Volume 99.2 fL (80.0-100.0); Mean Platelet Volume 11.6 fL (9.4-12.4); Monocytes # (auto) 0.48 K/uL (0.11-0.59); Monocytes % (auto) 7.4 %; Neutrophils # (auto) 4.34 K/uL (1.40-6.50); Neutrophils % (auto) 66.5 %; Platelet Count 174 K/uL (130-400); RDW Coefficient of Variation 11.7 % (11.5-14.5); RDW Standard Deviation 42.5 fL (36.4-46.3); Red Blood Count 3.81 M/uL (4.20-5.40); White Blood Count 6.52 K/ul (4.8-10.8)
[2024-04-27 06:44] LABS: BUN Creatinine Ratio 15.8 (10-20); Calcium 9.2 mg/dl (8.6-10.3); Creatinine Clr Calc Pharmacy 92.4 ml/min; Potassium 3.7 mmol/L (3.5-5.1)
[2024-04-27 07:44] LABS: Estimated Average Glucose 120 mg/dl; Hemoglobin A1C 5.8 % (4.5-5.6)
[2024-04-27] MEDS: CLOPIDOGREL BISULFATE 75 MG TAB PO SCH (08:34)
[2024-04-27] MEDS: ESCITALOPRAM OXALATE 10 MG TAB PO SCH (08:34)
[2024-04-27] MEDS: ROSUVASTATIN CALCIUM 10 MG TAB PO SCH (08:34)
[2024-04-27] MEDS: FUROSEMIDE 20 MG TAB PO SCH (08:34)
--- NOTE | 2024-04-27 10:30 | Hospitalist Progress Note ---
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 She presents to the ER with acute severe dizziness of 1 day, and some intermittent symptoms 1 week ago to a much lower severity and was found to have right cerebellar hemisphere stroke. Subacute/acute cerebellar CVA, history of CVA with seizure - Has hx of PFO that was not repaired and had Eliquis discontinued on 02/2024 (was on it for 6-month tx of PE) CThead: No acute intracranial hemorrhage. No mass effect. Subtle 1.1 cm hypodense focus right cerebellar hemisphere new from prior favoring acute to subacute infarct. Several old infarcts are seen CTAhead and CXR unremarkable Continue rosuvastatin and Plavix monotherapy Eventually should be restarted on Eliquis due to PFO, but will hold off restarting for now due to hx of conversion to hemorrhagic stroke Continue Keppra 1 g twice daily Neurology consulted. Would appreciate reccs. - Would consider referral to cardiothoracic surgeon for evaluation and discussion of possible repair of PFO - PT/OT consulted; Speech also consulted Possible discharge back home with home PT Solid mass noted on LLE US No DVT, but did note a 2.8 cm solid mass with internal vascularity Patient refuses MRI due to severe claustrophobia and reports that she needs this done under anesthesia. Declines Valium/anxiolytic with MRI attempt. CT wo contrast ordered, instead. CAD, history of TRELL to LCx 2021 No acute anginal symptoms Troponin normal on admission EKG sinus without acute territorial ischemia History of seizure versus encephalopathy Noted during hospitalization in the setting of a brain bleed. She has not had any seizure since. - Continue Keppra for 1 year, Keppra 1 g twice daily ordered Depression/anxiety Lexapro continued Sleep apnea, COPD Is on nocturnal oxygen has not yet have sleep study. - Does have a history of hypercapnic hypercarbic respiratory failure. - CPAP at bedtime as needed. DVT prophylaxis: SCDs, pharmacal prophylaxis deferred due to high risk of bleeding CODE STATUS: Full code Diet: Heart healthy Admission and Anticipated Discharge Date Admission Date: April 26, 2024 Supervising Physician Co-Signing Physician Notes Attending attestation Pt seen and examined in concert with Dr. Liborio Mann. In agreement with the documented findings as noted in the resident documentation with any exceptions or additions as noted here. Patient reports hesitance for procedures which could introduce risk with significant history of CVA and PFO. Would be interested in discussion about PFO if available. Open to MRI with sedation per neurology recommendation and discussion. Disinclined from MRI LLE due to concerns for risk of sedation for non-definitive evaluation. On examination, S1/S2 nl RRR no MCG. CTAB. Abd NT/ND BS+ve Subacute CVA w/ history of CVA & seizure - neurology consult - continue rosuvastatin and clopidogrel as noted. Holding restart of apixaban due to h/o hemorrhagic conversion. PT/OT pending. LLE mass - deferring MRI. CT as noted. Would recommend repeat CT in 3 months. Else see resident documentation as noted. Subjective Feels persistent but slightly improved imbalance/vertigo. Walked around hallway with PT using walker and had some vertigo/imbalance. Also endorses some general blurry vision not limited to one quadrant in her right eye as well as pre- existing temporal hemianopsia in left eye. No new sxs such as cp, SOB/MAS, new weakness, headache, N/V/D, etc. Physical Exam Physical Exam: General: A&Ox3. NAD. Cooperative. HEENT: Atraumatic, normocephalic. Left peripheral hemianopsia persists. Pupils are equally reactive to light. Acuity grossly intact. Hearing grossly intact. No facial asymmetry. Pulm: CTAB. No increased work of breathing. No respiratory distress. Cardiac: RRR, no r/m/g. Abdominal: Nontender, nondistended, soft. Extremities: Lower extremities with some neuropathy bilaterally but sensation of soft touch is grossly intact and symmetrical. No calf asymmetry. No lower extremity edema. Ankle dorsiflexion/plantarflexion 5/5 bilaterally. 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 Results & Data Results & Data Vital Signs (Past 12 Hours) Vital Signs Temp Pulse Pulse Resp BP Pulse Ox O2 Del Method 04/27/24 08:07 36.8 C 75 18 118/77 93 Nasal Cannula 04/27/24 02:33 36.9 C 86 18 125/80 97 Nasal Cannula 04/26/24 22:47 36.8 C 74 18 127/84 98 Nasal Cannula 04/26/24 22:33 76 O2 Flow Rate 04/27/24 08:07 1 04/27/24 02:33 2 04/26/24 22:47 1 04/26/24 22:33 Resident Activity Tracking Resident Involvement: Resident Care Provided Care Provided: Adult Hospital Medicine
--- NOTE | 2024-04-27 10:49 | CT Scan Report ---
EXAM: CT Left Lower Extremity Without Intravenous Contrast Tibia and Fibula INDICATION: Solid mass. TECHNIQUE: Axial computed tomography images of the left tibia and fibula without intravenous contrast. Sagittal and coronal reformatted images were created and reviewed. This CT exam was performed using one or more of the following dose reduction techniques: automated exposure control, adjustment of the mA and/or kV according to patient size, and/or use of iterative reconstruction technique. COMPARISON: None available. FINDINGS: Bones/joints: No acute changes. Soft tissues: In the midline deep to the soleus muscle likely within the tendon sheath is a heterogeneous solid partially calcified mass measuring 3.2 cm AP by 1.9 cm transverse by 3.4 cm long. It appears separable from the overlying soleus muscle. IMPRESSION: Nonspecific heterogeneous, partially calcified mass along the tendinous sheath subjacent to the soleus muscle. Benign etiologies considered most likely such as fibromatosis. Neoplasm not completely excluded. If additional imaging is clinically warranted, MRI may be of benefit. ACT 112: Negative or not required by law. Electronically signed by Clau Moreno 04-27-2024 10:48 AM
--- NOTE | 2024-04-27 13:30 | Neurology Consultation ---
Date of Consultation April 27, 2024 Assessment & Plan (1) Vertigo: (2) H/O: stroke with residual effects: (3) Seizure: (4) Diabetic peripheral neuropathy: Plan Patient has had subacute onset of intermittent vertiginous symptoms which are essentially positional. No nausea and lack of other symptoms this positional dizziness could very well be inner ear in origin. On examination she does not have any focal neurologic deficits, meningeal signs, or encephalopathy. I do not see any nystagmus and I cannot evoke any symptoms with simple head movements. Nevertheless, I cannot exclude a cerebellar stroke of a new nature. CT scan is not very specific for an acute infarct in that head region if it is small. I have reviewed the CT films from June and April 26, and did not see much difference. The question of a new stroke or not is important as it will not change our future treatment and testing options. 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 She has a PFO (of a very small n ature) and a history of a PE. She is MTHFR positive and has hyper homocystinuria. CT angiography of the head and neck were unremarkable, with no vascular stenoses. The patient had seizure-like activity back in June 2023 and has been stable on levetiracetam 1000 mg twice daily. She has had no seizures since Recommendations: 1. I have spoken with the patient regarding the importance of an MRI particularly with future testing and treatment options. She will agree to an MRI of the brain with sedation. This could be done tomorrow as it is not stat. 2. Further recommendations we made following this MRI, depending on whether or not a new stroke was found or not. 3. For now, agree with clopidogrel 75 mg daily instead of aspirin. 4. Continue levetiracetam 1000 mg twice daily for now. I am not certain she needs to continue on this medication and, as an outpatient, consideration could be given to discontinuing this. 5. Patient technically would be a high-dose statin candidate, but it is reasonable to initiate the low-dose rosuvastatin given her reluctance to take lipid medication. This could always be titrated later. 6. There is no need to repeat CT scan of the head if the patient is getting an MRI. 7. Increase activity as able. Overall, I spent a total of 120 minutes with this case including review of records, review of CT films, direct evaluation the patient at bedside, report generation, and discussion of the case with the patient, partner, RN at bedside and Dr. Capone including differential diagnosis and treatment options. History of Present Illness Reason for Consultation: Patient is a 58-year-old, who I was asked to see at the request of Dr. Mejia, for neurologic consultation regarding stroke Requesting Physician: Dr. Mejia Attending Physician: Moisés Sanabria MD History of Present Illness This patient has a longstanding history of COPD (acute on chronic respiratory failure, hypoxia, and hypercapnia), some neuropathy felt to be secondary to diabetes, hypertension, dyslipidemia, and hyper homocystinuria. In February 2022 she was admitted for an CT. She had coronary artery disease and was prescribed aspirin and Plavix. She was given a stent. She was on metoprolol for blood pressure and given atorvastatin to lower cholesterol but the patient declined to take lipid agents fearing myalgia or other side effects. In May 2023, the patient was admitted with hypoxia and severe COPD "status asthmaticus). She had acute congestive heart failure. She required intubation. On June 07 patient had seizure activity and a CT scan of the head revealed a small left frontal subarachnoid hemorrhage with subacute changes in the right occipital head region suggesting stroke. Her anticoagulation was stopped and transferred to [facility]. MRI of the brain at [facility] on June 08 revealed hemorrhagic subacute infarct in the right occipital lobe, left parietal lobe, and inferior lateral right cerebellum. Additional nonhemorrhagic infarcts were noted in the right frontal lobe and left centrum semiovale. There were multiple small punctate foci of small hemorrhages/small hemorrhagic subacute infarcts in the left cerebellar hemisphere. The left frontal sulcal subarachnoid hemorrhage was noted above. MR angiography of the brain was unremarkable and showed no vascular anomalies or stenoses. These multiple strokes suggested an embolic phenomenon as CT angiography of the head and neck was unremarkable. The patient had echocardiogram which showed a very small [id number]-[id number] shunt on bubble study consistent with PFO. It was not large/prominent. Patient apparently had a pulmonary embolism during that hospitalization, and is MTHFR positive/hyperhomocysteinemia The patient was kept on Eliquis and then at the direction of cardiology, it was discontinued (since she had been 6 months). Hematology also agreed that Eliquis could be discontinued. 81 mg aspirin tablet was initiated. The patient refused rosuvastatin. According to history from the patient and her partner (present via telephone at bedside) the patient had an episode of vertigo (room spinning) about 2 weeks ago. It lasted a day or so and then resolved. She had some nausea but no vomiting. The spinning/dizziness/vertigo resolved but she had an intermittent bifrontal pressure headache of a very mild nature on and off since. When she woke up in the morning of April 26 (approximately 10 AM) she sat up and had a spinning sensation. She felt the spinning was counterclockwise and that she was pulled some to the left. She has noted intermittent tinnitus in the right ear over the last several weeks but noticed it yesterday. She denies hearing loss or ear pain. She arrived to the emergency room April 26 at [birth year]/2008 with a temperature 36.0, pulse 84 and regular, respiratory rate 18, blood pressure 129/83, and O2 saturation 94%. Examination in the ER revealed no focal findings and no nystagmus was seen. CBC and CHEM profile were largely unremarkable although the glucose was 125. Lipase was normal, urinalysis was negative and TSH 1.9. A CT scan of the head showed a hypodensity of the subtle nature in the right lateral cerebellar hemisphere approximately 1 cm in size. Radiology felt this was new compared to the previous CT scan of June 2023. I have reviewed the CT scan of the head images from June 07 and April 26, [id number], and I am not convinced there is a new lesion, although I see what the radiologist points out. There are old right occipital and left parietal lesions from before. CT angiography of the head and of the neck were unremarkable with no vascular anomalies or stenoses. Venous Doppler showed no evidence of bilateral lower extremity deep venous thrombosis. Laboratory studies today showed an unremarkable CBC and CHEM profile. Hemoglobin A1c is 5.8, triglycerides 88, total cholesterol 199. Blood pressure is 109/65 today. Patient denies any new weakness, numbness, pain, vision issues, incontinence, and has been up walking today with good balance. She has had no dizziness or vertigo throughout the day. Allergies Allergy/AdvReac Type Severity Reaction Status Date / Time Penicillins Allergy Unknown CAN'T Verified 11/23/23 15:12 REMEMBER Jqvqnyy-[id number]-CwG Reductase AdvReac Intermediate Muscle Pain Verified 11/23/23 15:12 Inhibitor STEROIDS AdvReac Severe BLOOD CLOTS Uncoded 11/23/23 15:12 Home Medications Medication Instructions Recorded Confirmed Type tiotropium 2.5 mcg-olodaterol 2.5 2 inh inhalation DAILY #4 grams 08/04/22 11/23/23 Rx mcg/actuation mist for inhalation melatonin 3 mg tablet 6 mg (2 x 3 mg) PO HS PRN sleep 08/05/23 11/23/23 Rx #60 tabs furosemide 20 mg tablet 20 mg PO QAM #90 tabs 11/06/23 11/23/23 Rx potassium chloride 20 mEq 20 meq PO DAILY #90 tabs 11/06/23 11/23/23 Rx tablet,extended release aspirin 81 mg tablet,delayed 81 mg PO DAILY #90 tabs 11/24/23 11/24/23 Rx release (Adult Aspirin Regimen) escitalopram oxalate 10 mg tablet 10 mg PO DAILY #30 tabs 11/24/23 11/24/23 Rx rosuvastatin 10 mg tablet 10 mg PO DAILY #30 tabs 11/24/23 11/24/23 Rx albuterol sulfate 90 mcg/actuation 2 inh inhalation QID PRN shortness 01/10/24 Rx aerosol inhaler of breath or wheezing #8.5 grams levetiracetam 1,000 mg tablet 1,000 mg PO BID #60 tabs 03/01/24 Rx pantoprazole 40 mg tablet,delayed 40 mg PO DAILY #90 tabs 04/04/24 Rx release Patient History Medical History Elevated troponin Abnormal LFTs Transaminitis Acute CHF (congestive heart failure) History of ST elevation myocardial infarction (STEMI) Screening for tuberculosis Surgical History S/P cardiac catheterization 02/14/22 Dr. Moisés Munoz at [facility]- Cardiac cath- 1 TRELL to distal circumflex Family History Family/Other No problems noted. Sister Ovarian cancer Mother , age 86 with dementia Alzheimer disease Diabetes Father , age 68 with COPD COPD (chronic obstructive pulmonary disease) Denies family history of Prostate cancer Myocardial infarction Breast cancer Colorectal cancer Social History (Updated 04/27/24 @ 13:48 by Phoenix Nunez MD) Smoking Status: Former smoker Tobacco Type: Cigarettes Age Started Using Tobacco: 12; Age Quit Using Tobacco: 57; packs per day: 1.5; Second Hand Exposure: No; Do You Dip or Chew Tobacco: No; Hx Alcohol Use: No Hx Substance Use: No Preferred Language: Macedonian Communication Ability: Effective Communication Tools: Other Visual Impairment: No Limitations Code Enforcement Officer Required: No Beliefs That Will Affect Care: None marital status: Single Current Living Situation: Significant Other Current Living Situation Comment: with children current occupational status: unemployed and disabled current occupation: On disability for low back x 15+ years Feels Safe at Home: Yes Childhood Exposure to Second-Hand Smoke: Yes Diet: other Diet Comment: cardio healthy caffeine: Yes Dental Care, Regularly: No Physical Activity Frequency: Daily Seatbelt Use: never Sunscreen Use: Yes Assistive Devices: Denture - Upper, Glasses and Walker Review of Systems Constitutional: no fever, no fatigue and no weakness Eyes: no diplopia, no eye pain and no worsening vision Ear, Nose, Mouth, Throat: no ear pain, no tinnitus, no hearing loss, no dizziness, no snoring, no hoarseness and no dysphagia Respiratory: no cough and no dyspnea Cardiovascular: no chest pain, no palpitations and no lightheadedness Gastrointestinal: no abdominal pain, no nausea and no vomiting Genitourinary: no dysuria, no urinary frequency and no urinary incontinence Musculoskeletal: + back pain; no neck pain, no radicular pain, no joint pain and no myalgia Integumentary: no rash and no lesions Neurologic: no gait abnormality, no localized weakness, no generalized weakness, no tingling, no numbness, no tremor(s), no abnormal movements, no headache(s), no abnormal speech, no confusion and no memory loss Psychiatric: no depression, no irritability, no anxiety, no difficulty concentrating, no confusion and no hallucinations Endocrine: no fatigue and no flushing Hematologic / Lymphatic: no easy bleeding and no easy bruising Allergy / Immunological: no urticaria and no problem reported Exam (Neuro) Physical Exam: The patient is right-handed. The patient is awake, alert, and attentive. Speech is normal without any aphasia or dysarthria. Mentation and thought processes are intact, with full orientation and normal fund of knowledge. Mood and affect are normal and appropriate. Appearance and grooming are normal. Short and long-term memory are intact to conversation. Pupils are 4 mm bilaterally and reactive to light. Extraocular eye muscles are intact without nystagmus. Moving her eyes back and forth did not create dizziness. Moving her head [id number] or up and down did not produce any dizziness symptoms or nystagmus either. There are no deficits to sensation in the face in all 3 distributions of the fifth cranial nerve bilaterally. Corneal reflexes are positive bilaterally. Facial strength and symmetry was normal bilaterally. Hearing seems intact grossly to voice and finger rub bilaterally. Palate moves well without asymmetry. There is normal sternocleidomastoid and trapezius strength bilaterally. Tongue is midline with good strength bilaterally. Neck has a full range of motion without discomfort. There are no cervical bruits bilaterally. There are no cranial or ocular bruits. Heart is without murmur. There is a regular rhythm and rate. Cervical, thoracic, and lumbar spine are nontender to palpation. Gait is narrow based, with good arm swing, turns, and stance. Stance is normal feet together eyes open and she sways some with eyes closed. With outstretched arms there is no drift. There are no resting, postural, or action tremors. There is no ataxia with finger to nose testing. There is good facility in the hands. No other abnormal involuntary movements are noted. Motor strength is 5/5 diffusely in the arms bilaterally including deltoids, biceps, triceps, brachioradialis, wrist flexors and extensors, bus assistant, and intrinsic hand muscles. Motor strength is 5/5 diffusely in the legs bilaterally including hip flexors, quadriceps, hamstrings, gastrocnemius, tibialis anterior, tibialis posterior, and Peroneii muscles bilaterally. Toe extensors are normal and there is good bulk in the extensor digitorum brevis muscles bilaterally. The limbs have good tone without rigidity or spasticity. There is no atrophy noted in the muscles. Muscle bulk is normal, there is no tenderness to palpation, no myotonia to percussion, and no fasciculations seen. Sensory examination is intact to touch and pin throughout all 4 limbs diffusely. Reflexes are 2/4 in the biceps, triceps, brachioradialis, quadriceps, and Achilles tendons bilaterally. Toes are downgoing with plantar stimulation bilaterally. Peripheral pulses are present and of normal quality distally in all 4 limbs. There is no peripheral edema noted in the limbs. Results & Data Vital Signs (Past 12 Hours) Vital Signs Temp Pulse Resp BP Pulse Ox O2 Del Method O2 Flow Rate 04/27/24 11:45 36.6 C 62 18 109/65 97 Nasal Cannula 1 04/27/24 08:07 36.8 C 75 18 118/77 93 Nasal Cannula 1 04/27/24 02:33 36.9 C 86 18 125/80 97 Nasal Cannula 2 PG Care Time/CCT Total # of Minutes Spent Total Time Spent with Patient: Total time spent is greater than 50% in coordination of care (as documented) at patient's floor/unit and/or counseling patient: Coding Level of Care Code 45294 INT INP/OBS CARE 3/75MIN Diagnoses Vertigo R42 H/O: stroke with residual effects I69.30 Seizure R56.9 Diabetic peripheral neuropathy E11.42 Time Spent (min) 120
[2024-04-27] MEDS: ACETAMINOPHEN 325 MG TAB PO PRN (16:38)
[2024-04-27] MEDS: diazePAM 5 MG TABLET PO SCH (23:28)
--- NOTE | 2024-04-28 00:17 | Magnetic Resonance Report ---
Exam(s): MRI HEAD Without Contrast EXAM: MR Head Without Intravenous Contrast CLINICAL HISTORY: Reason for exam: stroke like symptoms. TECHNIQUE: Magnetic resonance images of the head/brain without intravenous contrast in multiple planes. COMPARISON: Prior head CT from April 26, 2024. FINDINGS: Brain: Remote ischemic injuries of the right occipital and left parietal lobes with encephalomalacia and gliosis. Mild nonspecific white matter changes. The flow voids at the base the brain are intact. No mass. No hemorrhage. No acute infarct. Ventricles: Unremarkable. No ventriculomegaly. Bones/joints: Unremarkable. No acute fracture. Sinuses: Unremarkable as visualized. No acute sinusitis. Mastoid air cells: Unremarkable as visualized. No mastoid effusion. Orbits: Unremarkable as visualized. IMPRESSION: No evidence of acute intracranial pathology. Electronically signed by: Ivonne Armenta MD 04/28/24 00:16 AM
[2024-04-28 07:30] VITALS: O2SAT 98
[2024-04-28 08:14] LABS: Basophils # (auto) 0.03 K/uL (0.00-0.20); Basophils % (auto) 0.4 %; Eosinophils # (auto) 0.08 K/uL (0.00-0.50); Eosinophils % (auto) 1.2 %; Hematocrit (blood only) 38.7 % (37.0-47.0); Hemoglobin 12.6 g/dl (12.0-16.0); Immature Granulocytes # (auto) 0.02 K/uL (0.01-0.20); Immature Granulocytes % (auto) 0.3 %; Lymphocytes # (auto) 1.11 K/uL (1.20-3.40); Lymphocytes % (auto) 16.4 %; Mean Corpuscular Hemoglobin 32.1 pg (25.0-34.0); Mean Corpuscular Hgb Conc 32.6 g/dL (32.0-36.0); Mean Corpuscular Volume 98.5 fL (80.0-100.0); Mean Platelet Volume 11.3 fL (9.4-12.4); Monocytes # (auto) 0.39 K/uL (0.11-0.59); Monocytes % (auto) 5.8 %; Neutrophils # (auto) 5.12 K/uL (1.40-6.50); Neutrophils % (auto) 75.9 %; Platelet Count 173 K/uL (130-400); RDW Coefficient of Variation 11.5 % (11.5-14.5); RDW Standard Deviation 42.1 fL (36.4-46.3); Red Blood Count 3.93 M/uL (4.20-5.40); White Blood Count 6.75 K/ul (4.8-10.8)
[2024-04-28 08:27] LABS: BUN Creatinine Ratio 19.5 (10-20); Calcium 9.4 mg/dl (8.6-10.3); Creatinine Clr Calc Pharmacy 85.7 ml/min; Potassium 3.6 mmol/L (3.5-5.1)
--- NOTE | 2024-04-28 10:39 | Neurology Progress Note ---
Date of Service April 28, 2024 Assessment & Plan (1) Vertigo: (2) H/O: stroke with residual effects: (3) Seizure: (4) Diabetic peripheral neuropathy: Plan Patient has had subacute onset of intermittent vertiginous symptoms which are essentially positional. Given the lack of no nausea of other symptoms, this positional dizziness is likely inner ear in origin. MRI of the brain showed no acute stroke. She does have the old states as before. On examination she does not have any focal neurologic deficits, meningeal signs, or encephalopathy. I do not see any nystagmus and I cannot evoke any symptoms with simple head movements. Since she does not have any new stroke, I do not see a need to push for further evaluation from a neurologic standpoint. 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 She has a PFO (of a very small nature) and a history of a PE. She is MTHFR positive and has hyper homocystinuria. CT angiography of the head and neck were unremarkable, with no vascular stenoses. The patient had seizure-like activity back in June 2023 and has been stable on levetiracetam 1000 mg twice daily. She has had no seizures since Recommendations: 1. Continue clopidogrel 75 mg daily instead of aspirin, for now. 2. Continue levetiracetam 1000 mg twice daily for now. I am not certain she needs to continue on this medication and, as an outpatient, consideration could be given to discontinuing this. 3. Patient technically would be a high-dose statin candidate, but it is reasonable to initiate the low-dose rosuvastatin given her reluctance to take lipid medication. This could always be titrated later. 4. There is no need for additional neurologic imaging 5. Increase activity as able. 6. Follow-up with Dr. Naqvi (or neurology PA) as an outpatient, hopefully in the next 2 to 3 weeks. Overall, I spent a total of 35 minutes with this case including review of records, review of MRI films, direct evaluation the patient at bedside, report generation, and discussion of the case with the patient and, RN at bedside and Dr. Capone including differential diagnosis and treatment options. Admission and Anticipated Discharge Date Admission Date: April 26, 2024 Subjective Overall, the patient is feeling much better and nursing reports no new issues or problems. Occasionally she may have some very mild vertiginous feelings if she turns or moves her head. She has no pain. MRI of the brain showed old infarcts including the right cerebellar hemisphere but no new stroke. I have reviewed these films. CBC and CHEM profile were largely unremarkable. Patient is afebrile with a blood pressure of 120/80. Results & Data Vital Signs (Past 12 Hours) Vital Signs Temp Pulse Pulse Resp BP Pulse Ox O2 Del Method 04/28/24 07:00 36.6 C 72 16 120/80 98 Room Air 04/28/24 03:37 102 H 04/28/24 03:19 36.7 C 58 L 16 122/73 97 Room Air 04/27/24 23:18 36.6 C 65 16 126/79 95 Room Air Exam (Neuro) Physical Exam: She is awake and alert. Speech is without aphasia or dysarthria. Mood and affect seem normal and appropriate. Thought processes are intact conversation Extraocular eye muscles are intact without nystagmus. There is no facial droop. Tongue is midline. Coordination is normal in the arms and strength seems symmetrical in the limbs. There are no abnormal involuntary movements. PG Care Time/CCT Total # of Minutes Spent Total Time Spent with Patient: Total time spent is greater than 50% in coordination of care (as documented) at patient's floor/unit and/or counseling patient: Coding Level of Care Code 26385 SUB INP/OBS CARE 2/35MIN Diagnoses Vertigo R42 H/O: stroke with residual effects I69.30 Seizure R56.9 Diabetic peripheral neuropathy E11.42 Time Spent (min) 35
[2024-04-28 11:03] VITALS: BP 120/76; PULSE 62; RESP 18; TEMP 98.1
--- NOTE | 2024-04-28 12:32 | Discharge Summary ---
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 Balance issues and headaches/dizziness for 2 days. Intermittent, but today symptoms were much worse. Had to call her neice to even helpher get to tthe bathroom. Also more fatigued than normal. No arm of leg weakness. 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 History of NH with PCI. No chest pain recently. No leg swelling or cramping/pain. Chronic numbness/pain with neuropathy, bu tno other pain. No vision change. Chronic L eye hemianopsia. No speech deficits Stoppedeliquis in November. Was treated for 6 months. History of DVT, PE treated with 6 months of eliquis. PFO known, never repaired Takes aspirin, lexapro, lasix, keppra 1g BID (last seizure activity was while hospitalized), rosubastatin, No shortness of breath. Gets short of breath easily going up steps chronically, a littlemore easily fatigued last few days and gets some referred pressure from her hernia but no dyspnea at rest and no hypoxia. No pain with deep breathing. Uses nighttime oxygen. Does have COPD. Was recommended fornighttime o2 due to nighttime hypoxia and apnea, but has not yet had a sleep study. Never took rosuvastatin, concerned it would cause aches similar to other statins. is prescribed this but is afraid of the side effects of this so has not taken it. Medical History: Reviewed Medications: Reviewed. PCN allergy. Surgical History: Reviewed Family history: Reviewed Allergies: Reviewed Social History: Former smoker. No ETOH. Code Status: Full Admission Exam Per Admitting Provider General: A&Ox3. NAD. Cooperative. HEENT: Atraumatic, normocephalic. Left peripheral hemianopsia persists. Pupils are equally reactive to light. Acuity grossly intact. Hearing grossly intact. No facial asymmetry. Pulm: CTAB A&P. -wheezes, -rales, -rhonchi. Symmetrical chest rise. No increased work of breathing. No respiratory distress. Cardiac: RRR, -mrg. Radial pulses intact and symmetrical. Abdominal: Nontender, nondistended, soft. BS present. Extremities: Lower extremities with some neuropathy bilaterally but sensation of soft touch is grossly intact and symmetrical. No calf asymmetry. No lower extremity edema. Ankle dorsiflexion/plantarflexion 5/5 bilaterally. Pediatric Allergist strength, elbow flexion 5/5 bilaterally. No over reach on [id number] testing. This is somewhat limited due to left persistent hemianopsia from prior stroke Principal Diagnosis Vertigo Discharge Exam General: A&Ox3. NAD. Cooperative. HEENT: Atraumatic, normocephalic. Left peripheral hemianopsia persists. Pupils are equally reactive to light. Acuity grossly intact. Hearing grossly intact. No facial asymmetry. Pulm: CTAB. No increased work of breathing. No respiratory distress. Cardiac: RRR, no r/m/g. Abdominal: Nontender, nondistended, soft. Extremities: Lower extremities with some neuropathy bilaterally but sensation of soft touch is grossly intact and symmetrical. No calf asymmetry. No lower extremity edema. Ankle dorsiflexion/plantarflexion 5/5 bilaterally. Pediatric Allergist strength, elbow flexion 5/5 bilaterally. Discharge Data Allergies Allergy/AdvReac Type Severity Reaction Status Date / Time Penicillins Allergy Unknown CAN'T Verified 04/27/24 16:43 REMEMBER [id number] Reductase AdvReac Intermediate Muscle Pain Verified 11/23/23 15:12 Inhibitor STEROIDS AdvReac Severe BLOOD CLOTS Uncoded 04/27/24 16:43 Consultations 04/26/24 17:21 ED Decision to Admit Stat 04/26/24 20:38 Consult Neurology Routine Ordered Studies 04/26/24 14:36 CT angio head w con Stat CT angio neck with con Stat CT head/brain wo con Stat 04/26/24 18:22 US venous doppler LE BI Stat 04/27/24 09:44 CT leg [CT tib/fib LT wo con] Routine 04/27/24 13:26 MRI Brain [MR brain wo con] Routine Hospital Course (1) Cerebellar stroke: (2) Vertigo: Plan Patient is a 58-year-old female with a past medical history of suspected embolic CVA with PFO complicated by subarachnoid hemorrhage, PE, respiratory failure with temporary tracheostomy ultimately transferred to and treated at [facility] May 2023 was hospitalized for 49 days at that time and was discharged to LTAC before eventually progressing home. She presents to the ER with acute severe dizziness of 1 day, and some intermittent symptoms 1 week ago to a much lower severity and was found to have right cerebellar hemisphere stroke. Vertigo Prior cerebellar CVA noted on CT, history of CVA with seizure - Has hx of PFO that was not repaired and had Eliquis discontinued on 02/2024 (was on it for 6-month tx of PE) CThead: No acute intracranial hemorrhage. No mass effect. Subtle 1.1 cm hypodense focus right cerebellar hemisphere new from prior favoring acute to subacute infarct. Several old infarcts are seen Brain MRI without acute changes, so likely CT findings were related to old infarct, especially given her CTA was unremarkable Continue rosuvastatin and Plavix monotherapy after discharge; continue to hold Eliquis after discharge as this was not an acute event Neurology consulted. for more details, please refer to their note. - Would consider referral to cardiothoracic surgeon for evaluation and dis cussion of possible repair of PFO if indicated - PT/OT consulted - okay for discharge back home with home PT - Patient will be discharged today with outpatient follow up with PCP and with Dr. Naqvi (or neurology PA) as an outpatient, hopefully in the next 2 to 3 weeks. Solid mass noted on LLE US No DVT, but did note a 2.8 cm solid mass with internal vascularity Patient refuses MRI due to severe claustrophobia and reports that she needs this done under anesthesia. Declines Valium/anxiolytic with MRI attempt. - CT ordered but still not clear; could consider repeat imaging after a few months to assess for changes in size CAD, history of TRELL to LCx 2021 No acute anginal symptoms Troponin normal on admission History of seizure versus encephalopathy Noted during hospitalization in the setting of a brain bleed. She has not had any seizure since. - Continue levetiracetam 1000mg twice daily Depression/anxiety Lexapro continued Sleep apnea, COPD Is on nocturnal oxygen has not yet have sleep study. - Does have a history of hypercapnic hypercarbic respiratory failure. - Would consider sleep study after discharge. Will discharge back home today. Total Time Total Time Spent Total Time Spent (In Minutes): . Discharge Plan Discharge Items Patient Disposition: Home - Self-Care Reason For Visit: CEREBELLAR CVA Discharge Diagnosis: Vertigo Activity: Per Instructions section Non-emergency contact: Primary Care Provider and Neurologist Call non-emergency contact if: your symptoms worsen and your temperature is above 101 Follow-up/Referrals: Paco Morrison DO [Primary Care Provider] - 05/05/24 3:40 pm (Hospital follow up on May 05 at 3:40 pm.) Diet: Carb Consistent or DM2 Addtl Attending Provider Instructions: You were admitted due to symptoms that were concerning for a stroke. After we repeated your head imaging (MRI) and speaking with our neurologist, we believe that your stroke-like symptoms were more so related to an inner ear problem called Vertigo and NOT a stroke. Therefore, we will be discharging you today with Plavix 75 mg once daily as well as Rosuvastatin, which is a medication to l ower your cholesterol. We advise you to follow up with your primary care provider and your neurologist after discharge for routine follow up. Pending Studies at Discharge: No Stand-Alone Forms: My [facility], Smoking Cessation Medications and DC Order Prescriptions: New clopidogrel 75 mg Tablet 75 mg PO QAM Qty: 30 0RF Continued melatonin 3 mg tablet 6 mg PO HS PRN (Reason: sleep) Qty: 60 0RF furosemide 20 mg tablet 20 mg PO QAM Qty: 90 3RF potassium chloride 20 mEq tablet extended release 20 meq PO DAILY Qty: 90 3RF albuterol sulfate 90 mcg/actuation HFA aerosol inhaler 2 inh inhalation QID PRN (Reason: shortness of breath or wheezing) Qty: 8.5 0RF levetiracetam 1,000 mg tablet 1,000 mg PO BID Qty: 60 5RF pantoprazole 40 mg tablet,delayed release (DR/EC) 40 mg PO DAILY Qty: 90 3RF tiotropium-olodaterol 2.5-2.5 mcg/actuation mist 2 inh inhalation DAILY Qty: 4 0RF Hold Instructions: Home Medication placed on hold at Doctor's office escitalopram oxalate 10 mg tablet 10 mg PO DAILY Qty: 30 6RF aspirin [Adult Aspirin Regimen] 81 mg tablet,delayed release (DR/EC) 81 mg PO DAILY Qty: 90 3RF rosuvastatin 10 mg tablet 10 mg PO DAILY Qty: 30 6RF Discharge Orders: Discharge Order (Routine); Ordered 04/28/24 Ordered By: Henrietta Capone Admission Data Admit Date/Time: 04/26/24 19:27 Attending Provider: Moisés Sanabria Admit Provider: Jesse Mejia Primary Care Provider: Paco Morrison Other Providers: Jesse Mejia; Phoenix Nunez; [facility] Other Interventions: Discharge Summary Assessment (RN) Last Done: 04/28/24 13:58 Supervising Physician Co-Signing Physician Notes Attending attestation Pt seen and examined in concert with Dr. Liborio Mann. In agreement with the documented findings as noted in the resident documentation with any exceptions or additions as noted here. Reports ongoing improvement in presenting symptoms. Overall, patient reports hesitance for procedures which could introduce risk with significant history of CVA and PFO. Disinclined from MRI LLE due to concerns for risk of sedation for non-definitive evaluation (MRI extremity). On examination, S1/S2 nl RRR no MCG. CTAB. Abd NT/ND BS+ve Fatigue and balance changes in the setting of h/o CVA & seizure - neurology consult - continue rosuvastatin and clopidogrel as noted, consider uptitration of rosuvastatin in the outpatient setting. Continue levetiracetam 1000mg twice daily, per neurology can consider discontinuation either at neurology follow up or through primary care with any intolerance or adverse effect. f/u with neurology in 2-3 weeks. Holding restart of apixaban due to h/o hemorrhagic conversion. LLE mass - noted on initial imaginge, deferred by patient due to MRI intolerance. Would recommend repeat CT, likely in 3 months, for stability but would discuss definitive imaging in continuity. Coronary artery disease and inferior NH 02/2022 - tolerating furosemide from cardiology, will continue. Monitor. Else see resident documentation as noted. Total attending physician time spent with this patient's care on the day of katina cardenas: 35 minutes.
--- NOTE | 2024-04-28 12:52 | Electrocardiogram Report ---
Test Reason : Blood Pressure : */* mmHG Vent. Rate : 69 BPM Atrial Rate : 69 BPM P-R Int : 126 ms QRS Dur : 78 ms QT Int : 376 ms P-R-T Axes : 52 53 -37 degrees QTcB Int : 402 ms Normal sinus rhythm Low voltage QRS T wave abnormality, consider inferior ischemia Abnormal ECG When compared with ECG of 04-Jun-2023 12:00, ST now depressed in Anterolateral leads Confirmed by Moisés Soto ([id number]) on 04/28/2024 12:52:27 PM Referred By: REFERRED SELF Confirmed By: Moisés Soto
[2024-04-28] MEDS ORDERED: STROKE PATIENT DISCHARGE STA (13:20)
== END 2024-04-28 14:31 | disposition home health service (06) | DRG 65 ==
LOC: ED 13:16 → SUATTDRO 19:27 → 2S 19:27
DX: E72.11 Homocystinuria; Z88.0 Allergy status to penicillin; G40.89 Other seizures; I63.89 Other cerebral infarction; E11.42 Type 2 diabetes mellitus with diabetic polyneuropathy; F32.A Depression, unspecified; I25.10 Atherosclerotic heart disease of native coronary artery without angina pectoris; E66.9 Obesity, unspecified; Z95.5 Presence of coronary angioplasty implant and graft; I69.398 Other sequelae of cerebral infarction; I11.0 Hypertensive heart disease with heart failure; J44.9 Chronic obstructive pulmonary disease, unspecified; Q21.12 Patent foramen ovale; Z87.891 Personal history of nicotine dependence; I50.9 Heart failure, unspecified; E72.12 Methylenetetrahydrofolate reductase deficiency; F41.9 Anxiety disorder, unspecified; Z79.82 Long term (current) use of aspirin; Z86.711 Personal history of pulmonary embolism; E78.5 Hyperlipidemia, unspecified; I25.2 Old myocardial infarction